=== PATIENT | male | born 1935 | race African-American/Black ===

== ENCOUNTER 2017-06-10 13:54 | Emergency (ER) | payer OTHER ==
[2017-06-10 14:24] VITALS: BP 156/65; PULSE 77; TEMP 98.2; BMI 27.1
--- NOTE | 2017-06-10 14:55 | PDOC ---
History of Present Illness - General Chief Complaint: Pain Stated Complaint: ABD PAIN Time Seen by Provider: 06/10/17 14:36 History Source: Family Exam Limitations: Clinical Condition (aphasic) - History of Present Illness Initial Comments: 06/10/17 15:30 82m with pmh of Asthma, pvd, chf, htn, hld, dm2, cva w/ R hemiplegia, dysphagia , dementia, afib and hypothyroidism sent from [facility] for scrotal mass with pain x3days. 06/10/17 16:20 06/10/17 16:24 Past History - Past Medical History Allergies/Adverse Reactions: Allergies Allergy/AdvReac Type Severity Reaction Status Date / Time No Known Allergies Allergy Verified 06/10/17 14:26 Home Medications: Ambulatory Orders Amlodipine Besylate [Norvasc -] 5 mg PO DAILY 06/10/17 Ascorbic Acid [Vitamin C -] 500 mg PO DAILY 06/10/17 Cholecalciferol (Vitamin D3) [Vitamin D3 -] 1,000 unit PO DAILY 06/10/17 Dabigatran Etexilate Mesylate [Pradaxa -] 150 mg PO BID 06/10/17 Dorzolamide HCl [Trusopt 2%] 1 drop OU BID 06/10/17 Enalapril Maleate [Vasotec] 10 mg PO BID 06/10/17 Ferrous Sulfate 325 mg PO DAILY 06/10/17 Folic Acid 1 mg PO DAILY 06/10/17 Furosemide [Lasix -] 40 mg PO DAILY 06/10/17 Latanoprost 0.005% Eye Drops [Xalatan 0.005% Eye Drops -] 1 drop HS 06/10/17 Levothyroxine [Synthroid -] 75 mcg PO DAILY 06/10/17 Metformin HCl 500 mg PO DAILY 06/10/17 Montelukast Na [Singulair -] 10 mg PO HS 06/10/17 Multivitamin [Poly-Vitamin] 1 each PO DAILY 06/10/17 Omeprazole 20 mg PO DAILY 06/10/17 Potassium Chloride 20 meq PO DAILY 06/10/17 Sulfamethoxazole/Trimethoprim [Bactrim Ds -] 1 tab PO BID #14 tablet 06/10/17 Sulfamethoxazole/Trimethoprim [Bactrim Ds -] 1 tab PO BID #30 tablet 06/10/17 Anemia: Yes Asthma: Yes Cardiac Disorders: Yes (PAD/CHF/A-FIB) CVA: Yes (DYSPHAGIC/APHASIC & RIGHT HEMIPARESIS/HEMIPLEGIC) Diabetes: Yes HTN: Yes Hypercholesterolemia: Yes Thyroid Disease: Yes (HYPO) Other medical history: Glaucoma/OSTOARTHRITIS - Surgical History GI Surgery: Yes ("ENTANGLED INTESTINAL REPAIR") - Immunization History Immunization Up to Date: Yes - Psycho/Social/Smoking Cessation Hx Suicidal Ideation: No Smoking History: Unknown if ever smoked Have you smoked in the past 12 months: No Information on smoking cessation initiated: No Hx Alcohol Use: No Drug/Substance Use Hx: No Substance Use Type: None *Physical Exam - Vital Signs Last Vital Signs Temp Pulse Resp BP Pulse Ox 98.2 F 77 18 156/65 100 06/10/17 14:09 06/10/17 14:09 06/10/17 14:09 06/10/17 14:09 06/10/17 14:09 - Physical Exam General Appearance: Yes: Nourished, Disheveled HEENT: positive: EOMI, DUSTY Neck: negative: Lymphadenopathy (R), Lymphadenopathy (L) Respiratory/Chest: positive: Wheezing (bilaterally) Cardiovascular: positive: Regular Rate, S1, S2 Vascular Pulses: Dorsalis-Pedis (R): 2+, Doralis-Pedis (L): 2+ Gastrointestinal/Abdominal: positive: Decreased BS, Protuberent, Distended. negative: Tender Male Genitalia: positive: testicular mass (Enlarged right testicle with edema. Scrotal sac enlarged and edematous but skin not tense.). negative: discharge, hematuria ED Treatment Course - LABORATORY CBC & Chemistry Diagram: 06/10/17 15:20 06/10/17 15:20 Medical Decision Making - Medical Decision Making 06/10/17 16:24 82m with pmh of Asthma, pvd, chf, htn, hld, dm2, cva w/ R hemiplegia, dysphagia , dementia, afib and hypothyroidism sent from [facility] for scrotal mass with pain x3days. R/o testicular torsion scrotal u/s pending r/o intestinal obstruction abdominal xray pending. 06/10/17 17:49 abdominal xray: Distended bowel loop, volvulus can't be excluded Scrotal u/s: No torsion, Epididymitis noted with b/l hydrocele. Blood Labs ok Urinalysis: +nitrites, 3+leukocyte esterase Pt placed on Bactrim 06/10/17 20:[address] abdomen with contrast for abdominal obstruction: pending 06/10/17 20:56 Since patient on metformin and getting contrast, wait 2 days before resuming metformin 06/10/17 22:44 Ct abdomen showed no evidence of obstruction. Discharge [facility] with course of bactrim *DC/Admit/Observation/Transfer Diagnosis at time of Disposition: Acute epididymitis - Prescriptions Prescriptions: Sulfamethoxazole/Trimethoprim [Bactrim Ds -] 1 tab PO BID #14 tablet - Referrals Referrals: Bryan Oliveira MD [Primary Care Provider] -
--- NOTE | 2017-06-10 15:31 | PDOC ---
Attending Attestation - Resident Resident Name: BenitezJeffrey - ED Attending Attestation I have performed the following: I have examined & evaluated the patient, The case was reviewed & discussed with the resident, I agree w/resident's findings & plan, Exceptions are as noted - HPI HPI: 06/10/17 15:26 82y/o M multiple medical problems including CVA/hemiplegia/aphasia, h/o bowel obstruction sent from [facility] for evaluation of scrotal mass and pain. Noted 3d ago, no other complaints. denies GI complaints of n/v/d/c, no urinary complaints. - Physicial Exam PE: 06/10/17 15:27 VSS soft, distended. ventral and umbilical hernias easily reducible, no tenderness : uncircumsized, no urethral discharge. large and tender R testicle with some irregularity, normal L testicle. no scrotal erythema/edema, no inguinal mass/LAD /hernia. no perineal infection/crepitus - Medical Decision Making 06/10/17 15:29 Patient seen and evaluated with the resident. I agree with the overall evaluation, assessment, and management with the following summary of visit: 82y/o M with R scrotal mass, no evidence of infection/torsion. Distended abdomen at baseline, r/o acute process. AXR scrotal sono dispo accordingly
[2017-06-10 15:48] LABS: BASOPHIL 0.5 % (0-2.0); EOSINOPHIL 1.3 % (0-4.5); MCH 22.6 pg (25.7-33.7); MCHC 31.2 g/dl (32.0-35.9); MEAN CELL VOLUME 72.3 fl (80-96); MEAN PLT VOLUME 9.6 fl (7.5-11.1); NEUTROPHILS 63.6 % (42.8-82.8); PLATELET COUNT 138 K/MM3 (134-434); RDW 14.2 % (11.9-15.9); WHITE BLOOD COUNT 4.8 K/mm3 (4.0-10.0)
[2017-06-10 16:12] LABS: ALBUMIN 3.2 g/dl (3.4-5.0); ANION GAP 9 (8-16); BILIRUBIN,TOTAL 0.3 mg/dL (0.2-1.0); CALCIUM 8.7 mg/dL (8.5-10.1); CO2 27 mmol/L (21-32); CREATININE 0.7 mg/dL (0.7-1.3); GLUCOSE,RANDOM 139 mg/dL (74-106); SGOT/AST 19 U/L (15-37); SGPT/ALT 17 U/L (12-78); TOT PROT 7.4 g/dl (6.4-8.2)
[2017-06-10 16:13] LABS: ALK PHOS 95 U/L (45-117)
[2017-06-10] MEDS ORDERED: SULFAMETHOXAZOLE/TRIMETHOPRIM 800MG/160MG D.S. TABLET PO ONE (18:10)
[2017-06-10 18:26] LABS: URINE APPEARANCE CLEAR; URINE BILIRUBIN NEGATIVE (NEGATIVE); URINE BLOOD NEGATIVE (NEGATIVE); URINE COLOR LTYELLOW; URINE GLUCOSE (UA) NEGATIVE (NEGATIVE); URINE KETONE NEGATIVE (NEGATIVE); URINE NITRITE POSITIVE (NEGATIVE); URINE PROTEIN NEGATIVE (NEGATIVE); URINE UROBILINOGEN NEGATIVE mg/dL (0.2-1.0)
[2017-06-10 18:27] LABS: URINE LEUK ESTERASE 3+ (NEGATIVE)
[2017-06-10] MEDS ORDERED: SULFAMETHOXAZOLE/TRIMETHOPRIM 800MG/160MG D.S. TABLET ONE ×2 (18:31→19:53)
[2017-06-10 19:42] LABS: URINE BACTERIA MODERATE /hpf (NONE SEEN); URINE RBC 1 /hpf (0-3); URINE WBC 29 /hpf (3-5)
[2017-06-10] MEDS ORDERED: SODIUM CHLORIDE 500 ML IV STA (19:47)
--- NOTE | 2017-06-10 22:52 | PDOC ---
*Physical Exam - Vital Signs Last Vital Signs Temp Pulse Resp BP Pulse Ox 98.2 F 77 18 156/65 100 06/10/17 14:09 06/10/17 14:09 06/10/17 14:09 06/10/17 14:09 06/10/17 14:09 ED Treatment Course - LABORATORY CBC & Chemistry Diagram: 06/10/17 15:20 06/10/17 15:20 - ADDITIONAL ORDERS Additional order review: Laboratory Results 06/10/17 06/10/17 18:13 15:20 Sodium 135 L Potassium 4.0 Chloride 99 Carbon Dioxide 27 Anion Gap 9 BUN 11 Creatinine 0.7 Creat Clearance w eGFR > 60 Random Glucose 139 H Calcium 8.7 Total Bilirubin 0.3 AST 19 ALT 17 Alkaline Phosphatase 95 Total Protein 7.4 Albumin 3.2 L Urine Color Ltyellow Urine Appearance Clear Urine pH 6.0 Ur Specific Briscoe 1.010 Urine Protein Negative Urine Glucose (UA) Negative Urine Ketones Negative Urine Blood Negative Urine Nitrite Positive Urine Bilirubin Negative Urine Urobilinogen Negative Ur Leukocyte Esterase 3+ H Urine RBC 1 Urine WBC 29 Urine Bacteria Moderate 06/10/17 15:20 RBC 4.90 MCV 72.3 L MCHC 31.2 L RDW 14.2 MPV 9.6 Neutrophils % 63.6 Lymphocytes % 18.6 Monocytes % 16.0 H Eosinophils % 1.3 Basophils % 0.5 - Medications Given in the ED: ED Medications Discontinued Medications Generic Name Dose Route Start Last Admin Trade Name Freq PRN Reason Stop Dose Admin Sodium Chloride 500 mls @ 500 mls/hr 06/10/17 19:47 06/10/17 20:13 Normal Saline - IV 06/10/17 20:46 500 mls/hr ASDIR STA Administration Trimethoprim/Sulfamethoxazole 1 each 06/10/17 18:10 06/10/17 20:13 Bactrim Ds - PO 06/10/17 18:11 1 each ONCE ONE Administration Medical Decision Making - Medical Decision Making 06/10/17 22:47 ultrasound showed NO TORSION , -heterogeneous testes and epididymides -small b/l hydroceles pt found to have urinary infection and started on antibiotics *DC/Admit/Observation/Transfer Diagnosis at time of Disposition: Acute epididymitis - Prescriptions Prescriptions: Sulfamethoxazole/Trimethoprim [Bactrim Ds -] 1 tab PO BID #30 tablet Sulfamethoxazole/Trimethoprim [Bactrim Ds -] 1 tab PO BID #14 tablet - Referrals Referrals: Bryan Oliveira MD [Primary Care Provider] - - Patient Instructions - Post Discharge Activity
[2017-06-11] MEDS ORDERED: ALBUTEROL SO4 2.5/IPRATROPIUM 0.5 INH SOL 3 ML VIAL.NEB. NEB ONE (00:24)
[2017-06-11] MEDS ORDERED: ALBUTEROL SO4 0.083% IH SOL 2.5 MG/3 ML VIAL.NEB. NEB ONE (00:26)
== END 2017-06-11 00:36 ==
LOC: JER 13:54
PROC: 3E0337Z Introduction of Electrolytic and Water Balance Substance into Peripheral Vein, Percutaneous Approach (ICD-10-PCS; principal; 2017-06-10)
PROC: 3E0F7GC Introduction of Other Therapeutic Substance into Respiratory Tract, Via Natural or Artificial Opening (ICD-10-PCS; 2017-06-10)
DX: N45.1 Epididymitis (principal); N43.2 Other hydrocele; I25.10 Atherosclerotic heart disease of native coronary artery without angina pectoris; I11.0 Hypertensive heart disease with heart failure; I48.91 Unspecified atrial fibrillation; E78.00 Pure hypercholesterolemia, unspecified; J45.909 Unspecified asthma, uncomplicated; E11.9 Type 2 diabetes mellitus without complications; Z79.84 Long term (current) use of oral hypoglycemic drugs; E03.9 Hypothyroidism, unspecified; F03.90 Unspecified dementia, unspecified severity, without behavioral disturbance, psychotic disturbance, mood disturbance, and anxiety; I69.820 Aphasia following other cerebrovascular disease; I69.821 Dysphasia following other cerebrovascular disease; I69.851 Hemiplegia and hemiparesis following other cerebrovascular disease affecting right dominant side
CPT/HCPCS: 36415; 74020-TC; 74177-TC; 76870-TC; 80053; 81003; 81015; 85025; 87086; 87186; 94640; 96360; 99285-25

== ENCOUNTER 2019-03-07 21:21 | Inpatient (IN) | payer OTHER ==
[2019-03-07 21:27] VITALS: BMI 26.6
--- NOTE | 2019-03-07 21:52 | PDOC ---
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 Per the patient's long term, the patient is usually verbally aggressive and was not today which was a changed from baseline. They patient had do not hospitalize on his paperwork, however the family was contacted and his healthcare proxy wished the patient be sent to the hospital for evaluation. Per the patient's healthcare proxy, the patient is to be hospitalized should his work up show a need for hospitalization. The patient is aphasic at baseline and appears at baseline here in the ED. ROS is unobtainable due to patient's aphasia. Past History - Past Medical History Allergies/Adverse Reactions: Allergies Allergy/AdvReac Type Severity Reaction Status Date / Time No Known Allergies Allergy Verified 06/10/17 14:26 Home Medications: Ambulatory Orders Amlodipine Besylate [Norvasc -] 5 mg PO DAILY 06/10/17 Ascorbic Acid [Vitamin C -] 500 mg PO DAILY 06/10/17 Cholecalciferol (Vitamin D3) [Vitamin D3 -] 1,000 unit PO DAILY 06/10/17 Dabigatran Etexilate Mesylate [Pradaxa -] 150 mg PO BID 06/10/17 Dorzolamide HCl [Trusopt 2%] 1 drop OU BID 06/10/17 Enalapril Maleate [Vasotec] 10 mg PO BID 06/10/17 Ferrous Sulfate 325 mg PO DAILY 06/10/17 Folic Acid 1 mg PO DAILY 06/10/17 Furosemide [Lasix -] 40 mg PO DAILY 06/10/17 Latanoprost 0.005% Eye Drops [Xalatan 0.005% Eye Drops -] 1 drop OU HS 06/10/17 Levothyroxine [Synthroid -] 75 mcg PO DAILY 06/10/17 Montelukast Na [Singulair -] 10 mg PO HS 06/10/17 Multivitamin [Poly-Vitamin] 1 each PO DAILY 06/10/17 Omeprazole 20 mg PO DAILY 07/25/17 Potassium Chloride 20 meq PO DAILY 06/10/17 metFORMIN HCL [Metformin HCl] 500 mg PO DAILY 06/10/17 Acetaminophen [Tylenol] 650 mg PO DAILY 03/07/19 Budesonide [Pulmicort 0.5 mg Nebulizer -] 1 neb NEB ONCE 03/07/19 Docusate Sodium [Colace] 100 mg PO DAILY 03/07/19 Ipratropium/Albuterol Sulfate [Iprat-Albut 0.5-3(2.5) mg/3 ml] 3 ml IH DAILY Sennosides [Senna] 17.2 mg PO HS 03/07/19 Silver Sulfadiazine 1% Top Cr [Silvadene -] 1 applic TP DAILY 03/07/19 Anemia: Yes Asthma: Yes Cardiac Disorders: Yes (PAD/CHF/A-FIB) CVA: Yes (DYSPHAGIC/APHASIC & RIGHT HEMIPARESIS/HEMIPLEGIC) COPD: No Diabetes: Yes HTN: Yes Hypercholesterolemia: Yes Thyroid Disease: Yes (HYPO) - Surgical History GI Surgery: Yes ("ENTANGLED INTESTINAL REPAIR") - Immunization History Immunization Up to Date: Yes - Suicide/Smoking/Psychosocial Hx Smoking History: Unknown if ever smoked Have you smoked in the past 12 months: No Hx Alcohol Use: No Drug/Substance Use Hx: No Substance Use Type: None Review of Systems - Review of Systems Able to Perform ROS?: No (Aphasia/ AMS) *Physical Exam - Vital Signs Last Vital Signs Temp Pulse Resp BP Pulse Ox 98.2 F 89 19 151/68 100 03/07/19 21:21 03/07/19 21:21 03/07/19 21:21 03/07/19 21:21 03/07/19 21:21 - Physical Exam Comments: 03/07/19 22:32 General Appearance: Nourished. No Apparent Distress HEENT: EOMI, DUSTY. No Pharyngeal Erythema, Tonsillar Exudate, Tonsillar Erythema Neck: No Cervical Lymphadenopathy Respiratory/Chest: Normal Breath Sounds. Scant wheezing noted on exam. No Crackles, Rales, Rhonchi, Cardiovascular: Regular Rhythm, Regular Rate. No Murmur, Gallops, Rubs Gastrointestinal/Abdominal: Normal Bowel Sounds, Soft. No Guarding, Rebound, Tenderness Musculoskeletal: No CVA Tenderness Extremity: Normal Capillary Refill Integumentary: Normal Color, Dry, Warm Neurologic: assorter II-XII NML intact, Right sided hemiplegia with contractions. 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 Given the patient's history and physical exam, we will obtain a cbc, cmp, troponin, ua, chest plain film, ekg, head ct to evaluate further. We will continue to monitor and reassess while here in the ED. 03/08/19 02:12 CBC is unremarkable. CMP is unremarkable. Troponin is elevated to 0.09. UA demonstrates positive leuk esterase with elevated wbc consistent with UTI. Chest plain film is unremarkable. We will treat the patient with ceftriaxone and he will require obs admission for further management. We discussed the case with the admitting team who accepted the patient for admission. *DC/Admit/Observation/Transfer Diagnosis at time of Disposition: Altered mental status Qualifiers: Altered mental status type: unspecified Qualified Code(s): R41.82 - Altered mental status, unspecified UTI (urinary tract infection) Qualifiers: Urinary tract infection type: site unspecified Hematuria presence: without hematuria Qualified Code(s): N39.0 - Urinary tract infection, site not specified - Discharge Dispostion Condition at time of disposition: Stable Decision to Admit order: Yes - Referrals - Patient Instructions - Post Discharge Activity
[2019-03-07 22:41] LABS: BASO % 0.3 % (0-2.0); EOS % 0.6 % (0-4.5); HEMATOCRIT 32.9 % (35.4-49); HEMOGLOBIN 10.5 GM/dL (11.7-16.9); LYMPH % 29.9 % (8-40); MCH 23.2 pg (25.7-33.7); MCHC 31.9 g/dl (32.0-35.9); MEAN CELL VOLUME 72.7 fl (80-96); MEAN PLT VOLUME 8.6 fl (7.5-11.1); MONO % 12.4 % (3.8-10.2); NEUT % 56.8 % (42.8-82.8); PLATELET COUNT 100 K/MM3 (134-434); RBC 4.52 M/mm3 (4.00-5.60); RDW 15.1 % (11.9-15.9); WHITE BLOOD COUNT 3.1 K/mm3 (4.0-10.0)
[2019-03-07 23:00] LABS: EPI CELLS 0.1 /HPF (0-5/HPF); URINE APPEARANCE CLOUDY; URINE BACTERIA 3225.8 /hpf (NEGATIVE); URINE BILIRUBIN NEGATIVE (NEGATIVE); URINE CASTS 18 /lpf (0-8); URINE COLOR YELLOW; URINE GLUCOSE (UA) NEGATIVE (NEGATIVE); URINE KETONE NEGATIVE (NEGATIVE); URINE LEUK ESTERASE 3+ (NEGATIVE); URINE NITRITE NEGATIVE (NEGATIVE); URINE PROTEIN 1+ (NEGATIVE); URINE RBC 1 /hpf (0-4); URINE UROBILINOGEN 0.2 mg/dL (0.2-1.0); URINE WBC 37 /hpf (0-5)
[2019-03-07 23:05] LABS: ALK PHOS 109 U/L (45-117); ANION GAP 9 MMOL/L (8-16); BILIRUBIN,TOTAL 0.2 mg/dL (0.2-1); BLOOD UREA NITROGEN 14 mg/dL (7-18); CALCIUM 8.2 mg/dL (8.5-10.1); CHLORIDE 101 mmol/L (98-107); CO2 23 mmol/L (21-32); CREATININE 0.7 mg/dL (0.55-1.3); GLUCOSE,RANDOM 145 mg/dL (74-106); POTASSIUM 4.1 mmol/L (3.5-5.1); SGOT/AST 19 U/L (15-37); SGPT/ALT 14 U/L (13-61); SODIUM 133 mmol/L (136-145); TOT PROT 7.2 g/dl (6.4-8.2)
[2019-03-07] MEDS ORDERED: CEFTRIAXONE 1 GM in DEXTROSE 5%-WATER - 100 ML IVPB ONE (23:36)
[2019-03-07] MEDS ORDERED: CEFTRIAXONE 2 GM/100 ML BAG IVPB ONE (23:54)
[2019-03-07 23:55] LABS: ANISOCYTOSIS 2+; MACROCYTOSIS 1+
[2019-03-07 23:56] LABS: PLATELET ESTIMATE DECREASED
[2019-03-07] MEDS ORDERED: cefTRIAXone SODIUM 1 GM VIAL ONE (23:59)
--- NOTE | 2019-03-08 00:08 | PN ---
Teaching Attending Note Name of Resident: Marii Herrera ATTENDING PHYSICIAN STATEMENT I saw and evaluated the patient. I reviewed the resident's note and discussed the case with the resident. I agree with the resident's findings and plan as documented. SUBJECTIVE: Seen and examined; please refer to resident note for further historical documentation. PMH of HTN, HLD, Afib on Pradaxa, CVA w/ residual R-sided deficits/aphasia. He presents with AMS from [facility] and has a limited history due to his baseline dementia (AAOx1 when I saw him). At the [place] he was noted to be off his baseline (normally curses, but has been less quiet) and was noted to have SBP >200. He needed to be straight cathed in the ER to get the urine out. SBP 150s in the ER. He is noted to have mildly elevated troponin and is also noted to have a positive UA. Unknown if any history of prostate issues, etc. He points to his abdomen numerous times during our encounter and it is not clear if he is communicating pain, etc. He is noted to be largely distended; imaging pending. 10 sys ROS done and negative aside from HPI PMH, PSH, FH, SH reviewed Home Medications Medication Instructions Recorded Amlodipine Besylate [Norvasc -] 5 mg PO DAILY 06/10/17 Ascorbic Acid [Vitamin C -] 500 mg PO DAILY 06/10/17 Cholecalciferol (Vitamin D3) 1,000 unit PO DAILY 06/10/17 [Vitamin D3 -] Dabigatran Etexilate Mesylate 150 mg PO BID 06/10/17 [Pradaxa -] Dorzolamide HCl [Trusopt 2%] 1 drop OU BID 06/10/17 Enalapril Maleate [Vasotec] 10 mg PO BID 06/10/17 Ferrous Sulfate 325 mg PO DAILY 06/10/17 Folic Acid 1 mg PO DAILY 06/10/17 Furosemide [Lasix -] 40 mg PO DAILY 06/10/17 Latanoprost 0.005% Eye Drops 1 drop OU HS 06/10/17 [Xalatan 0.005% Eye Drops -] Levothyroxine [Synthroid -] 75 mcg PO DAILY 06/10/17 Montelukast Na [Singulair -] 10 mg PO HS 06/10/17 Multivitamin [Poly-Vitamin] 1 each PO DAILY 06/10/17 Omeprazole 20 mg PO DAILY 06/10/17 Potassium Chloride 20 meq PO DAILY 06/10/17 metFORMIN HCL [Metformin HCl] 500 mg PO DAILY 06/10/17 Acetaminophen [Tylenol] 650 mg PO DAILY 03/07/19 Budesonide [Pulmicort 0.5 mg 1 neb NEB ONCE 03/07/19 Nebulizer -] Docusate Sodium [Colace] 100 mg PO DAILY 03/07/19 Ipratropium/Albuterol Sulfate 3 ml IH DAILY 03/07/19 [Iprat-Albut 0.5-3(2.5) mg/3 ml] Sennosides [Senna] 17.2 mg PO HS 03/07/19 Silver Sulfadiazine 1% Top Cr 1 applic TP DAILY 03/07/19 [Silvadene -] OBJECTIVE: VS, labs, and imaging reviewed NAD, AAOx1, resting in bed confused but interactive responding to verbal and painful stimuli keenly NC AT EOMI PERRLA Normal HR, irregular rhythm, s1/2 heard Lungs with poor respiratory effort, w/ sym exp Vaguely tender, largely distended +BS Aphasia noted; R-sided neglect noted, difficult to do full neuro exam but apparent R>L weakness which based on history is baseline Not agitated, doesn't appear to be in pain ASSESSMENT AND PLAN: Patient presents from [facility] with altered mental status and is found to have UTI and positive troponin 1) AMS -DDx broad, but of course concerning for the obvious cystitis and urinary retention. His BP was documented as being high at the [place] but it was normal here ; AMS can result from a HTN emergency as well. Will treat the aformentioned. Placing him on neuro checks and seizure precautions. Assuming this could be 2/ 2 toxic metabolic encephalopathy as stated but of course if he worsens we will involve neurology, etc. -Followup CT head to r/o any CVA, etc. Would be inclined to involve neuro should this come back positive. 2) Acute Cystitis -Previous cx's reviewed; followup blood and urine cx and place on empiric ceftriaxone, adjusting coverage if needed. He cannot say whether he is symptomatic or not. 3) Acute Urinary Retention -Repeat bladder scan; if recurring issue can place fernández and involve urology. 4) Troponemia -Apparent prior cardiac history based on meds, etc. Working to get old records. Consulting CV. EKG without belem abberant ST-T changes from 2009. Will monitor on telemetry, trend troponin, consult CV, and check echo for any wma's. -Cause could be ACS vs. HTN emergency (though no high pressures here at this juncture I am told he was >200 at the [place]) -Elucidate goals of care 5) Hypertension (? Emergency at [place] but normotensive here) -Verify and continue home meds; if indeed his pressure was >200 (would have resolved spontaneously) this could explain the troponemia, etc. 6) Afib on Pradaxa -Verify and continue home medications; noted on admission EKG 7) GERD hx -Verify and continue home PPI 8) DM -Hold PO antihyperglycemics, SSI while inpatient 9) Glaucoma -Verify and continue home eyedrops 10) ? CHF -No prior echo or cardiology records; will work to obtain history. Consutling CV. Continue home diuresis. Paperwork from [place] states DNR/I; will complete in chart within 24 hours ER verified with family that they did want hospitalization Resident team updating medicine list from [place] records; will verify
--- NOTE | 2019-03-08 00:25 | HP ---
CHIEF COMPLAINT: "AMS" PCP: Dr. 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 As per staff at [facility] and ED staff, pt had AMS at the [facility] today , as he usually curses at people which he was not doing today. According to paperwork, he was also "restless" and had a BP of ~214/62, also leading to his need for further evaluation. During my exam, pt AAOx1 and with severe aphasia, unable to answer questions to the point or follow commands. ROS unable to obtain for this reason. Pt bedbound at baseline, does not ambulate. On [facility] paperwork, states [facility], however ED staff d/w family who wants him to be hospitalized. He is DNR/DNI. Of note, pt had a ucx+ Citrobacter that was resistant to amp, cefuroxime. ER course was notable for: (1) rocephinx 1 (2) CTH prelim: hypodensity in the L occipital lobe representing possible acute/ subacute infarct (3) CTAP prelim: suspected colonic ileus, significant air distension sigmoid colon, small R inguinal hernia with portion of bladder Recent Travel: denies PAST MEDICAL HISTORY: as above PAST SURGICAL HISTORY: unable to obtain d/t pt mental status Social History: as above Smoking: Alcohol: Drugs: Family History: as above Allergies No Known Allergies Allergy (Verified 06/10/17 14:26) HOME MEDICATIONS: Home Medications Medication Instructions Recorded Amlodipine Besylate [Norvasc -] 5 mg PO DAILY 06/10/17 Ascorbic Acid [Vitamin C -] 500 mg PO DAILY 06/10/17 Cholecalciferol (Vitamin D3) 1,000 unit PO DAILY 06/10/17 [Vitamin D3 -] Dabigatran Etexilate Mesylate 150 mg PO BID 06/10/17 [Pradaxa -] Dorzolamide HCl [Trusopt 2%] 1 drop OU BID 06/10/17 Enalapril Maleate [Vasotec] 10 mg PO BID 06/10/17 Ferrous Sulfate 325 mg PO DAILY 06/10/17 Folic Acid 1 mg PO DAILY 06/10/17 Furosemide [Lasix -] 40 mg PO DAILY 06/10/17 Latanoprost 0.005% Eye Drops 1 drop OU HS 06/10/17 [Xalatan 0.005% Eye Drops -] Levothyroxine [Synthroid -] 75 mcg PO DAILY 06/10/17 Montelukast Na [Singulair -] 10 mg PO HS 06/10/17 Multivitamin [Poly-Vitamin] 1 each PO DAILY 06/10/17 Omeprazole 20 mg PO DAILY 06/10/17 Potassium Chloride 20 meq PO DAILY 06/10/17 metFORMIN HCL [Metformin HCl] 500 mg PO DAILY 06/10/17 Acetaminophen [Tylenol] 650 mg PO DAILY 03/07/19 Budesonide [Pulmicort 0.5 mg 1 neb NEB ONCE 03/07/19 Nebulizer -] Docusate Sodium [Colace] 100 mg PO DAILY 03/07/19 Ipratropium/Albuterol Sulfate 3 ml IH DAILY 03/07/19 [Iprat-Albut 0.5-3(2.5) mg/3 ml] Sennosides [Senna] 17.2 mg PO HS 03/07/19 Silver Sulfadiazine 1% Top Cr 1 applic TP DAILY 03/07/19 [Silvadene -] meds have been verified with paperwork. REVIEW OF SYSTEMS CONSTITUTIONAL: +AMS Absent: fever, chills, diaphoresis, generalized weakness, malaise, loss of appetite, weight change HEENT: Absent: rhinorrhea, nasal congestion, throat pain, throat swelling, difficulty swallowing, mouth swelling, ear pain, eye pain, visual changes CARDIOVASCULAR: Absent: chest pain, syncope, palpitations, irregular heart rate, lightheadedness , peripheral edema RESPIRATORY: Absent: cough, shortness of breath, dyspnea with exertion, orthopnea, wheezing, stridor, hemoptysis GASTROINTESTINAL: Absent: abdominal pain, abdominal distension, nausea, vomiting, diarrhea, constipation, melena, hematochezia GENITOURINARY: Absent: dysuria, frequency, urgency, hesitancy, hematuria, flank pain, genital pain MUSCULOSKELETAL: Absent: myalgia, arthralgia, joint swelling, back pain, neck pain SKIN: Absent: rash, itching, pallor HEMATOLOGIC/IMMUNOLOGIC: Absent: easy bleeding, easy bruising, lymphadenopathy, frequent infections ENDOCRINE: Absent: unexplained weight gain, unexplained weight loss, heat intolerance, cold intolerance NEUROLOGIC: +baseline aphasia Absent: headache, focal weakness or paresthesias, dizziness, unsteady gait, seizure, mental status changes, bladder or bowel incontinence PSYCHIATRIC: Absent: anxiety, depression, suicidal or homicidal ideation, hallucinations. PHYSICAL EXAMINATION Vital Signs - 24 hr 03/07/19 21:21 Temperature 98.2 F Pulse Rate 89 Respiratory 19 Rate Blood Pressure 151/68 O2 Sat by Pulse 100 Oximetry (%) GENERAL: AAOx1 (to self). Resting comfortably. Smiling HEAD: Normal with no signs of trauma. EYES: Pupils equal, round and reactive to light, extraocular movements intact, sclera anicteric, conjunctiva clear. No lid lag. EARS, NOSE, THROAT: Ears normal, nares patent, oropharynx clear without exudates. +Poor dentition NECK: Normal range of motion, supple LUNGS: Breath sounds equal, clear to auscultation bilaterally. No wheezes, and no crackles. No accessory muscle use. HEART: +irreg irreg rate and rhythm, normal S1 and S2 without murmur, rub or gallop. ABDOMEN: Soft, +distended, normoactive bowel sounds, no guarding, no rebound, no masses. UPPER EXTREMITIES: +contracted R arm LOWER EXTREMITIES: 2+ pt pulses, warm, well-perfused. 1+ pitting edema b/l NEUROLOGICAL: station superintendent 2-12 appear to be intact. however w baseline aphasia and residual R sided weakness. would not participate in full neuro exam. PSYCHIATRIC: Cooperative. Laboratory Results - last 24 hr 03/07/19 03/07/19 03/07/19 22:33 22:33 22:48 WBC 3.1 L RBC 4.52 Hgb 10.5 L Hct 32.9 L MCV 72.7 L MCH 23.2 L MCHC 31.9 L RDW 15.1 Plt Count 100 L D MPV 8.6 D Absolute Neuts (auto) 1.8 Neutrophils % 56.8 Neutrophils % (Manual) 56.0 Lymphocytes % 29.9 D Lymphocytes % (Manual) 32.0 Monocytes % 12.4 H Monocytes % (Manual) 10 Eosinophils % 0.6 Basophils % 0.3 Nucleated RBC % 0 Metamyelocytes 2 Hypochromia 1+ Platelet Estimate Decreased Platelet Comment No clumping noted Anisocytosis 2+ Microcytosis 1+ Macrocytosis 1+ Sodium 133 L Potassium 4.1 Chloride 101 Carbon Dioxide 23 Anion Gap 9 BUN 14 Creatinine 0.7 Creat Clearance w eGFR 107.70 Random Glucose 145 H Calcium 8.2 L Total Bilirubin 0.2 AST 19 ALT 14 Alkaline Phosphatase 109 Creatine Kinase 416 H Creatine Kinase Index 0.9 CK-MB (CK-2) 3.8 H Troponin I 0.09 H Total Protein 7.2 Albumin 3.0 L Urine Color Yellow Urine Appearance Cloudy Urine pH 5.0 Ur Specific [place]ola 1.014 Urine Protein 1+ H Urine Glucose (UA) Negative Urine Ketones Negative Urine Blood 1+ H Urine Nitrite Negative Urine Bilirubin Negative Urine Urobilinogen 0.2 Ur Leukocyte Esterase 3+ H Urine WBC (Auto) 37 Urine RBC (Auto) 1 Urine Casts (Auto) 18 U Epithel Cells (Auto) 0.1 Urine Bacteria (Auto) 3225.8 CTH prelim: hypodensity in the L occipital lobe representing possible acute/ subacute infarct. however follow official read. EKG: +L axis dev, afib with PVCs. without acute st-t wave changes compared to previously CTAP prelim: suspected colonic ileus, significant air distension sigmoid colon, small R inguinal hernia with portion of bladder. L renal scarring and atrophy with a 10mm proximal to mid L ureteral stone but no hydronephrosis. Additional left renal parenchymal stones. 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 #AMS 2/2 UTI -s/p rocephin x 1 in ED -will c/w rocephin -f/u ucx, blood cx -bladder scan to check for retention. with abd distension. can cause stasis -f/u CTH to check for alternate acute etiology. -neuro checks, sz precautions 2/2 Acute CVA -as seen on prelim CTH in L occipital lobe rep possible acute/subacute infarct -will order brain MRI -started on asa, statin -neuro consult: Dr. Solis #Tropinemia likely 2/2 demand from UTI -may also be 2/2 HTN urgency from NH -first trop 0.09. will c/t trend -serial EKG to check if changes evolving -d/t pt aphasia, difficult to ascertain whether pt with active chest pain -cardio consult: Dr. Doll -tele monitoring. need to find out pt's cardio and obtain files #Abdom distension -with colonic ileus, small R inguinal hernia with portion of bladder -sx consult: Dr. Casiano #10mm prox to mid L ureteral stone -without evidence of L hydro -will order fernández -uro consult: Dr. Curtis #Thrombocytopenia -has had chronically. last was in 130's -f/u hep C, HIV #afib (on pradaxa) -c/w pradaxa #HTN-uncontrolled -c/w amlodipine, enalapril #?CHF -without record of, however on lasix -c/w lasix for now -f/u ECHO #DM -ISS, BGM ACHS -hold metformin #COPD -c/w singulair, 02 as needed. sat well in 90s on 2L -duonebs PRN #code status as per paperwork, DNR/DNI. also states [facility] however ED staff contacted family who approved hospitalization #F/E/N no IVF at this time, need to evaluate ECHO first continue to follow lytes NPO. speech and swallow consult #PPX on pradaxa #Dispo tele-obs Visit type - Emergency Visit Emergency Visit: Yes ED Registration Date: 03/07/19 Care time: The patient presented to the Emergency Department on the above date and was hospitalized for further evaluation of their emergent condition. - New Patient This patient is new to me today: Yes Date on this admission: 03/08/19 - Critical Care Critical Care patient: No
[2019-03-08] MEDS ORDERED: BUDESONIDE 0.5 MG/2 ML INH SUSP VIAL NEB SCH (00:30)
--- NOTE | 2019-03-08 01:59 | PDOC ---
Documentation entered by Fatuma Thomas SCRIBE, acting as scribe for Joselin Mensah MD. Joselin Mensah MD: This documentation has been prepared by the William bello Nirvannie, SCRIBE, under my direction and personally reviewed by me in its entirety. I confirm that the documentation accurately reflects all work, treatment, procedures, and medical decision making performed by me. Attending Attestation - Resident Resident Name: Aram Islas - ED Attending Attestation I have performed the following: I have examined & evaluated the patient, The case was reviewed & discussed with the resident, I agree w/resident's findings & plan - HPI HPI: 03/07/19 22:17 83-year-old male brought in by ambulance from long term for altered mental status. Apparently they said he is always aggitated and swearing and now he is not aggressive skilled nursing papers code status is DO NOT HOSPITALIZE - Physicial Exam PE: 03/07/19 22:19 83 yo male p/w stable vital signs He is afebrile, normotensive and pulse ox that is normal head ncat neck supple lungs scant exp wheeze cvs irrg ,irreg abd distended, reducible umbilical hernia extremities rt leg is swollen w pedal edema, left leg has no edema skin warm and dry neuro alert,aphasic and rt arm contracted(this is his baseline) psych calm,not agitated - Medical Decision Making 03/07/19 22:32 Call placed to pt's brother Mr. Bryson Velasco, made aware despite Do Not Hospitalize order to hospitalize if necessary. 03/08/19 00:16 Family states they want pt admitted for IV antibiotics imp UTI,chronic AFIB, old cva w rt sided arm contrature,aphasia(baseline) 03/08/19 01:19
[2019-03-08] MEDS: ASPIRIN 81 MG CHEWABLE TABLETS PO SCH ×2 (03:41→12:29)
[2019-03-08] MEDS: ATORVASTATIN CA 40 MG TABLET (FP) PO SCH (03:56)
[2019-03-08] MEDS ORDERED: LEVOTHYROXINE NA 25 MCG TABLET (FP) ONE (06:44)
[2019-03-08] MEDS: INSULIN SLIDING SCALE (NOVOLOG) 1 VIAL SQ SCH ×3 (07:09→17:59)
[2019-03-08] MEDS: LEVOTHYROXINE NA 75 MCG TABLET (FP) PO SCH (07:10)
--- NOTE | 2019-03-08 08:59 | CON.CARD ---
Consult Consult Specialty:: Cardiology Reason for Consultation:: Afib, demand ischemia - History of Present Illness Chief Complaint: Altered mental status History of Present Illness: 83 yo NHR h/o HTN, HLD, Afib on Pradaxa, CVA w/ residual R-sided deficits/ aphasia, hypothyroidism presented with AMS from [facility] and has a limited history due to his baseline dementia (AAOx1 when I saw him). At the [place] he was noted to be off his baseline (normally curses, but has been less quiet) and was noted to have SBP >200. He needed to be straight cathed in the ER to get the urine out. SBP 150s in the ER. He is noted to have mildly elevated troponin and is also noted to have a positive UA. Unknown if any history of prostate issues, etc, abdomen appears distended. - History Source History Provided By: Medical Record Limitations to Obtaining History: Dementia - Alcohol/Substance Use Hx Alcohol Use: No - Smoking History Smoking history: Unknown if ever smoked Have you smoked in the past 12 months: No Home Medications - Allergies Allergies/Adverse Reactions: Allergies Allergy/AdvReac Type Severity Reaction Status Date / Time No Known Allergies Allergy Verified 06/10/17 14:26 - Home Medications Home Medications: Ambulatory Orders Amlodipine Besylate [Norvasc -] 5 mg PO DAILY 06/10/17 Ascorbic Acid [Vitamin C -] 500 mg PO DAILY 06/10/17 Cholecalciferol (Vitamin D3) [Vitamin D3 -] 1,000 unit PO DAILY 06/10/17 Dabigatran Etexilate Mesylate [Pradaxa -] 150 mg PO BID 06/10/17 Dorzolamide HCl [Trusopt 2%] 1 drop OU BID 06/10/17 Enalapril Maleate [Vasotec] 10 mg PO BID 06/10/17 Ferrous Sulfate 325 mg PO DAILY 06/10/17 Folic Acid 1 mg PO DAILY 06/10/17 Furosemide [Lasix -] 40 mg PO DAILY 06/10/17 Latanoprost 0.005% Eye Drops [Xalatan 0.005% Eye Drops -] 1 drop OU HS 06/10/17 Levothyroxine [Synthroid -] 75 mcg PO DAILY 06/10/17 Montelukast Na [Singulair -] 10 mg PO HS 06/10/17 Multivitamin [Poly-Vitamin] 1 each PO DAILY 06/10/17 Omeprazole 20 mg PO DAILY 06/10/17 Potassium Chloride 20 meq PO DAILY 06/10/17 metFORMIN HCL [Metformin HCl] 500 mg PO DAILY 06/10/17 Acetaminophen [Tylenol] 650 mg PO DAILY 03/07/19 Budesonide [Pulmicort 0.5 mg Nebulizer -] 1 neb NEB ONCE 03/07/19 Docusate Sodium [Colace] 100 mg PO DAILY 03/07/19 Ipratropium/Albuterol Sulfate [Iprat-Albut 0.5-3(2.5) mg/3 ml] 3 ml IH DAILY Sennosides [Senna] 17.2 mg PO HS 03/07/19 Silver Sulfadiazine 1% Top Cr [Silvadene -] 1 applic TP DAILY 03/07/19 Review of Systems Unable to obtain ROS, reason: Dementia Vital Signs: Vital Signs Temperature 97.6 F 03/08/19 06:00 Pulse Rate 105 H 03/08/19 06:00 Respiratory Rate 18 03/08/19 06:00 Blood Pressure 119/71 03/08/19 06:00 O2 Sat by Pulse Oximetry (%) 99 03/08/19 06:00 Constitutional: Yes: No Distress, Calm, Thin Neck: Yes: Supple Respiratory: Yes: Regular, Diminished Gastrointestinal: Yes: Distention Renal/: Yes: Love Present Cardiovascular: Yes: Pulse Irregular JVD: No Carotid Bruit: No Heart Sounds: Yes: S1, S2 Murmur: Yes: Systolic Murmur, Grade 1 Edema: No - Other Data Labs, Other Data: CBC, BMP 03/07/19 22:33 03/07/19 22:33 Troponin, BNP 03/07/19 03/08/19 22:33 06:10 Troponin I 0.09 H 0.13 H Troponin, BNP 03/07/19 03/08/19 22:33 06:10 Troponin I 0.09 H 0.13 H EKG: +L axis dev, afib with PVCs. without acute st-t wave changes compared to previously Imaging - Results Chest X-ray: Report Reviewed (Left middle and upper lung infiltrate vs ATX) Cat Scan: Report Reviewed (CTH prelim: hypodensity in the L occipital lobe representing possible acute/subacute infarct. however follow official read. CTAP prelim: suspected colonic ileus, significant air distension sigmoid colon, small R inguinal hernia with portion of bladder. L renal scarring and atrophy with a 10mm proximal to mid L ureteral stone but no hydronephrosis. Additional left renal parenchymal stones. +infrarenal IVC filter noted) Problem List - Problems (1) Persistent atrial fibrillation Code(s): I48.1 - PERSISTENT ATRIAL FIBRILLATION (2) Toxic metabolic encephalopathy Code(s): G92 - TOXIC ENCEPHALOPATHY (3) Hypertensive cardiomyopathy Code(s): I11.9 - HYPERTENSIVE HEART DISEASE WITHOUT HEART FAILURE; I43 - CARDIOMYOPATHY IN DISEASES CLASSIFIED ELSEWHERE Qualifiers: Heart failure presence: without heart failure Qualified Code(s): I11.9 - Hypertensive heart disease without heart failure; I43 - Cardiomyopathy in diseases classified elsewhere (4) Chronic anticoagulation Code(s): Z79.01 - FDC (CURRENT) USE OF ANTICOAGULANTS (5) H/O: stroke with residual effects Code(s): I69.30 - UNSPECIFIED SEQUELAE OF CEREBRAL INFARCTION (6) Altered mental status Code(s): R41.82 - ALTERED MENTAL STATUS, UNSPECIFIED Qualifiers: Altered mental status type: somnolence Qualified Code(s): R40.0 - Somnolence (7) UTI (urinary tract infection) Code(s): N39.0 - URINARY TRACT INFECTION, SITE NOT SPECIFIED Qualifiers: Urinary tract infection type: site unspecified Hematuria presence: without hematuria Qualified Code(s): N39.0 - Urinary tract infection, site not specified (8) Type 2 diabetes mellitus Code(s): E11.9 - TYPE 2 DIABETES MELLITUS WITHOUT COMPLICATIONS Qualifiers: Diabetes mellitus longterm insulin use: without longterm use (9) Demand ischemia Code(s): I24.8 - OTHER FORMS OF ACUTE ISCHEMIC HEART DISEASE (10) Hypothyroidism Code(s): E03.9 - HYPOTHYROIDISM, UNSPECIFIED Qualifiers: Hypothyroidism type: unspecified Qualified Code(s): E03.9 - Hypothyroidism , unspecified (11) Adynamic ileus Code(s): K56.0 - PARALYTIC ILEUS Assessment/Plan 1. Altered mental status with underlying dementia referable to toxic metabolic encephalopathy 2. UTI, acute cystitis with urinary retention 3. Recurrent stroke with previous h/o stroke and residual deficits Demand ischemia 4. HTN urgency 5. Persistent afib on Pradaxa 6. 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 Type 2 DM 8. Glaucoma 9. Diastolic dysfunction 10. Hypothyroidism 11. COPD P:1. Trend trops to document peak, check TSH, lipid panel and Ha1c, f/u formal CT scan reports, brain MRI, carotid US 2. Continue Norvasc 5 qd, Pradaxa 150 bid, vasotec 10 bid, Lasix 40 qd 3. Echocardiogram to assess ventricular and valve fxn 4. Empiric abx course pending C&S 5. GI input for rectal tube decompression 6. Thank you for consultative opportunity
--- NOTE | 2019-03-08 09:27 | CONSULT ---
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 As per staff at [facility] and ED staff, pt had AMS at the MD, as he usually curses at people which he was not doing on day of admission per notes. According to paperwork, he was also "restless" and had a BP of ~214/62, also leading to his need for further evaluation. During my exam, pt AAOx1 and with severe aphasia, unable to answer questions to the point or follow commands. ROS unable to obtain for this reason. Pt bedbound at baseline, does not ambulate. Of note, pt had a ucx+ Citrobacter that was resistant to amp, cefuroxime. Per notes, patient admitted and on CT head found to have hypodensity in the L occipital lobe representing possible acute/subacute infarct. Of note, he is already on pradaxa. MRI brain ordered, added carotid doppler to work up. Echo already ordered. Added Lipid profile to workup Patient currently in ER. Recent Travel: denies PAST MEDICAL HISTORY: as above PAST SURGICAL HISTORY: unable to obtain d/t pt mental status Social History: as above Smoking: Alcohol: Drugs: Family History: HTN Allergies No Known Allergies Allergy (Verified 06/10/17 14:26) HOME MEDICATIONS: Home Medications Medication Instructions Recorded Amlodipine Besylate [Norvasc -] 5 mg PO DAILY 06/10/17 Ascorbic Acid [Vitamin C -] 500 mg PO DAILY 06/10/17 Cholecalciferol (Vitamin D3) 1,000 unit PO DAILY 06/10/17 [Vitamin D3 -] Dabigatran Etexilate Mesylate 150 mg PO BID 06/10/17 [Pradaxa -] Dorzolamide HCl [Trusopt 2%] 1 drop OU BID 06/10/17 Enalapril Maleate [Vasotec] 10 mg PO BID 06/10/17 Ferrous Sulfate 325 mg PO DAILY 06/10/17 Folic Acid 1 mg PO DAILY 06/10/17 Furosemide [Lasix -] 40 mg PO DAILY 06/10/17 Latanoprost 0.005% Eye Drops 1 drop OU HS 06/10/17 [Xalatan 0.005% Eye Drops -] Levothyroxine [Synthroid -] 75 mcg PO DAILY 06/10/17 Montelukast Na [Singulair -] 10 mg PO HS 06/10/17 Multivitamin [Poly-Vitamin] 1 each PO DAILY 06/10/17 Omeprazole 20 mg PO DAILY 06/10/17 Potassium Chloride 20 meq PO DAILY 06/10/17 metFORMIN HCL [Metformin HCl] 500 mg PO DAILY 06/10/17 Acetaminophen [Tylenol] 650 mg PO DAILY 03/07/19 Budesonide [Pulmicort 0.5 mg 1 neb NEB ONCE 03/07/19 Nebulizer -] Docusate Sodium [Colace] 100 mg PO DAILY 03/07/19 Ipratropium/Albuterol Sulfate 3 ml IH DAILY 03/07/19 [Iprat-Albut 0.5-3(2.5) mg/3 ml] Sennosides [Senna] 17.2 mg PO HS 03/07/19 Silver Sulfadiazine 1% Top Cr 1 applic TP DAILY 03/07/19 [Silvadene -] meds have been verified with paperwork. REVIEW OF SYSTEMS CONSTITUTIONAL: +AMS Absent: fever, chills, diaphoresis, generalized weakness, malaise, loss of appetite, weight change HEENT: Absent: rhinorrhea, nasal congestion, throat pain, throat swelling, difficulty swallowing, mouth swelling, ear pain, eye pain, visual changes CARDIOVASCULAR: Absent: chest pain, syncope, palpitations, irregular heart rate, lightheadedness , peripheral edema RESPIRATORY: Absent: cough, shortness of breath, dyspnea with exertion, orthopnea, wheezing, stridor, hemoptysis GASTROINTESTINAL: Absent: abdominal pain, abdominal distension, nausea, vomiting, diarrhea, constipation, melena, hematochezia GENITOURINARY: Absent: dysuria, frequency, urgency, hesitancy, hematuria, flank pain, genital pain MUSCULOSKELETAL: Absent: myalgia, arthralgia, joint swelling, back pain, neck pain SKIN: Absent: rash, itching, pallor HEMATOLOGIC/IMMUNOLOGIC: Absent: easy bleeding, easy bruising, lymphadenopathy, frequent infections ENDOCRINE: Absent: unexplained weight gain, unexplained weight loss, heat intolerance, cold intolerance NEUROLOGIC: +baseline aphasia Absent: headache, focal weakness or paresthesias, dizziness, unsteady gait, seizure, mental status changes, bladder or bowel incontinence PSYCHIATRIC: Absent: anxiety, depression, suicidal or homicidal ideation, hallucinations. PHYSICAL EXAMINATION Vital Signs Period Temp Pulse Resp BP Sys/Oates Pulse Ox Last 24 Hr 97.6 F-98.2 F 84-105 18-19 119-151/68-112 99-100 GENERAL: AAOx1 (to self). Resting comfortably. Smiling HEAD: Normal with no signs of trauma. EYES: Pupils equal, round and reactive to light, extraocular movements intact, sclera anicteric, conjunctiva clear. No lid lag. EARS, NOSE, THROAT: Ears normal, nares patent, oropharynx clear without exudates. +Poor dentition NECK: Normal range of motion, supple LUNGS: Breath sounds equal, clear to auscultation bilaterally. No wheezes, and no crackles. No accessory muscle use. HEART: +irreg irreg rate and rhythm, normal S1 and S2 without murmur, rub or gallop. ABDOMEN: Soft, +distended, normoactive bowel sounds, no guarding, no rebound, no masses. UPPER EXTREMITIES: +contracted R arm LOWER EXTREMITIES: 2+ pt pulses, warm, well-perfused. 1+ pitting edema b/l NEUROLOGICAL: golf shoe spike assembler 2-12 appear to be intact. however w baseline aphasia and residual R sided weakness. would not participate in full neuro exam. PSYCHIATRIC: Cooperative. Laboratory Results - last 24 hr 03/07/19 03/07/19 03/07/19 22:33 22:33 22:48 WBC 3.1 L RBC 4.52 Hgb 10.5 L Hct 32.9 L MCV 72.7 L MCH 23.2 L MCHC 31.9 L RDW 15.1 Plt Count 100 L D MPV 8.6 D Absolute Neuts (auto) 1.8 Neutrophils % 56.8 Neutrophils % (Manual) 56.0 Lymphocytes % 29.9 D Lymphocytes % (Manual) 32.0 Monocytes % 12.4 H Monocytes % (Manual) 10 Eosinophils % 0.6 Basophils % 0.3 Nucleated RBC % 0 Metamyelocytes 2 Hypochromia 1+ Platelet Estimate Decreased Platelet Comment No clumping noted Anisocytosis 2+ Microcytosis 1+ Macrocytosis 1+ Sodium 133 L Potassium 4.1 Chloride 101 Carbon Dioxide 23 Anion Gap 9 BUN 14 Creatinine 0.7 Creat Clearance w eGFR 107.70 Random Glucose 145 H Calcium 8.2 L Total Bilirubin 0.2 AST 19 ALT 14 Alkaline Phosphatase 109 Creatine Kinase 416 H Creatine Kinase Index 0.9 CK-MB (CK-2) 3.8 H Troponin I 0.09 H Total Protein 7.2 Albumin 3.0 L Urine Color Yellow Urine Appearance Cloudy Urine pH 5.0 Ur Specific [place] 1.014 Urine Protein 1+ H Urine Glucose (UA) Negative Urine Ketones Negative Urine Blood 1+ H Urine Nitrite Negative Urine Bilirubin Negative Urine Urobilinogen 0.2 Ur Leukocyte Esterase 3+ H Urine WBC (Auto) 37 Urine RBC (Auto) 1 Urine Casts (Auto) 18 U Epithel Cells (Auto) 0.1 Urine Bacteria (Auto) 3225.8 CTH prelim: hypodensity in the L occipital lobe representing possible acute/ subacute infarct. however follow official read. EKG: +L axis dev, afib with PVCs. without acute st-t wave changes compared to previously CTAP prelim: suspected colonic ileus, significant air distension sigmoid colon, small R inguinal hernia with portion of bladder. L renal scarring and atrophy with a 10mm proximal to mid L ureteral stone but no hydronephrosis. Additional left renal parenchymal stones. +infrarenal IVC filter noted ASSESSMENT/PLAN: 83 y/o M with hx HTN, HLD, DM, CAD, afib (on pradaxa), CVA (with aphasia at baseline, R residual hemiplegia), COPD, who presents to the ED with "AMS" as per [facility]. As per staff at [facility] and ED staff, pt had AMS at the MD, as he usually curses at people which he was not doing on day of admission per notes. According to paperwork, he was also "restless" and had a BP of ~214/62, also leading to his need for further evaluation. During my exam, pt AAOx1 and with severe aphasia, unable to answer questions to the point or follow commands. ROS unable to obtain for this reason. Pt bedbound at baseline, does not ambulate. Of note, pt had a ucx+ Citrobacter that was resistant to amp, cefuroxime. Per notes, patient admitted and on CT head found to have hypodensity in the L occipital lobe representing possible acute/subacute infarct. Of note, he is already on pradaxa. MRI brain ordered, added carotid doppler to work up. Echo already ordered. Added Lipid profile to workup. Continue infectious mgmt, IV Abx as needed. Will start patient on Statin. Follow up imaging results. PT/OT as tolerated. Monitor blood pressure, avoid rapid decline, can allow reduction to 180's/100's for now, 160's/90's in 12 hrs. Tele monitoring for Afib, cardiology consult. Monitor DM, maintain normal glycemic range.
--- NOTE | 2019-03-08 09:49 | EKG ---
Test Reason : Blood Pressure : / mmHG Vent. Rate : 089 BPM Atrial Rate : 100 BPM P-R Int : 000 ms QRS Dur : 150 ms QT Int : 412 ms P-R-T Axes : 000 -55 081 degrees QTc Int : 501 ms ATRIAL FIBRILLATION LEFT AXIS DEVIATION NON-SPECIFIC INTRA-VENTRICULAR CONDUCTION BLOCK ABNORMAL ECG WHEN COMPARED WITH ECG OF 25-AUG-2010 10:11, VENT. RATE HAS INCREASED BY 38 BPM QRS DURATION HAS INCREASED Confirmed by ISHAN CATALAN, LISA ([id number]) on 03/08/2019 9:48:46 AM Referred By: Confirmed By:LISA OLMSTEAD MD
--- NOTE | 2019-03-08 09:52 | EKG ---
Test Reason : Blood Pressure : / mmHG Vent. Rate : 078 BPM Atrial Rate : 108 BPM P-R Int : 000 ms QRS Dur : 154 ms QT Int : 430 ms P-R-T Axes : 000 -64 068 degrees QTc Int : 490 ms ATRIAL FIBRILLATION WITH PREMATURE VENTRICULAR OR ABERRANTLY CONDUCTED COMPLEXES LEFT AXIS DEVIATION NON-SPECIFIC INTRA-VENTRICULAR CONDUCTION BLOCK POSSIBLE LATERAL INFARCT (CITED ON OR BEFORE 25-AUG-2010) ABNORMAL ECG WHEN COMPARED WITH ECG OF 25-AUG-2010 10:11, VENT. RATE HAS INCREASED BY 27 BPM QUESTIONABLE CHANGE IN QRS DURATION QUESTIONABLE CHANGE IN INITIAL FORCES OF LATERAL LEADS Confirmed by LISA OLMSTEAD MD ([id number]) on 03/08/2019 9:51:50 AM Referred By: Confirmed By:LISA OLMSTEAD MD
[2019-03-08] MEDS ORDERED: ALBUTEROL SO4 2.5/IPRATROPIUM 0.5 INH SOL 3 ML VIAL.NEB. NEB SCH ×2 (10:00)
[2019-03-08] MEDS ORDERED: FUROSEMIDE 40 MG TABLET (FP) PO SCH (10:00)
--- NOTE | 2019-03-08 10:12 | CONSULT ---
- Consultation REQUESTING PROVIDER: Carlos Herrera MD CONSULT REQUEST: We have been asked to surgically evaluate this patient for abnormal imaging findings. PCP:Gray Ramos HISTORY OF PRESENT ILLNESS: 83 y/o male xferred from SNF for evaluation of change in mental status was noted to have a distended abdomen and CT scan of the a/p was done and # abnormalities were found prompting a request for a general Surgery Consultation; patient has # co-morbid conditions and has a h/o a CVA w/aphasia; the rst of the hx. is as per the other chart documentation. PMHx: htn/thyroid disease/CAD/COPD PSHx: ? sigmoid colon resection ? Home Medications Medication Instructions Recorded Amlodipine Besylate [Norvasc -] 5 mg PO DAILY 06/10/17 Ascorbic Acid [Vitamin C -] 500 mg PO DAILY 06/10/17 Cholecalciferol (Vitamin D3) 1,000 unit PO DAILY 06/10/17 [Vitamin D3 -] Dabigatran Etexilate Mesylate 150 mg PO BID 06/10/17 [Pradaxa -] Dorzolamide HCl [Trusopt 2%] 1 drop OU BID 06/10/17 Enalapril Maleate [Vasotec] 10 mg PO BID 06/10/17 Ferrous Sulfate 325 mg PO DAILY 06/10/17 Folic Acid 1 mg PO DAILY 06/10/17 Furosemide [Lasix -] 40 mg PO DAILY 06/10/17 Latanoprost 0.005% Eye Drops 1 drop OU HS 06/10/17 [Xalatan 0.005% Eye Drops -] Levothyroxine [Synthroid -] 75 mcg PO DAILY 06/10/17 Montelukast Na [Singulair -] 10 mg PO HS 06/10/17 Multivitamin [Poly-Vitamin] 1 each PO DAILY 06/10/17 Omeprazole 20 mg PO DAILY 06/10/17 Potassium Chloride 20 meq PO DAILY 06/10/17 metFORMIN HCL [Metformin HCl] 500 mg PO DAILY 06/10/17 Acetaminophen [Tylenol] 650 mg PO DAILY 03/07/19 Budesonide [Pulmicort 0.5 mg 1 neb NEB ONCE 03/07/19 Nebulizer -] Docusate Sodium [Colace] 100 mg PO DAILY 03/07/19 Ipratropium/Albuterol Sulfate 3 ml IH DAILY 03/07/19 [Iprat-Albut 0.5-3(2.5) mg/3 ml] Sennosides [Senna] 17.2 mg PO HS 03/07/19 Silver Sulfadiazine 1% Top Cr 1 applic TP DAILY 03/07/19 [Silvadene -] Allergies Allergy/AdvReac Type Severity Reaction Status Date / Time No Known Allergies Allergy Verified 06/10/17 14:26 REVIEW OF SYSTEMS: unobtainable from patient PHYSICAL EXAM: GENERAL: Awake, alert, and responds to verbal commands but is aphasic., in no acute distress. HEAD: Normal with no signs of trauma. EYES: sclera anicteric, conjunctiva clear. NECK: Normal ROM, supple without lymphadenopathy, JVD, or masses. ABDOMEN: Soft, nontender, markedly distended and tympanitic, no guarding, no rebound, no masses. No organomegaly. Reducible umbilical hernia; no RIH/LIH; healed midline scar w/o hernia. Small ulcer on the scrotum. MUSCULOSKELETAL: Normal ROM at all joints. No bony deformities or tenderness. No CVA tenderness. UPPER EXTREMITIES: 2+ pulses, warm, well-perfused. No cyanosis. Cap refill <2 seconds. No peripheral edema. LOWER EXTREMITIES: 2+ pulses, warm, well-perfused. No calf tenderness. No peripheral edema. NEUROLOGICAL: Aphasic, gait not observed. PSYCH: Cooperative. Good eye contact. Appropriate mood and affect. SKIN: Warm, dry, normal turgor, no rashes or lesions noted. Vital Signs Temperature 97.6 F 03/08/19 06:00 Pulse Rate 105 H 03/08/19 06:00 Respiratory Rate 18 03/08/19 06:00 Blood Pressure 119/71 03/08/19 06:00 O2 Sat by Pulse Oximetry (%) 99 03/08/19 06:00 Lab Results WBC 3.1 K/mm3 (4.0-10.0) L 03/07/19 22:33 RBC 4.52 M/mm3 (4.00-5.60) 03/07/19 22:33 Hgb 10.5 GM/dL (11.7-16.9) L 03/07/19 22:33 Hct 32.9 % (35.4-49) L 03/07/19 22:33 MCV 72.7 fl (80-96) L 03/07/19 22:33 MCHC 31.9 g/dl (32.0-35.9) L 03/07/19 22:33 RDW 15.1 % (11.9-15.9) 03/07/19 22:33 Plt Count 100 K/MM3 (134-434) L D 03/07/19 22:33 Sodium 133 mmol/L (136-145) L 03/07/19 22:33 Potassium 4.1 mmol/L (3.5-5.1) 03/07/19 22:33 Chloride 101 mmol/L (98-107) 03/07/19 22:33 Carbon Dioxide 23 mmol/L (21-32) 03/07/19 22:33 Anion Gap 9 MMOL/L (8-16) 03/07/19 22:33 BUN 14 mg/dL (7-18) 03/07/19 22:33 Creatinine 0.7 mg/dL (0.55-1.3) 03/07/19 22:33 Random Glucose 145 mg/dL (74-106) H 03/07/19 22:33 Calcium 8.2 mg/dL (8.5-10.1) L 03/07/19 22:33 CT scan a/p reviewed and CT scan a/p 2017 reviewed IMP: colonic ileus; possible Ogilvies; doubt sigmoid volvulus; umbilical hernia which is reducible and no clinical evidence of RIH PLAN: NPO/IVF/? GI evaluation for possible decompression; discussion w/HCP re: goals of care Román Casiano MD FACS
[2019-03-08] MEDS: DOCUSATE SODIUM 100 MG CAPSULE (FP) PO SCH (12:29)
[2019-03-08] MEDS: DABIGATRAN ETEXILATE MESYLATE 150 MG CAPSULE PO SCH (12:30)
[2019-03-08] MEDS: FOLIC ACID 1 MG TABLET (FP) PO SCH (12:30)
[2019-03-08] MEDS: amLODIPine BESYLATE 5 MG TABLET (FP) PO SCH (12:30)
[2019-03-08] MEDS: PANTOPRAZOLE 20 MG TABLET (FP) PO SCH (12:31)
[2019-03-08] MEDS: ENALAPRIL MALEATE 10 MG TABLET (FP) PO SCH (12:32)
--- NOTE | 2019-03-08 12:40 | CONSULT ---
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. History Source: Medical Record - Smoking History Smoking history: Unknown if ever smoked Have you smoked in the past 12 months: No - Alcohol/Substance Use Hx Alcohol Use: No History - Admission Reason For Visit: URINARY TRACT INFECTION,ALTERED MENTAL STATUS - Diagnostics X-ray: Report Reviewed CT Scan: Report Reviewed - General Mental Status: Awake and Alert Attention: Intact Ability to Follow Directions: Poor Head/Neck Control: Fair - Hearing Hearing: Impaired Hearing Aide: No Speech Evaluation - Communication Primary Language: UPPER SORBIAN Communication: Yes: Aphasia Oral Expression Ability: Yes: Severe Impairment, Non-Verbal - Speech Production Able to Make Needs Known: Yes: Severely Impaired Intelligibility: Yes: Severely Impaired - Speech Characteristics Voice Loudness: Normal Voice Pitch: Yes: Normal Voice Phonatory-based Quality: Yes: Normal Speech Pattern: Impaired Speech Clarity: < 25% Nasal Resonance: Normal - Language/Auditory Comprehension Observation: Able to respond to yes/no queries: No, Comprehends Conversational Speech: No (laughs as respond to simple commands) - Language/Verbal Expression Aphasia: Yes: Nonfluent, Impaired Repetition Able to Respond to Simple Queries: Yes: Severely Impaired Able to Communicate Wants and Needs: Yes: Severely Impaired Functional Communication Status: Yes: Severely Impaired - Swallow Evaluation/Bedside Assessment Current Nutritional Intake: NPO Oral Secretions: Yes: Drooling, Pooling (saliva) Dentition: Yes: Edentulous (a couple of teeth) Jaw Position: Open at Rest Laryngeal Elevation: Impaired Laryngeal Movement: Unable to Palpate Oral Prep Time: Increased A-P Transit: Impaired Timing of Swallow: Delayed Recommendations - Speech Evaluation, Impression/Plan Impression: Alert, makes eye contact, laughs in response to commands, open mouth posture with pooling of saliva and drooling. Riskl of aspiration at this time. I could not find documentation on baseline swallowing fuinction and diet order at [facility] - Disposition Discharge to: Alf Facility - Dysphagia Impressions/Plan Swallowing Skills: Impaired Dysphagia Impressions: Moderate Impairment, Suspect Aspiration *Silent aspiration: cannot be R/O at bedside Recommendations: Other (to reassess/possible MBS.) - Recommendations Diet Consistency: NPO Medication Administration: Crushed with applesauce Liquids: NPO
--- NOTE | 2019-03-08 12:43 | PN ---
Progress Note (short form) - Note Progress Note: pt seen/ examined in er chart reviewed all consults noted/ appreciated awake answers simple questions-- by turning head denies pain Brother at bedside Vital Signs Temp 98.6 F 03/08/19 09:00 Pulse 84 03/08/19 09:00 Resp 18 03/08/19 09:00 BP 182/90 H 03/08/19 09:00 Pulse Ox 99 03/08/19 06:00 Intake & Output 03/07/19 03/08/19 03/08/19 23:59 11:59 23:59 Intake Total 10 Output Total 120 Balance -110 Weight 196 lb Intake: Oral 10 Output: Urine 120 Love 120 Other: Voiding Method Diaper Height 6 ft Body Mass Index (BMI) 26.6 Active Medications Albuterol/Ipratropium (Duoneb -) 1 amp NEB RQID [facility] Amlodipine Besylate (Norvasc -) 5 mg PO DAILY [facility] Last Admin: 03/08/19 12:30 Dose: 5 mg Aspirin (Asa -) 81 mg PO DAILY [facility] Last Admin: 03/08/19 12:29 Dose: 81 mg Atorvastatin Calcium (Lipitor -) 40 mg PO HS [facility] Last Admin: 03/08/19 03:56 Dose: 40 mg Dabigatran (Pradaxa -) 150 mg PO BID [facility] Last Admin: 03/08/19 12:30 Dose: 150 mg Docusate Sodium (Colace -) 100 mg PO DAILY [facility] Last Admin: 03/08/19 12:29 Dose: 100 mg Dorzolamide HCl (Trusopt 2%) 1 drop OU BID [facility] Enalapril Maleate (Vasotec -) 10 mg PO BID [facility] Last Admin: 03/08/19 12:32 Dose: 10 mg Folic Acid (Folic Acid -) 1 mg PO DAILY [facility] Last Admin: 03/08/19 12:30 Dose: 1 mg Ceftriaxone Sodium 1 gm/ (Dextrose) 50 mls @ 100 mls/hr IVPB Q24H [facility] Potassium Chloride/Dextrose/Sod Cl (D5-1/2ns+20 Meq Kcl -) 20 meq in 1,000 mls @ 100 mls/hr IV ASDIR [facility] Insulin Aspart (Novolog Vial Sliding Scale -) 1 vial SQ ACHS [facility]; Protocol Last Admin: 03/08/19 07:09 Dose: Not Given Latanoprost (Xalatan 0.005% Eye Drops -) 1 drop OU HS [facility] Levothyroxine Sodium (Synthroid -) 75 mcg PO DAILY@0700 [facility] Last Admin: 03/08/19 07:10 Dose: 75 mcg Montelukast Sodium (Singulair -) 10 mg PO HS [facility] Pantoprazole Sodium (Protonix -) 20 mg PO DAILY [facility] Last Admin: 03/08/19 12:31 Dose: 20 mg Senna (Senna -) 2 tab PO HS [facility] Silver Sulfadiazine (Silvadene -) 1 applic TP DAILY [facility] CBC, BMP 03/07/19 22:33 03/07/19 22:33 Laboratory Results - last 24 hr 03/07/19 03/07/19 03/07/19 22:33 22:33 22:48 WBC 3.1 L RBC 4.52 Hgb 10.5 L Hct 32.9 L MCV 72.7 L MCH 23.2 L MCHC 31.9 L RDW 15.1 Plt Count 100 L D MPV 8.6 D Absolute Neuts (auto) 1.8 Neutrophils % 56.8 Neutrophils % (Manual) 56.0 Lymphocytes % 29.9 D Lymphocytes % (Manual) 32.0 Monocytes % 12.4 H Monocytes % (Manual) 10 Eosinophils % 0.6 Basophils % 0.3 Nucleated RBC % 0 Metamyelocytes 2 Hypochromia 1+ Platelet Estimate Decreased Platelet Comment No clumping noted Anisocytosis 2+ Microcytosis 1+ Macrocytosis 1+ Sodium 133 L Potassium 4.1 Chloride 101 Carbon Dioxide 23 Anion Gap 9 BUN 14 Creatinine 0.7 Creat Clearance w eGFR 107.70 POC Glucometer Random Glucose 145 H Calcium 8.2 L Total Bilirubin 0.2 AST 19 ALT 14 Alkaline Phosphatase 109 Creatine Kinase 416 H Creatine Kinase Index 0.9 CK-MB (CK-2) 3.8 H Troponin I 0.09 H Total Protein 7.2 Albumin 3.0 L Urine Color Yellow Urine Appearance Cloudy Urine pH 5.0 Ur Specific [place] 1.014 Urine Protein 1+ H Urine Glucose (UA) Negative Urine Ketones Negative Urine Blood 1+ H Urine Nitrite Negative Urine Bilirubin Negative Urine Urobilinogen 0.2 Ur Leukocyte Esterase 3+ H Urine WBC (Auto) 37 Urine RBC (Auto) 1 Urine Casts (Auto) 18 U Epithel Cells (Auto) 0.1 Urine Bacteria (Auto) 3225.8 03/08/19 03/08/19 03/08/19 00:36 06:10 06:37 WBC RBC Hgb Hct MCV MCH MCHC RDW Plt Count MPV Absolute Neuts (auto) Neutrophils % Neutrophils % (Manual) Lymphocytes % Lymphocytes % (Manual) Monocytes % Monocytes % (Manual) Eosinophils % Basophils % Nucleated RBC % Metamyelocytes Hypochromia Platelet Estimate Platelet Comment Anisocytosis Microcytosis Macrocytosis Sodium Potassium Chloride Carbon Dioxide Anion Gap BUN Creatinine Creat Clearance w eGFR POC Glucometer 153 128 Random Glucose Calcium Total Bilirubin AST ALT Alkaline Phosphatase Creatine Kinase Creatine Kinase Index CK-MB (CK-2) Troponin I 0.13 H Total Protein Albumin Urine Color Urine Appearance Urine pH Ur Specific [place] Urine Protein Urine Glucose (UA) Urine Ketones Urine Blood Urine Nitrite Urine Bilirubin Urine Urobilinogen Ur Leukocyte Esterase Urine WBC (Auto) Urine RBC (Auto) Urine Casts (Auto) U Epithel Cells (Auto) Urine Bacteria (Auto) cultures- pending ct abd- reviewed cxr/ ekg reviewed physical exam awake S1 S2 RRR Lungs ---clear Abd- distended -- +ve umblical hernia No edema neuro--- awake. old right side deficit A/P Ileus fluids hold Lasix meds with apple sauce otherwise npo for now abx will follow condition guarded discussed with pts brother who is at bedside pt is dnr/di Problem List - Problems (1) Adynamic ileus Code(s): K56.0 - PARALYTIC ILEUS (2) Altered mental status Code(s): R41.82 - ALTERED MENTAL STATUS, UNSPECIFIED Qualifiers: Altered mental status type: somnolence Qualified Code(s): R40.0 - Somnolence (3) H/O: stroke with residual effects Code(s): I69.30 - UNSPECIFIED SEQUELAE OF CEREBRAL INFARCTION (4) Persistent atrial fibrillation Code(s): I48.1 - PERSISTENT ATRIAL FIBRILLATION (5) UTI (urinary tract infection) Code(s): N39.0 - URINARY TRACT INFECTION, SITE NOT SPECIFIED Qualifiers: Urinary tract infection type: site unspecified Hematuria presence: without hematuria Qualified Code(s): N39.0 - Urinary tract infection, site not specified
[2019-03-08] MEDS ORDERED: D5-1/2NS+20 MEQ KCL - 20 MEQ/1,000 ML INFUS.BAG IV SCH (12:45)
[2019-03-08] MEDS: SILVER SULFADIAZINE 1% TOP CREAM 400 GM JAR TP SCH (13:11)
[2019-03-08] MEDS: DORZOLAMIDE 2% HCL OPHTHALMIC SOLUTION 10 ML BOTTLE OU SCH (13:12)
--- NOTE | 2019-03-08 13:20 | ECHO ---
Name: KENNA INTERIANO Exam:Adult Echocardiogram Study Date: 03/08/2019 09:51 AM Age: 83 yrs Reason For Study: EVALUATE FOR HEART FUNCTION HX.ATRIAL FIBRILLATION Height: 72 in Weight: 196 lb BSA: 2.1 m2 MMode/2D Measurements & Calculations IVSd: 0.79 cm Ao root diam: 2.7 cm LVIDd: 5.8 cm LA dimension: 5.0 cm LVIDs: 4.7 cm LVPWd: 0.97 cm EDV(Teich): 169.4 ml LVOT diam: 2.1 cm ESV(Teich): 101.3 ml Doppler Measurements & Calculations MV E max yasmani: 74.0 cm/sec Ao V2 max: 144.5 cm/sec MV A max yasmani: 30.6 cm/sec Ao max P.3 mmHg MV E/A: 2.4 Ao V2 mean: 97.2 cm/sec MV dec time: 0.13 sec Ao mean P.2 mmHg Ao V2 VTI: 28.4 cm MORRIS(I,D): 1.3 cm2 MORRIS(V,D): 1.7 cm2 LV V1 max P.9 mmHg MR max yasmani: 530.5 cm/sec LV V1 mean P.70 mmHg MR max P.8 mmHg LV V1 max: 69.7 cm/sec LV V1 mean: 37.8 cm/sec LV V1 VTI: 10.6 cm SV(LVOT): 38.3 ml TR max yasmani: 268.1 cm/sec TR max P.8 mmHg PI end-d yasmani: 43.4 cm/sec Med Peak E' Yasmani: 2.4 cm/sec Med E/e': 30.4 Lat Peak E' Yasmani: 6.0 cm/sec Lat E/e': 12.3 Procedure The study was technically adequate with some images being suboptimal in quality. Left Ventricle The left ventricle is mildly dilated. Left ventricular systolic function is severely reduced. Ejectio n Fraction = 20-25%. Right Ventricle The right ventricle is grossly normal size. The right ventricular systolic function is mildly reduced . Atria The left atrium is moderately dilated. The right atrium is moderately dilated. Mitral Valve There is mild mitral valve thickening. There is moderate to severe mitral regurgitation. Tricuspid Valve The tricuspid valve is not well visualized. There is mild tricuspid regurgitation. Right ventricular systolic pressure is elevated at 31 mmhg. Aortic Valve There is mild aortic sclerosis.;. The aortic valve opens well. The aortic valve is trileaflet. No aor tic regurgitation is present. Pulmonic Valve The pulmonic valve is not well visualized. Great Vessels The aortic root is normal size. Pericardium/Pleura There is no pericardial effusion. Interpretation Summary There is no comparison study available. The left ventricle is mildly dilated. Left ventricular systolic function is severely reduced. Ejection Fraction = 20-25%. The right ventricle is grossly normal size. The right ventricular systolic function is mildly reduced. There is mild aortic sclerosis.; The left atrium is moderately dilated. There is mild tricuspid regurgitation. The right atrium is moderately dilated. There is moderate to severe mitral regurgitation. Gabino Quinn MD 03/08/2019 01:19 PM
[2019-03-08] MEDS ORDERED: ALBUTEROL SO4 2.5/IPRATROPIUM 0.5 INH SOL 3 ML VIAL.NEB. NEB ONE (18:12)
[2019-03-08] MEDS: ALBUTEROL SO4 2.5/IPRATROPIUM 0.5 INH SOL 3 ML VIAL.NEB. NEB SCH (21:00)
[2019-03-08] MEDS ORDERED: CEFTRIAXONE 1 GM in DEXTROSE 5%-WATER - 50 ML IVPB SCH (22:30)
[2019-03-09] MEDS: ALBUTEROL SO4 2.5/IPRATROPIUM 0.5 INH SOL 3 ML VIAL.NEB. NEB SCH ×4 (07:50→21:45)
[2019-03-09 08:39] LABS: CHOLESTEROL 156 mg/dL (50-200); HDL CHOLESTEROL 37 mg/dL (40-60); TRIGLYCERIDES 71 mg/dL (0-150)
[2019-03-09] MEDS: INSULIN SLIDING SCALE (NOVOLOG) 1 VIAL SQ SCH ×4 (08:54→21:33)
[2019-03-09] MEDS: DABIGATRAN ETEXILATE MESYLATE 150 MG CAPSULE PO SCH ×2 (08:59→21:27)
[2019-03-09] MEDS: DOCUSATE SODIUM 100 MG CAPSULE (FP) PO SCH (08:59)
[2019-03-09] MEDS: amLODIPine BESYLATE 5 MG TABLET (FP) PO SCH (08:59)
[2019-03-09] MEDS: PANTOPRAZOLE 20 MG TABLET (FP) PO SCH (08:59)
[2019-03-09] MEDS: FOLIC ACID 1 MG TABLET (FP) PO SCH (08:59)
[2019-03-09] MEDS: ENALAPRIL MALEATE 10 MG TABLET (FP) PO SCH ×2 (08:59→21:28)
[2019-03-09] MEDS: ASPIRIN 81 MG CHEWABLE TABLETS PO SCH (08:59)
[2019-03-09] MEDS: LEVOTHYROXINE NA 75 MCG TABLET (FP) PO SCH (08:59)
--- NOTE | 2019-03-09 09:22 | PN ---
Progress Note (short form) - Note Progress Note: Neurology CHIEF COMPLAINT: "AMS" HISTORY OF PRESENT ILLNESS: 83 y/o M with hx HTN, HLD, DM, CAD, afib (on pradaxa), CVA (with aphasia at baseline, R residual hemiplegia), COPD, who presents to the ED with "AMS" as per [facility]. As per staff at [facility] and ED staff, pt had A[place] the [place], as he usually curses at people which he was not doing on day of admission per notes. According to paperwork, he was also "restless" and had a BP of ~214/62, also leading to his need for further evaluation. Pt bedbound at baseline, does not ambulate. Of note, pt had a ucx+ Citrobacter that was resistant to amp, cefuroxime. Per notes, patient admitted and on CT head found to have hypodensity in the L occipital lobe representing possible acute/subacute infarct. Of note, he is already on pradaxa. MRI brain completed and demonstrated R MCA territory infarct acute, also with L temp/occipital/parietal chronic infarct. Carotid doppler with no hemodynamically significant stenosis. LDL 108, on Lipitor 40. Also on ASA 81 in addition to Pradaxa. More alert and interactive today. Active Medications Albuterol/Ipratropium (Duoneb -) 1 amp NEB RQID [facility] Last Admin: 03/09/19 07:50 Dose: 1 amp Amlodipine Besylate (Norvasc -) 5 mg PO DAILY [facility] Last Admin: 03/09/19 08:59 Dose: 5 mg Aspirin (Asa -) 81 mg PO DAILY [facility] Last Admin: 03/09/19 08:59 Dose: 81 mg Atorvastatin Calcium (Lipitor -) 40 mg PO HS [facility] Last Admin: 03/08/19 03:56 Dose: 40 mg Dabigatran (Pradaxa -) 150 mg PO BID [facility] Last Admin: 03/09/19 08:59 Dose: 150 mg Docusate Sodium (Colace -) 100 mg PO DAILY [facility] Last Admin: 03/09/19 08:59 Dose: 100 mg Dorzolamide HCl (Trusopt 2%) 1 drop OU BID [facility] Last Admin: 03/08/19 13:12 Dose: Not Given Enalapril Maleate (Vasotec -) 10 mg PO BID [facility] Last Admin: 03/09/19 08:59 Dose: 10 mg Folic Acid (Folic Acid -) 1 mg PO DAILY [facility] Last Admin: 03/09/19 08:59 Dose: 1 mg Ceftriaxone Sodium 1 gm/ (Dextrose) 50 mls @ 100 mls/hr IVPB Q24H [facility] Potassium Chloride/Dextrose/Sod Cl (D5-1/2ns+20 Meq Kcl -) 20 meq in 1,000 mls @ 100 mls/hr IV ASDIR [facility] Last Admin: 03/08/19 13:12 Dose: 100 mls/hr Insulin Aspart (Novolog Vial Sliding Scale -) 1 vial SQ ACHS [facility]; Protocol Last Admin: 03/09/19 08:54 Dose: Not Given Latanoprost (Xalatan 0.005% Eye Drops -) 1 drop OU HS [facility] Levothyroxine Sodium (Synthroid -) 75 mcg PO DAILY@0700 [facility] Last Admin: 03/09/19 08:59 Dose: 75 mcg Montelukast Sodium (Singulair -) 10 mg PO HS [facility] Pantoprazole Sodium (Protonix -) 20 mg PO DAILY [facility] Last Admin: 03/09/19 08:59 Dose: 20 mg Senna (Senna -) 2 tab PO HS [facility] Silver Sulfadiazine (Silvadene -) 1 applic TP DAILY [facility] Last Admin: 03/08/19 13:11 Dose: Not Given PHYSICAL EXAMINATION Vital Signs Period Temp Pulse Resp BP Sys/Oates Pulse Ox Last 24 Hr 97.6 F-98.2 F 84-105 18-19 119-151/68-112 99-100 GENERAL: AAOx1 (to self). Resting comfortably. Smiling HEAD: Normal with no signs of trauma. EYES: Pupils equal, round and reactive to light, extraocular movements intact, sclera anicteric, conjunctiva clear. No lid lag. EARS, NOSE, THROAT: Ears normal, nares patent, oropharynx clear without exudates. +Poor dentition NECK: Normal range of motion, supple LUNGS: Breath sounds equal, clear to auscultation bilaterally. No wheezes, and no crackles. No accessory muscle use. HEART: +irreg irreg rate and rhythm, normal S1 and S2 without murmur, rub or gallop. ABDOMEN: Soft, +distended, normoactive bowel sounds, no guarding, no rebound, no masses. UPPER EXTREMITIES: +contracted R arm LOWER EXTREMITIES: 2+ pt pulses, warm, well-perfused. 1+ pitting edema b/l NEUROLOGICAL: revolving inventory clerk 2-12 appear to be intact. however w baseline aphasia and residual R sided weakness. would not participate in full neuro exam. PSYCHIATRIC: Cooperative. CBCD WBC 3.1 K/mm3 (4.0-10.0) L 03/07/19 22:33 RBC 4.52 M/mm3 (4.00-5.60) 03/07/19 22:33 Hgb 10.5 GM/dL (11.7-16.9) L 03/07/19 22:33 Hct 32.9 % (35.4-49) L 03/07/19 22:33 MCV 72.7 fl (80-96) L 03/07/19 22:33 MCHC 31.9 g/dl (32.0-35.9) L 03/07/19 22:33 RDW 15.1 % (11.9-15.9) 03/07/19 22:33 Plt Count 100 K/MM3 (134-434) L D 03/07/19 22:33 MPV 8.6 fl (7.5-11.1) D 03/07/19 22:33 CMP Sodium 133 mmol/L (136-145) L 03/07/19 22:33 Potassium 4.1 mmol/L (3.5-5.1) 03/07/19 22:33 Chloride 101 mmol/L (98-107) 03/07/19 22:33 Carbon Dioxide 23 mmol/L (21-32) 03/07/19 22:33 Anion Gap 9 MMOL/L (8-16) 03/07/19 22:33 BUN 14 mg/dL (7-18) 03/07/19 22:33 Creatinine 0.7 mg/dL (0.55-1.3) 03/07/19 22:33 Creat Clearance w eGFR 107.70 (>60) 03/07/19 22:33 Random Glucose 145 mg/dL (74-106) H 03/07/19 22:33 Calcium 8.2 mg/dL (8.5-10.1) L 03/07/19 22:33 Total Bilirubin 0.2 mg/dL (0.2-1) 03/07/19 22:33 AST 19 U/L (15-37) 03/07/19 22:33 ALT 14 U/L (13-61) 03/07/19 22:33 Alkaline Phosphatase 109 U/L (45-117) 03/07/19 22:33 Total Protein 7.2 g/dl (6.4-8.2) 03/07/19 22:33 Albumin 3.0 g/dl (3.4-5.0) L 03/07/19 22:33 CARDIAC ENZYMES Creatine Kinase 416 U/L (26-308) H 03/07/19 22:33 Troponin I 0.13 ng/ml (0.00-0.05) H 03/08/19 06:10 CT head reviewed MRI brain reviewed Carotid doppler reviewed ASSESSMENT/PLAN: 83 y/o M with hx HTN, HLD, DM, CAD, afib (on pradaxa), CVA (with aphasia at baseline, R residual hemiplegia), COPD, who presents to the ED with "AMS" as per [facility]. As per staff at [facility] and ED staff, [place], as he usually curses at people which he was not doing on day of admission per notes. According to paperwork, he was also "restless" and had a BP of ~214/62, also leading to his need for further evaluation. During my exam, pt AAOx1 and with severe aphasia, unable to answer questions to the point or follow commands. ROS unable to obtain for this reason. Pt bedbound at baseline, does not ambulate. Of note, pt had a ucx+ Citrobacter that was resistant to amp, cefuroxime. Per notes, patient admitted and on CT head found to have hypodensity in the L occipital lobe representing possible acute/subacute infarct. Of note, he is already on pradaxa. RI brain completed and demonstrated R MCA territory infarct acute, also with L temp/occipital/parietal chronic infarct. Carotid doppler with no hemodynamically significant stenosis. LDL 108, on Lipitor 40. Also on ASA 81 in addition to Pradaxa (increased risk for bleed but with recurrent CVA, benefit outweighs risk as patient proven to have thromboembolic events). More alert and interactive today. Continue infectious mgmt, IV Abx as needed. Will start patient on Statin. PT/OT as tolerated. Monitor blood pressure, avoid rapid decline, can allow up 160's/90's for now, < 140/90 in 24hrs. Tele monitoring for Afib, cardiology follow up. Monitor DM, maintain normal glycemic range.
--- NOTE | 2019-03-09 10:52 | PN ---
Progress Note (short form) - Note Progress Note: Chief Complaint: Events noted notes reviewed, awake and alert, responds to verbal commands, in no distress History of Present Illness: Seen and examined on telemetry. Events noted notes reviewed, awake and alert, responds to verbal commands, in no distress Echocardiography revealed severe systolic LV dysfunction, LVEF 20-25%, mild RV systolic dysfunction, Bi-atrial dilatation, moderate to severe MR, mild TR - Current Medication List Current Medications Albuterol/Ipratropium (Duoneb -) 1 amp NEB RQID [facility] Last Admin: 03/09/19 07:50 Dose: 1 amp Amlodipine Besylate (Norvasc -) 5 mg PO DAILY [facility] Last Admin: 03/09/19 08:59 Dose: 5 mg Aspirin (Asa -) 81 mg PO DAILY [facility] Last Admin: 03/09/19 08:59 Dose: 81 mg Atorvastatin Calcium (Lipitor -) 40 mg PO HS [facility] Last Admin: 03/08/19 03:56 Dose: 40 mg Dabigatran (Pradaxa -) 150 mg PO BID [facility] Last Admin: 03/09/19 08:59 Dose: 150 mg Docusate Sodium (Colace -) 100 mg PO DAILY [facility] Last Admin: 03/09/19 08:59 Dose: 100 mg Dorzolamide HCl (Trusopt 2%) 1 drop OU BID [facility] Last Admin: 03/08/19 13:12 Dose: Not Given Enalapril Maleate (Vasotec -) 10 mg PO BID [facility] Last Admin: 03/09/19 08:59 Dose: 10 mg Folic Acid (Folic Acid -) 1 mg PO DAILY [facility] Last Admin: 03/09/19 08:59 Dose: 1 mg Ceftriaxone Sodium 1 gm/ (Dextrose) 50 mls @ 100 mls/hr IVPB Q24H [facility] Potassium Chloride/Dextrose/Sod Cl (D5-1/2ns+20 Meq Kcl -) 20 meq in 1,000 mls @ 100 mls/hr IV ASDIR [facility] Last Admin: 03/08/19 13:12 Dose: 100 mls/hr Insulin Aspart (Novolog Vial Sliding Scale -) 1 vial SQ ACHS [facility]; Protocol Last Admin: 03/09/19 08:54 Dose: Not Given Latanoprost (Xalatan 0.005% Eye Drops -) 1 drop OU [facility] Levothyroxine Sodium (Synthroid -) 75 mcg PO DAILY@0700 [facility] Last Admin: 03/09/19 08:59 Dose: 75 mcg Montelukast Sodium (Singulair -) 10 mg PO HS [facility] Pantoprazole Sodium (Protonix -) 20 mg PO DAILY [facility] Last Admin: 03/09/19 08:59 Dose: 20 mg Senna (Senna -) 2 tab PO HS [facility] Silver Sulfadiazine (Silvadene -) 1 applic TP DAILY [facility] Last Admin: 03/08/19 13:11 Dose: Not Given - Review of Systems Unable to obtain - Objective Vital Signs: Last Vital Signs Temp Pulse Resp BP Pulse Ox 98.3 F 57 L 16 139/86 100 03/09/19 08:50 03/09/19 08:50 03/09/19 09:46 03/09/19 08:50 03/09/19 09:46 Intake & Output 03/06/19 03/07/19 03/08/19 03/09/19 23:59 23:59 23:59 23:59 Intake Total 20 10 Output Total 1195 1600 Balance -1175 -1590 Weight 196 lb Neck: Supple Negative JVD No Bruit Cardiovascular: S1 S2 Irregularly Irregular Grade 2/6 SM Respiratory: Diminished Breath Sounds at the Bases Bilaterally Gastrointestinal: Soft Benign Normal Bowel Sounds Ext: Trace Edema Labs: CBC, BMP 03/07/19 22:33 03/07/19 22:33 Hepatic Panel Total Bilirubin 0.2 mg/dL (0.2-1) 03/07/19 22:33 AST 19 U/L (15-37) 03/07/19 22:33 ALT 14 U/L (13-61) 03/07/19 22:33 Alkaline Phosphatase 109 U/L (45-117) 03/07/19 22:33 Albumin 3.0 g/dl (3.4-5.0) L 03/07/19 22:33 Assessment/Plan ASSESSMENT: 1. Altered mental status with underlying dementia referable to toxic metabolic encephalopathy, improved mentation 2. 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 Systolic/diastolic LV dysfunction with clinical class I-II NYHA classification LV failure, compensated/euvolemic 4. Persistent atrial fibrillation [id number] score of 8 on DOAC's/Pradaxa 5. 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 HTN, hypertensive urgency 7. DM 8. CVA recurrent Hypothyroidism 9. COPD 10. Hypothyroidism 11. UTI acute cystitis with urinary retention 12. Colonic ileus 13. Murray-cytopenia PLAN: 1. Continue Norvasc 2. Continue Vasotec, consider changing to Entresto as outpatient 3. Add Coreg 4. Continue Lipitor 5. Continue Pradaxa and agree with the addition of ASA 6. Resume Lasix and D/C IVF 7. Antibiotics as per the primary team Vazquez Montano M.D.
--- NOTE | 2019-03-09 11:00 | PN ---
Progress Note, TAX AGENT - Note Progress Note: Selected Entries 03/09/19 03/09/19 03/09/19 02:00 06:00 08:50 Temperature 98.5 F 98.4 F 98.3 F MRI-Multiple nonhem infarcts R MCA Reassessed. No longer pooling saliva or drooling, attempting to commmunicate. Baseline Aphasia, likely at baseline. Swallow is delayed,with delayed strong cough with nectar thick and thin trials. Pt took cup from my hand, extended head and poured liquid into mouth with delayed swallow onset. Pt appears thirsty/hungry. Y/N responses inconsistent and unreliable. Euphoric/labile. Suggest MBS to r/o silent Aspiration (risk sec to multi-infarct). Ok to give medication, crushed per remote sensing research scientist's guideline, in applesauce.
--- NOTE | 2019-03-09 12:09 | PN ---
Progress Note (short form) - Note Progress Note: Vital Signs - 24 hr 03/08/19 03/08/19 03/08/19 14:55 16:26 20:31 Temperature 98.8 F Pulse Rate 74 Pulse Rate [ Left Radial] Respiratory 18 18 18 Rate Blood Pressure 179/90 H Blood Pressure [Right Arm] O2 Sat by Pulse 100 100 Oximetry (%) 03/08/19 03/08/19 03/09/19 22:00 22:02 02:00 Temperature 98.3 F 98.3 F 98.5 F Pulse Rate 69 65 Pulse Rate [ 64 Left Radial] Respiratory 18 20 20 Rate Blood Pressure 146/83 147/70 Blood Pressure 134/94 [Right Arm] O2 Sat by Pulse 100 100 Oximetry (%) 03/09/19 03/09/19 03/09/19 06:00 08:50 09:46 Temperature 98.4 F 98.3 F Pulse Rate 70 57 L Pulse Rate [ Left Radial] Respiratory 20 16 16 Rate Blood Pressure 142/73 139/86 Blood Pressure [Right Arm] O2 Sat by Pulse 100 Oximetry (%) Current Medications Generic Name Dose Route Start Last Admin Trade Name Freq PRN Reason Stop Dose Admin Albuterol/Ipratropium 1 amp 03/08/19 08:00 03/09/19 07:50 Duoneb - NEB 1 amp RQID [facility] Administration Amlodipine Besylate 5 mg 03/08/19 10:00 03/09/19 08:59 Norvasc - PO 5 mg DAILY [facility] Administration Aspirin 81 mg 03/08/19 03:18 03/09/19 08:59 Asa - PO 81 mg DAILY [facility] Administration Atorvastatin Calcium 40 mg 03/08/19 03:18 03/08/19 03:56 Lipitor - PO 40 mg HS [facility] Administration Carvedilol 6.25 mg 03/09/19 11:30 Coreg - PO BID [facility] Dabigatran 150 mg 03/08/19 10:00 03/09/19 08:59 Pradaxa - PO 150 mg BID [facility] Administration Docusate Sodium 100 mg 03/08/19 10:00 03/09/19 08:59 Colace - PO 100 mg DAILY [facility] Administration Dorzolamide HCl 1 drop 03/08/19 10:00 03/08/19 13:12 Trusopt 2% OU Not Given BID [facility] Enalapril Maleate 10 mg 03/08/19 10:00 03/09/19 08:59 Vasotec - PO 10 mg BID [facility] Administration Folic Acid 1 mg 03/08/19 10:00 03/09/19 08:59 Folic Acid - PO 1 mg DAILY [facility] Administration Furosemide 20 mg 03/10/19 10:00 Lasix - PO DAILY [facility] Ceftriaxone Sodium 1 gm/ 50 mls @ 100 mls/hr 03/08/19 22:30 Dextrose IVPB Q24H [facility] Insulin Aspart 1 vial 03/08/19 07:00 03/09/19 11:20 Novolog Vial Sliding Scale - SQ Not Given ACHS [facility] Protocol Latanoprost 1 drop 03/08/19 22:00 Xalatan 0.005% Eye Drops - OU HS [facility] Levothyroxine Sodium 75 mcg 03/08/19 07:00 03/09/19 08:59 Synthroid - PO 75 mcg DAILY@0700 [facility] Administration Montelukast Sodium 10 mg 03/08/19 22:00 Singulair - PO HS [facility] Pantoprazole Sodium 20 mg 03/08/19 10:00 03/09/19 08:59 Protonix - PO 20 mg DAILY [facility] Administration Senna 2 tab 03/08/19 22:00 Senna - PO HS [facility] Silver Sulfadiazine 1 applic 03/08/19 10:00 03/08/19 13:11 Silvadene - TP Not Given DAILY [facility] Laboratory Results - last 24 hr 03/08/19 03/08/19 03/09/19 13:07 17:56 06:20 POC Glucometer 153 148 Triglycerides 71 Cholesterol 156 Total LDL Cholesterol 108 H HDL Cholesterol 37 L 03/09/19 03/09/19 08:53 11:19 POC Glucometer 126 97 Triglycerides Cholesterol Total LDL Cholesterol HDL Cholesterol ct abd- reviewed cxr/ ekg reviewed MRI brain reviewed physical exam awake S1 S2 RRR Lungs ---clear Abd- distended -- +ve umblical hernia, BS diminished NT trace edema rt lower extremity neuro--- awake. old right side deficit A/P restarted Lasix per Cardiology NPO for MBS today check FUA GI eval abx continue Pradaxa and ASA pt is DNR/DNI Problem List - Problems (1) Acute CVA (cerebrovascular accident) Code(s): I63.9 - CEREBRAL INFARCTION, UNSPECIFIED (2) Adynamic ileus Code(s): K56.0 - PARALYTIC ILEUS (3) H/O: stroke with residual effects Code(s): I69.30 - UNSPECIFIED SEQUELAE OF CEREBRAL INFARCTION (4) Persistent atrial fibrillation Code(s): I48.1 - PERSISTENT ATRIAL FIBRILLATION
--- NOTE | 2019-03-09 13:21 | CON.GI ---
Consult Consult Specialty:: GI Referred by:: Dr Leela Hale - History of Present Illness History of Present Illness: 83 y/o M with hx HTN, HLD, DM, CAD, afib (on pradaxa), CVA (with aphasia at baseline, R residual hemiplegia), COPD, who presents to the ED with "change in mental status. MRI was done which revealed multiple acute infarcts. Abdominal catscan was performed because of abdominal distention. Catscan done in 2017 revealed a sigmoid dilation. Repeat ct done this admission had similar findings. A possibility of intermittent volvulus and sigmoid narrowing was noted. Ordered KUB,patient with markedly dilated sigmoid possibly secvondary to volvulus. Inserted rectal tube and applied enemas. Good decompresson aachieved. Three enemas given through rectal tube. - Alcohol/Substance Use Hx Alcohol Use: No - Smoking History Smoking history: Unknown if ever smoked Have you smoked in the past 12 months: No Home Medications - Allergies Allergies/Adverse Reactions: Allergies Allergy/AdvReac Type Severity Reaction Status Date / Time No Known Allergies Allergy Verified 06/10/17 14:26 - Home Medications Home Medications: Ambulatory Orders Amlodipine Besylate [Norvasc -] 5 mg PO DAILY 06/10/17 Ascorbic Acid [Vitamin C -] 500 mg PO DAILY 06/10/17 Cholecalciferol (Vitamin D3) [Vitamin D3 -] 1,000 unit PO DAILY 06/10/17 Dabigatran Etexilate Mesylate [Pradaxa -] 150 mg PO BID 06/10/17 Dorzolamide HCl [Trusopt 2%] 1 drop OU BID 06/10/17 Enalapril Maleate [Vasotec] 10 mg PO BID 06/10/17 Ferrous Sulfate 325 mg PO DAILY 06/10/17 Folic Acid 1 mg PO DAILY 06/10/17 Furosemide [Lasix -] 40 mg PO DAILY 06/10/17 Latanoprost 0.005% Eye Drops [Xalatan 0.005% Eye Drops -] 1 drop OU HS 06/10/17 Levothyroxine [Synthroid -] 75 mcg PO DAILY 06/10/17 Montelukast Na [Singulair -] 10 mg PO HS 06/10/17 Multivitamin [Poly-Vitamin] 1 each PO DAILY 06/10/17 Omeprazole 20 mg PO DAILY 06/10/17 Potassium Chloride 20 meq PO DAILY 06/10/17 metFORMIN HCL [Metformin HCl] 500 mg PO DAILY 06/10/17 Acetaminophen [Tylenol] 650 mg PO DAILY 03/07/19 Budesonide [Pulmicort 0.5 mg Nebulizer -] 1 neb NEB ONCE 03/07/19 Docusate Sodium [Colace] 100 mg PO DAILY 03/07/19 Ipratropium/Albuterol Sulfate [Iprat-Albut 0.5-3(2.5) mg/3 ml] 3 ml IH DAILY Sennosides [Senna] 17.2 mg PO HS 03/07/19 Silver Sulfadiazine 1% Top Cr [Silvadene -] 1 applic TP DAILY 03/07/19 Physical Exam-GI Vital Signs: Vital Signs Temperature 98.3 F 03/09/19 08:50 Pulse Rate 57 L 03/09/19 08:50 Respiratory Rate 16 03/09/19 09:46 Blood Pressure 139/86 03/09/19 08:50 O2 Sat by Pulse Oximetry (%) 100 03/09/19 09:46 Constitutional: Yes: Well Nourished Eyes: Yes: Conjunctiva Clear HENT: Yes: Atraumatic Neck: Yes: Supple Cardiovascular: Yes: Regular Rate and Rhythm Respiratory: Yes: CTA Bilaterally Gastrointestinal Inspection: Yes: Distention (--mild), Scars (--midline, ventral hernia) ...Auscultate: Yes: Hypoactive Bowel Sounds ...Palpate: Yes: Soft, Tenderness. No: Firm/Rigid, Guarding, Hepatomegaly, Mass , Pulsatile Mass, Splenomegaly ...Rectal Exam: Yes: Sphincter Tone Normal. No: Mass (--inserted 20 FR rectal tube) Labs: CBC, BMP 03/07/19 22:33 03/07/19 22:33 Home Medications Medication Instructions Recorded Amlodipine Besylate [Norvasc -] 5 mg PO DAILY 06/10/17 Ascorbic Acid [Vitamin C -] 500 mg PO DAILY 06/10/17 Cholecalciferol (Vitamin D3) 1,000 unit PO DAILY 06/10/17 [Vitamin D3 -] Dabigatran Etexilate Mesylate 150 mg PO BID 06/10/17 [Pradaxa -] Dorzolamide HCl [Trusopt 2%] 1 drop OU BID 06/10/17 Enalapril Maleate [Vasotec] 10 mg PO BID 06/10/17 Ferrous Sulfate 325 mg PO DAILY 06/10/17 Folic Acid 1 mg PO DAILY 06/10/17 Furosemide [Lasix -] 40 mg PO DAILY 06/10/17 Latanoprost 0.005% Eye Drops 1 drop OU HS 06/10/17 [Xalatan 0.005% Eye Drops -] Levothyroxine [Synthroid -] 75 mcg PO DAILY 06/10/17 Montelukast Na [Singulair -] 10 mg PO HS 06/10/17 Multivitamin [Poly-Vitamin] 1 each PO DAILY 06/10/17 Omeprazole 20 mg PO DAILY 06/10/17 Potassium Chloride 20 meq PO DAILY 06/10/17 metFORMIN HCL [Metformin HCl] 500 mg PO DAILY 06/10/17 Acetaminophen [Tylenol] 650 mg PO DAILY 03/07/19 Budesonide [Pulmicort 0.5 mg 1 neb NEB ONCE 03/07/19 Nebulizer -] Docusate Sodium [Colace] 100 mg PO DAILY 03/07/19 Ipratropium/Albuterol Sulfate 3 ml IH DAILY 03/07/19 [Iprat-Albut 0.5-3(2.5) mg/3 ml] Sennosides [Senna] 17.2 mg PO HS 03/07/19 Silver Sulfadiazine 1% Top Cr 1 applic TP DAILY 03/07/19 [Silvadene -] Home Medication List Medication Instructions Recorded Confirmed Type Amlodipine Besylate [Norvasc -] 5 mg PO DAILY 06/10/17 03/07/19 History Ascorbic Acid [Vitamin C -] 500 mg PO DAILY 06/10/17 03/07/19 History Cholecalciferol (Vitamin D3) 1,000 unit PO DAILY 06/10/17 03/07/19 History [Vitamin D3 -] Dabigatran Etexilate Mesylate 150 mg PO BID 06/10/17 03/07/19 History [Pradaxa -] Dorzolamide HCl [Trusopt 2%] 1 drop OU BID 06/10/17 03/07/19 History Enalapril Maleate [Vasotec] 10 mg PO BID 06/10/17 03/07/19 History Ferrous Sulfate 325 mg PO DAILY 06/10/17 03/07/19 History Folic Acid 1 mg PO DAILY 06/10/17 03/07/19 History Furosemide [Lasix -] 40 mg PO DAILY 06/10/17 03/07/19 History Latanoprost 0.005% Eye Drops 1 drop OU HS 06/10/17 03/07/19 History [Xalatan 0.005% Eye Drops -] Levothyroxine [Synthroid -] 75 mcg PO DAILY 06/10/17 03/07/19 History Montelukast Na [Singulair -] 10 mg PO HS 06/10/17 03/07/19 History Multivitamin [Poly-Vitamin] 1 each PO DAILY 06/10/17 03/07/19 History Omeprazole 20 mg PO DAILY 06/10/17 03/07/19 History Potassium Chloride 20 meq PO DAILY 06/10/17 03/07/19 History metFORMIN HCL [Metformin HCl] 500 mg PO DAILY 06/10/17 03/07/19 History Acetaminophen [Tylenol] 650 mg PO DAILY 03/07/19 03/07/19 History Budesonide [Pulmicort 0.5 mg 1 neb NEB ONCE 03/07/19 03/07/19 History Nebulizer -] Docusate Sodium [Colace] 100 mg PO DAILY 03/07/19 03/07/19 History Ipratropium/Albuterol Sulfate 3 ml IH DAILY 03/07/19 03/07/19 History [Iprat-Albut 0.5-3(2.5) mg/3 ml] Sennosides [Senna] 17.2 mg PO HS 03/07/19 03/07/19 History Silver Sulfadiazine 1% Top Cr 1 applic TP DAILY 03/07/19 03/07/19 History [Silvadene -] Active Medications Generic Name Dose Route Start Last Admin Trade Name Freq PRN Reason Stop Dose Admin Albuterol/Ipratropium 1 amp 03/08/19 08:00 03/09/19 07:50 Duoneb - NEB 1 amp RQID RAJESH Administration Amlodipine Besylate 5 mg 03/08/19 10:00 03/09/19 08:59 Norvasc - PO 5 mg DAILY RAJESH Administration Aspirin 81 mg 03/08/19 03:18 03/09/19 08:59 Asa - PO 81 mg DAILY RAJESH Administration Atorvastatin Calcium 40 mg 03/08/19 03:18 03/08/19 03:56 Lipitor - PO 40 mg HS RAJESH Administration Carvedilol 6.25 mg 03/09/19 11:30 Coreg - PO BID RAJESH Dabigatran 150 mg 03/08/19 10:00 03/09/19 08:59 Pradaxa - PO 150 mg BID RAJESH Administration Docusate Sodium 100 mg 03/08/19 10:00 03/09/19 08:59 Colace - PO 100 mg DAILY RAJESH Administration Dorzolamide HCl 1 drop 03/08/19 10:00 03/08/19 13:12 Trusopt 2% OU Not Given BID [facility] Enalapril Maleate 10 mg 03/08/19 10:00 03/09/19 08:59 Vasotec - PO 10 mg BID RAJESH Administration Folic Acid 1 mg 03/08/19 10:00 03/09/19 08:59 Folic Acid - PO 1 mg DAILY RAJESH Administration Furosemide 20 mg 03/10/19 10:00 Lasix - PO DAILY [facility] Ceftriaxone Sodium 1 gm/ 50 mls @ 100 mls/hr 03/08/19 22:30 Dextrose IVPB Q24H [facility] Insulin Aspart 1 vial 03/08/19 07:00 03/09/19 11:20 Novolog Vial Sliding Scale - SQ Not Given ACHS [facility] Protocol Latanoprost 1 drop 03/08/19 22:00 Xalatan 0.005% Eye Drops - OU HS RAJESH Levothyroxine Sodium 75 mcg 03/08/19 07:00 03/09/19 08:59 Synthroid - PO 75 mcg DAILY@0700 RAJESH Administration Montelukast Sodium 10 mg 03/08/19 22:00 Singulair - PO HS RAJESH Pantoprazole Sodium 20 mg 03/08/19 10:00 03/09/19 08:59 Protonix - PO 20 mg DAILY [facility] Administration Senna 2 tab 03/08/19 22:00 Senna - PO HS RAJESH Silver Sulfadiazine 1 applic 03/08/19 10:00 03/08/19 13:11 Silvadene - TP Not Given DAILY [facility] Imaging - Results Cat Scan: Report Reviewed, Image Reviewed Problem List - Problems (1) Dilated bowel Assessment/Plan: r/o sigmoid volvulus R> 1)KUB because of the prsence of co morbidities the patient is high risk for endoscpic procedures will increase laxatives after KUB is reviewed 2) repeat KUB in am 3) advance diet, no evidence of SBO Code(s): CWJ5590 -
[2019-03-09] MEDS: SILVER SULFADIAZINE 1% TOP CREAM 400 GM JAR TP SCH (13:52)
[2019-03-09] MEDS: CARVEDILOL 6.25 MG TABLET (FP) PO SCH ×2 (13:52→21:28)
[2019-03-09] MEDS: DORZOLAMIDE 2% HCL OPHTHALMIC SOLUTION 10 ML BOTTLE OU SCH ×2 (13:52→21:34)
[2019-03-09] MEDS ORDERED: DEXTROSE 5%-WATER - 50 ML IVPB ONE (21:17)
[2019-03-09] MEDS ORDERED: cefTRIAXone SODIUM 1 GM VIAL ONE (21:17)
[2019-03-09] MEDS: SENNOSIDES 8.6MG TABLET (FP) PO SCH (21:27)
[2019-03-09] MEDS: MONTELUKAST NA 10 MG TABLET PO SCH (21:27)
[2019-03-09] MEDS: ATORVASTATIN CA 40 MG TABLET (FP) PO SCH (21:27)
[2019-03-09] MEDS: LATANOPROST 0.005% OPHTH SOLN 2.5ML BOTTLE OU SCH (22:30)
[2019-03-10] MEDS: INSULIN SLIDING SCALE (NOVOLOG) 1 VIAL SQ SCH ×4 (06:41→21:16)
[2019-03-10] MEDS: LEVOTHYROXINE NA 75 MCG TABLET (FP) PO SCH (06:42)
[2019-03-10 06:45] LABS: ALBUMIN 2.6 g/dl (3.4-5.0); ALK PHOS 74 U/L (45-117); ANION GAP 7 MMOL/L (8-16); BILIRUBIN,TOTAL 0.5 mg/dL (0.2-1); BLOOD UREA NITROGEN 9 mg/dL (7-18); CALCIUM 8.2 mg/dL (8.5-10.1); CHLORIDE 102 mmol/L (98-107); CO2 26 mmol/L (21-32); CREATININE 0.5 mg/dL (0.55-1.3); GLUCOSE,RANDOM 129 mg/dL (74-106); POTASSIUM 3.4 mmol/L (3.5-5.1); SGOT/AST 25 U/L (15-37); SGPT/ALT 13 U/L (13-61); SODIUM 135 mmol/L (136-145); TOT PROT 6.3 g/dl (6.4-8.2)
[2019-03-10 07:07] LABS: BASO % 0.6 % (0-2.0); EOS % 1.2 % (0-4.5); HEMATOCRIT 31.1 % (35.4-49); HEMOGLOBIN 9.8 GM/dL (11.7-16.9); LYMPH % 30.2 % (8-40); MCH 22.9 pg (25.7-33.7); MCHC 31.6 g/dl (32.0-35.9); MEAN CELL VOLUME 72.4 fl (80-96); MEAN PLT VOLUME 9.6 fl (7.5-11.1); MONO % 17.3 % (3.8-10.2); NEUT % 50.7 % (42.8-82.8); PLATELET COUNT 108 K/MM3 (134-434); RDW 14.8 % (11.9-15.9)
[2019-03-10] MEDS: ALBUTEROL SO4 2.5/IPRATROPIUM 0.5 INH SOL 3 ML VIAL.NEB. NEB SCH ×3 (07:40→21:44)
--- NOTE | 2019-03-10 08:00 | PN ---
Progress Note (short form) - Note Progress Note: 83 yo male with colonic ileus; possible Ogilvies; doubt sigmoid volvulus; umbilical hernia which is reducible and no clinical evidence of RIH. GI/Lantin --> Inserted rectal tube and applied enemas. Good decompresson achieved. Three enemas given through rectal tube. Currently resting comfortably. Last Vital Signs Temp Pulse Resp BP Pulse Ox 98.9 F 54 L 20 128/76 99 03/10/19 06:00 03/10/19 06:00 03/10/19 06:00 03/10/19 06:00 03/09/19 21:00 CBC, BMP 03/10/19 05:30 03/10/19 05:30 GEN: Awake, alert, and responds to verbal commands but is aphasic, NAD. ABD: Softly distended, NT. Reducible umbilical hernia MUSCULOSKELETAL: No CVA tenderness bilat :fernández to gravity LE: 2+ pulses, warm, well-perfused. No calf tenderness. No peripheral edema. Problem List - Problems (1) Dilated bowel Assessment/Plan: 83 yo male with colonic ileus; possible Ogilvies; doubt sigmoid volvulus; umbilical hernia which is reducible and no clinical evidence of RIH. A rectal tube was placed by GI yesterday and initiated three enemas through the tube with good decompression. K 3.4 --> replete f/u KUB Advance diet as tolerated laxatives Cont medical management Code(s): NFE3914 - (2) Type 2 diabetes mellitus Code(s): E11.9 - TYPE 2 DIABETES MELLITUS WITHOUT COMPLICATIONS Qualifiers: Diabetes mellitus fpc insulin use: without buttermaker continuous churn use
--- NOTE | 2019-03-10 08:37 | PN ---
Progress Note (short form) - Note Progress Note: Chief Complaint: Events noted notes reviewed, awake and alert, responds to verbal commands, in no distress History of Present Illness: Seen and examined on telemetry. Events noted notes reviewed, awake and alert, responds to verbal commands, in no distress Echocardiography revealed severe systolic LV dysfunction, LVEF 20-25%, mild RV systolic dysfunction, Bi-atrial dilatation, moderate to severe MR, mild TR - Current Medication List Current Medications Albuterol/Ipratropium (Duoneb -) 1 amp NEB RQID [facility] Last Admin: 03/09/19 21:45 Dose: 1 amp Amlodipine Besylate (Norvasc -) 5 mg PO DAILY [facility] Last Admin: 03/09/19 08:59 Dose: 5 mg Aspirin (Asa -) 81 mg PO DAILY [facility] Last Admin: 03/09/19 08:59 Dose: 81 mg Atorvastatin Calcium (Lipitor -) 40 mg PO HS [facility] Last Admin: 03/09/19 21:27 Dose: 40 mg Carvedilol (Coreg -) 6.25 mg PO BID [facility] Last Admin: 03/09/19 21:28 Dose: 6.25 mg Dabigatran (Pradaxa -) 150 mg PO BID [facility] Last Admin: 03/09/19 21:27 Dose: 150 mg Docusate Sodium (Colace -) 100 mg PO DAILY [facility] Last Admin: 03/09/19 08:59 Dose: 100 mg Dorzolamide HCl (Trusopt 2%) 1 drop OU BID [facility] Last Admin: 03/09/19 21:34 Dose: 1 drop Enalapril Maleate (Vasotec -) 10 mg PO BID [facility] Last Admin: 03/09/19 21:28 Dose: 10 mg Folic Acid (Folic Acid -) 1 mg PO DAILY [facility] Last Admin: 03/09/19 08:59 Dose: 1 mg Furosemide (Lasix -) 20 mg PO DAILY [facility] Ceftriaxone Sodium 1 gm/ (Dextrose) 50 mls @ 100 mls/hr IVPB Q24H [facility] Insulin Aspart (Novolog Vial Sliding Scale -) 1 vial SQ ACHS [facility]; Protocol Last Admin: 03/10/19 06:41 Dose: Not Given Latanoprost (Xalatan 0.005% Eye Drops -) 1 drop OU HS [facility] Last Admin: 03/09/19 22:30 Dose: 1 drop Levothyroxine Sodium (Synthroid -) 75 mcg PO DAILY@0700 [facility] Last Admin: 03/10/19 06:42 Dose: 75 mcg Montelukast Sodium (Singulair -) 10 mg PO HS [facility] Last Admin: 03/09/19 21:27 Dose: 10 mg Pantoprazole Sodium (Protonix -) 20 mg PO DAILY [facility] Last Admin: 03/09/19 08:59 Dose: 20 mg Senna (Senna -) 2 tab PO HS [facility] Last Admin: 03/09/19 21:27 Dose: 2 tab Silver Sulfadiazine (Silvadene -) 1 applic TP DAILY [facility] Last Admin: 03/09/19 13:52 Dose: 1 applic - Review of Systems Unable to obtain - Objective Vital Signs: Last Vital Signs Temp Pulse Resp BP Pulse Ox 98.9 F 54 L 20 128/76 99 03/10/19 06:00 03/10/19 06:00 03/10/19 06:00 03/10/19 06:00 03/09/19 21:00 Intake & Output 03/07/19 03/08/19 03/09/19 03/10/19 23:59 23:59 23:59 23:59 Intake Total 20 270 160 Output Total 1195 2150 500 Balance -1175 -1880 -340 Weight 196 lb Neck: Supple Negative JVD No Bruit Cardiovascular: S1 S2 Irregularly Irregular Grade 2/6 SM Respiratory: Diminished Breath Sounds at the Bases Bilaterally Gastrointestinal: Soft Benign Normal Bowel Sounds Ext: Trace Edema Labs: CBC, BMP 03/10/19 05:30 03/10/19 05:30 Hepatic Panel Total Bilirubin 0.5 mg/dL (0.2-1) 03/10/19 05:30 AST 25 U/L (15-37) 03/10/19 05:30 ALT 13 U/L (13-61) 03/10/19 05:30 Alkaline Phosphatase 74 U/L (45-117) 03/10/19 05:30 Albumin 2.6 g/dl (3.4-5.0) L 03/10/19 05:30 Assessment/Plan ASSESSMENT: 1. Altered mental status with underlying dementia referable to toxic metabolic encephalopathy, improved mentation 2. 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 Systolic/diastolic LV dysfunction with clinical class I-II NYHA classification LV failure, compensated/euvolemic 4. Persistent atrial fibrillation [id number] score of 8 on DOAC's/Pradaxa 5. 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 HTN, hypertensive urgency, resolved 7. DM 8. CVA recurrent 9. Hypothyroidism 10. COPD 11. UTI acute cystitis with urinary retention 12. Colonic ileus 13. Murray-cytopenia PLAN: 1. Continue Norvasc 2. Continue Vasotec, consider changing to Entresto as outpatient 3. Continue Coreg 4. Continue Lipitor 5. Continue Pradaxa and ASA with caution 6. Continue Lasix 7. Antibiotics as per the primary team Vazquez Montano M.D.
--- NOTE | 2019-03-10 09:10 | PN ---
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 [facility] and [facility] staff, pt had AMS at the [facility], as he usually curses at people which he was not doing on day of admission per notes. According to paperwork, he was also "restless" and had a BP of ~214/62, also leading to his need for further evaluation. Pt bedbound at baseline, does not ambulate. Of note, pt had a ucx+ Citrobacter that was resistant to amp, cefuroxime. Per notes, patient admitted and on CT head found to have hypodensity in the L occipital lobe representing possible acute/subacute infarct. Of note, he is already on pradaxa. MRI brain completed and demonstrated R MCA territory infarct acute, also with L temp/occipital/parietal chronic infarct. Carotid doppler with no hemodynamically significant stenosis. LDL 108, on Lipitor 40. Also on ASA 81 in addition to Pradaxa. More alert and interactive again today. Has R hemiparesis from prior CVA. Modified barium swallow reviewed, puree diet with honey thick. For KUB this AM. Neurologically improving. Active Medications Albuterol/Ipratropium (Duoneb -) 1 amp NEB RQID [facility] Last Admin: 03/09/19 21:45 Dose: 1 amp Amlodipine Besylate (Norvasc -) 5 mg PO DAILY [facility] Last Admin: 03/09/19 08:59 Dose: 5 mg Aspirin (Asa -) 81 mg PO DAILY [facility] Last Admin: 03/09/19 08:59 Dose: 81 mg Atorvastatin Calcium (Lipitor -) 40 mg PO HS [facility] Last Admin: 03/09/19 21:27 Dose: 40 mg Carvedilol (Coreg -) 6.25 mg PO BID [facility] Last Admin: 03/09/19 21:28 Dose: 6.25 mg Dabigatran (Pradaxa -) 150 mg PO BID [facility] Last Admin: 03/09/19 21:27 Dose: 150 mg Docusate Sodium (Colace -) 100 mg PO DAILY [facility] Last Admin: 03/09/19 08:59 Dose: 100 mg Dorzolamide HCl (Trusopt 2%) 1 drop OU BID [facility] Last Admin: 03/09/19 21:34 Dose: 1 drop Enalapril Maleate (Vasotec -) 10 mg PO BID [facility] Last Admin: 03/09/19 21:28 Dose: 10 mg Folic Acid (Folic Acid -) 1 mg PO DAILY [facility] Last Admin: 03/09/19 08:59 Dose: 1 mg Furosemide (Lasix -) 20 mg PO DAILY [facility] Ceftriaxone Sodium 1 gm/ (Dextrose) 50 mls @ 100 mls/hr IVPB Q24H [facility] Insulin Aspart (Novolog Vial Sliding Scale -) 1 vial SQ ACHS [facility]; Protocol Last Admin: 03/10/19 06:41 Dose: Not Given Latanoprost (Xalatan 0.005% Eye Drops -) 1 drop OU HS [facility] Last Admin: 03/09/19 22:30 Dose: 1 drop Levothyroxine Sodium (Synthroid -) 75 mcg PO DAILY@0700 [facility] Last Admin: 03/10/19 06:42 Dose: 75 mcg Montelukast Sodium (Singulair -) 10 mg PO HS [facility] Last Admin: 03/09/19 21:27 Dose: 10 mg Pantoprazole Sodium (Protonix -) 20 mg PO DAILY [facility] Last Admin: 03/09/19 08:59 Dose: 20 mg Senna (Senna -) 2 tab PO HS [facility] Last Admin: 03/09/19 21:27 Dose: 2 tab Silver Sulfadiazine (Silvadene -) 1 applic TP DAILY [facility] Last Admin: 03/09/19 13:52 Dose: 1 applic PHYSICAL EXAMINATION Vital Signs Period Temp Pulse Resp BP Sys/Oates Pulse Ox Last 24 Hr 98 F-99.8 F 41-66 16-20 128-145/62-80 99-100 GENERAL: AAOx1 (to self). Resting comfortably. Smiling HEAD: Normal with no signs of trauma. EYES: Pupils equal, round and reactive to light, extraocular movements intact, sclera anicteric, conjunctiva clear. No lid lag. EARS, NOSE, THROAT: Ears normal, nares patent, oropharynx clear without exudates. +Poor dentition NECK: Normal range of motion, supple LUNGS: Breath sounds equal, clear to auscultation bilaterally. No wheezes, and no crackles. No accessory muscle use. HEART: +irreg irreg rate and rhythm, normal S1 and S2 without murmur, rub or gallop. ABDOMEN: Soft, +distended, normoactive bowel sounds, no guarding, no rebound, no masses. UPPER EXTREMITIES: +contracted R arm LOWER EXTREMITIES: 2+ pt pulses, warm, well-perfused. 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 however w baseline aphasia and residual R sided weakness. would not participate in full neuro exam. PSYCHIATRIC: Cooperative. CBCD WBC 3.0 K/mm3 (4.0-10.0) L 03/10/19 05:30 RBC 4.30 M/mm3 (4.00-5.60) 03/10/19 05:30 Hgb 9.8 GM/dL (11.7-16.9) L 03/10/19 05:30 Hct 31.1 % (35.4-49) L 03/10/19 05:30 MCV 72.4 fl (80-96) L 03/10/19 05:30 MCHC 31.6 g/dl (32.0-35.9) L 03/10/19 05:30 RDW 14.8 % (11.9-15.9) 03/10/19 05:30 Plt Count 108 K/MM3 (134-434) L 03/10/19 05:30 MPV 9.6 fl (7.5-11.1) D 03/10/19 05:30 CMP Sodium 135 mmol/L (136-145) L 03/10/19 05:30 Potassium 3.4 mmol/L (3.5-5.1) L 03/10/19 05:30 Chloride 102 mmol/L (98-107) 03/10/19 05:30 Carbon Dioxide 26 mmol/L (21-32) 03/10/19 05:30 Anion Gap 7 MMOL/L (8-16) L 03/10/19 05:30 BUN 9 mg/dL (7-18) 03/10/19 05:30 Creatinine 0.5 mg/dL (0.55-1.3) L 03/10/19 05:30 Creat Clearance w eGFR 158.80 (>60) 03/10/19 05:30 Random Glucose 129 mg/dL (74-106) H 03/10/19 05:30 Calcium 8.2 mg/dL (8.5-10.1) L 03/10/19 05:30 Total Bilirubin 0.5 mg/dL (0.2-1) 03/10/19 05:30 AST 25 U/L (15-37) 03/10/19 05:30 ALT 13 U/L (13-61) 03/10/19 05:30 Alkaline Phosphatase 74 U/L (45-117) 03/10/19 05:30 Total Protein 6.3 g/dl (6.4-8.2) L 03/10/19 05:30 Albumin 2.6 g/dl (3.4-5.0) L 03/10/19 05:30 CARDIAC ENZYMES Creatine Kinase 416 U/L (26-308) H 03/07/19 22:33 Troponin I 0.13 ng/ml (0.00-0.05) H 03/08/19 06:10 CT head reviewed MRI brain reviewed Carotid doppler reviewed ASSESSMENT/PLAN: 83 y/o M with hx HTN, HLD, DM, CAD, afib (on pradaxa), CVA (with aphasia at baseline, R residual hemiplegia), COPD, who presents to the ED with "AMS" as per [facility]. [facility] per [facility] at [facility] and ED staff, pt had AMS at the [place], as he usually curses at people which he was not doing on day of admission per notes. According to paperwork, he was also "restless" and had a BP of ~214/62, also leading to his need for further evaluation. During my exam, pt AAOx1 and with severe aphasia, unable to answer questions to the point or follow commands. ROS unable to obtain for this reason. Pt bedbound at baseline, does not ambulate. Of note, pt had a ucx+ Citrobacter that was resistant to amp, cefuroxime. Per notes, patient admitted and on CT head found to have hypodensity in the L occipital lobe representing possible acute/subacute infarct. Of note, he is already on pradaxa. RI brain completed and demonstrated R MCA territory infarct acute, also with L temp/occipital/parietal chronic infarct. Carotid doppler with no hemodynamically significant stenosis. LDL 108, on Lipitor 40. Also on ASA 81 in addition to Pradaxa (increased risk for bleed but with recurrent CVA, benefit outweighs risk as patient proven to have thromboembolic events). More alert and interactive today. Continue infectious mgmt, IV Abx as needed. On Statin. PT/OT as tolerated. Monitor blood pressure, < 140/90 for now, <130/80 as outpatient. Tele monitoring for Afib, cardiology follow up. Monitor DM, maintain normal glycemic range. Neurologically improving.
[2019-03-10] MEDS: DABIGATRAN ETEXILATE MESYLATE 150 MG CAPSULE PO SCH ×2 (09:53→21:16)
[2019-03-10] MEDS: DORZOLAMIDE 2% HCL OPHTHALMIC SOLUTION 10 ML BOTTLE OU SCH ×2 (09:55→22:00)
[2019-03-10] MEDS: ENALAPRIL MALEATE 10 MG TABLET (FP) PO SCH ×2 (09:55→21:16)
[2019-03-10] MEDS: CARVEDILOL 6.25 MG TABLET (FP) PO SCH ×2 (09:56→21:17)
[2019-03-10] MEDS: FOLIC ACID 1 MG TABLET (FP) PO SCH (09:56)
[2019-03-10] MEDS: DOCUSATE SODIUM 100 MG CAPSULE (FP) PO SCH (09:56)
[2019-03-10] MEDS: ASPIRIN 81 MG CHEWABLE TABLETS PO SCH (09:56)
[2019-03-10] MEDS: SILVER SULFADIAZINE 1% TOP CREAM 400 GM JAR TP SCH (09:57)
[2019-03-10] MEDS: amLODIPine BESYLATE 5 MG TABLET (FP) PO SCH (09:57)
[2019-03-10] MEDS: FUROSEMIDE 20 MG TABLET (FP) PO SCH (09:57)
[2019-03-10] MEDS: PANTOPRAZOLE 20 MG TABLET (FP) PO SCH (09:57)
--- NOTE | 2019-03-10 10:53 | PN ---
Progress Note (short form) - Note Progress Note: no distress events noted has a rectal tube placed Vital Signs - 24 hr 03/09/19 03/09/19 03/09/19 14:20 16:41 21:00 Temperature 98 F 98.9 F Pulse Rate 65 41 L Respiratory 18 18 18 Rate Blood Pressure 134/62 145/71 O2 Sat by Pulse 99 Oximetry (%) 03/09/19 03/10/19 03/10/19 22:00 02:00 06:00 Temperature 98.8 F 99.8 F H 98.9 F Pulse Rate 66 64 54 L Respiratory 18 20 20 Rate Blood Pressure 133/80 128/64 128/76 O2 Sat by Pulse Oximetry (%) 03/10/19 03/10/19 09:00 10:00 Temperature 98.1 F Pulse Rate 69 Respiratory 20 Rate Blood Pressure 134/55 L O2 Sat by Pulse 98 Oximetry (%) Current Medications Generic Name Dose Route Start Last Admin Trade Name Freq PRN Reason Stop Dose Admin Albuterol/Ipratropium 1 amp 03/08/19 08:00 03/09/19 21:45 Duoneb - NEB 1 amp RQID RAJESH Administration Amlodipine Besylate 5 mg 03/08/19 10:00 03/10/19 09:57 Norvasc - PO 5 mg DAILY RAJESH Administration Aspirin 81 mg 03/08/19 03:18 03/10/19 09:56 Asa - PO 81 mg DAILY RAJESH Administration Atorvastatin Calcium 40 mg 03/08/19 03:18 03/09/19 21:27 Lipitor - PO 40 mg HS RAJESH Administration Carvedilol 6.25 mg 03/09/19 11:30 03/10/19 09:56 Coreg - PO 6.25 mg BID RAJESH Administration Dabigatran 150 mg 03/08/19 10:00 03/10/19 09:53 Pradaxa - PO 150 mg BID RAJESH Administration Docusate Sodium 100 mg 03/08/19 10:00 03/10/19 09:56 Colace - PO 100 mg DAILY RAJESH Administration Dorzolamide HCl 1 drop 03/08/19 10:00 03/10/19 09:55 Trusopt 2% OU 1 drop BID RAJESH Administration Enalapril Maleate 10 mg 03/08/19 10:00 03/10/19 09:55 Vasotec - PO 10 mg BID RAJESH Administration Folic Acid 1 mg 03/08/19 10:00 03/10/19 09:56 Folic Acid - PO 1 mg DAILY RAJESH Administration Furosemide 20 mg 03/10/19 10:00 03/10/19 09:57 Lasix - PO 20 mg DAILY RAJESH Administration Ceftriaxone Sodium 1 gm/ 50 mls @ 100 mls/hr 03/08/19 22:30 Dextrose IVPB Q24H RAJESH Insulin Aspart 1 vial 03/08/19 07:00 03/10/19 06:41 Novolog Vial Sliding Scale - SQ Not Given ACHS [facility] Protocol Latanoprost 1 drop 03/08/19 22:00 03/09/19 22:30 Xalatan 0.005% Eye Drops - OU 1 drop HS RAJESH Administration Levothyroxine Sodium 75 mcg 03/08/19 07:00 03/10/19 06:42 Synthroid - PO 75 mcg DAILY@0700 RAJESH Administration Montelukast Sodium 10 mg 03/08/19 22:00 03/09/19 21:27 Singulair - PO 10 mg HS RAJESH Administration Pantoprazole Sodium 20 mg 03/08/19 10:00 03/10/19 09:57 Protonix - PO 20 mg DAILY RAJESH Administration Potassium Chloride 40 meq 03/10/19 10:52 Potassium Chloride Oral Liquid PO 03/10/19 10:53 ONCE ONE Potassium Chloride 20 meq 03/11/19 10:00 Potassium Chloride Oral Liquid PO DAILY RAJESH Senna 2 tab 03/08/19 22:00 03/09/19 21:27 Senna - PO 2 tab HS RAJESH Administration Silver Sulfadiazine 1 applic 03/08/19 10:00 03/10/19 09:57 Silvadene - TP 1 applic DAILY RAJESH Administration Laboratory Results - last 24 hr 03/08/19 03/09/19 03/09/19 06:10 11:19 11:20 WBC RBC Hgb Hct MCV MCH MCHC RDW Plt Count MPV Absolute Neuts (auto) Neutrophils % Lymphocytes % Monocytes % Eosinophils % Basophils % Nucleated RBC % Sodium Potassium Chloride Carbon Dioxide Anion Gap BUN Creatinine Creat Clearance w eGFR POC Glucometer 97 Random Glucose Calcium Total Bilirubin AST ALT Alkaline Phosphatase Total Protein Albumin HIV Genotype Non reactive HIV 1&2 Antibody Screen Negative HIV P24 Antigen Negative 03/09/19 03/09/19 03/10/19 16:55 21:32 05:21 WBC RBC Hgb Hct MCV MCH MCHC RDW Plt Count MPV Absolute Neuts (auto) Neutrophils % Lymphocytes % Monocytes % Eosinophils % Basophils % Nucleated RBC % Sodium Potassium Chloride Carbon Dioxide Anion Gap BUN Creatinine Creat Clearance w eGFR POC Glucometer 119 130 142 Random Glucose Calcium Total Bilirubin AST ALT Alkaline Phosphatase Total Protein Albumin HIV Genotype HIV 1&2 Antibody Screen HIV P24 Antigen 03/10/19 03/10/19 05:30 05:30 WBC 3.0 L RBC 4.30 Hgb 9.8 L Hct 31.1 L MCV 72.4 L MCH 22.9 L MCHC 31.6 L RDW 14.8 Plt Count 108 L MPV 9.6 D Absolute Neuts (auto) 1.5 Neutrophils % 50.7 Lymphocytes % 30.2 Monocytes % 17.3 H Eosinophils % 1.2 D Basophils % 0.6 Nucleated RBC % 0 Sodium 135 L Potassium 3.4 L Chloride 102 Carbon Dioxide 26 Anion Gap 7 L BUN 9 Creatinine 0.5 L Creat Clearance w eGFR 158.80 POC Glucometer Random Glucose 129 H Calcium 8.2 L Total Bilirubin 0.5 AST 25 ALT 13 Alkaline Phosphatase 74 Total Protein 6.3 L Albumin 2.6 L HIV Genotype HIV 1&2 Antibody Screen HIV P24 [address] abd- reviewed cxr/ ekg reviewed MRI brain reviewed MBS reviewed physical exam awake S1 S2 irregular Lungs ---clear Abd- decreased distention -- +ve umblical hernia, BS + NT trace edema rt lower extremity neuro--- awake. old right side deficit A/P Acute CVA-- multiple infarcts Afib Early pneumonia H/O previous CVA HTN sigmoid volvulus hypokalemia -- on ASA and Pradaxa -- rate is controlled -- continue iv antibiotics -- dc fernández -- monitor urine output -- on rectal tube -- GI eval noted --PT eval Problem List - Problems (1) Acute CVA (cerebrovascular accident) Code(s): I63.9 - CEREBRAL INFARCTION, UNSPECIFIED (2) Adynamic ileus Code(s): K56.0 - PARALYTIC ILEUS (3) H/O: stroke with residual effects Code(s): I69.30 - UNSPECIFIED SEQUELAE OF CEREBRAL INFARCTION (4) Persistent atrial fibrillation Code(s): I48.1 - PERSISTENT ATRIAL FIBRILLATION (5) Altered mental status Code(s): R41.82 - ALTERED MENTAL STATUS, UNSPECIFIED Qualifiers: Altered mental status type: somnolence Qualified Code(s): R40.0 - Somnolence (6) CHF (congestive heart failure) Code(s): I50.9 - HEART FAILURE, UNSPECIFIED (7) Hypertensive cardiomyopathy Code(s): I11.9 - HYPERTENSIVE HEART DISEASE WITHOUT HEART FAILURE; I43 - CARDIOMYOPATHY IN DISEASES CLASSIFIED ELSEWHERE Qualifiers: Heart failure presence: without heart failure Qualified Code(s): I11.9 - Hypertensive heart disease without heart failure; I43 - Cardiomyopathy in diseases classified elsewhere
--- NOTE | 2019-03-10 11:04 | PN ---
Progress Note, EDUCATION INTERN - Note Progress Note: Pt now on dys puree/honey thick liquid, based on results of yesterday's MBS revealing silent aspiration on nectar thick liquids. Selected Entries 03/09/19 03/09/19 03/09/19 02:00 06:00 08:50 Supper Temperature 98.5 F 98.4 F 98.3 F 03/09/19 03/09/19 03/09/19 14:20 16:41 19:18 Supper 75% Temperature 98 F 98.9 F 03/09/19 03/10/19 03/10/19 22:00 02:00 06:00 Supper Temperature 98.8 F 99.8 F H 98.9 F 03/10/19 10:00 Supper Temperature 98.1 F Laboratory Tests 03/10/19 05:30 WBC 3.0 L MBS reviewed with staff.
[2019-03-10] MEDS ORDERED: POTASSIUM CHLORIDE ORAL LIQUID 20 MEQ/15 ML PO ONE (11:30)
--- NOTE | 2019-03-10 11:35 | PN ---
Progress Note, Physician History of Present Illness: GI FOLLOW UP NOTE Patient examined lying in bed. Rectal tube in place. As per RN having bowel movements. Pending KUB this morning. - Current Medication List Current Medications: Active Medications Albuterol/Ipratropium (Duoneb -) 1 amp NEB RQID [facility] Last Admin: 03/09/19 21:45 Dose: 1 amp Amlodipine Besylate (Norvasc -) 5 mg PO DAILY [facility] Last Admin: 03/10/19 09:57 Dose: 5 mg Aspirin (Asa -) 81 mg PO DAILY [facility] Last Admin: 03/10/19 09:56 Dose: 81 mg Atorvastatin Calcium (Lipitor -) 40 mg PO HS [facility] Last Admin: 03/09/19 21:27 Dose: 40 mg Carvedilol (Coreg -) 6.25 mg PO BID [facility] Last Admin: 03/10/19 09:56 Dose: 6.25 mg Dabigatran (Pradaxa -) 150 mg PO BID [facility] Last Admin: 03/10/19 09:53 Dose: 150 mg Docusate Sodium (Colace -) 100 mg PO DAILY [facility] Last Admin: 03/10/19 09:56 Dose: 100 mg Dorzolamide HCl (Trusopt 2%) 1 drop OU BID [facility] Last Admin: 03/10/19 09:55 Dose: 1 drop Enalapril Maleate (Vasotec -) 10 mg PO BID [facility] Last Admin: 03/10/19 09:55 Dose: 10 mg Folic Acid (Folic Acid -) 1 mg PO DAILY [facility] Last Admin: 03/10/19 09:56 Dose: 1 mg Furosemide (Lasix -) 20 mg PO DAILY [facility] Last Admin: 03/10/19 09:57 Dose: 20 mg Ceftriaxone Sodium 1 gm/ (Dextrose) 50 mls @ 100 mls/hr IVPB Q24H [facility] Insulin Aspart (Novolog Vial Sliding Scale -) 1 vial SQ ACHS [facility]; Protocol Last Admin: 03/10/19 06:41 Dose: Not Given Latanoprost (Xalatan 0.005% Eye Drops -) 1 drop OU HS [facility] Last Admin: 03/09/19 22:30 Dose: 1 drop Levothyroxine Sodium (Synthroid -) 75 mcg PO DAILY@0700 [facility] Last Admin: 03/10/19 06:42 Dose: 75 mcg Montelukast Sodium (Singulair -) 10 mg PO HS [facility] Last Admin: 03/09/19 21:27 Dose: 10 mg Pantoprazole Sodium (Protonix -) 20 mg PO DAILY [facility] Last Admin: 03/10/19 09:57 Dose: 20 mg Potassium Chloride (Potassium Chloride Oral Liquid) 20 meq PO DAILY [facility] Senna (Senna -) 2 tab PO HS [facility] Last Admin: 03/09/19 21:27 Dose: 2 tab Silver Sulfadiazine (Silvadene -) 1 applic TP DAILY [facility] Last Admin: 03/10/19 09:57 Dose: 1 applic - Objective Vital Signs: Vital Signs Temperature 98.1 F 03/10/19 10:00 Pulse Rate 69 03/10/19 10:00 Respiratory Rate 20 03/10/19 10:00 Blood Pressure 134/55 L 03/10/19 10:00 O2 Sat by Pulse Oximetry (%) 98 03/10/19 09:00 Constitutional: Yes: No Distress, Calm Eyes: Yes: Conjunctiva Clear HENT: Yes: Atraumatic Cardiovascular: Yes: Regular Rate and Rhythm Respiratory: Yes: Regular, CTA Bilaterally Gastrointestinal: Yes: Normal Bowel Sounds, Soft, Distention (moderate) Genitourinary: Yes: Incontinence Musculoskeletal: Yes: Muscle Weakness Neurological: Yes: Alert, Pre-Existing Deficit Psychiatric: Yes: Alert Labs: CBC, BMP 03/10/19 05:30 03/10/19 05:30 <Betty Vogt - Last Filed: 03/10/19 11:32> - Current Medication List Current Medications: Active Medications Albuterol/Ipratropium (Duoneb -) 1 amp NEB RQID [facility] Last Admin: 03/10/19 11:30 Dose: 1 amp Amlodipine Besylate (Norvasc -) 5 mg PO DAILY [facility] Last Admin: 03/10/19 09:57 Dose: 5 mg Aspirin (Asa -) 81 mg PO DAILY [facility] Last Admin: 03/10/19 09:56 Dose: 81 mg Atorvastatin Calcium (Lipitor -) 40 mg PO HS [facility] Last Admin: 03/09/19 21:27 Dose: 40 mg Carvedilol (Coreg -) 6.25 mg PO BID [facility] Last Admin: 03/10/19 09:56 Dose: 6.25 mg Dabigatran (Pradaxa -) 150 mg PO BID [facility] Last Admin: 03/10/19 09:53 Dose: 150 mg Docusate Sodium (Colace -) 100 mg PO DAILY [facility] Last Admin: 03/10/19 09:56 Dose: 100 mg Dorzolamide HCl (Trusopt 2%) 1 drop OU BID [facility] Last Admin: 03/10/19 09:55 Dose: 1 drop Enalapril Maleate (Vasotec -) 10 mg PO BID [facility] Last Admin: 03/10/19 09:55 Dose: 10 mg Folic Acid (Folic Acid -) 1 mg PO DAILY [facility] Last Admin: 03/10/19 09:56 Dose: 1 mg Furosemide (Lasix -) 20 mg PO DAILY [facility] Last Admin: 03/10/19 09:57 Dose: 20 mg Ceftriaxone Sodium 1 gm/ (Dextrose) 50 mls @ 100 mls/hr IVPB Q24H [facility] Insulin Aspart (Novolog Vial Sliding Scale -) 1 vial SQ ACHS [facility]; Protocol Last Admin: 03/10/19 16:53 Dose: 2 units Latanoprost (Xalatan 0.005% Eye Drops -) 1 drop OU HS [facility] Last Admin: 03/09/19 22:30 Dose: 1 drop Levothyroxine Sodium (Synthroid -) 75 mcg PO DAILY@0700 [facility] Last Admin: 03/10/19 06:42 Dose: 75 mcg Montelukast Sodium (Singulair -) 10 mg PO HS [facility] Last Admin: 03/09/19 21:27 Dose: 10 mg Pantoprazole Sodium (Protonix -) 20 mg PO DAILY [facility] Last Admin: 03/10/19 09:57 Dose: 20 mg Potassium Chloride (Potassium Chloride Oral Liquid) 20 meq PO DAILY [facility] Senna (Senna -) 2 tab PO HS [facility] Last Admin: 03/09/19 21:27 Dose: 2 tab Silver Sulfadiazine (Silvadene -) 1 applic TP DAILY [facility] Last Admin: 03/10/19 09:57 Dose: 1 applic - Objective Vital Signs: Vital Signs Temperature 98.4 F 03/10/19 16:35 Pulse Rate 51 L 03/10/19 16:35 Respiratory Rate 20 03/10/19 16:35 Blood Pressure 126/58 L 03/10/19 16:35 O2 Sat by Pulse Oximetry (%) 98 03/10/19 09:00 Labs: CBC, BMP 03/10/19 05:30 03/10/19 05:30 <Gerson Bell - Last Filed: 03/10/19 18:19> Problem List - Problems (1) Dilated bowel Assessment/Plan: >Pending repeat KUB >rectal tube in place >tolerating diet Code(s): [id number] - <Betty Vogt - Last Filed: 03/10/19 11:32> - Problems (1) Dilated bowel Code(s): INU5951 - <Gerson Bell - Last Filed: 03/10/19 18:19>
--- NOTE | 2019-03-10 18:21 | PN ---
Progress Note (short form) - Note Progress Note: more distended today had three large BM the whole day, rectal tube in place abd: non-tender no masses bed side KUB poor film repeat films requested Problem List - Problems (1) Dilated bowel Code(s): [id number] -
[2019-03-10] MEDS ORDERED: DEXTROSE 5%-WATER - 50 ML IVPB ONE (20:37)
[2019-03-10] MEDS ORDERED: cefTRIAXone SODIUM 1 GM VIAL ONE (20:37)
[2019-03-10] MEDS: BISACODYL 5 MG TABLET.DR (FP) PO SCH (20:47)
[2019-03-10] MEDS: ATORVASTATIN CA 40 MG TABLET (FP) PO SCH (21:15)
[2019-03-10] MEDS: SENNOSIDES 8.6MG TABLET (FP) PO SCH (21:16)
[2019-03-10] MEDS: MONTELUKAST NA 10 MG TABLET PO SCH (21:16)
[2019-03-10] MEDS: LATANOPROST 0.005% OPHTH SOLN 2.5ML BOTTLE OU SCH (22:00)
[2019-03-11] MEDS: INSULIN SLIDING SCALE (NOVOLOG) 1 VIAL SQ SCH ×4 (06:24→22:21)
[2019-03-11] MEDS: LEVOTHYROXINE NA 75 MCG TABLET (FP) PO SCH (06:31)
[2019-03-11 07:04] LABS: ALBUMIN 2.5 g/dl (3.4-5.0); ALK PHOS 77 U/L (45-117); ANION GAP 4 MMOL/L (8-16); BILIRUBIN,TOTAL 0.5 mg/dL (0.2-1); BLOOD UREA NITROGEN 10 mg/dL (7-18); CALCIUM 7.8 mg/dL (8.5-10.1); CHLORIDE 102 mmol/L (98-107); CO2 28 mmol/L (21-32); CREATININE 0.8 mg/dL (0.55-1.3); GLUCOSE,RANDOM 137 mg/dL (74-106); POTASSIUM 3.8 mmol/L (3.5-5.1); SGOT/AST 23 U/L (15-37); SGPT/ALT 13 U/L (13-61); SODIUM 134 mmol/L (136-145); TOT PROT 6.2 g/dl (6.4-8.2)
[2019-03-11] MEDS: ALBUTEROL SO4 2.5/IPRATROPIUM 0.5 INH SOL 3 ML VIAL.NEB. NEB SCH ×6 (07:29→21:20)
--- NOTE | 2019-03-11 07:58 | PN ---
Progress Note (short form) - Note Progress Note: 83 yo male with colonic ileus; possible Ogilvies; doubt sigmoid volvulus; umbilical hernia which is reducible and no clinical evidence of RIH. Currently resting comfortably. No complaints. RN states patient had 3 large BMs. Tolerating PO diet. Last Vital Signs Temp Pulse Resp BP Pulse Ox 98.5 F 59 L 20 144/76 98 03/11/19 06:00 03/11/19 06:00 03/11/19 06:00 03/11/19 06:00 03/10/19 21:00 GEN: Awake, alert, and responds to verbal commands but is aphasic, NAD. ABD: Softly distended, NT. Reducible umbilical hernia RECTAL: tube in place LE: 2+ pulses, warm, well-perfused. No calf tenderness. No peripheral edema. Problem List - Problems (1) Dilated bowel Assessment/Plan: 83 yo male with colonic ileus; possible Ogilvies; doubt sigmoid volvulus; umbilical hernia which is reducible and no clinical evidence of RIH. Yesterdays ABD XR suggests that the rectal tube be advanced for further decompression. GI for rectal tube advancement Stool softners Frequent repositioning to avoid DTI Diet as tolerated Avoid narcotics to prevent ileus Cont medical management Repeat KUB in AM Code(s): [id number] - (2) Type 2 diabetes mellitus Code(s): E11.9 - TYPE 2 DIABETES MELLITUS WITHOUT COMPLICATIONS Qualifiers: Diabetes mellitus exterminator termite insulin use: without fci use
--- NOTE | 2019-03-11 08:40 | PN ---
Progress Note (short form) - Note Progress Note: Neurology CHIEF COMPLAINT: "AMS" HISTORY OF PRESENT ILLNESS: 83 y/o M with hx HTN, HLD, DM, CAD, afib (on pradaxa), CVA (with aphasia at baseline, R residual hemiplegia), COPD, who presents to the ED with "AMS" as per [facility]. As per staff at [facility] and ED staff, pt had AMS at the [facility], as he usually curses at people which he was not doing on day of admission per notes. According to paperwork, he was also "restless" and had a BP of ~214/62, also leading to his need for further evaluation. Pt bedbound at baseline, does not ambulate. Of note, pt had a ucx+ Citrobacter that was resistant to amp, cefuroxime. Per notes, patient admitted and on CT head found to have hypodensity in the L occipital lobe representing possible acute/subacute infarct. Of note, he is already on pradaxa. MRI brain completed and demonstrated R MCA territory infarct acute, also with L temp/occipital/parietal chronic infarct. Carotid doppler with no hemodynamically significant stenosis. LDL 108, on Lipitor 40. Also on ASA 81 in addition to Pradaxa. More alert and interactive again today. Has R hemiparesis from prior CVA. Modified barium swallow reviewed, puree diet with honey thick. Rectal tube placed, neurologically without new complaints and remains stable at this time. Active Medications Albuterol/Ipratropium (Duoneb -) 1 amp NEB RQID [facility] Last Admin: 03/10/19 21:44 Dose: 1 amp Amlodipine Besylate (Norvasc -) 5 mg PO DAILY [facility] Last Admin: 03/10/19 09:57 Dose: 5 mg Aspirin (Asa -) 81 mg PO DAILY [facility] Last Admin: 03/10/19 09:56 Dose: 81 mg Atorvastatin Calcium (Lipitor -) 40 mg PO HS [facility] Last Admin: 03/10/19 21:15 Dose: 40 mg Bisacodyl (Dulcolax -) 10 mg PO BID [facility] Last Admin: 03/10/19 20:47 Dose: 10 mg Carvedilol (Coreg -) 6.25 mg PO BID [facility] Last Admin: 03/10/19 21:17 Dose: 6.25 mg Dabigatran (Pradaxa -) 150 mg PO BID [facility] Last Admin: 03/10/19 21:16 Dose: 150 mg Docusate Sodium (Colace -) 100 mg PO DAILY [facility] Last Admin: 03/10/19 09:56 Dose: 100 mg Dorzolamide HCl (Trusopt 2%) 1 drop OU BID [facility] Last Admin: 03/10/19 22:00 Dose: 1 drop Enalapril Maleate (Vasotec -) 10 mg PO BID [facility] Last Admin: 03/10/19 21:16 Dose: 10 mg Folic Acid (Folic Acid -) 1 mg PO DAILY [facility] Last Admin: 03/10/19 09:56 Dose: 1 mg Furosemide (Lasix -) 20 mg PO DAILY [facility] Last Admin: 03/10/19 09:57 Dose: 20 mg Ceftriaxone Sodium 1 gm/ (Dextrose) 50 mls @ 100 mls/hr IVPB Q24H [facility] Last Admin: 03/10/19 22:02 Dose: 100 mls/hr Insulin Aspart (Novolog Vial Sliding Scale -) 1 vial SQ ACHS [facility]; Protocol Last Admin: 03/11/19 06:24 Dose: 2 units Latanoprost (Xalatan 0.005% Eye Drops -) 1 drop OU HS [facility] Last Admin: 03/10/19 22:00 Dose: 1 drop Levothyroxine Sodium (Synthroid -) 75 mcg PO DAILY@0700 [facility] Last Admin: 03/11/19 06:31 Dose: 75 mcg Montelukast Sodium (Singulair -) 10 mg PO HS [facility] Last Admin: 03/10/19 21:16 Dose: 10 mg Pantoprazole Sodium (Protonix -) 20 mg PO DAILY [facility] Last Admin: 03/10/19 09:57 Dose: 20 mg Potassium Chloride (Potassium Chloride Oral Liquid) 20 meq PO DAILY [facility] Senna (Senna -) 2 tab PO HS [facility] Last Admin: 03/10/19 21:16 Dose: 2 tab Silver Sulfadiazine (Silvadene -) 1 applic TP DAILY [facility] Last Admin: 03/10/19 09:57 Dose: 1 applic PHYSICAL EXAMINATION Vital Signs Period Temp Pulse Resp BP Sys/Oates Pulse Ox Last 24 Hr 98.1 F-99 F 49-69 20-20 122-144/55-76 98-98 GENERAL: AAOx1 (to self). Resting comfortably. Smiling HEAD: Normal with no signs of trauma. EYES: Pupils equal, round and reactive to light, extraocular movements intact, sclera anicteric, conjunctiva clear. No lid lag. EARS, NOSE, THROAT: Ears normal, nares patent, oropharynx clear without exudates. +Poor dentition NECK: Normal range of motion, supple LUNGS: Breath sounds equal, clear to auscultation bilaterally. No wheezes, and no crackles. No accessory muscle use. HEART: +irreg irreg rate and rhythm, normal S1 and S2 without murmur, rub or gallop. ABDOMEN: Soft, +distended, normoactive bowel sounds, no guarding, no rebound, no masses. UPPER EXTREMITIES: +contracted R arm LOWER EXTREMITIES: 2+ pt pulses, warm, well-perfused. 1+ pitting edema b/l NEUROLOGICAL: beater room supervisor 2-12 appear to be intact. however w baseline aphasia and residual R sided weakness. would not participate in full neuro exam. PSYCHIATRIC: Cooperative. CBCD WBC 3.0 K/mm3 (4.0-10.0) L 03/10/19 05:30 RBC 4.30 M/mm3 (4.00-5.60) 03/10/19 05:30 Hgb 9.8 GM/dL (11.7-16.9) L 03/10/19 05:30 Hct 31.1 % (35.4-49) L 03/10/19 05:30 MCV 72.4 fl (80-96) L 03/10/19 05:30 MCHC 31.6 g/dl (32.0-35.9) L 03/10/19 05:30 RDW 14.8 % (11.9-15.9) 03/10/19 05:30 Plt Count 108 K/MM3 (134-434) L 03/10/19 05:30 MPV 9.6 fl (7.5-11.1) D 03/10/19 05:30 CMP Sodium 134 mmol/L (136-145) L 03/11/19 05:30 Potassium 3.8 mmol/L (3.5-5.1) 03/11/19 05:30 Chloride 102 mmol/L (98-107) 03/11/19 05:30 Carbon Dioxide 28 mmol/L (21-32) 03/11/19 05:30 Anion Gap 4 MMOL/L (8-16) L 03/11/19 05:30 BUN 10 mg/dL (7-18) 03/11/19 05:30 Creatinine 0.8 mg/dL (0.55-1.3) 03/11/19 05:30 Creat Clearance w eGFR 92.32 (>60) 03/11/19 05:30 Random Glucose 137 mg/dL (74-106) H 03/11/19 05:30 Calcium 7.8 mg/dL (8.5-10.1) L 03/11/19 05:30 Total Bilirubin 0.5 mg/dL (0.2-1) 03/11/19 05:30 AST 23 U/L (15-37) 03/11/19 05:30 ALT 13 U/L (13-61) 03/11/19 05:30 Alkaline Phosphatase 77 U/L (45-117) 03/11/19 05:30 Total Protein 6.2 g/dl (6.4-8.2) L 03/11/19 05:30 Albumin 2.5 g/dl (3.4-5.0) L 03/11/19 05:30 CARDIAC ENZYMES Creatine Kinase 416 U/L (26-308) H 03/07/19 22:33 Troponin I 0.13 ng/ml (0.00-0.05) H 03/08/19 06:10 CT head reviewed MRI brain reviewed Carotid doppler reviewed ASSESSMENT/PLAN: 83 y/o M with hx HTN, HLD, DM, CAD, afib (on pradaxa), CVA (with aphasia at baseline, R residual hemiplegia), COPD, who presents to the ED with "AMS" as per [facility]. As per staff at [facility] and ED staff, pt had AMS at the [facility], as he usually curses at people which he was not doing on day of admission per notes. According to paperwork, he was also "restless" and had a BP of ~214/62, also leading to his need for further evaluation. During my exam, pt AAOx1 and with severe aphasia, unable to answer questions to the point or follow commands. ROS unable to obtain for this reason. Pt bedbound at baseline, does not ambulate. Of note, pt had a ucx+ Citrobacter that was resistant to amp, cefuroxime. Per notes, patient admitted and on CT head found to have hypodensity in the L occipital lobe representing possible acute/subacute infarct. Of note, he is already on pradaxa. RI brain completed and demonstrated R MCA territory infarct acute, also with L temp/occipital/parietal chronic infarct. Carotid doppler with no hemodynamically significant stenosis. LDL 108, on Lipitor 40. Also on ASA 81 in addition to Pradaxa (increased risk for bleed but with recurrent CVA, benefit outweighs risk as patient proven to have thromboembolic events). Monitor for bleed though no signs of this since ASA started with Pradaxa. More alert and interactive through his stay in hospital. Continue infectious mgmt, IV Abx as needed. On Statin. PT/OT as tolerated. Monitor blood pressure, <140/90 for now, <130/80 as outpatient. Tele monitoring for Afib, rate controlled, cardiology follow up. Monitor DM, maintain normal glycemic range. Neurologically improving. Consider rehab placement, dispo per rn case management and family.
--- NOTE | 2019-03-11 08:46 | PN ---
Progress Note (short form) - Note Progress Note: Pt seen and examined. Watching TV, appears comfortable. No complaints. Rectal tube in place, per EMR pt had BMS yesterday. Tolerating PO diet. Vital Signs Temp 98.5 F 03/11/19 06:00 Pulse 59 L 03/11/19 06:00 Resp 20 03/11/19 06:00 BP 144/76 03/11/19 06:00 Pulse Ox 98 03/10/19 21:00 Intake & Output 03/10/19 03/10/19 03/11/19 11:59 23:59 11:59 Intake Total 160 890 160 Output Total 500 300 Balance -340 590 160 Weight 196 lb Intake: IV 10 20 10 SALINE LOCK 10 20 10 IVPB 50 50 50 Oral 100 820 100 Output: Urine 500 300 Love 500 300 Other: Voiding Method Indwelling Catheter Diaper Incontinent # Unmeasured Voids Void 2 2 Bowel Movement Yes Yes Yes # Bowel Movements 1 2 Height 6 ft Body Mass Index (BMI) 26.6 CBC, BMP 03/10/19 05:30 03/11/19 05:30 GEN: Awake, alert, aphasic, NAD. ABD: Softly distended, NT. Reducible umbilical hernia RECTAL: tube in place Assessment/Plan: 83 y/o M with hx HTN, HLD, DM, CAD, afib (on pradaxa), CVA (with aphasia at baseline, R residual hemiplegia), COPD, admitted 03/07 with "AMS" as per [facility]. Pt found to have abdominal distention, CT with moderate dilatation of sigmoid colon suggesting intermittent volvulus. Pt w/ colonic ileus; possible Ogilvies; doubt sigmoid volvulus; umbilical hernia which is reducible and no clinical evidence of RIH. Stool softners Frequent repositioning to avoid DTI Diet as tolerated Avoid narcotics to prevent ileus Cont medical management
--- NOTE | 2019-03-11 09:22 | PN ---
Progress Note, Physician History of Present Illness: GI FOLLOW UP NOTE Patient examined and case discussed with Dr Bell Patient examined lying in bed. Rectal tube in place. Patient is having bowel movements. Tolerating diet, no nasuea or vomiting reported. Repeat KUB shows rectal tube tip at symphysis pubis. - Current Medication List Current Medications: Active Medications Albuterol/Ipratropium (Duoneb -) 1 amp NEB RQID [facility] Last Admin: 03/10/19 21:44 Dose: 1 amp Amlodipine Besylate (Norvasc -) 5 mg PO DAILY [facility] Last Admin: 03/10/19 09:57 Dose: 5 mg Aspirin (Asa -) 81 mg PO DAILY [facility] Last Admin: 03/10/19 09:56 Dose: 81 mg Atorvastatin Calcium (Lipitor -) 40 mg PO HS [facility] Last Admin: 03/10/19 21:15 Dose: 40 mg Bisacodyl (Dulcolax -) 10 mg PO BID [facility] Last Admin: 03/10/19 20:47 Dose: 10 mg Carvedilol (Coreg -) 6.25 mg PO BID [facility] Last Admin: 03/10/19 21:17 Dose: 6.25 mg Dabigatran (Pradaxa -) 150 mg PO BID [facility] Last Admin: 03/10/19 21:16 Dose: 150 mg Docusate Sodium (Colace -) 100 mg PO DAILY [facility] Last Admin: 03/10/19 09:56 Dose: 100 mg Dorzolamide HCl (Trusopt 2%) 1 drop OU BID [facility] Last Admin: 03/10/19 22:00 Dose: 1 drop Enalapril Maleate (Vasotec -) 10 mg PO BID [facility] Last Admin: 03/10/19 21:16 Dose: 10 mg Folic Acid (Folic Acid -) 1 mg PO DAILY [facility] Last Admin: 03/10/19 09:56 Dose: 1 mg Furosemide (Lasix -) 20 mg PO DAILY [facility] Last Admin: 03/10/19 09:57 Dose: 20 mg Ceftriaxone Sodium 1 gm/ (Dextrose) 50 mls @ 100 mls/hr IVPB Q24H [facility] Last Admin: 03/10/19 22:02 Dose: 100 mls/hr Insulin Aspart (Novolog Vial Sliding Scale -) 1 vial SQ ACHS [facility]; Protocol Last Admin: 03/11/19 06:24 Dose: 2 units Latanoprost (Xalatan 0.005% Eye Drops -) 1 drop OU HS [facility] Last Admin: 03/10/19 22:00 Dose: 1 drop Levothyroxine Sodium (Synthroid -) 75 mcg PO DAILY@0700 [facility] Last Admin: 03/11/19 06:31 Dose: 75 mcg Montelukast Sodium (Singulair -) 10 mg PO HS [facility] Last Admin: 03/10/19 21:16 Dose: 10 mg Pantoprazole Sodium (Protonix -) 20 mg PO DAILY [facility] Last Admin: 03/10/19 09:57 Dose: 20 mg Potassium Chloride (Potassium Chloride Oral Liquid) 20 meq PO DAILY [facility] Senna (Senna -) 2 tab PO HS [facility] Last Admin: 03/10/19 21:16 Dose: 2 tab Silver Sulfadiazine (Silvadene -) 1 applic TP DAILY [facility] Last Admin: 03/10/19 09:57 Dose: 1 applic - Objective Vital Signs: Vital Signs Temperature 98.5 F 03/11/19 06:00 Pulse Rate 59 L 03/11/19 06:00 Respiratory Rate 20 03/11/19 06:00 Blood Pressure 144/76 03/11/19 06:00 O2 Sat by Pulse Oximetry (%) 98 03/10/19 21:00 Constitutional: Yes: No Distress, Calm Eyes: Yes: Conjunctiva Clear HENT: Yes: Atraumatic Cardiovascular: Yes: Bradycardia Respiratory: Yes: Regular, Diminished Gastrointestinal: Yes: Soft, Distention, Hypoactive Bowel Sounds ...Rectal Exam: Yes: Other (rectal tube) Genitourinary: Yes: Incontinence Neurological: Yes: Alert, Pre-Existing Deficit Psychiatric: Yes: Alert Labs: CBC, BMP 03/10/19 05:30 03/11/19 05:30 Problem List - Problems (1) Dilated bowel Assessment/Plan: >rectal tube in place >tolerating diet >surgery on board Code(s): [id number] -
[2019-03-11] MEDS ORDERED: POTASSIUM CHLORIDE ORAL LIQUID 20 MEQ/15 ML PO SCH (10:00)
[2019-03-11] MEDS: CARVEDILOL 6.25 MG TABLET (FP) PO SCH (10:25)
--- NOTE | 2019-03-11 10:26 | PN ---
Progress Note, Physician History of Present Illness: Calm, not yelling. Slow afib, rectal tube in place. - Current Medication List Current Medications: Active Medications Albuterol/Ipratropium (Duoneb -) 1 amp NEB RQID [facility] Last Admin: 03/10/19 21:44 Dose: 1 amp Amlodipine Besylate (Norvasc -) 5 mg PO DAILY [facility] Last Admin: 03/10/19 09:57 Dose: 5 mg Aspirin (Asa -) 81 mg PO DAILY [facility] Last Admin: 03/10/19 09:56 Dose: 81 mg Atorvastatin Calcium (Lipitor -) 40 mg PO HS [facility] Last Admin: 03/10/19 21:15 Dose: 40 mg Bisacodyl (Dulcolax -) 10 mg PO BID [facility] Last Admin: 03/10/19 20:47 Dose: 10 mg Carvedilol (Coreg -) 6.25 mg PO BID [facility] Last Admin: 03/11/19 10:25 Dose: Not Given Dabigatran (Pradaxa -) 150 mg PO BID [facility] Last Admin: 03/10/19 21:16 Dose: 150 mg Docusate Sodium (Colace -) 100 mg PO DAILY [facility] Last Admin: 03/10/19 09:56 Dose: 100 mg Dorzolamide HCl (Trusopt 2%) 1 drop OU BID [facility] Last Admin: 03/10/19 22:00 Dose: 1 drop Enalapril Maleate (Vasotec -) 10 mg PO BID [facility] Last Admin: 03/10/19 21:16 Dose: 10 mg Folic Acid (Folic Acid -) 1 mg PO DAILY [facility] Last Admin: 03/10/19 09:56 Dose: 1 mg Furosemide (Lasix -) 20 mg PO DAILY [facility] Last Admin: 03/10/19 09:57 Dose: 20 mg Ceftriaxone Sodium 1 gm/ (Dextrose) 50 mls @ 100 mls/hr IVPB Q24H [facility] Last Admin: 03/10/19 22:02 Dose: 100 mls/hr Insulin Aspart (Novolog Vial Sliding Scale -) 1 vial SQ ACHS [facility]; Protocol Last Admin: 03/11/19 06:24 Dose: 2 units Latanoprost (Xalatan 0.005% Eye Drops -) 1 drop OU HS [facility] Last Admin: 03/10/19 22:00 Dose: 1 drop Levothyroxine Sodium (Synthroid -) 75 mcg PO DAILY@0700 [facility] Last Admin: 03/11/19 06:31 Dose: 75 mcg Montelukast Sodium (Singulair -) 10 mg PO [facility] Last Admin: 03/10/19 21:16 Dose: 10 mg Pantoprazole Sodium (Protonix -) 20 mg PO DAILY [facility] Last Admin: 03/10/19 09:57 Dose: 20 mg Potassium Chloride (Potassium Chloride Oral Liquid) 20 meq PO DAILY [facility] Senna (Senna -) 2 tab PO HS [facility] Last Admin: 03/10/19 21:16 Dose: 2 tab Silver Sulfadiazine (Silvadene -) 1 applic TP DAILY [facility] Last Admin: 03/10/19 09:57 Dose: 1 applic - Objective Vital Signs: Vital Signs Temperature 98.3 F 03/11/19 09:25 Pulse Rate 44 L 03/11/19 09:25 Respiratory Rate 16 03/11/19 09:25 Blood Pressure 142/55 L 03/11/19 09:25 O2 Sat by Pulse Oximetry (%) 98 03/10/19 21:00 Constitutional: Yes: No Distress, Calm Neck: Yes: Supple Cardiovascular: Yes: Bradycardia, Pulse Irregular Respiratory: Yes: Regular, Diminished, On Nasal O2 Gastrointestinal: Yes: Soft, Hypoactive Bowel Sounds Edema: No Labs: CBC, BMP 03/10/19 05:30 03/11/19 05:30 - ....Imaging EKG: Report Reviewed (Tele: Shayne padgett) Problem List - Problems (1) Persistent atrial fibrillation Code(s): I48.1 - PERSISTENT ATRIAL FIBRILLATION (2) Toxic metabolic encephalopathy Code(s): G92 - TOXIC ENCEPHALOPATHY (3) Hypertensive cardiomyopathy Code(s): I11.9 - HYPERTENSIVE HEART DISEASE WITHOUT HEART FAILURE; I43 - CARDIOMYOPATHY IN DISEASES CLASSIFIED ELSEWHERE Qualifiers: Heart failure presence: without heart failure Qualified Code(s): I11.9 - Hypertensive heart disease without heart failure; I43 - Cardiomyopathy in diseases classified elsewhere (4) Chronic anticoagulation Code(s): Z79.01 - JAIL (CURRENT) USE OF ANTICOAGULANTS (5) H/O: stroke with residual effects Code(s): I69.30 - UNSPECIFIED SEQUELAE OF CEREBRAL INFARCTION (6) Altered mental status Code(s): R41.82 - ALTERED MENTAL STATUS, UNSPECIFIED Qualifiers: Altered mental status type: somnolence Qualified Code(s): R40.0 - Somnolence (7) UTI (urinary tract infection) Code(s): N39.0 - URINARY TRACT INFECTION, SITE NOT SPECIFIED Qualifiers: Urinary tract infection type: site unspecified Hematuria presence: without hematuria Qualified Code(s): N39.0 - Urinary tract infection, site not specified (8) Type 2 diabetes mellitus Code(s): E11.9 - TYPE 2 DIABETES MELLITUS WITHOUT COMPLICATIONS Qualifiers: Diabetes mellitus usp insulin use: without usp use (9) Demand ischemia Code(s): I24.8 - OTHER FORMS OF ACUTE ISCHEMIC HEART DISEASE (10) Hypothyroidism Code(s): E03.9 - HYPOTHYROIDISM, UNSPECIFIED Qualifiers: Hypothyroidism type: unspecified Qualified Code(s): E03.9 - Hypothyroidism , unspecified (11) Adynamic ileus Code(s): K56.0 - PARALYTIC ILEUS Assessment/Plan 03/08/2019 Echocardiography revealed severe systolic LV dysfunction, LVEF 20-25% , mild RV systolic dysfunction, Bi-atrial dilatation, moderate to severe MR, mild TR 1. Altered mental status with underlying dementia referable to toxic metabolic encephalopathy, improved mentation 2. 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 Systolic/diastolic LV dysfunction with clinical class I-II NYHA classification LV failure, compensated/euvolemic 4. Persistent atrial fibrillation [id number] score of 8 on DOAC's/Pradaxa 5. 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 HTN, hypertensive urgency, resolved 7. DM 8. CVA recurrent 9. Hypothyroidism 10. COPD 11. UTI acute cystitis with urinary retention 12. Colonic ileus r/o sigmoid volvulus post rectal tube placement 13. Murray-cytopenia PLAN: 1. Continue Norvasc 5 qd 2. Continue Vasotec 10 bid, consider changing to Entresto as outpatient 3. Continue Coreg 6.25 bid 4. Continue Lipitor 40 qhs 5. Continue Pradaxa 150 bid and ASA with caution 6. Continue Lasix 20 qd 7. Antibiotic course as per the primary team 8. D/c telemetry, rectal tube management
[2019-03-11] MEDS: DABIGATRAN ETEXILATE MESYLATE 150 MG CAPSULE PO SCH ×2 (10:47→22:03)
[2019-03-11] MEDS: BISACODYL 5 MG TABLET.DR (FP) PO SCH ×2 (10:50→22:05)
[2019-03-11] MEDS: DOCUSATE SODIUM 100 MG CAPSULE (FP) PO SCH (10:50)
[2019-03-11] MEDS: ASPIRIN 81 MG CHEWABLE TABLETS PO SCH (10:50)
[2019-03-11] MEDS: DORZOLAMIDE 2% HCL OPHTHALMIC SOLUTION 10 ML BOTTLE OU SCH ×2 (10:50→22:22)
[2019-03-11] MEDS: FOLIC ACID 1 MG TABLET (FP) PO SCH (10:51)
[2019-03-11] MEDS: PANTOPRAZOLE 20 MG TABLET (FP) PO SCH (10:51)
[2019-03-11] MEDS: FUROSEMIDE 20 MG TABLET (FP) PO SCH (10:51)
[2019-03-11] MEDS: amLODIPine BESYLATE 5 MG TABLET (FP) PO SCH (10:51)
[2019-03-11] MEDS: SILVER SULFADIAZINE 1% TOP CREAM 400 GM JAR TP SCH (10:52)
--- NOTE | 2019-03-11 11:44 | PN ---
Progress Note (short form) - Note Progress Note: no distress events noted met with pt's brother - Bryson coughing after drinking nectar thick liquids Vital Signs - 24 hr 03/10/19 03/10/19 03/10/19 14:00 14:20 16:35 Temperature 98.7 F 99 F 98.4 F Pulse Rate 52 L 49 L 51 L Respiratory 20 20 20 Rate Blood Pressure 126/75 122/63 126/58 L O2 Sat by Pulse Oximetry (%) 03/10/19 03/10/19 03/11/19 21:00 22:00 02:00 Temperature 98.7 F 98.4 F Pulse Rate 68 65 Respiratory 20 20 20 Rate Blood Pressure 130/60 143/67 O2 Sat by Pulse 98 Oximetry (%) 03/11/19 03/11/19 06:00 09:25 Temperature 98.5 F 98.3 F Pulse Rate 59 L 44 L Respiratory 20 16 Rate Blood Pressure 144/76 142/55 L O2 Sat by Pulse Oximetry (%) Current Medications Generic Name Dose Route Start Last Admin Trade Name Freq PRN Reason Stop Dose Admin Albuterol/Ipratropium 1 amp 03/08/19 08:00 03/10/19 21:44 Duoneb - NEB 1 amp RQID RAJESH Administration Amlodipine Besylate 5 mg 03/08/19 10:00 03/11/19 10:51 Norvasc - PO 5 mg DAILY RAJESH Administration Aspirin 81 mg 03/08/19 03:18 03/11/19 10:50 Asa - PO 81 mg DAILY RAJESH Administration Atorvastatin Calcium 40 mg 03/08/19 03:18 03/10/19 21:15 Lipitor - PO 40 mg HS RAJESH Administration Bisacodyl 10 mg 03/10/19 19:00 03/11/19 10:50 Dulcolax - PO 10 mg BID RAJESH Administration Carvedilol 3.125 mg 03/11/19 11:45 Coreg - PO BID RAJESH Dabigatran 150 mg 03/08/19 10:00 03/11/19 10:47 Pradaxa - PO 150 mg BID RAJESH Administration Docusate Sodium 100 mg 03/08/19 10:00 03/11/19 10:50 Colace - PO 100 mg DAILY RAJESH Administration Dorzolamide HCl 1 drop 03/08/19 10:00 03/11/19 10:50 Trusopt 2% OU 1 drop BID RAJESH Administration Enalapril Maleate 10 mg 03/08/19 10:00 03/10/19 21:16 Vasotec - PO 10 mg BID RAJESH Administration Folic Acid 1 mg 03/08/19 10:00 03/11/19 10:51 Folic Acid - PO 1 mg DAILY RA[facility]ESH Administration Furosemide 20 mg 03/10/19 10:00 03/11/19 10:51 Lasix - PO 20 mg DAILY RAJESH Administration Ceftriaxone Sodium 1 gm/ 50 mls @ 100 mls/hr 03/08/19 22:30 03/10/19 22:02 Dextrose IVPB 100 mls/hr Q24H RAJESH Administration Insulin Aspart 1 vial 03/08/19 07:00 03/11/19 06:24 Novolog Vial Sliding Scale - SQ 2 units ACHS RAJESH Administration Protocol Latanoprost 1 drop 03/08/19 22:00 03/10/19 22:00 Xalatan 0.005% Eye Drops - OU 1 drop HS [facility]ESH Administration Levothyroxine Sodium 75 mcg 03/08/19 07:00 03/11/19 06:31 Synthroid - PO 75 mcg DAILY@0700 RA[facility]ESH Administration Montelukast Sodium 10 mg 03/08/19 22:00 03/10/19 21:16 Singulair - PO 10 mg HS [facility]ESH Administration Pantoprazole Sodium 20 mg 03/08/19 10:00 03/11/19 10:51 Protonix - PO 20 mg DAILY [facility] Administration Potassium Chloride 20 meq 03/11/19 10:00 03/11/19 10:51 Potassium Chloride Oral Liquid PO 20 meq DAILY [facility] Administration Senna 2 tab 03/08/19 22:00 03/10/19 21:16 Senna - PO 2 tab HS [facility]ESH Administration Silver Sulfadiazine 1 applic 03/08/19 10:00 03/11/19 10:52 Silvadene - TP 1 applic DAILY [facility]ESH Administration Laboratory Results - last 24 hr 03/08/19 03/10/19 03/10/19 05:05 16:41 21:02 Sodium Potassium Chloride Carbon Dioxide Anion Gap BUN Creatinine Creat Clearance w eGFR POC Glucometer 155 111 Random Glucose Calcium Total Bilirubin AST ALT Alkaline Phosphatase Total Protein Albumin HCV Quantitation Hcv not detected HCV RNA log copies/mL TNP 03/11/19 03/11/19 03/11/19 05:30 05:38 11:30 Sodium 134 L Potassium 3.8 Chloride 102 Carbon Dioxide 28 Anion Gap 4 L BUN 10 Creatinine 0.8 Creat Clearance w eGFR 92.32 POC Glucometer 159 170 Random Glucose 137 H Calcium 7.8 L Total Bilirubin 0.5 AST 23 ALT 13 Alkaline Phosphatase 77 Total Protein 6.2 L Albumin 2.5 L HCV Quantitation HCV RNA log copies/mL ct abd- reviewed cxr/ ekg reviewed MRI brain reviewed MBS reviewed physical exam awake S1 S2 irregular Lungs ---clear Abd- decreased distention -- +ve umblical hernia, BS + NT trace edema rt lower extremity neuro--- awake. old right side deficit A/P Acute CVA-- multiple infarcts Afib Early pneumonia H/O previous CVA HTN sigmoid volvulus hypokalemia -- on ASA and Pradaxa -- decrease Coreg -- RN states that his HR goes to 30's -- continue iv antibiotics -- dc fernández -- monitor urine output -- on rectal tube -- GI eval noted --PT eval -- spoke with brother in detail -- aspiration precautions Problem List - Problems (1) Acute CVA (cerebrovascular accident) Code(s): I63.9 - CEREBRAL INFARCTION, UNSPECIFIED (2) Adynamic ileus Code(s): K56.0 - PARALYTIC ILEUS (3) H/O: stroke with residual effects Code(s): I69.30 - UNSPECIFIED SEQUELAE OF CEREBRAL INFARCTION (4) Persistent atrial fibrillation Code(s): I48.1 - PERSISTENT ATRIAL FIBRILLATION (5) Altered mental status Code(s): R41.82 - ALTERED MENTAL STATUS, UNSPECIFIED Qualifiers: Altered mental status type: somnolence Qualified Code(s): R40.0 - Somnolence (6) CHF (congestive heart failure) Code(s): I50.9 - HEART FAILURE, UNSPECIFIED (7) Hypertensive cardiomyopathy Code(s): I11.9 - HYPERTENSIVE HEART DISEASE WITHOUT HEART FAILURE; I43 - CARDIOMYOPATHY IN DISEASES CLASSIFIED ELSEWHERE Qualifiers: Heart failure presence: without heart failure Qualified Code(s): I11.9 - Hypertensive heart disease without heart failure; I43 - Cardiomyopathy in diseases classified elsewhere
--- NOTE | 2019-03-11 12:30 | PN ---
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
[2019-03-11] MEDS: ATORVASTATIN CA 40 MG TABLET (FP) PO SCH (22:03)
[2019-03-11] MEDS: SENNOSIDES 8.6MG TABLET (FP) PO SCH (22:04)
[2019-03-11] MEDS: MONTELUKAST NA 10 MG TABLET PO SCH (22:04)
[2019-03-11] MEDS: ENALAPRIL MALEATE 10 MG TABLET (FP) PO SCH (22:05)
[2019-03-11] MEDS: CARVEDILOL 3.125 MG TABLET (FP) PO SCH (22:21)
[2019-03-12] MEDS: INSULIN SLIDING SCALE (NOVOLOG) 1 VIAL SQ SCH ×3 (06:19→17:25)
[2019-03-12] MEDS: LEVOTHYROXINE NA 75 MCG TABLET (FP) PO SCH (06:19)
[2019-03-12] MEDS: LATANOPROST 0.005% OPHTH SOLN 2.5ML BOTTLE OU SCH (06:20)
--- NOTE | 2019-03-12 08:37 | PN ---
Progress Note, Physician History of Present Illness: GI FOLLOW UP NOTE Patient examined and case discussed with Dr Bell Patient examined lying in bed. Rectal tube removed yesterday, no BM reported since removal. Tolerating diet, no abdominal pain, nasuea, or vomiting reported. - Current Medication List Current Medications: Active Medications Albuterol/Ipratropium (Duoneb -) 1 amp NEB RQID [facility] Last Admin: 03/11/19 21:20 Dose: 1 amp Amlodipine Besylate (Norvasc -) 5 mg PO DAILY [facility] Last Admin: 03/11/19 10:51 Dose: 5 mg Aspirin (Asa -) 81 mg PO DAILY [facility] Last Admin: 03/11/19 10:50 Dose: 81 mg Atorvastatin Calcium (Lipitor -) 40 mg PO HS [facility] Last Admin: 03/11/19 22:03 Dose: 40 mg Bisacodyl (Dulcolax -) 10 mg PO BID [facility] Last Admin: 03/11/19 22:05 Dose: 10 mg Carvedilol (Coreg -) 3.125 mg PO BID [facility] Last Admin: 03/11/19 22:21 Dose: Not Given Dabigatran (Pradaxa -) 150 mg PO BID [facility] Last Admin: 03/11/19 22:03 Dose: 150 mg Docusate Sodium (Colace -) 100 mg PO DAILY [facility] Last Admin: 03/11/19 10:50 Dose: 100 mg Dorzolamide HCl (Trusopt 2%) 1 drop OU BID [facility] Last Admin: 03/11/19 22:22 Dose: 1 drop Enalapril Maleate (Vasotec -) 10 mg PO BID [facility] Last Admin: 03/11/19 22:05 Dose: 10 mg Folic Acid (Folic Acid -) 1 mg PO DAILY [facility] Last Admin: 03/11/19 10:51 Dose: 1 mg Furosemide (Lasix -) 20 mg PO DAILY [facility] Last Admin: 03/11/19 10:51 Dose: 20 mg Insulin Aspart (Novolog Vial Sliding Scale -) 1 vial SQ [facility]; Protocol Last Admin: 03/12/19 06:19 Dose: Not Given Latanoprost (Xalatan 0.005% Eye Drops -) 1 drop OU [facility] Last Admin: 03/12/19 06:20 Dose: Not Given Levothyroxine Sodium (Synthroid -) 75 mcg PO DAILY@0700 [facility] Last Admin: 03/12/19 06:19 Dose: 75 mcg Montelukast Sodium (Singulair -) 10 mg PO HS [facility] Last Admin: 03/11/19 22:04 Dose: 10 mg Pantoprazole Sodium (Protonix -) 20 mg PO DAILY [facility] Last Admin: 03/11/19 10:51 Dose: 20 mg Potassium Chloride (K-Dur -) 20 meq PO DAILY [facility] Senna (Senna -) 2 tab PO HS [facility] Last Admin: 03/11/19 22:04 Dose: 2 tab Silver Sulfadiazine (Silvadene -) 1 applic TP DAILY [facility] Last Admin: 03/11/19 10:52 Dose: 1 applic - Objective Vital Signs: Vital Signs Temperature 97.8 F 03/12/19 06:00 Pulse Rate 60 03/12/19 06:00 Respiratory Rate 20 03/12/19 06:00 Blood Pressure 166/65 03/12/19 06:00 O2 Sat by Pulse Oximetry (%) 97 03/11/19 20:45 Constitutional: Yes: No Distress, Calm Eyes: Yes: Conjunctiva Clear HENT: Yes: Atraumatic Cardiovascular: Yes: Pulse Irregular Respiratory: Yes: Regular, CTA Bilaterally Gastrointestinal: Yes: Normal Bowel Sounds, Soft, Distention Neurological: Yes: Alert, Pre-Existing Deficit Psychiatric: Yes: Alert Labs: CBC, BMP 03/10/19 05:30 03/11/19 05:30 <Betty Vogt - Last Filed: 03/12/19 08:32> - Current Medication List Current Medications: Active Medications Albuterol/Ipratropium (Duoneb -) 1 amp NEB RQID [facility] Last Admin: 03/12/19 15:05 Dose: 1 amp Amlodipine Besylate (Norvasc -) 5 mg PO DAILY [facility] Last Admin: 03/12/19 09:25 Dose: 5 mg Aspirin (Asa -) 81 mg PO DAILY [facility] Last Admin: 03/12/19 09:24 Dose: 81 mg Atorvastatin Calcium (Lipitor -) 40 mg PO HS [facility] Last Admin: 03/11/19 22:03 Dose: 40 mg Bisacodyl (Dulcolax -) 10 mg PO BID [facility] Last Admin: 03/12/19 09:24 Dose: 10 mg Carvedilol (Coreg -) 3.125 mg PO BID [facility] Last Admin: 03/12/19 09:26 Dose: Not Given Dabigatran (Pradaxa -) 150 mg PO BID [facility] Last Admin: 03/12/19 09:24 Dose: 150 mg Docusate Sodium (Colace -) 100 mg PO DAILY [facility] Last Admin: 03/12/19 09:25 Dose: 100 mg Dorzolamide HCl (Trusopt 2%) 1 drop OU BID [facility] Last Admin: 03/12/19 09:27 Dose: 1 drop Enalapril Maleate (Vasotec -) 10 mg PO BID [facility] Last Admin: 03/12/19 09:24 Dose: 10 mg Folic Acid (Folic Acid -) 1 mg PO DAILY [facility] Last Admin: 03/12/19 09:25 Dose: 1 mg Furosemide (Lasix -) 20 mg PO DAILY [facility] Last Admin: 03/12/19 09:25 Dose: 20 mg Ceftriaxone Sodium 1 gm/ (Dextrose) 50 mls @ 100 mls/hr IVPB DAILY [facility]; Protocol Last Admin: 03/12/19 15:12 Dose: 100 mls/hr Insulin Aspart (Novolog Vial Sliding Scale -) 1 vial SQ ACHS [facility]; Protocol Last Admin: 03/12/19 12:39 Dose: Not Given Latanoprost (Xalatan 0.005% Eye Drops -) 1 drop OU HS [facility] Last Admin: 03/12/19 06:20 Dose: Not Given Levothyroxine Sodium (Synthroid -) 75 mcg PO DAILY@0700 [facility] Last Admin: 03/12/19 06:19 Dose: 75 mcg Montelukast Sodium (Singulair -) 10 mg PO HS [facility] Last Admin: 03/11/19 22:04 Dose: 10 mg Pantoprazole Sodium (Protonix -) 20 mg PO DAILY [facility] Last Admin: 03/12/19 09:24 Dose: 20 mg Potassium Chloride (K-Dur -) 20 meq PO DAILY [facility] Last Admin: 03/12/19 09:25 Dose: 20 meq Senna (Senna -) 2 tab PO HS [facility] Last Admin: 03/11/19 22:04 Dose: 2 tab Silver Sulfadiazine (Silvadene -) 1 applic TP DAILY [facility] Last Admin: 03/12/19 09:26 Dose: 1 applic - Objective Vital Signs: Vital Signs Temperature 98.2 F 03/12/19 14:20 Pulse Rate 58 L 03/12/19 14:20 Respiratory Rate 18 03/12/19 14:20 Blood Pressure 128/56 L 03/12/19 14:20 O2 Sat by Pulse Oximetry (%) 96 03/12/19 09:00 Labs: CBC, BMP 03/10/19 05:30 03/11/19 05:30 <Gerson Bell - Last Filed: 03/12/19 16:17> Problem List - Problems (1) Dilated bowel Assessment/Plan: >resolved, Sigmoid volvulus associaed with pseudoobstruction >tolerating diet >if continue to have no BM reported after removal of rectal tube notify MD >surgery on board Code(s): [id number] - <Betty Vogt - Last Filed: 03/12/19 08:32> - Problems (1) Dilated bowel Code(s): [id number] - <Gerson Bell - Last Filed: 03/12/19 16:17>
[2019-03-12] MEDS: ALBUTEROL SO4 2.5/IPRATROPIUM 0.5 INH SOL 3 ML VIAL.NEB. NEB SCH ×3 (08:47→15:05)
--- NOTE | 2019-03-12 08:47 | PN ---
Progress Note (short form) - Note Progress Note: Neurology CHIEF COMPLAINT: "AMS" HISTORY OF PRESENT ILLNESS: 83 y/o M with hx HTN, HLD, DM, CAD, afib (on pradaxa), 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 As per staff at [facility] and ED staff, pt had AMS at the [place], as he usually curses at people which he was not doing on day of admission per notes. According to paperwork, he was also "restless" and had a BP of ~214/62, also leading to his need for further evaluation. Pt bedbound at baseline, does not ambulate. Of note, pt had a ucx+ Citrobacter that was resistant to amp, cefuroxime. Per notes, patient admitted and on CT head found to have hypodensity in the L occipital lobe representing possible acute/subacute infarct. Of note, he is already on pradaxa. MRI brain completed and demonstrated R MCA territory infarct acute, also with L temp/occipital/parietal chronic infarct. Carotid doppler with no hemodynamically significant stenosis. LDL 108, on Lipitor 40. Also on ASA 81 in addition to Pradaxa. Has R hemiparesis from prior CVA. Modified barium swallow reviewed, puree diet with honey thick. Rectal tube placed, neurologically without new complaints and remains stable at this time, comforable appearing and calm. Notes reviewed. Active Medications Albuterol/Ipratropium (Duoneb -) 1 amp NEB RQID [facility] Last Admin: 03/11/19 21:20 Dose: 1 amp Amlodipine Besylate (Norvasc -) 5 mg PO DAILY [facility] Last Admin: 03/11/19 10:51 Dose: 5 mg Aspirin (Asa -) 81 mg PO DAILY [facility] Last Admin: 03/11/19 10:50 Dose: 81 mg Atorvastatin Calcium (Lipitor -) 40 mg PO HS [facility] Last Admin: 03/11/19 22:03 Dose: 40 mg Bisacodyl (Dulcolax -) 10 mg PO BID [facility] Last Admin: 03/11/19 22:05 Dose: 10 mg Carvedilol (Coreg -) 3.125 mg PO BID [facility] Last Admin: 03/11/19 22:21 Dose: Not Given Dabigatran (Pradaxa -) 150 mg PO BID [facility] Last Admin: 03/11/19 22:03 Dose: 150 mg Docusate Sodium (Colace -) 100 mg PO DAILY [facility] Last Admin: 03/11/19 10:50 Dose: 100 mg Dorzolamide HCl (Trusopt 2%) 1 drop OU BID [facility] Last Admin: 03/11/19 22:22 Dose: 1 drop Enalapril Maleate (Vasotec -) 10 mg PO BID [facility] Last Admin: 03/11/19 22:05 Dose: 10 mg Folic Acid (Folic Acid -) 1 mg PO DAILY [facility] Last Admin: 03/11/19 10:51 Dose: 1 mg Furosemide (Lasix -) 20 mg PO DAILY [facility] Last Admin: 03/11/19 10:51 Dose: 20 mg Insulin Aspart (Novolog Vial Sliding Scale -) [address] [facility]; Protocol Last Admin: 03/12/19 06:19 Dose: Not Given Latanoprost (Xalatan 0.005% Eye Drops -) 1 drop OU [facility] Last Admin: 03/12/19 06:20 Dose: Not Given Levothyroxine Sodium (Synthroid -) 75 mcg PO DAILY@0700 [facility] Last Admin: 03/12/19 06:19 Dose: 75 mcg Montelukast Sodium (Singulair -) 10 mg PO [facility] Last Admin: 03/11/19 22:04 Dose: 10 mg Pantoprazole Sodium (Protonix -) 20 mg PO DAILY [facility] Last Admin: 03/11/19 10:51 Dose: 20 mg Potassium Chloride (K-Dur -) 20 meq PO DAILY [facility] Senna (Senna -) 2 tab PO [facility] Last Admin: 03/11/19 22:04 Dose: 2 tab Silver Sulfadiazine (Silvadene -) 1 applic TP DAILY [facility] Last Admin: 03/11/19 10:52 Dose: 1 applic PHYSICAL EXAMINATION Vital Signs Period Temp Pulse Resp BP Sys/Oates Pulse Ox Last 24 Hr 97.8 F-98.8 F 44-70 16-20 134-166/50-71 97-97 GENERAL: AAOx1 (to self). Resting comfortably. Smiling HEAD: Normal with no signs of trauma. EYES: Pupils equal, round and reactive to light, extraocular movements intact, sclera anicteric, conjunctiva clear. No lid lag. EARS, NOSE, THROAT: Ears normal, nares patent, oropharynx clear without exudates. +Poor dentition NECK: Normal range of motion, supple LUNGS: Breath sounds equal, clear to auscultation bilaterally. No wheezes, and no crackles. No accessory muscle use. HEART: +irreg irreg rate and rhythm, normal S1 and S2 without murmur, rub or gallop. ABDOMEN: Soft, +distended, normoactive bowel sounds, no guarding, no rebound, no masses. UPPER EXTREMITIES: +contracted R arm LOWER EXTREMITIES: 2+ pt pulses, warm, well-perfused. 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 however w baseline aphasia and residual R sided weakness. would not participate in full neuro exam. PSYCHIATRIC: Cooperative. CBCD WBC 3.0 K/mm3 (4.0-10.0) L 03/10/19 05:30 RBC 4.30 M/mm3 (4.00-5.60) 03/10/19 05:30 Hgb 9.8 GM/dL (11.7-16.9) L 03/10/19 05:30 Hct 31.1 % (35.4-49) L 03/10/19 05:30 MCV 72.4 fl (80-96) L 03/10/19 05:30 MCHC 31.6 g/dl (32.0-35.9) L 03/10/19 05:30 RDW 14.8 % (11.9-15.9) 03/10/19 05:30 Plt Count 108 K/MM3 (134-434) L 03/10/19 05:30 MPV 9.6 fl (7.5-11.1) D 03/10/19 05:30 CMP Sodium 134 mmol/L (136-145) L 03/11/19 05:30 Potassium 3.8 mmol/L (3.5-5.1) 03/11/19 05:30 Chloride 102 mmol/L (98-107) 03/11/19 05:30 Carbon Dioxide 28 mmol/L (21-32) 03/11/19 05:30 Anion Gap 4 MMOL/L (8-16) L 03/11/19 05:30 BUN 10 mg/dL (7-18) 03/11/19 05:30 Creatinine 0.8 mg/dL (0.55-1.3) 03/11/19 05:30 Creat Clearance w eGFR 92.32 (>60) 03/11/19 05:30 Random Glucose 137 mg/dL (74-106) H 03/11/19 05:30 Calcium 7.8 mg/dL (8.5-10.1) L 03/11/19 05:30 Total Bilirubin 0.5 mg/dL (0.2-1) 03/11/19 05:30 AST 23 U/L (15-37) 03/11/19 05:30 ALT 13 U/L (13-61) 03/11/19 05:30 Alkaline Phosphatase 77 U/L (45-117) 03/11/19 05:30 Total Protein 6.2 g/dl (6.4-8.2) L 03/11/19 05:30 Albumin 2.5 g/dl (3.4-5.0) L 03/11/19 05:30 CARDIAC ENZYMES Creatine Kinase 416 U/L (26-308) H 03/07/19 22:33 Troponin I 0.13 ng/ml (0.00-0.05) H 03/08/19 06:10 CT head reviewed MRI brain reviewed Carotid doppler reviewed ASSESSMENT/PLAN: 83 y/o M with hx HTN, HLD, DM, CAD, afib (on pradaxa), 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 As per staff at [facility] and ED staff, pt had AMS at the PA, as he usually curses at people which he was not doing on day of admission per notes. According to paperwork, he was also "restless" and had a BP of ~214/62, also leading to his need for further evaluation. During my exam, pt AAOx1 and with severe aphasia, unable to answer questions to the point or follow commands. ROS unable to obtain for this reason. Pt bedbound at baseline, does not ambulate. Of note, pt had a ucx+ Citrobacter that was resistant to amp, cefuroxime. Per notes, patient admitted and on CT head found to have hypodensity in the L occipital lobe representing possible acute/subacute infarct. Of note, he is already on pradaxa. RI brain completed and demonstrated R MCA territory infarct acute, also with L temp/occipital/parietal chronic infarct. Carotid doppler with no hemodynamically significant stenosis. LDL 108, on Lipitor 40. Also on ASA 81 in addition to Pradaxa (increased risk for bleed but with recurrent CVA, benefit outweighs risk as patient proven to have thromboembolic events). Monitor for bleed though no signs of this since ASA started with Pradaxa. More alert and interactive through his stay in hospital. Continue infectious mgmt, IV Abx as needed. On Statin. PT/OT as tolerated. Monitor blood pressure, <140/90 for now, <130/80 as outpatient. Tele monitoring for Afib, rate controlled, cardiology follow up. Monitor DM, maintain normal glycemic range. Neurologically improving. Consider rehab placement, dispo per medical case manager and family.
[2019-03-12] MEDS: BISACODYL 5 MG TABLET.DR (FP) PO SCH (09:24)
[2019-03-12] MEDS: ASPIRIN 81 MG CHEWABLE TABLETS PO SCH (09:24)
[2019-03-12] MEDS: PANTOPRAZOLE 20 MG TABLET (FP) PO SCH (09:24)
[2019-03-12] MEDS: ENALAPRIL MALEATE 10 MG TABLET (FP) PO SCH (09:24)
[2019-03-12] MEDS: DABIGATRAN ETEXILATE MESYLATE 150 MG CAPSULE PO SCH (09:24)
[2019-03-12] MEDS: FUROSEMIDE 20 MG TABLET (FP) PO SCH (09:25)
[2019-03-12] MEDS: DOCUSATE SODIUM 100 MG CAPSULE (FP) PO SCH (09:25)
[2019-03-12] MEDS: FOLIC ACID 1 MG TABLET (FP) PO SCH (09:25)
[2019-03-12] MEDS: amLODIPine BESYLATE 5 MG TABLET (FP) PO SCH (09:25)
[2019-03-12] MEDS: SILVER SULFADIAZINE 1% TOP CREAM 400 GM JAR TP SCH (09:26)
[2019-03-12] MEDS: CARVEDILOL 3.125 MG TABLET (FP) PO SCH (09:26)
[2019-03-12] MEDS: DORZOLAMIDE 2% HCL OPHTHALMIC SOLUTION 10 ML BOTTLE OU SCH (09:27)
[2019-03-12] MEDS ORDERED: POTASSIUM CHLORIDE TABS 10 MEQ TABLET.ER (FP) PO SCH (10:00)
--- NOTE | 2019-03-12 10:08 | PN ---
Progress Note, Physician History of Present Illness: No BM yet after rectal tube removed. - Current Medication List Current Medications: Active Medications Albuterol/Ipratropium (Duoneb -) 1 amp NEB RQID [facility] Last Admin: 03/12/19 08:47 Dose: 1 amp Amlodipine Besylate (Norvasc -) 5 mg PO DAILY [facility] Last Admin: 03/12/19 09:25 Dose: 5 mg Aspirin (Asa -) 81 mg PO DAILY [facility] Last Admin: 03/12/19 09:24 Dose: 81 mg Atorvastatin Calcium (Lipitor -) 40 mg PO [facility] Last Admin: 03/11/19 22:03 Dose: 40 mg Bisacodyl (Dulcolax -) 10 mg PO BID [facility] Last Admin: 03/12/19 09:24 Dose: 10 mg Carvedilol (Coreg -) 3.125 mg PO BID [facility] Last Admin: 03/12/19 09:26 Dose: Not Given Dabigatran (Pradaxa -) 150 mg PO BID [facility] Last Admin: 03/12/19 09:24 Dose: 150 mg Docusate Sodium (Colace -) 100 mg PO DAILY [facility] Last Admin: 03/12/19 09:25 Dose: 100 mg Dorzolamide HCl (Trusopt 2%) 1 drop OU BID [facility] Last Admin: 03/12/19 09:27 Dose: 1 drop Enalapril Maleate (Vasotec -) 10 mg PO BID [facility] Last Admin: 03/12/19 09:24 Dose: 10 mg Folic Acid (Folic Acid -) 1 mg PO DAILY [facility] Last Admin: 03/12/19 09:25 Dose: 1 mg Furosemide (Lasix -) 20 mg PO DAILY [facility] Last Admin: 03/12/19 09:25 Dose: 20 mg Insulin Aspart (Novolog Vial Sliding Scale -) 1 vial SQ [facility]; Protocol Last Admin: 03/12/19 06:19 Dose: Not Given Latanoprost (Xalatan 0.005% Eye Drops -) 1 drop OU [facility] Last Admin: 03/12/19 06:20 Dose: Not Given Levothyroxine Sodium (Synthroid -) 75 mcg PO DAILY@0700 [facility] Last Admin: 03/12/19 06:19 Dose: 75 mcg Montelukast Sodium (Singulair -) 10 mg PO [facility] Last Admin: 03/11/19 22:04 Dose: 10 mg Pantoprazole Sodium (Protonix -) 20 mg PO DAILY [facility] Last Admin: 03/12/19 09:24 Dose: 20 mg Potassium Chloride (K-Dur -) 20 meq PO DAILY [facility] Last Admin: 03/12/19 09:25 Dose: 20 meq Senna (Senna -) 2 tab PO HS [facility] Last Admin: 03/11/19 22:04 Dose: 2 tab Silver Sulfadiazine (Silvadene -) 1 applic TP DAILY [facility] Last Admin: 03/12/19 09:26 Dose: 1 applic - Objective Vital Signs: Vital Signs Temperature 97.8 F 03/12/19 06:00 Pulse Rate 60 03/12/19 06:00 Respiratory Rate 20 03/12/19 06:00 Blood Pressure 166/65 03/12/19 06:00 O2 Sat by Pulse Oximetry (%) 97 03/11/19 20:45 Constitutional: Yes: No Distress, Calm, Thin Neck: Yes: Supple Cardiovascular: Yes: Pulse Irregular Respiratory: Yes: Regular, Diminished Gastrointestinal: Yes: Soft, Distention, Hypoactive Bowel Sounds Edema: No Labs: CBC, BMP 03/10/19 05:30 03/11/19 05:30 Problem List - Problems (1) Persistent atrial fibrillation Code(s): I48.1 - PERSISTENT ATRIAL FIBRILLATION (2) Toxic metabolic encephalopathy Code(s): G92 - TOXIC ENCEPHALOPATHY (3) Hypertensive cardiomyopathy Code(s): I11.9 - HYPERTENSIVE HEART DISEASE WITHOUT HEART FAILURE; I43 - CARDIOMYOPATHY IN DISEASES CLASSIFIED ELSEWHERE Qualifiers: Heart failure presence: without heart failure Qualified Code(s): I11.9 - Hypertensive heart disease without heart failure; I43 - Cardiomyopathy in diseases classified elsewhere (4) Chronic anticoagulation Code(s): Z79.01 - ENFORCEMENT OFFICER (CURRENT) USE OF ANTICOAGULANTS (5) H/O: stroke with residual effects Code(s): I69.30 - UNSPECIFIED SEQUELAE OF CEREBRAL INFARCTION (6) Altered mental status Code(s): R41.82 - ALTERED MENTAL STATUS, UNSPECIFIED Qualifiers: Altered mental status type: somnolence Qualified Code(s): R40.0 - Somnolence (7) UTI (urinary tract infection) Code(s): N39.0 - URINARY TRACT INFECTION, SITE NOT SPECIFIED Qualifiers: Urinary tract infection type: site unspecified Hematuria presence: without hematuria Qualified Code(s): N39.0 - Urinary tract infection, site not specified (8) Type 2 diabetes mellitus Code(s): E11.9 - TYPE 2 DIABETES MELLITUS WITHOUT COMPLICATIONS Qualifiers: Diabetes mellitus jail insulin use: without assistant refinery operator use (9) Demand ischemia Code(s): I24.8 - OTHER FORMS OF ACUTE ISCHEMIC HEART DISEASE (10) Hypothyroidism Code(s): E03.9 - HYPOTHYROIDISM, UNSPECIFIED Qualifiers: Hypothyroidism type: unspecified Qualified Code(s): E03.9 - Hypothyroidism , unspecified (11) Adynamic ileus Code(s): K56.0 - PARALYTIC ILEUS Assessment/Plan 03/08/2019 Echocardiography revealed severe systolic LV dysfunction, LVEF 20-25% , mild RV systolic dysfunction, Bi-atrial dilatation, moderate to severe MR, mild TR 1. Altered mental status with underlying dementia referable to toxic metabolic encephalopathy, improved mentation 2. 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 Systolic/diastolic LV dysfunction with clinical class I-II NYHA classification LV failure, compensated/euvolemic 4. Persistent atrial fibrillation [id number] score of 8 on DOAC's/Pradaxa 5. 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 HTN, hypertensive urgency, resolved 7. DM 8. CVA recurrent 9. Hypothyroidism 10. COPD 11. UTI acute cystitis with urinary retention 12. Sigmoid volvulus associated with pseudoobstruction post rectal tube placement 13. Murray-cytopenia PLAN: 1. Continue Norvasc 5 qd 2. Continue Vasotec 10 bid, consider changing to Entresto as outpatient 3. Continue Coreg 3.125 bid 4. Continue Lipitor 40 qhs 5. Continue Pradaxa 150 bid and ASA with caution 6. Continue Lasix 20 qd 7. Completed antibiotic course as per the primary team 8. D/c telemetry, monitor for BM post rectal tube removal
--- NOTE | 2019-03-12 10:37 | PN ---
Progress Note (short form) - Note Progress Note: pt seen/ examined chart reviewed awake/ comfortable Vital Signs Temp 98.5 F 03/12/19 10:00 Pulse 57 L 03/12/19 10:00 Resp 18 03/12/19 10:00 BP 147/84 03/12/19 10:00 Pulse Ox 97 03/11/19 20:45 Intake & Output 03/11/19 03/11/19 03/12/19 11:59 23:59 11:59 Intake Total 460 710 20 Balance 460 710 20 Intake: IV 10 SALINE LOCK 10 IVPB 50 Oral 400 710 20 Other: Voiding Method Incontinent Diaper Incontinent # Unmeasured Voids Void 2 2 1 Bowel Movement No # Bowel Movements 2 Active Medications Albuterol/Ipratropium (Duoneb -) 1 amp NEB RQID [facility] Last Admin: 03/12/19 08:47 Dose: 1 amp Amlodipine Besylate (Norvasc -) 5 mg PO DAILY [facility] Last Admin: 03/12/19 09:25 Dose: 5 mg Aspirin (Asa -) 81 mg PO DAILY [facility] Last Admin: 03/12/19 09:24 Dose: 81 mg Atorvastatin Calcium (Lipitor -) 40 mg PO HS [facility] Last Admin: 03/11/19 22:03 Dose: 40 mg Bisacodyl (Dulcolax -) 10 mg PO BID [facility] Last Admin: 03/12/19 09:24 Dose: 10 mg Carvedilol (Coreg -) 3.125 mg PO BID [facility] Last Admin: 03/12/19 09:26 Dose: Not Given Dabigatran (Pradaxa -) 150 mg PO BID [facility] Last Admin: 03/12/19 09:24 Dose: 150 mg Docusate Sodium (Colace -) 100 mg PO DAILY [facility] Last Admin: 03/12/19 09:25 Dose: 100 mg Dorzolamide HCl (Trusopt 2%) 1 drop OU BID [facility] Last Admin: 03/12/19 09:27 Dose: 1 drop Enalapril Maleate (Vasotec -) 10 mg PO BID [facility] Last Admin: 03/12/19 09:24 Dose: 10 mg Folic Acid (Folic Acid -) 1 mg PO DAILY [facility] Last Admin: 03/12/19 09:25 Dose: 1 mg Furosemide (Lasix -) 20 mg PO DAILY [facility] Last Admin: 03/12/19 09:25 Dose: 20 mg Insulin Aspart (Novolog Vial Sliding Scale -) 1 vial SQ [facility]; Protocol Last Admin: 03/12/19 06:19 Dose: Not Given Latanoprost (Xalatan 0.005% Eye Drops -) 1 drop OU [facility] Last Admin: 03/12/19 06:20 Dose: Not Given Levothyroxine Sodium (Synthroid -) 75 mcg PO DAILY@0700 [facility] Last Admin: 03/12/19 06:19 Dose: 75 mcg Montelukast Sodium (Singulair -) 10 mg PO HS [facility] Last Admin: 03/11/19 22:04 Dose: 10 mg Pantoprazole Sodium (Protonix -) 20 mg PO DAILY [facility] Last Admin: 03/12/19 09:24 Dose: 20 mg Potassium Chloride (K-Dur -) 20 meq PO DAILY [facility] Last Admin: 03/12/19 09:25 Dose: 20 meq Senna (Senna -) 2 tab PO [facility] Last Admin: 03/11/19 22:04 Dose: 2 tab Silver Sulfadiazine (Silvadene -) 1 applic TP DAILY [facility] Last Admin: 03/12/19 09:26 Dose: 1 applic CBC, BMP 03/10/19 05:30 03/11/19 05:30 physical exam awake S1 S2 irregular Lungs ---clear Abd- decreased distention -- +ve umblical hernia, BS + non tender trace edema rt lower extremity neuro--- awake. old right side deficit A/P Acute CVA-- multiple infarcts Afib Early pneumonia--? H/O previous CVA HTN sigmoid volvulus hypokalemia --rectal tube removed -- no bm yet abx-- continue for now f/u cxr today if cxr -ve and have bm later today -- will consider d/c to [facility] today discussed with nursing staff Problem List - Problems (1) Adynamic ileus Code(s): K56.0 - PARALYTIC ILEUS (2) Altered mental status Code(s): R41.82 - ALTERED MENTAL STATUS, UNSPECIFIED Qualifiers: Altered mental status type: somnolence Qualified Code(s): R40.0 - Somnolence (3) H/O: stroke with residual effects Code(s): I69.30 - UNSPECIFIED SEQUELAE OF CEREBRAL INFARCTION (4) Persistent atrial fibrillation Code(s): I48.1 - PERSISTENT ATRIAL FIBRILLATION (5) UTI (urinary tract infection) Code(s): N39.0 - URINARY TRACT INFECTION, SITE NOT SPECIFIED Qualifiers: Urinary tract infection type: site unspecified Hematuria presence: without hematuria Qualified Code(s): N39.0 - Urinary tract infection, site not specified
[2019-03-12] MEDS ORDERED: CEFTRIAXONE 1 GM in DEXTROSE 5%-WATER - 50 ML IVPB SCH (10:45)
--- NOTE | 2019-03-12 11:42 | PN ---
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 Doing well with Dys puree/honey thick liquid. No coughing reported or observed with PO intake.
--- NOTE | 2019-03-12 12:30 | PN ---
Progress Note (short form) - Note Progress Note: Attending Surgeon No c/o; had a large bowel movement a/t the nurse; tolerating diet VSS AF abdo-soft; NT; tympanitic IMP: improved PLAN; PRN surgical f/u.
--- NOTE | 2019-03-12 14:25 | DS ---
Physical Examination Vital Signs: Vital Signs Temperature 98.5 F 03/12/19 10:00 Pulse Rate 57 L 03/12/19 10:00 Respiratory Rate 18 03/12/19 10:00 Blood Pressure 147/84 03/12/19 10:00 O2 Sat by Pulse Oximetry (%) 96 03/12/19 09:00 Findings/Remarks: see today progress note Labs: CBC, BMP 03/10/19 05:30 03/11/19 05:30 Discharge Summary Reason For Visit: URINARY TRACT INFECTION,ALTERED MENTAL STATUS Current Active Problems Acute CVA (cerebrovascular accident) (Acute) Adynamic ileus (Acute) Altered mental status (Acute) CHF (congestive heart failure) (Acute) Chronic anticoagulation (Acute) Demand ischemia (Acute) Dilated bowel (Acute) H/O: stroke with residual effects (Acute) Hypertensive cardiomyopathy (Acute) Hypothyroidism (Acute) Persistent atrial fibrillation (Acute) Toxic metabolic encephalopathy (Acute) Type 2 diabetes mellitus (Acute) UTI (urinary tract infection) (Acute) Hospital Course: admitted form long-term due to ams Acute CVA-- multiple infarcts Afib Early pneumonia--? H/O previous CVA HTN sigmoid volvulus hypokalemia uti- large bacteria but culture -ve treated with abx neuro followed as well as gi rectal tube also placed -- removed today-- has large bm f/u cxr -ve will d/c today-- off abx discussed with nursing staff Condition: Guarded - Instructions Disposition: LONG TERM FACILITY - Home Medications Comprehensive Discharge Medication List: Ambulatory Orders Amlodipine Besylate [Norvasc -] 5 mg PO DAILY 06/10/17 Ascorbic Acid [Vitamin C -] 500 mg PO DAILY 06/10/17 Cholecalciferol (Vitamin D3) [Vitamin D3 -] 1,000 unit PO DAILY 06/10/17 Dabigatran Etexilate Mesylate [Pradaxa -] 150 mg PO BID 06/10/17 Dorzolamide HCl [Trusopt 2%] 1 drop OU BID 06/10/17 Enalapril Maleate [Vasotec] 10 mg PO BID 06/10/17 Ferrous Sulfate 325 mg PO DAILY 06/10/17 Folic Acid 1 mg PO DAILY 06/10/17 Furosemide [Lasix -] 40 mg PO DAILY 06/10/17 Latanoprost 0.005% Eye Drops [Xalatan 0.005% Eye Drops -] 1 drop OU HS 06/10/17 Levothyroxine [Synthroid -] 75 mcg PO DAILY 06/10/17 Montelukast Na [Singulair -] 10 mg PO HS 06/10/17 Multivitamin [Poly-Vitamin] 1 each PO DAILY 06/10/17 Omeprazole 20 mg PO DAILY 06/10/17 Potassium Chloride 20 meq PO DAILY 06/10/17 metFORMIN HCL [Metformin HCl] 500 mg PO DAILY 06/10/17 Acetaminophen [Tylenol] 650 mg PO DAILY 03/07/19 Budesonide [Pulmicort 0.5 mg Nebulizer -] 1 neb NEB ONCE 03/07/19 Docusate Sodium [Colace] 100 mg PO DAILY 03/07/19 Ipratropium/Albuterol Sulfate [Iprat-Albut 0.5-3(2.5) mg/3 ml] 3 ml IH DAILY Sennosides [Senna] 17.2 mg PO HS 03/07/19 Silver Sulfadiazine 1% Top Cr [Silvadene -] 1 applic TP DAILY 03/07/19
[2019-03-12] MEDS ORDERED: cefTRIAXone SODIUM 1 GM VIAL ONE (15:08)
[2019-03-12] MEDS ORDERED: DEXTROSE 5%-WATER - 50 ML IVPB ONE (15:09)
[2019-03-12 19:40] VITALS: BP 142/80; PULSE 71; TEMP 98.8
== END 2019-03-12 18:30 | DRG 64 ==
LOC: JER 21:21 → JERBED 23:51 → J4W 03-08 22:47 → OBSVTOIN 03-09 09:28
PROVIDERS: ADMIT Internal Medicine; ATTEND Internal Medicine
DX: I63.9 Cerebral infarction, unspecified (principal); G93.41 Metabolic encephalopathy; I48.1 Persistent atrial fibrillation; I24.8 Other forms of acute ischemic heart disease; I50.42 Chronic combined systolic (congestive) and diastolic (congestive) heart failure; I69.351 Hemiplegia and hemiparesis following cerebral infarction affecting right dominant side; N30.00 Acute cystitis without hematuria; N20.1 Calculus of ureter; D61.818 Other pancytopenia; I43 Cardiomyopathy in diseases classified elsewhere; K56.0 Paralytic ileus; I11.0 Hypertensive heart disease with heart failure; I16.0 Hypertensive urgency; I69.320 Aphasia following cerebral infarction; E78.5 Hyperlipidemia, unspecified; I25.10 Atherosclerotic heart disease of native coronary artery without angina pectoris; Z79.84 Long term (current) use of oral hypoglycemic drugs; I69.391 Dysphagia following cerebral infarction; R13.10 Dysphagia, unspecified; I73.9 Peripheral vascular disease, unspecified; E03.9 Hypothyroidism, unspecified; K42.9 Umbilical hernia without obstruction or gangrene; R33.9 Retention of urine, unspecified; K21.9 Gastro-esophageal reflux disease without esophagitis; E11.9 Type 2 diabetes mellitus without complications; B96.89 Other specified bacterial agents as the cause of diseases classified elsewhere; K40.90 Unilateral inguinal hernia, without obstruction or gangrene, not specified as recurrent; Z79.01 Long term (current) use of anticoagulants; D69.6 Thrombocytopenia, unspecified; J44.9 Chronic obstructive pulmonary disease, unspecified; H40.9 Unspecified glaucoma; I25.118 Atherosclerotic heart disease of native coronary artery with other forms of angina pectoris; Z66 Do not resuscitate; E87.6 Hypokalemia; I11.9 Hypertensive heart disease without heart failure; Z74.01 Bed confinement status; I34.0 Nonrheumatic mitral (valve) insufficiency
CPT/HCPCS: 36415; 70450-TC; 70551-TC; 71045-TC-FY; 74018-TC-FY; 74019-TC-FY; 74176-TC; 74230-TC-FY; 80053; 80061; 81003; 82550; 82553; 82962; 83721; 84484; 85025; 87040; 87086; 87389; 87522; 92611-GN; 93005; 93010; 93306-TC; 93880-TC; 94640; 97161-GP; 99285-25; G0378

== ENCOUNTER 2019-03-12 19:27 | Inpatient (IN) | payer OTHER ==
--- NOTE | 2019-03-12 19:31 | PDOC ---
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 The patient was recently admitted for AMS and found to have multiple new CVAs. He was treated as an inpatient as well with ceftriaxone due to a possibly developing pneumonia. He was discharged today and en route to the care home, the patient was noted to have a saturation of 90% on room air and appear short of breath prompting his presentation to the ED for further evaluation. The patient is aphasic at baseline and unable to participate in history or ROS. Past History - Past Medical History Allergies/Adverse Reactions: Allergies Allergy/AdvReac Type Severity Reaction Status Date / Time No Known Allergies Allergy Verified 06/10/17 14:26 Home Medications: Ambulatory Orders Amlodipine Besylate [Norvasc -] 5 mg PO DAILY 06/10/17 Cholecalciferol (Vitamin D3) [Vitamin D3 -] 1,000 unit PO DAILY 06/10/17 Dabigatran Etexilate Mesylate [Pradaxa -] 150 mg PO BID 06/10/17 Dorzolamide HCl [Trusopt 2% -] 1 drop OU BID 06/10/17 Enalapril Maleate [Vasotec] 10 mg PO BID 06/10/17 Ferrous Sulfate 325 mg PO DAILY 06/10/17 Folic Acid 1 mg PO DAILY 06/10/17 Furosemide [Lasix -] 40 mg PO DAILY 06/10/17 Latanoprost 0.005% Eye Drops [Xalatan 0.005% Eye Drops -] 1 drop OU HS 06/10/17 Levothyroxine [Synthroid -] 75 mcg PO DAILY 06/10/17 Montelukast Na [Singulair -] 10 mg PO HS 06/10/17 Multivitamin [Poly-Vitamin] 1 each PO DAILY 06/10/17 Omeprazole 20 mg PO DAILY 06/10/17 Potassium Chloride 20 meq PO DAILY 06/10/17 metFORMIN HCL [Metformin HCl] 500 mg PO DAILY 06/10/17 Acetaminophen [Tylenol] 650 mg PO DAILY 03/07/19 Budesonide [Pulmicort 0.5 mg Nebulizer -] 1 neb NEB ONCE 03/07/19 Docusate Sodium [Colace] 100 mg PO DAILY 03/07/19 Ipratropium/Albuterol Sulfate [Iprat-Albut 0.5-3(2.5) mg/3 ml] 3 ml IH DAILY Sennosides [Senna] 17.2 mg PO HS 03/07/19 Silver Sulfadiazine 1% Top Cr [Silvadene -] 1 applic TP DAILY 03/07/19 Aspirin [ASA -] 81 mg PO DAILY tab.chew 03/12/19 Atorvastatin Ca [Lipitor] 40 mg PO HS tablet 03/12/19 Bisacodyl [Bisacodyl -] 10 mg PO BID tablet. 03/12/19 Carvedilol [Coreg -] 3.125 mg PO BID tablet 03/12/19 Insulin Sliding Scale [Novolog Vial Sliding Scale -] 1 vial SQ ACHS units 03/12 Anemia: Yes Asthma: Yes Cardiac Disorders: Yes (PAD/CHF/A-FIB) CVA: Yes (DYSPHAGIC/APHASIC & RIGHT HEMIPARESIS/HEMIPLEGIC) COPD: Yes Diabetes: Yes HTN: Yes Hypercholesterolemia: Yes Thyroid Disease: Yes (HYPO) - Surgical History GI Surgery: Yes ("ENTANGLED INTESTINAL REPAIR") - Immunization History Immunization Up to Date: Yes - Suicide/Smoking/Psychosocial Hx Smoking History: Unknown if ever smoked Have you smoked in the past 12 months: No Hx Alcohol Use: No Drug/Substance Use Hx: No Substance Use Type: None Review of Systems - Review of Systems Able to Perform ROS?: No (Aphasia) *Physical Exam - Physical Exam Comments: 03/12/19 20:48 General Appearance: Nourished. No Apparent Distress HEENT: No Pharyngeal Erythema, Tonsillar Exudate, Tonsillar Erythema Neck: No Cervical Lymphadenopathy Respiratory/Chest: Diffuse expiratory and inspiratory wheezing noted on exam. No Crackles, Rales, Rhonchi, Cardiovascular: Regular Rhythm, Regular Rate. No Murmur, Gallops, Rubs Gastrointestinal/Abdominal: Normal Bowel Sounds, Soft. No Guarding, Rebound, Tenderness Musculoskeletal: No CVA Tenderness Extremity: Normal Capillary Refill Integumentary: Normal Color, Dry, Warm Neurologic: Alert. Hemiparesis to the right side with contractions. Moving left extermities. Baseline aphasia noted. 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 Differential includes but is not limited to: ACS, COPD , CHF, Infectious, Metabolic Derangement. Given the patient's history and physical exam, it is likely the patient is experiencing a COPD exacerbation. Chest plain film performed earlier today demonstrates some findings consistent with CHF as well. We will obtain a cbc, cmp, troponin, bnp, ekg to evaluate further. We will treat with duonebs, solumedrol and lasix and continue to monitor and reassess while here in the ED. 03/12/19 23:17 CBC demonstrates a new neutropenia and pancytopenia. CMP is unremarkable. Troponin is unremarkable. Given the patient's acute desaturation and shortness of breath in the setting of worsening pancytopenia, we believe he requires observation admission for further monitoring and management. We discussed the plan with the patient's health care proxy who is amendable to the patient being admitted. We discussed the case with the admitting team who accepted the patient for admission. *DC/Admit/Observation/Transfer Diagnosis at time of Disposition: Shortness of breath, Pancytopenia COPD (chronic obstructive pulmonary disease) Qualifiers: COPD type: unspecified COPD Qualified Code(s): J44.9 - Chronic obstructive pulmonary disease, unspecified - Discharge Dispostion Condition at time of disposition: Stable Decision to Admit order: Yes - Referrals - Patient Instructions - Post Discharge Activity
[2019-03-12] MEDS ORDERED: ALBUTEROL SO4 2.5/IPRATROPIUM 0.5 INH SOL 3 ML VIAL.NEB. NEB ONE ×2 (19:37)
[2019-03-12] MEDS ORDERED: methylPREDNISolone NA SUCC 125 MG/2 ML VIAL IVPUSH ONE (19:49)
[2019-03-12] MEDS ORDERED: FUROSEMIDE 40 MG/4 ML INJECTABLE VIAL IVPUSH ONE (19:50)
[2019-03-12 20:42] LABS: BASO % 0.5 % (0-2.0); EOS % 4.3 % (0-4.5); HEMOGLOBIN 10.1 GM/dL (11.7-16.9); LYMPH % 40.7 % (8-40); MCH 23.2 pg (25.7-33.7); MCHC 31.6 g/dl (32.0-35.9); MEAN CELL VOLUME 73.6 fl (80-96); MEAN PLT VOLUME 8.6 fl (7.5-11.1); NEUT % 37.5 % (42.8-82.8); PLATELET COUNT 131 K/MM3 (134-434); RBC 4.34 M/mm3 (4.00-5.60); RDW 15.2 % (11.9-15.9); WHITE BLOOD COUNT 2.1 K/mm3 (4.0-10.0)
[2019-03-12] MEDS ORDERED: FUROSEMIDE 40 MG/4 ML INJECTABLE VIAL ONE (20:44)
[2019-03-12] MEDS ORDERED: methylPREDNISolone NA SUCC 125 MG/2 ML VIAL ONE (20:44)
--- NOTE | 2019-03-12 20:44 | PDOC ---
Documentation entered by Fatuma Thomas SCRIBE, acting as scribe for Estuardo Martell MD. Estuardo Matrell MD: This documentation has been prepared by the William bello Nirvannie, SCRIBE, under my direction and personally reviewed by me in its entirety. I confirm that the documentation accurately reflects all work, treatment, procedures, and medical decision making performed by me. Attending Attestation - Resident Resident Name: Aram Islas - ED Attending Attestation I have performed the following: I have examined & evaluated the patient, The case was reviewed & discussed with the resident, I agree w/resident's findings & plan - HPI HPI: The patient is a 83 year old male, with a significant past medical history of HTN, HLD, DM, CAD, Afib, CVA (with residual right sided hemiplegia and aphasia) , who presents to the emergency department via EMS with, wheezing. As per EMS, patient was discharged today from [facility] and en route to [facility] the patient began desaturating from 97% to 92% furthermore was actively wheezing, prompting their arrival to the ED. Allergies: NKDA - Physicial Exam PE: 03/12/19 20:43 He is awake and alert, well-nourished, in mild distress Normocephalic and atraumatic No JVD + Diffuse expiratory wheezing bilaterally bradycardic; irregularly irregular No lower extremity edema + Expressive aphasia; right-sided paraplegia - Medical Decision Making 03/12/19 19:53 Patient is an 83-year-old male with multiple comorbidities who was discharged from [facility] earlier today where he was treated for multiple acute CVA, developed acute difficulty breathing with desaturation to 90 % on room air and diffuse wheezing consistent with acute COPD exacerbation. We' ll administer Combivent therapy, we'll administer Solu-Medrol; chest x-ray performed earlier in the day is consistent with mild CHF. Will administer IV Lasix. Likely admission.
[2019-03-12 21:10] LABS: ALBUMIN 2.9 g/dl (3.4-5.0); ALK PHOS 89 U/L (45-117); ANION GAP 5 MMOL/L (8-16); BILIRUBIN,TOTAL 0.2 mg/dL (0.2-1); BLOOD UREA NITROGEN 8 mg/dL (7-18); CALCIUM 8.8 mg/dL (8.5-10.1); CHLORIDE 101 mmol/L (98-107); CO2 28 mmol/L (21-32); CREATININE 0.8 mg/dL (0.55-1.3); GLUCOSE,RANDOM 219 mg/dL (74-106); N-TERMINAL BNP 1421.7 pg/ml (5-450); POTASSIUM 4.5 mmol/L (3.5-5.1); SGOT/AST 28 U/L (15-37); SGPT/ALT 16 U/L (13-61); SODIUM 133 mmol/L (136-145)
--- NOTE | 2019-03-12 22:11 | HP ---
Admitting History and Physical - Primary Care Physician PCP: Gray Ramos - Admission Chief Complaint: Respiratory Distress History of Present Illness: This is a 83 y/o man from [facility] with a PMHx of HTN, HLD, DM, CAD, Afib (on Pradaxa), CVA (aphasic at baseline, R- residual Hemiplegia), COPD. Who presents to the ED in respiratory distress. Patient was discharged yesterday evening from [facility] for UTI, AMS. Patient is at bedside Aphasic but smiles, his son is at the bedside. Patient was given Lasix, Solumederol, and Duonebs on arrival. He appears more comfortable. His Spo2 95-98% on RA. Patient will be placed on Observation for Acute Respiratory Failure, Acute on Chronic COPD. 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 Cardiovascular: Yes: AFIB, CAD, HTN, Hyperlipdemia Pulmonary: Yes: COPD - Smoking History Smoking history: Unknown if ever smoked Have you smoked in the past 12 months: No - Alcohol/Substance Use Hx Alcohol Use: No - Social History Usual Living Arrangement: Yes: [facility] ADL: Support Services History of Recent Travel: No Home Medications - Allergies Allergies/Adverse Reactions: Allergies Allergy/AdvReac Type Severity Reaction Status Date / Time No Known Allergies Allergy Verified 06/10/17 14:26 - Home Medications Home Medications: Ambulatory Orders Amlodipine Besylate [Norvasc -] 5 mg PO DAILY 06/10/17 Cholecalciferol (Vitamin D3) [Vitamin D3 -] 1,000 unit PO DAILY 06/10/17 Dabigatran Etexilate Mesylate [Pradaxa -] 150 mg PO BID 06/10/17 Dorzolamide HCl [Trusopt 2% -] 1 drop OU BID 06/10/17 Enalapril Maleate [Vasotec] 10 mg PO BID 06/10/17 Ferrous Sulfate 325 mg PO DAILY 06/10/17 Folic Acid 1 mg PO DAILY 06/10/17 Furosemide [Lasix -] 40 mg PO DAILY 06/10/17 Latanoprost 0.005% Eye Drops [Xalatan 0.005% Eye Drops -] 1 drop OU HS 06/10/17 Levothyroxine [Synthroid -] 75 mcg PO DAILY 06/10/17 Montelukast Na [Singulair -] 10 mg PO HS 06/10/17 Multivitamin [Poly-Vitamin] 1 each PO DAILY 06/10/17 Omeprazole 20 mg PO DAILY 06/10/17 Potassium Chloride 20 meq PO DAILY 06/10/17 metFORMIN HCL [Metformin HCl] 500 mg PO DAILY 06/10/17 Acetaminophen [Tylenol] 650 mg PO DAILY 03/07/19 Budesonide [Pulmicort 0.5 mg Nebulizer -] 1 neb NEB ONCE 03/07/19 Docusate Sodium [Colace] 100 mg PO DAILY 03/07/19 Ipratropium/Albuterol Sulfate [Iprat-Albut 0.5-3(2.5) mg/3 ml] 3 ml IH DAILY Sennosides [Senna] 17.2 mg PO HS 03/07/19 Silver Sulfadiazine 1% Top Cr [Silvadene -] 1 applic TP DAILY 03/07/19 Aspirin [ASA -] 81 mg PO DAILY tab.chew 03/12/19 Atorvastatin Ca [Lipitor] 40 mg PO HS tablet 03/12/19 Bisacodyl [Bisacodyl -] 10 mg PO BID tablet. 03/12/19 Carvedilol [Coreg -] 3.125 mg PO BID tablet 03/12/19 Insulin Sliding Scale [Novolog Vial Sliding Scale -] 1 vial SQ ACHS units 03/12 Family Disease History - Family Disease History Family History: Unable to Obtain Review of Systems Unable to obtain ROS, reason: Aphasia Physical Examination Vital Signs: Vital Signs Temperature 98.1 F 03/12/19 19:47 Pulse Rate 68 03/12/19 19:47 Respiratory Rate 20 03/12/19 19:47 Blood Pressure 143/57 L 03/12/19 19:47 O2 Sat by Pulse Oximetry (%) 100 03/12/19 19:47 Constitutional: Yes: No Distress, Calm Eyes: Yes: WNL, Conjunctiva Clear, EOM Intact, PERRL HENT: Yes: WNL, Atraumatic, Normocephalic Neck: Yes: WNL, Supple, Trachea Midline Cardiovascular: Yes: Pulse Irregular, S1, S2 Respiratory: Yes: Rhonchi, Wheezes Gastrointestinal: Yes: Soft, Distention, Hypoactive Bowel Sounds. No: Tenderness, Tenderness, Epigastrium, Vomiting Renal/: Yes: Incontinence Breast(s): Yes: WNL Musculoskeletal: Yes: WNL Edema: Yes Edema: LLE: 1+, RLE: 2+ Peripheral Pulses WNL: Yes Neurological: Yes: Alert, Aphasia Psychiatric: Yes: Alert, Oriented Labs: CBC, BMP 03/12/19 20:25 03/12/19 20:25 Laboratory Results - last 24 hr 03/12/19 03/12/19 20:25 20:25 WBC 2.1 L RBC 4.34 Hgb 10.1 L Hct 32.0 L MCV 73.6 L MCH 23.2 L MCHC 31.6 L RDW 15.2 Plt Count 131 L D MPV 8.6 D Absolute Neuts (auto) 0.8 L Neutrophils % 37.5 L D Lymphocytes % 40.7 H D Monocytes % 17.0 H Eosinophils % 4.3 D Basophils % 0.5 Nucleated RBC % 0 Sodium 133 L Potassium 4.5 Chloride 101 Carbon Dioxide 28 Anion Gap 5 L BUN 8 Creatinine 0.8 Creat Clearance w eGFR 92.32 Random Glucose 219 H Calcium 8.8 Total Bilirubin 0.2 AST 28 ALT 16 Alkaline Phosphatase 89 Creatine Kinase 516 H Creatine Kinase Index 0.8 CK-MB (CK-2) 4.3 H Troponin I 0.04 B-Natriuretic Peptide 1421.7 H Total Protein 7.0 Albumin 2.9 L Intake & Output 03/10/19 03/11/19 03/12/19 03/13/19 23:59 23:59 23:59 23:59 Weight 88.904 kg 88.904 kg Current Medications Generic Name Dose Route Start Last Admin Trade Name Freq PRN Reason Stop Dose Admin Albuterol/Ipratropium amp 03/13/19 10:00 Duoneb - NEB DAILY RAJESH Amlodipine Besylate 5 mg 03/13/19 10:00 Norvasc - PO DAILY RAJESH Aspirin 81 mg 03/13/19 10:00 Asa - PO DAILY RAJESH Atorvastatin Calcium 40 mg 03/13/19 22:00 Lipitor - PO HS RAJESH Bisacodyl 10 mg 03/13/19 10:00 Dulcolax - PO BID RAJESH Budesonide amp 03/13/19 06:15 Pulmicort 0.5 Mg Nebulizer - NEB ONCE RAJESH Carvedilol 3.125 mg 03/13/19 10:00 Coreg - PO BID [facility] Cholecalciferol 1,000 unit 03/13/19 10:00 Vitamin D3 - PO DAILY [facility] Dabigatran 150 mg 03/13/19 10:00 Pradaxa - PO BID [facility] Dorzolamide HCl 1 drop 03/13/19 10:00 Trusopt 2% OU BID [facility] Enalapril Maleate 10 mg 03/13/19 10:00 Vasotec - PO BID [facility] Ferrous Sulfate 325 mg 03/13/19 10:00 Feosol - PO DAILY [facility] Folic Acid 1 mg 03/13/19 10:00 Folic Acid - PO DAILY [facility] Furosemide 40 mg 03/13/19 10:00 Lasix - PO DAILY [facility] Insulin Aspart 1 vial 03/13/19 07:00 Novolog Vial Sliding Scale - SQ ACHS [facility] Protocol Latanoprost 1 drop 03/13/19 22:00 Xalatan 0.005% Eye Drops - OU HS [facility] Levothyroxine Sodium 75 mcg 03/13/19 07:00 Synthroid - PO DAILY@0700 [facility] Montelukast Sodium 10 mg 03/13/19 22:00 Singulair - PO HS [facility] Multivitamins/Minerals/Vitamin C 1 tab 03/13/19 10:00 Tab-A-Vit - PO DAILY [facility] Pantoprazole Sodium 20 mg 03/13/19 10:00 Protonix - PO DAILY [facility] Potassium Chloride 20 meq 03/13/19 10:00 K-Dur - PO DAILY [facility] Senna 2 tab 03/13/19 22:00 Senna - PO HS [facility] Silver Sulfadiazine 1 applic 03/13/19 10:00 Silvadene - TP DAILY [facility] Imaging - Results Chest X-ray: Image Reviewed Problem List - Problems (1) Acute respiratory failure Code(s): J96.00 - ACUTE RESPIRATORY FAILURE, UNSP W HYPOXIA OR HYPERCAPNIA (2) COPD with acute exacerbation Code(s): J44.1 - CHRONIC OBSTRUCTIVE PULMONARY DISEASE W (ACUTE) EXACERBATION (3) Pancytopenia Code(s): D61.818 - OTHER PANCYTOPENIA (4) Shortness of breath Code(s): R06.02 - SHORTNESS OF BREATH (5) H/O: stroke with residual effects Code(s): I69.30 - UNSPECIFIED SEQUELAE OF CEREBRAL INFARCTION (6) Hypertensive cardiomyopathy Code(s): I11.9 - HYPERTENSIVE HEART DISEASE WITHOUT HEART FAILURE; I43 - CARDIOMYOPATHY IN DISEASES CLASSIFIED ELSEWHERE Qualifiers: Heart failure presence: without heart failure Qualified Code(s): I11.9 - Hypertensive heart disease without heart failure; I43 - Cardiomyopathy in diseases classified elsewhere (7) Hypothyroidism Code(s): E03.9 - HYPOTHYROIDISM, UNSPECIFIED Qualifiers: Hypothyroidism type: unspecified Qualified Code(s): E03.9 - Hypothyroidism , unspecified (8) Persistent atrial fibrillation Code(s): I48.1 - PERSISTENT ATRIAL FIBRILLATION (9) Type 2 diabetes mellitus Code(s): E11.9 - TYPE 2 DIABETES MELLITUS WITHOUT COMPLICATIONS Qualifiers: Diabetes mellitus half-way insulin use: without intermodal customer service use Assessment/Plan This is a 83 y/o man placed on Observation for Acute Respiratory Failure, Acute on Chronic COPD Exacerbation, Pancytopenia for further evaluation of their emergent condition. Plan: Will place in Observation Appreciate Pulm Consult Appreciate Hematology Consult Consider Cardiology Consult for ?CHF O2 Chest Xray- reviewed Continue home meds Aspiration precautions Fall precautions Monitor CBC, BMP Monitor vitals Functional Quadriplegia- secondary to CVA, Turn Q2h, Chata Lift as needed, Fall Precautions FEN- Replete lytes prn, Dysphagia Puree Diet, Honey Consistency DVT ppx- SCDs, Continue Pradaxa Dispo: Observation Visit type - Emergency Visit Emergency Visit: Yes ED Registration Date: 03/12/19 Care time: The patient presented to the Emergency Department on the above date and was hospitalized for further evaluation of their emergent condition. - New Patient This patient is new to me today: Yes Date on this admission: 03/13/19 - Critical Care Critical Care patient: No
[2019-03-13] MEDS ORDERED: INSULIN (NOVOLOG) ASPART 100 UNITS/ML 10ML VIAL ONE ×3 (06:32→17:08)
[2019-03-13] MEDS: LEVOTHYROXINE NA 75 MCG TABLET (FP) PO SCH (06:34)
[2019-03-13] MEDS: INSULIN SLIDING SCALE (NOVOLOG) 1 VIAL SQ SCH ×4 (06:38→22:15)
[2019-03-13 07:38] LABS: ANION GAP 8 MMOL/L (8-16); BLOOD UREA NITROGEN 9 mg/dL (7-18); CALCIUM 8.6 mg/dL (8.5-10.1); CHLORIDE 99 mmol/L (98-107); CO2 27 mmol/L (21-32); CREATININE 0.8 mg/dL (0.55-1.3); GLUCOSE,RANDOM 232 mg/dL (74-106); POTASSIUM 4.7 mmol/L (3.5-5.1); SODIUM 134 mmol/L (136-145)
[2019-03-13 07:51] LABS: BASO % 0.4 % (0-2.0); EOS % 0.1 % (0-4.5); HEMATOCRIT 32.2 % (35.4-49); HEMOGLOBIN 10.2 GM/dL (11.7-16.9); LYMPH % 25.7 % (8-40); MCH 23.4 pg (25.7-33.7); MCHC 31.7 g/dl (32.0-35.9); MEAN CELL VOLUME 73.9 fl (80-96); MEAN PLT VOLUME 10.3 fl (7.5-11.1); MONO % 3.5 % (3.8-10.2); NEUT % 70.3 % (42.8-82.8); PLATELET COUNT 144 K/MM3 (134-434); RBC 4.36 M/mm3 (4.00-5.60); RDW 15.3 % (11.9-15.9)
[2019-03-13 08:16] LABS: WHITE BLOOD COUNT 1.4 K/mm3 (4.0-10.0)
[2019-03-13] MEDS: FUROSEMIDE 40 MG TABLET (FP) PO SCH (09:55)
[2019-03-13] MEDS: CHOLECALCIFEROL (VITAMIN D3) 1,000 UNIT TABLET (FP) PO SCH (09:55)
[2019-03-13] MEDS: CARVEDILOL 3.125 MG TABLET (FP) PO SCH ×2 (09:55→22:07)
[2019-03-13] MEDS: MULTIVITAMINS (DAILY MVI) TABLET (FP) PO SCH (09:55)
[2019-03-13] MEDS: FOLIC ACID 1 MG TABLET (FP) PO SCH (09:55)
[2019-03-13] MEDS: BISACODYL 5 MG TABLET.DR (FP) PO SCH ×2 (09:55→22:09)
[2019-03-13] MEDS: FERROUS SO4 325 MG TABLET (FP) PO SCH (09:55)
[2019-03-13] MEDS: ASPIRIN 81 MG CHEWABLE TABLETS PO SCH (09:55)
[2019-03-13] MEDS: POTASSIUM CHLORIDE TABS 20 MEQ TABLET.ER (FP) PO SCH (09:55)
[2019-03-13] MEDS: ENALAPRIL MALEATE 10 MG TABLET (FP) PO SCH ×2 (09:56→22:17)
[2019-03-13] MEDS: SILVER SULFADIAZINE 1% TOP CREAM 400 GM JAR TP SCH (09:56)
[2019-03-13] MEDS: amLODIPine BESYLATE 5 MG TABLET (FP) PO SCH (09:56)
[2019-03-13] MEDS: DORZOLAMIDE 2% HCL OPHTHALMIC SOLUTION 10 ML BOTTLE OU SCH ×2 (09:57→22:16)
[2019-03-13] MEDS ORDERED: ALBUTEROL SO4 2.5/IPRATROPIUM 0.5 INH SOL 3 ML VIAL.NEB. NEB SCH (10:00)
[2019-03-13] MEDS ORDERED: PANTOPRAZOLE 20 MG TABLET (FP) PO SCH (10:00)
[2019-03-13] MEDS: DABIGATRAN ETEXILATE MESYLATE 150 MG CAPSULE PO SCH ×2 (10:15→22:10)
--- NOTE | 2019-03-13 11:21 | PN ---
Progress Note (short form) - Note Progress Note: Events noted Pt readmitted for SOB Pt is currently comfortable No SOB keeps removing his NC Vital Signs - 24 hr 03/12/19 03/13/19 03/13/19 19:47 01:14 03:19 Temperature 98.1 F 98.4 F Pulse Rate 68 71 Pulse Rate [ 86 Left] Respiratory 20 18 18 Rate Blood Pressure 143/57 L 148/79 Blood Pressure 131/116 H [Left Arm] O2 Sat by Pulse 100 98 97 Oximetry (%) 03/13/19 03/13/19 06:12 06:35 Temperature 98.2 F Pulse Rate 80 Pulse Rate [ Left] Respiratory 18 Rate Blood Pressure 148/82 Blood Pressure [Left Arm] O2 Sat by Pulse 97 Oximetry (%) Current Medications Generic Name Dose Route Start Last Admin Trade Name Freq PRN Reason Stop Dose Admin Albuterol/Ipratropium 1 amp 03/13/19 10:00 03/13/19 10:09 Duoneb - NEB 1 amp DAILY RAJESH Administration Amlodipine Besylate 5 mg 03/13/19 10:00 03/13/19 09:56 Norvasc - PO 5 mg DAILY RAJESH Administration Aspirin 81 mg 03/13/19 10:00 03/13/19 09:55 Asa - PO 81 mg DAILY RAJESH Administration Atorvastatin Calcium 40 mg 03/13/19 22:00 Lipitor - PO HS RAJESH Bisacodyl 10 mg 03/13/19 10:00 03/13/19 09:55 Dulcolax - PO 10 mg BID RAJESH Administration Budesonide amp 03/13/19 06:15 Pulmicort 0.5 Mg Nebulizer - NEB ONCE RAJESH Carvedilol 3.125 mg 03/13/19 10:00 03/13/19 09:55 Coreg - PO 3.125 mg BID RAJESH Administration Cholecalciferol 1,000 unit 03/13/19 10:00 03/13/19 09:55 Vitamin D3 - PO 1,000 unit DAILY RAJESH Administration Dabigatran 150 mg 03/13/19 10:00 03/13/19 10:15 Pradaxa - PO 150 mg BID RAJESH Administration Dorzolamide HCl 1 drop 03/13/19 10:00 03/13/19 09:57 Trusopt 2% OU 1 drop BID RAJESH Administration Enalapril Maleate 10 mg 03/13/19 10:00 03/13/19 09:56 Vasotec - PO 10 mg BID RAJESH Administration Ferrous Sulfate 325 mg 03/13/19 10:00 03/13/19 09:55 Feosol - PO 325 mg DAILY RAJESH Administration Folic Acid 1 mg 03/13/19 10:00 03/13/19 09:55 Folic Acid - PO 1 mg DAILY RAJESH Administration Furosemide 40 mg 03/13/19 10:00 03/13/19 09:55 Lasix - PO 40 mg DAILY RAJESH Administration Insulin Aspart 1 vial 03/13/19 07:00 03/13/19 11:08 Novolog Vial Sliding Scale - SQ 6 units ACHS RAJESH Administration Protocol Latanoprost 1 drop 03/13/19 22:00 Xalatan 0.005% Eye Drops - OU HS RAJESH Levothyroxine Sodium 75 mcg 03/13/19 07:00 03/13/19 06:34 Synthroid - PO 75 mcg DAILY@0700 RAJESH Administration Montelukast Sodium 10 mg 03/13/19 22:00 Singulair - PO HS RAJESH Multivitamins/Minerals/Vitamin C 1 tab 03/13/19 10:00 03/13/19 09:55 Tab-A-Vit - PO 1 tab DAILY RAJESH Administration Pantoprazole Sodium 20 mg 03/13/19 10:00 03/13/19 09:55 Protonix - PO 20 mg DAILY RAJESH Administration Potassium Chloride 20 meq 03/13/19 10:00 03/13/19 09:55 K-Dur - PO 20 meq DAILY RAJESH Administration Senna 2 tab 03/13/19 22:00 Senna - PO HS RAJESH Silver Sulfadiazine 1 applic 03/13/19 10:00 03/13/19 09:56 Silvadene - TP 1 applic DAILY RAJESH Administration Laboratory Results - last 24 hr 03/12/19 03/12/19 03/13/19 20:25 20:25 06:00 WBC 2.1 L 1.4 L* RBC 4.34 4.36 Hgb 10.1 L 10.2 L Hct 32.0 L 32.2 L MCV 73.6 L 73.9 L MCH 23.2 L 23.4 L MCHC 31.6 L 31.7 L RDW 15.2 15.3 Plt Count 131 L D 144 MPV 8.6 D 10.3 D Absolute Neuts (auto) 0.8 L 1.0 L Neutrophils % 37.5 L D 70.3 D Lymphocytes % 40.7 H D 25.7 D Monocytes % 17.0 H 3.5 L Eosinophils % 4.3 D 0.1 D Basophils % 0.5 0.4 Nucleated RBC % 0 0 Sodium 133 L Potassium 4.5 Chloride 101 Carbon Dioxide 28 Anion Gap 5 L BUN 8 Creatinine 0.8 Creat Clearance w eGFR 92.32 POC Glucometer Random Glucose 219 H Calcium 8.8 Total Bilirubin 0.2 AST 28 ALT 16 Alkaline Phosphatase 89 Creatine Kinase 516 H Creatine Kinase Index 0.8 CK-MB (CK-2) 4.3 H Troponin I 0.04 B-Natriuretic Peptide 1421.7 H Total Protein 7.0 Albumin 2.9 L 03/13/19 03/13/19 03/13/19 06:00 06:37 10:25 WBC RBC Hgb Hct MCV MCH MCHC RDW Plt Count MPV Absolute Neuts (auto) Neutrophils % Lymphocytes % Monocytes % Eosinophils % Basophils % Nucleated RBC % Sodium 134 L Potassium 4.7 Chloride 99 Carbon Dioxide 27 Anion Gap 8 BUN 9 Creatinine 0.8 Creat Clearance w eGFR 92.32 POC Glucometer 219 297 Random Glucose 232 H Calcium 8.6 Total Bilirubin AST ALT Alkaline Phosphatase Creatine Kinase Creatine Kinase Index CK-MB (CK-2) Troponin I B-Natriuretic Peptide Total Protein Albumin S1 S2 Irregular Lungs decreased no rales or ronchi no JVD Abd-- soft, mild distension, NT Rt side weakness No edema PLAN acute COPD/CHF -- on nebs -- Lasix PO --keep O2 -- Pulmonary eval -- CXR clear Pancytopenia -- pancytopenic on previous admission but WBC lower this time --was on IV antibiotics last admission and completed yesterday -- he is afebrile -- spoke with Dr Seals-- will observe for now, will check labs in AM. He will see pt over weekend if he spike a temp. -- continue ASA and Pradaxa for Afib and recent CVA -- dc protonix -- no neutropenic precautions AFib -- rate is controlled -- continue with pradaxa and ASA Problem List - Problems (1) Acute respiratory failure Code(s): J96.00 - ACUTE RESPIRATORY FAILURE, UNSP W HYPOXIA OR HYPERCAPNIA (2) COPD (chronic obstructive pulmonary disease) Code(s): J44.9 - CHRONIC OBSTRUCTIVE PULMONARY DISEASE, UNSPECIFIED Qualifiers: COPD type: unspecified COPD Qualified Code(s): J44.9 - Chronic obstructive pulmonary disease, unspecified (3) Pancytopenia Code(s): D61.818 - OTHER PANCYTOPENIA
--- NOTE | 2019-03-13 12:05 | CON.PULM ---
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 He was apparently discharged 2 days ago from [facility] after being treated for an UTI and AMS. He was sent from the SNF as they felt he had SOB and increased WOB. Patient is not able to provide a history. In the ER he was treated with Lasix, Solumederol, and Duonebs. No acute further events documented overnight. CXR: no acute progress or gross change from previous. 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: Yes: CVA, Dementia Cardio/Vascular: Yes: AFIB, CAD, HTN, Hyperlipdemia Pulmonary: Yes: COPD - Alcohol/Substance Use Hx Alcohol Use: No - Smoking History Smoking history: Unknown if ever smoked Have you smoked in the past 12 months: No - Social History ADL: Support Services History of Recent Travel: No Home Medications - Allergies Allergies/Adverse Reactions: Allergies Allergy/AdvReac Type Severity Reaction Status Date / Time No Known Allergies Allergy Verified 06/10/17 14:26 - Home Medications Home Medications: Ambulatory Orders Amlodipine Besylate [Norvasc -] 5 mg PO DAILY 06/10/17 Cholecalciferol (Vitamin D3) [Vitamin D3 -] 1,000 unit PO DAILY 06/10/17 Dabigatran Etexilate Mesylate [Pradaxa -] 150 mg PO BID 06/10/17 Dorzolamide HCl [Trusopt 2% -] 1 drop OU BID 06/10/17 Enalapril Maleate [Vasotec] 10 mg PO BID 06/10/17 Ferrous Sulfate 325 mg PO DAILY 06/10/17 Folic Acid 1 mg PO DAILY 06/10/17 Furosemide [Lasix -] 40 mg PO DAILY 06/10/17 Latanoprost 0.005% Eye Drops [Xalatan 0.005% Eye Drops -] 1 drop OU HS 06/10/17 Levothyroxine [Synthroid -] 75 mcg PO DAILY 06/10/17 Montelukast Na [Singulair -] 10 mg PO HS 06/10/17 Multivitamin [Poly-Vitamin] 1 each PO DAILY 06/10/17 Omeprazole 20 mg PO DAILY 06/10/17 Potassium Chloride 20 meq PO DAILY 06/10/17 metFORMIN HCL [Metformin HCl] 500 mg PO DAILY 06/10/17 Acetaminophen [Tylenol] 650 mg PO DAILY 03/07/19 Budesonide [Pulmicort 0.5 mg Nebulizer -] 1 neb NEB ONCE 03/07/19 Docusate Sodium [Colace] 100 mg PO DAILY 03/07/19 Ipratropium/Albuterol Sulfate [Iprat-Albut 0.5-3(2.5) mg/3 ml] 3 ml IH DAILY Sennosides [Senna] 17.2 mg PO HS 03/07/19 Silver Sulfadiazine 1% Top Cr [Silvadene -] 1 applic TP DAILY 03/07/19 Aspirin [ASA -] 81 mg PO DAILY tab.chew 03/12/19 Atorvastatin Ca [Lipitor] 40 mg PO HS tablet 03/12/19 Bisacodyl [Bisacodyl -] 10 mg PO BID tablet. 03/12/19 Carvedilol [Coreg -] 3.125 mg PO BID tablet 03/12/19 Insulin Sliding Scale [Novolog Vial Sliding Scale -] 1 vial SQ ACHS units 03/12 Review of Systems Unable to obtain ROS, reason: cannot provide Physical Exam Vital Sings: Vital Signs Temperature 98.2 F 03/13/19 06:35 Pulse Rate 80 03/13/19 06:35 Respiratory Rate 18 03/13/19 06:35 Blood Pressure 148/82 03/13/19 06:35 O2 Sat by Pulse Oximetry (%) 97 03/13/19 06:12 Constitutional: Yes: No Distress, Calm Eyes: Yes: Conjunctiva Clear, EOM Intact HENT: Yes: Atraumatic, Normocephalic Neck: Yes: Supple, Trachea Midline Cardiovascular: Yes: Pulse Irregular Respiratory: Yes: Diminished. No: Accessory Muscle Use, Rales, Rhonchi, SOB, SOB on Exertion, Stridor, Tachypnea, Wheezes ...Inspection: Yes: WNL ...Clubbing: No Gastrointestinal: Yes: Normal Bowel Sounds, Soft Renal/: Yes: WNL Musculoskeletal: Yes: WNL Extremities: Yes: WNL Edema: No Peripheral Pulses WNL: Yes Integumentary: Yes: WNL Neurological: Yes: Confusion, Pre-Existing Deficit Labs: CBC, BMP 03/13/19 06:00 03/13/19 06:00 Imaging - Results Chest X-ray: Report Reviewed, Image Reviewed Problem List - Problems (1) COPD (chronic obstructive pulmonary disease) Code(s): J44.9 - CHRONIC OBSTRUCTIVE PULMONARY DISEASE, UNSPECIFIED Qualifiers: COPD type: unspecified COPD Qualified Code(s): J44.9 - Chronic obstructive pulmonary disease, unspecified (2) Shortness of breath Code(s): R06.02 - SHORTNESS OF BREATH (3) CHF (congestive heart failure) Code(s): I50.9 - HEART FAILURE, UNSPECIFIED (4) H/O: stroke with residual effects Code(s): I69.30 - UNSPECIFIED SEQUELAE OF CEREBRAL INFARCTION (5) Hypertensive cardiomyopathy Code(s): I11.9 - HYPERTENSIVE HEART DISEASE WITHOUT HEART FAILURE; I43 - CARDIOMYOPATHY IN DISEASES CLASSIFIED ELSEWHERE Qualifiers: Heart failure presence: without heart failure Qualified Code(s): I11.9 - Hypertensive heart disease without heart failure; I43 - Cardiomyopathy in diseases classified elsewhere (6) Hypothyroidism Code(s): E03.9 - HYPOTHYROIDISM, UNSPECIFIED Qualifiers: Hypothyroidism type: unspecified Qualified Code(s): E03.9 - Hypothyroidism , unspecified (7) Persistent atrial fibrillation Code(s): I48.1 - PERSISTENT ATRIAL FIBRILLATION (8) Type 2 diabetes mellitus Code(s): E11.9 - TYPE 2 DIABETES MELLITUS WITHOUT COMPLICATIONS Qualifiers: Diabetes mellitus hydraulic modeling engineer insulin use: without hydraulic modeling engineer use Assessment/Plan Supplemental O2 as needed Do not think he requires systemic steroids, ABX, or Lasix Can prescribe BD TX PRN Aspiration precautions There is no Pulmonary contraindication to discharge patient back to the SNF Thank you. Dr Garcia
[2019-03-13 12:44] LABS: ANISOCYTOSIS 2+; MACROCYTOSIS 1+; PLATELET ESTIMATE DECREASED; TEAR DROP CELLS 1+
[2019-03-13] MEDS: ALBUTEROL SO4 2.5/IPRATROPIUM 0.5 INH SOL 3 ML VIAL.NEB. NEB SCH ×3 (12:44→20:45)
--- NOTE | 2019-03-13 15:09 | EKG ---
Test Reason : Blood Pressure : / mmHG Vent. Rate : 052 BPM Atrial Rate : 057 BPM P-R Int : 000 ms QRS Dur : 156 ms QT Int : 430 ms P-R-T Axes : 000 -52 092 degrees QTc Int : 399 ms POOR DATA QUALITY, INTERPRETATION MAY BE ADVERSELY AFFECTED ATRIAL FIBRILLATION WITH SLOW VENTRICULAR RESPONSE LEFT AXIS DEVIATION LEFT BUNDLE BRANCH BLOCK ABNORMAL ECG WHEN COMPARED WITH ECG OF 08-MAR-2019 00:52, VENT. RATE HAS DECREASED BY 37 BPM LEFT BUNDLE BRANCH BLOCK HAS REPLACED NON-SPECIFIC INTRA-VENTRICULAR CONDUCTION BLOCK Confirmed by ISHAN CATALAN, LISA ([id number]) on 03/13/2019 3:09:33 PM Referred By: Confirmed By:LISA OLMSTEAD MD
--- NOTE | 2019-03-13 18:20 | CONSULT ---
Consult Consult Specialty:: Hematology Oncology Referred by:: Wu Ramos Reason for Consultation:: Low WBC - History of Present Illness Chief Complaint: SOB/wheezing History of Present Illness: 83 y/o male with multiple comorbidities including COPD,Htn,HLD, DM, CVA w residual R hemiparesis,A.fib on Pradaxa and ASA / aphasia , recently Rx for UTI ? pneumonia w ceftriaxone , WBC 3.1 on 03-07-19 with slight increase in monocyte % , d/c to [facility] 03-12-19 but required immediate re-admission for SOB/cough and wheezing.Pt had no fever /chills , WBC 2.1 , diff unremarkable except for slight increase again in monocyte % , H/H 09/16 MCV 73.6 plates 131K ; CMP unremarkable except for CPK 516 w MB 4.3 , alb 2.9 . CXR w posssible CHF picture; BNP 1421 ; EKG w A.fib w slow vent response ,LAD/LBBB.Pt found to have b/l wheezes and mild leg edema; Rx w lasix, Duonebs, steroids ; WBC today 1.4 , hgb10.5,plates 100K ; Pt felt to have mainly COPD exacerbation.Currently afebrile, +prod cough ; denies pain. + constipation.Chart states pt has hx anemia. 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: CVA, Dementia Cardio/Vascular: Yes: AFIB, CAD, HTN, Hyperlipdemia Pulmonary: Yes: COPD Gastrointestinal: No: Ascites, Cancer, Constipation, Crohn's Disease, Diverticulitis, Diverticulosis, Esophageal Varices, Gastritis, GERD, GI Bleed, Hemorrhoids, Hiatal Hernia, Inflamatory Bowel Disease, Irritable Bowel Disease, Pancreatitis, Peptic Ulcer Disease, Ulcerative Colitis, Other Hepatobiliary: No: Cirrhosis, Cholelithiasis, Cholecystitis, Choledocholithiasis , Hepatitis A, Hepatitis B, Hepatitis C, Other Renal/: No: Renal Failure, Renal Inusuff, BPH, Cancer, Hematuria, Hemodialysis , Neurogenic Bladder, Renal Calculi, UTI, Other Heme/Onc: Yes: Anemia Infectious Disease: No: AIDS, C-Diff, Herpes Zoster, HIV, MRSA, STD's, Tuberculosis, VREF, Other Psych: No: Addictions, Anxiety, Bipolar, Depression, Panic, Psychosis, Schizophrenia, Other Musculoskeletal: Yes: Hemiplegia Rheumatology: No: Fibromyalgia, Gout, Lupus, Rheumatoid Arthritis, Sarcoidosis, Vasculitis, Other Endocrine: Yes: Diabetes Mellitus, Hypothyroidism Dermatology: No: Basal Cell, Cellulitis, Eczema, Melanoma, Psoriasis, Squamous Cell, Other - Past Surgical History Additional Surgical History: intestinal surgery/repair for entangled intestines - Alcohol/Substance Use Hx Alcohol Use: No History of Substance Use: denies: None, Cocaine, Heroin, Marijuana, Prescription , Tranquilizers - Smoking History Smoking history: Unknown if ever smoked Have you smoked in the past 12 months: No - Social History ADL: Support Services Home Medications - Allergies Allergies/Adverse Reactions: Allergies Allergy/AdvReac Type Severity Reaction Status Date / Time No Known Allergies Allergy Verified 06/10/17 14:26 - Home Medications Home Medications: Ambulatory Orders Amlodipine Besylate [Norvasc -] 5 mg PO DAILY 06/10/17 Cholecalciferol (Vitamin D3) [Vitamin D3 -] 1,000 unit PO DAILY 06/10/17 Dabigatran Etexilate Mesylate [Pradaxa -] 150 mg PO BID 06/10/17 Dorzolamide HCl [Trusopt 2% -] 1 drop OU BID 06/10/17 Enalapril Maleate [Vasotec] 10 mg PO BID 06/10/17 Ferrous Sulfate 325 mg PO DAILY 06/10/17 Folic Acid 1 mg PO DAILY 06/10/17 Furosemide [Lasix -] 40 mg PO DAILY 06/10/17 Latanoprost 0.005% Eye Drops [Xalatan 0.005% Eye Drops -] 1 drop OU HS 06/10/17 Levothyroxine [Synthroid -] 75 mcg PO DAILY 06/10/17 Montelukast Na [Singulair -] 10 mg PO HS 06/10/17 Multivitamin [Poly-Vitamin] 1 each PO DAILY 06/10/17 Omeprazole 20 mg PO DAILY 06/10/17 Potassium Chloride 20 meq PO DAILY 06/10/17 metFORMIN HCL [Metformin HCl] 500 mg PO DAILY 06/10/17 Acetaminophen [Tylenol] 650 mg PO DAILY 03/07/19 Budesonide [Pulmicort 0.5 mg Nebulizer -] 1 neb NEB ONCE 03/07/19 Docusate Sodium [Colace] 100 mg PO DAILY 03/07/19 Ipratropium/Albuterol Sulfate [Iprat-Albut 0.5-3(2.5) mg/3 ml] 3 ml IH DAILY Sennosides [Senna] 17.2 mg PO HS 03/07/19 Silver Sulfadiazine 1% Top Cr [Silvadene -] 1 applic TP DAILY 03/07/19 Aspirin [ASA -] 81 mg PO DAILY tab.chew 03/12/19 Atorvastatin Ca [Lipitor] 40 mg PO HS tablet 03/12/19 Bisacodyl [Bisacodyl -] 10 mg PO BID tablet. 03/12/19 Carvedilol [Coreg -] 3.125 mg PO BID tablet 03/12/19 Insulin Sliding Scale [Novolog Vial Sliding Scale -] 1 vial SQ ACHS units 03/12 Review of Systems Unable to obtain ROS, reason: aphasic Physical Exam Vital Signs: Vital Signs Temperature 97.8 F 03/13/19 13:40 Pulse Rate 63 03/13/19 13:40 Respiratory Rate 18 03/13/19 10:19 Blood Pressure 124/54 L 03/13/19 13:40 O2 Sat by Pulse Oximetry (%) 94 L 03/13/19 13:49 Constitutional: Yes: Well Nourished, No Distress, Calm Eyes: Yes: WNL, Conjunctiva Clear, EOM Intact HENT: Yes: WNL, Atraumatic, Normocephalic, Other (poor dentition) Neck: Yes: WNL, Supple, Trachea Midline Cardiovascular: Yes: Pulse Irregular, S1, S2 Respiratory: Yes: Diminished, Rhonchi Gastrointestinal: Yes: Distention, Hypoactive Bowel Sounds (mildly bloated, tympanytic, non-tender, ? organomegaly) Edema: LUE: Trace, RUE: Trace, LLE: Trace, RLE: Trace Integumentary: Yes: WNL Neurological: Yes: Aphasia (R hemiparesis) Labs: CBC, BMP 03/13/19 06:00 03/13/19 06:00 Problem List - Problems (1) Leukopenia Code(s): D72.819 - DECREASED WHITE BLOOD CELL COUNT, UNSPECIFIED (2) Thrombocytopenia Code(s): D69.6 - THROMBOCYTOPENIA, UNSPECIFIED (3) Microcytic anemia Code(s): D50.9 - IRON DEFICIENCY ANEMIA, UNSPECIFIED Assessment/Plan Pt w comorbidities , adrian has a mild chronic leukopenia at baseline( familial benign) but do not have old CBC's ; he has clinical picture of COPD exacerbation (perhaps viral syndrome) and has a WBC which is coming down over several days w moderate neutropenia , which puts him at risk for other infections, including bacterial. The most likely cause of the leukopenia is viral , which should be transient and self limited. Cannot r/o drug induced ( eg.recent antibiotic ) , less likely his numerous other meds. Primary bone marrow disorders may have to be ruled out w BM exam if this not revert over next few days ; pt does have a mild microcytic anemia , mild thrombocytopenia which may increase need to r/o BM disorders. Use of G-CSF controversial in this situation ; may be considered if WBC continues to drop and after a BM exam done. For now , continue to monitor w CBC's; order B12/folate , Retic,LDH, Ferritin,Fe/TIBC/% sat , TSH , Immunofixation and SPEP. Could do BM Mon/Tues if needed .Consider abdo x-ray for bloating , laxatives ; consider US abdo to look at liver/spleen
[2019-03-13] MEDS: BUDESONIDE 0.5 MG/2 ML INH SUSP VIAL NEB SCH (20:45)
[2019-03-13] MEDS: SENNOSIDES 8.6MG TABLET (FP) PO SCH (22:06)
[2019-03-13] MEDS: MONTELUKAST NA 10 MG TABLET PO SCH (22:07)
[2019-03-13] MEDS: ATORVASTATIN CA 40 MG TABLET (FP) PO SCH (22:09)
[2019-03-13] MEDS: LATANOPROST 0.005% OPHTH SOLN 2.5ML BOTTLE OU SCH (22:17)
[2019-03-14] MEDS: LEVOTHYROXINE NA 75 MCG TABLET (FP) PO SCH (06:39)
[2019-03-14] MEDS: BUDESONIDE 0.5 MG/2 ML INH SUSP VIAL NEB SCH ×3 (06:43→20:29)
[2019-03-14] MEDS: INSULIN SLIDING SCALE (NOVOLOG) 1 VIAL SQ SCH ×4 (06:44→23:38)
[2019-03-14] MEDS: ALBUTEROL SO4 2.5/IPRATROPIUM 0.5 INH SOL 3 ML VIAL.NEB. NEB SCH ×4 (07:20→20:29)
--- NOTE | 2019-03-14 10:24 | PN ---
Progress Note (short form) - Note Progress Note: Events noted abd distended has bm No SOB no distress Vital Signs - 24 hr vitals and labs noted S1 S2 Irregular Lungs decreased no rales or ronchi no JVD Abd-- soft, mild distension, NT Rt side weakness No edema PLAN acute COPD/CHF -- on nebs -- Lasix PO --keep O2 -- sob due to distended abdomen Ileus/ recurrent volvulus -- has a rectal tube -- for sigmoidoscopy tomorrow -- poor surgical candidate as he has a recent CVA, afib, CHF -- cardiology eval noted Pancytopenia --WBC improving -- he is afebrile -- spoke with Dr Seals-- will observe for now, will check labs in AM. He will see pt over weekend if he spike a temp. -- continue ASA and Pradaxa for Afib and recent CVA -- dc protonix -- no neutropenic precautions AFib -- rate is controlled -- continue with pradaxa and ASA prognosis guarded Problem List - Problems (1) Acute respiratory failure Code(s): J96.00 - ACUTE RESPIRATORY FAILURE, UNSP W HYPOXIA OR HYPERCAPNIA (2) COPD (chronic obstructive pulmonary disease) Code(s): J44.9 - CHRONIC OBSTRUCTIVE PULMONARY DISEASE, UNSPECIFIED Qualifiers: COPD type: unspecified COPD Qualified Code(s): J44.9 - Chronic obstructive pulmonary disease, unspecified (3) Pancytopenia Code(s): D61.818 - OTHER PANCYTOPENIA
[2019-03-14] MEDS: CHOLECALCIFEROL (VITAMIN D3) 1,000 UNIT TABLET (FP) PO SCH (10:33)
[2019-03-14] MEDS: POTASSIUM CHLORIDE TABS 20 MEQ TABLET.ER (FP) PO SCH (10:34)
[2019-03-14] MEDS: ASPIRIN 81 MG CHEWABLE TABLETS PO SCH (10:34)
[2019-03-14] MEDS: ENALAPRIL MALEATE 10 MG TABLET (FP) PO SCH ×2 (10:34→23:27)
[2019-03-14] MEDS: FOLIC ACID 1 MG TABLET (FP) PO SCH (10:34)
[2019-03-14] MEDS: CARVEDILOL 3.125 MG TABLET (FP) PO SCH ×2 (10:34→23:26)
[2019-03-14] MEDS: MULTIVITAMINS (DAILY MVI) TABLET (FP) PO SCH (10:34)
[2019-03-14] MEDS: BISACODYL 5 MG TABLET.DR (FP) PO SCH ×2 (10:34→23:26)
[2019-03-14] MEDS: FUROSEMIDE 40 MG TABLET (FP) PO SCH (10:34)
[2019-03-14] MEDS: amLODIPine BESYLATE 5 MG TABLET (FP) PO SCH (10:34)
[2019-03-14] MEDS: DABIGATRAN ETEXILATE MESYLATE 150 MG CAPSULE PO SCH ×2 (10:34→23:27)
[2019-03-14] MEDS: FERROUS SO4 325 MG TABLET (FP) PO SCH (10:34)
[2019-03-14] MEDS: DORZOLAMIDE 2% HCL OPHTHALMIC SOLUTION 10 ML BOTTLE OU SCH ×2 (10:35→23:27)
[2019-03-14] MEDS: SILVER SULFADIAZINE 1% TOP CREAM 400 GM JAR TP SCH (10:35)
[2019-03-14 11:46] LABS: BASO % 0.6 % (0-2.0); EOS % 1.7 % (0-4.5); HEMOGLOBIN 9.5 GM/dL (11.7-16.9); LYMPH % 32.5 % (8-40); MCH 23.2 pg (25.7-33.7); MCHC 31.7 g/dl (32.0-35.9); MEAN CELL VOLUME 73.2 fl (80-96); MEAN PLT VOLUME 9.3 fl (7.5-11.1); MONO % 24.3 % (3.8-10.2); NEUT % 40.9 % (42.8-82.8); PLATELET COUNT 152 K/MM3 (134-434); RDW 15.3 % (11.9-15.9); WHITE BLOOD COUNT 2.9 K/mm3 (4.0-10.0)
--- NOTE | 2019-03-14 11:59 | PN ---
Progress Note (short form) - Note Progress Note: Audible wheezing. Eating lunch. Reports cough. Denies CP. Intake & Output 03/11/19 03/12/19 03/13/19 03/14/19 23:59 23:59 23:59 23:59 Intake Total 865 250 Output Total 1 Balance 865 249 Weight 196 lb 195 lb 15.996 oz Last Vital Signs Temp Pulse Resp BP Pulse Ox 97.7 F 65 18 146/90 94 L 03/14/19 06:00 03/14/19 06:00 03/14/19 06:00 03/14/19 06:00 03/14/19 08:58 Active Medications Albuterol/Ipratropium (Duoneb -) 1 amp NEB RQID [facility] Last Admin: 03/14/19 11:19 Dose: 1 amp Amlodipine Besylate (Norvasc -) 5 mg PO DAILY [facility] Last Admin: 03/14/19 10:34 Dose: 5 mg Aspirin (Asa -) 81 mg PO DAILY [facility] Last Admin: 03/14/19 10:34 Dose: 81 mg Atorvastatin Calcium (Lipitor -) 40 mg PO HS [facility] Last Admin: 03/13/19 22:09 Dose: 40 mg Bisacodyl (Dulcolax -) 10 mg PO BID [facility] Last Admin: 03/14/19 10:34 Dose: 10 mg Budesonide (Pulmicort 0.5 Mg Nebulizer -) 1 amp NEB RBID [facility] Last Admin: 03/14/19 07:20 Dose: 1 amp Carvedilol (Coreg -) 3.125 mg PO BID [facility] Last Admin: 03/14/19 10:34 Dose: 3.125 mg Cholecalciferol (Vitamin D3 -) 1,000 unit PO DAILY [facility] Last Admin: 03/14/19 10:33 Dose: 1,000 unit Dabigatran (Pradaxa -) 150 mg PO BID [facility] Last Admin: 03/14/19 10:34 Dose: 150 mg Dorzolamide HCl (Trusopt 2%) 1 drop OU BID [facility] Last Admin: 03/14/19 10:35 Dose: 1 drop Enalapril Maleate (Vasotec -) 10 mg PO BID [facility] Last Admin: 03/14/19 10:34 Dose: 10 mg Ferrous Sulfate (Feosol -) 325 mg PO DAILY [facility] Last Admin: 03/14/19 10:34 Dose: 325 mg Folic Acid (Folic Acid -) 1 mg PO DAILY [facility] Last Admin: 03/14/19 10:34 Dose: 1 mg Furosemide (Lasix -) 40 mg PO DAILY [facility] Last Admin: 03/14/19 10:34 Dose: 40 mg Insulin Aspart (Novolog Vial Sliding Scale -) 1 vial SQ ACHS [facility]; Protocol Last Admin: 03/14/19 06:44 Dose: 2 units Latanoprost (Xalatan 0.005% Eye Drops -) 1 drop OU HS [facility] Last Admin: 03/13/19 22:17 Dose: 1 drop Levothyroxine Sodium (Synthroid -) 75 mcg PO DAILY@0700 [facility] Last Admin: 03/14/19 06:39 Dose: 75 mcg Montelukast Sodium (Singulair -) 10 mg PO HS [facility] Last Admin: 03/13/19 22:07 Dose: 10 mg Multivitamins/Minerals/Vitamin C (Tab-A-Vit -) 1 tab PO DAILY [facility] Last Admin: 03/14/19 10:34 Dose: 1 tab Potassium Chloride (K-Dur -) 20 meq PO DAILY [facility] Last Admin: 03/14/19 10:34 Dose: 20 meq Senna (Senna -) 2 tab PO HS [facility] Last Admin: 03/13/19 22:06 Dose: 2 tab Silver Sulfadiazine (Silvadene -) 1 applic TP DAILY [facility] Last Admin: 03/14/19 10:35 Dose: 1 applic Constitutional: Yes: No Distress, Calm Eyes: Yes: Conjunctiva Clear, EOM Intact HENT: Yes: Atraumatic, Normocephalic Neck: Yes: Supple, Trachea Midline Cardiovascular: Yes: Pulse Irregular Respiratory: Yes: (+) Bilateral diffuse wheezing & Rhonchi. No: Accessory Muscle Use, Rales, SOB, SOB on Exertion, Stridor, Tachypnea ...Inspection: Yes: WNL ...Clubbing: No Gastrointestinal: Yes: Normal Bowel Sounds, Soft Renal/: Yes: WNL Musculoskeletal: Yes: WNL Extremities: Yes: WNL Edema: No Peripheral Pulses WNL: Yes Integumentary: Yes: WNL Neurological: Yes: Confusion, Pre-Existing Deficit Labs: Laboratory Results - last 24 hr 03/13/19 03/13/19 03/13/19 06:00 17:06 22:14 WBC RBC Hgb Hct MCV MCH MCHC RDW Plt Count MPV Absolute Neuts (auto) Neutrophils % Neutrophils % (Manual) 67.4 D Band Neutrophils % 2.0 Lymphocytes % Lymphocytes % (Manual) 26.5 Monocytes % Monocytes % (Manual) 2 L Eosinophils % Eosinophils % (Manual) 0.0 Basophils % Basophils % (Manual) 0.0 Myelocytes % (Man) 0 Promyelocytes % (Man) 0 Blast Cells % (Manual) 0 Nucleated RBC % Metamyelocytes 0 D Hypochromia 0 Platelet Estimate Decreased Platelet Comment Present Polychromasia 2+ Poikilocytosis 1+ Anisocytosis 2+ Microcytosis 1+ Macrocytosis 1+ Spherocytes 1+ Tear Drop Cells 1+ Matthieu Cells 1+ POC Glucometer 232 222 03/14/19 03/14/19 06:42 11:20 WBC 2.9 L RBC 4.10 Hgb 9.5 L Hct 30.0 L MCV 73.2 L MCH 23.2 L MCHC 31.7 L RDW 15.3 Plt Count 152 MPV 9.3 Absolute Neuts (auto) 1.2 L Neutrophils % 40.9 L D Neutrophils % (Manual) Band Neutrophils % Lymphocytes % 32.5 D Lymphocytes % (Manual) Monocytes % 24.3 H D Monocytes % (Manual) Eosinophils % 1.7 D Eosinophils % (Manual) Basophils % 0.6 Basophils % (Manual) Myelocytes % (Man) Promyelocytes % (Man) Blast Cells % (Manual) Nucleated RBC % 0 Metamyelocytes Hypochromia Platelet Estimate Platelet Comment Polychromasia Poikilocytosis Anisocytosis Microcytosis Macrocytosis Spherocytes Tear Drop Cells Matthieu Cells POC Glucometer 163 Problem List - Problems (1) COPD (chronic obstructive pulmonary disease) Code(s): J44.9 - CHRONIC OBSTRUCTIVE PULMONARY DISEASE, UNSPECIFIED Qualifiers: COPD type: unspecified COPD Qualified Code(s): J44.9 - Chronic obstructive pulmonary disease, unspecified (2) Shortness of breath Code(s): R06.02 - SHORTNESS OF BREATH (3) CHF (congestive heart failure) Code(s): I50.9 - HEART FAILURE, UNSPECIFIED (4) H/O: stroke with residual effects Code(s): I69.30 - UNSPECIFIED SEQUELAE OF CEREBRAL INFARCTION (5) Hypertensive cardiomyopathy Code(s): I11.9 - HYPERTENSIVE HEART DISEASE WITHOUT HEART FAILURE; I43 - CARDIOMYOPATHY IN DISEASES CLASSIFIED ELSEWHERE Qualifiers: Heart failure presence: without heart failure Qualified Code(s): I11.9 - Hypertensive heart disease without heart failure; I43 - Cardiomyopathy in diseases classified elsewhere (6) Hypothyroidism Code(s): E03.9 - HYPOTHYROIDISM, UNSPECIFIED Qualifiers: Hypothyroidism type: unspecified Qualified Code(s): E03.9 - Hypothyroidism , unspecified (7) Persistent atrial fibrillation Code(s): I48.1 - PERSISTENT ATRIAL FIBRILLATION (8) Type 2 diabetes mellitus Code(s): E11.9 - TYPE 2 DIABETES MELLITUS WITHOUT COMPLICATIONS Qualifiers: Diabetes mellitus buttermaker helper insulin use: without mcfp use Assessment/Plan Supplemental O2 as needed Medrol BD TX standing and PRN Aspiration precautions Singulair Would monitor off ABX Dr Garcia Problem List - Problems (1) COPD (chronic obstructive pulmonary disease) Code(s): J44.9 - CHRONIC OBSTRUCTIVE PULMONARY DISEASE, UNSPECIFIED Qualifiers: COPD type: unspecified COPD Qualified Code(s): J44.9 - Chronic obstructive pulmonary disease, unspecified (2) Shortness of breath Code(s): R06.02 - SHORTNESS OF BREATH (3) CHF (congestive heart failure) Code(s): I50.9 - HEART FAILURE, UNSPECIFIED (4) H/O: stroke with residual effects Code(s): I69.30 - UNSPECIFIED SEQUELAE OF CEREBRAL INFARCTION (5) Hypertensive cardiomyopathy Code(s): I11.9 - HYPERTENSIVE HEART DISEASE WITHOUT HEART FAILURE; I43 - CARDIOMYOPATHY IN DISEASES CLASSIFIED ELSEWHERE Qualifiers: Heart failure presence: without heart failure Qualified Code(s): I11.9 - Hypertensive heart disease without heart failure; I43 - Cardiomyopathy in diseases classified elsewhere (6) Hypothyroidism Code(s): E03.9 - HYPOTHYROIDISM, UNSPECIFIED Qualifiers: Hypothyroidism type: unspecified Qualified Code(s): E03.9 - Hypothyroidism , unspecified (7) Persistent atrial fibrillation Code(s): I48.1 - PERSISTENT ATRIAL FIBRILLATION (8) Type 2 diabetes mellitus Code(s): E11.9 - TYPE 2 DIABETES MELLITUS WITHOUT COMPLICATIONS Qualifiers: Diabetes mellitus buttermaker helper insulin use: without buttermaker helper use
[2019-03-14] MEDS ORDERED: ALBUTEROL SO4 0.083% IH SOL 2.5 MG/3 ML VIAL.NEB. NEB PRN (12:00)
[2019-03-14 12:53] LABS: ANISOCYTOSIS 1+; PLATELET ESTIMATE NORMAL
[2019-03-14] MEDS ORDERED: INSULIN (NOVOLOG) ASPART 100 UNITS/ML 10ML VIAL ONE (13:04)
[2019-03-14] MEDS: methylPREDNISolone NA SUCC 125 MG/2 ML VIAL IVPUSH SCH ×2 (13:07→17:12)
--- NOTE | 2019-03-14 20:03 | PN ---
Progress Note (short form) - Note Progress Note: GI CONSULT DICTATED RECTAL TUBE IN PLACE FOR DECOMPRESSION BOWEL REGIMEN REPEAT AXR IN THE MORNING SURGERY EVALUATION
--- NOTE | 2019-03-14 20:37 | CONS ---
DATE OF CONSULTATION: DATE OF DICTATION: 03/14/2019 The patient is an 83-year-old man, from [facility], with a past medical history of hypertension, hyperlipidemia, diabetes, CAD, atrial fibrillation, on Pradaxa, CVA, aphasic at baseline, right residual hemiplegia, COPD, history of LAS, and a recent admission, where she was just discharged actually, with a diagnosis of UTI and altered mental status. She was sent back to the hospital for evaluation of shortness of breath and respiratory distress. During the course of the day, he was noted to have a distended abdomen, which appeared to be consistent with his previous history of what appeared to be ileus in the past. Patient does not offer any additional information during this interview. PAST MEDICAL AND SURGICAL HISTORY: As per the HPI. ALLERGIES: No known drug allergies. SOCIAL HISTORY AND FAMILY HISTORY: Unable to obtain. REVIEW OF SYSTEMS: Unable to obtain. PHYSICAL EXAMINATION: Vital Signs: Temperature 98, pulse 64, respiratory rate 12, oxygen saturation 94% on 2 L, blood pressure 144/66. General: No acute distress. HEENT: Anicteric sclerae. Cardiovascular: S1, S2, regular rate and rhythm. Lungs: Bilaterally clear to auscultation. Abdomen: Distended and tympanic. Extremities: No edema. LABORATORY DATA: White blood cell count 2.9, hemoglobin 9.5, hematocrit 30, MCV 73, platelet count 152. Sodium 134, potassium 4.7, BUN 9, creatinine 0.8, glucose 232, total bilirubin 0.2, AST 28, ALT 16, alkaline phosphatase 89, creatine kinase 516, proBNP 1421, albumin 2.9. Abdominal x-ray was performed in the emergency room and revealed no sign of free air, distended sigmoid with air in the more proximal bowel loops. Pneumatosis or free air is not seen. The sigmoid could be decompressed with a rectal tube. IVC filter was in place. Pelvic and abdominal clips. IMPRESSION: Dilated sigmoid colon with air in the loops proximally also. Appears to be an ileus at this time. There is a question of volvulus on his past admission, at which time there was no invasive intervention performed. PLAN: Rectal tube was placed at the bedside with some decompression. I will start him on a bowel regimen, repeat abdominal x-ray in the morning, avoid narcotics, keep electrolytes within normal limits. Surgery evaluation. The patient will be followed by the GI service. DO BILLY CRISOSTOMO/[id number]
[2019-03-14] MEDS: SENNOSIDES 8.6MG TABLET (FP) PO SCH (23:26)
[2019-03-14] MEDS: MONTELUKAST NA 10 MG TABLET PO SCH (23:26)
[2019-03-14] MEDS: ATORVASTATIN CA 40 MG TABLET (FP) PO SCH (23:26)
[2019-03-14] MEDS: LATANOPROST 0.005% OPHTH SOLN 2.5ML BOTTLE OU SCH (23:27)
[2019-03-15] MEDS: methylPREDNISolone NA SUCC 125 MG/2 ML VIAL IVPUSH SCH ×3 (03:06→17:26)
[2019-03-15] MEDS: LEVOTHYROXINE NA 75 MCG TABLET (FP) PO SCH (06:28)
[2019-03-15] MEDS: INSULIN SLIDING SCALE (NOVOLOG) 1 VIAL SQ SCH ×4 (06:28→22:40)
[2019-03-15] MEDS: ALBUTEROL SO4 2.5/IPRATROPIUM 0.5 INH SOL 3 ML VIAL.NEB. NEB SCH ×4 (07:40→20:56)
[2019-03-15] MEDS: BUDESONIDE 0.5 MG/2 ML INH SUSP VIAL NEB SCH ×2 (07:42→20:56)
--- NOTE | 2019-03-15 09:47 | PN ---
Progress Note, Physician Chief Complaint: GI FOLLOW UP NOTE Patient examined in bed. Patient complains of heartburn, denies nausea, vomiting, abdominal pain. Patient had recent admission for volvulus. Patient was noted with distended abdomen in ER and abdominal xray done showing distended sigmoid with air seen in more proximal bowel loops. Rectal tube was placed and FUA repeated this morning. Rectal tube connected to Love bag with stool light brown in color, no blood or melena noted. - Current Medication List Current Medications: Active Medications Albuterol Sulfate (Ventolin 0.083% Nebulizer Soln -) 1 amp NEB Q4H PRN PRN Reason: SHORT OF BREATH/WHEEZING Albuterol/Ipratropium (Duoneb -) 1 amp NEB RQID [facility] Last Admin: 03/15/19 07:40 Dose: 1 amp Amlodipine Besylate (Norvasc -) 5 mg PO DAILY [facility] Last Admin: 03/14/19 10:34 Dose: 5 mg Aspirin (Asa -) 81 mg PO DAILY [facility] Last Admin: 03/14/19 10:34 Dose: 81 mg Atorvastatin Calcium (Lipitor -) 40 mg PO HS [facility] Last Admin: 03/14/19 23:26 Dose: 40 mg Bisacodyl (Dulcolax -) 10 mg PO BID [facility] Last Admin: 03/14/19 23:26 Dose: 10 mg Budesonide (Pulmicort 0.5 Mg Nebulizer -) 1 amp NEB RBID [facility] Last Admin: 03/15/19 07:42 Dose: 1 amp Carvedilol (Coreg -) 3.125 mg PO BID [facility] Last Admin: 03/14/19 23:26 Dose: 3.125 mg Cholecalciferol (Vitamin D3 -) 1,000 unit PO DAILY [facility] Last Admin: 03/14/19 10:33 Dose: 1,000 unit Dabigatran (Pradaxa -) 150 mg PO BID [facility] Last Admin: 03/14/19 23:27 Dose: 150 mg Dorzolamide HCl (Trusopt 2%) 1 drop OU BID [facility] Last Admin: 03/14/19 23:27 Dose: 1 drop Enalapril Maleate (Vasotec -) 10 mg PO BID [facility] Last Admin: 03/14/19 23:27 Dose: 10 mg Ferrous Sulfate (Feosol -) 325 mg PO DAILY [facility] Last Admin: 03/14/19 10:34 Dose: 325 mg Folic Acid (Folic Acid -) 1 mg PO DAILY [facility] Last Admin: 03/14/19 10:34 Dose: 1 mg Furosemide (Lasix -) 40 mg PO DAILY [facility] Last Admin: 03/14/19 10:34 Dose: 40 mg Insulin Aspart (Novolog Vial Sliding Scale -) 1 vial SQ ACHS [facility]; Protocol Last Admin: 03/15/19 06:28 Dose: 4 units Latanoprost (Xalatan 0.005% Eye Drops -) 1 drop OU HS [facility] Last Admin: 03/14/19 23:27 Dose: 1 drop Levothyroxine Sodium (Synthroid -) 75 mcg PO DAILY@0700 [facility] Last Admin: 03/15/19 06:28 Dose: 75 mcg Methylprednisolone Sodium Succinate (Solu-Medrol -) 60 mg IVPUSH Q8H-IV [facility] Last Admin: 03/15/19 03:06 Dose: 60 mg Montelukast Sodium (Singulair -) 10 mg PO HS [facility] Last Admin: 03/14/19 23:26 Dose: 10 mg Multivitamins/Minerals/Vitamin C (Tab-A-Vit -) 1 tab PO DAILY [facility] Last Admin: 03/14/19 10:34 Dose: 1 tab Potassium Chloride (K-Dur -) 20 meq PO DAILY [facility] Last Admin: 03/14/19 10:34 Dose: 20 meq Senna (Senna -) 2 tab PO HS [facility] Last Admin: 03/14/19 23:26 Dose: 2 tab Silver Sulfadiazine (Silvadene -) 1 applic TP DAILY [facility] Last Admin: 03/14/19 10:35 Dose: 1 applic - Objective Vital Signs: Vital Signs Temperature 98.4 F 03/15/19 06:00 Pulse Rate 60 03/15/19 06:00 Respiratory Rate 20 03/15/19 06:00 Blood Pressure 152/69 03/15/19 06:00 O2 Sat by Pulse Oximetry (%) 94 L 03/14/19 21:00 Constitutional: Yes: No Distress, Calm Eyes: Yes: Conjunctiva Clear HENT: Yes: Atraumatic Cardiovascular: Yes: Regular Rate and Rhythm Respiratory: Yes: On Nasal O2, Wheezes Gastrointestinal: Yes: Normal Bowel Sounds, Soft, Distention, Tenderness ( diffuse), Other (high tympany) Neurological: Yes: Alert, Pre-Existing Deficit Labs: CBC, BMP 03/14/19 11:20 03/13/19 06:00 Problem List - Problems (1) Dilated bowel Assessment/Plan: >Rectal tube in place >repeat FUA results pending >continue senna and dulcolax Code(s): [id number] -
[2019-03-15] MEDS: ASPIRIN 81 MG CHEWABLE TABLETS PO SCH (10:48)
[2019-03-15] MEDS: CARVEDILOL 3.125 MG TABLET (FP) PO SCH ×2 (10:48→22:35)
[2019-03-15] MEDS: POTASSIUM CHLORIDE TABS 20 MEQ TABLET.ER (FP) PO SCH (10:49)
[2019-03-15] MEDS: FOLIC ACID 1 MG TABLET (FP) PO SCH (10:49)
[2019-03-15] MEDS: amLODIPine BESYLATE 5 MG TABLET (FP) PO SCH (10:49)
[2019-03-15] MEDS: CHOLECALCIFEROL (VITAMIN D3) 1,000 UNIT TABLET (FP) PO SCH (10:49)
[2019-03-15] MEDS: BISACODYL 5 MG TABLET.DR (FP) PO SCH ×2 (10:49→22:35)
[2019-03-15] MEDS: FUROSEMIDE 40 MG TABLET (FP) PO SCH (10:50)
[2019-03-15] MEDS: MULTIVITAMINS (DAILY MVI) TABLET (FP) PO SCH (10:50)
[2019-03-15] MEDS: FERROUS SO4 325 MG TABLET (FP) PO SCH (10:50)
[2019-03-15] MEDS: DORZOLAMIDE 2% HCL OPHTHALMIC SOLUTION 10 ML BOTTLE OU SCH ×2 (10:51→22:45)
[2019-03-15] MEDS: DABIGATRAN ETEXILATE MESYLATE 150 MG CAPSULE PO SCH ×2 (10:51→22:36)
[2019-03-15] MEDS: ENALAPRIL MALEATE 10 MG TABLET (FP) PO SCH ×2 (10:51→22:34)
[2019-03-15] MEDS: SILVER SULFADIAZINE 1% TOP CREAM 400 GM JAR TP SCH (10:51)
--- NOTE | 2019-03-15 11:00 | PN ---
Progress Note (short form) - Note Progress Note: Pt seen/ examined chart reviewed awake/ no distress chronic ill appearance comfortable Vital Signs Temp 98.4 F 03/15/19 06:00 Pulse 60 03/15/19 06:00 Resp 20 03/15/19 06:00 BP 152/69 03/15/19 06:00 Pulse Ox 94 L 03/14/19 21:00 Intake & Output 03/14/19 03/14/19 03/15/19 11:59 23:59 11:59 Intake Total 250 670 120 Output Total 1 Balance 249 670 120 Intake: Oral 250 670 120 Output: Urine 1 Void 1 Other: Voiding Method Incontinent Incontinent # Unmeasured Voids Void 1 1 Bowel Movement Yes Yes Yes # Bowel Movements 1 Active Medications Albuterol Sulfate (Ventolin 0.083% Nebulizer Soln -) 1 amp NEB Q4H PRN PRN Reason: SHORT OF BREATH/WHEEZING Albuterol/Ipratropium (Duoneb -) 1 amp NEB RQID [facility] Last Admin: 03/15/19 07:40 Dose: 1 amp Amlodipine Besylate (Norvasc -) 5 mg PO DAILY [facility] Last Admin: 03/15/19 10:49 Dose: 5 mg Aspirin (Asa -) 81 mg PO DAILY [facility] Last Admin: 03/15/19 10:48 Dose: 81 mg Atorvastatin Calcium (Lipitor -) 40 mg PO HS [facility] Last Admin: 03/14/19 23:26 Dose: 40 mg Bisacodyl (Dulcolax -) 10 mg PO BID [facility] Last Admin: 03/15/19 10:49 Dose: 10 mg Budesonide (Pulmicort 0.5 Mg Nebulizer -) 1 amp NEB RBID [facility] Last Admin: 03/15/19 07:42 Dose: 1 amp Carvedilol (Coreg -) 3.125 mg PO BID [facility] Last Admin: 03/15/19 10:48 Dose: 3.125 mg Cholecalciferol (Vitamin D3 -) 1,000 unit PO DAILY [facility] Last Admin: 03/15/19 10:49 Dose: 1,000 unit Dabigatran (Pradaxa -) 150 mg PO BID [facility] Last Admin: 03/15/19 10:51 Dose: 150 mg Dorzolamide HCl (Trusopt 2%) 1 drop OU BID [facility] Last Admin: 03/15/19 10:51 Dose: 1 drop Enalapril Maleate (Vasotec -) 10 mg PO BID [facility] Last Admin: 03/15/19 10:51 Dose: 10 mg Ferrous Sulfate (Feosol -) 325 mg PO DAILY [facility] Last Admin: 03/15/19 10:50 Dose: 325 mg Folic Acid (Folic Acid -) 1 mg PO DAILY [facility] Last Admin: 03/15/19 10:49 Dose: 1 mg Furosemide (Lasix -) 40 mg PO DAILY [facility] Last Admin: 03/15/19 10:50 Dose: 40 mg Insulin Aspart (Novolog Vial Sliding Scale -) 1 vial SQ ACHS [facility]; Protocol Last Admin: 03/15/19 06:28 Dose: 4 units Latanoprost (Xalatan 0.005% Eye Drops -) 1 drop OU HS [facility] Last Admin: 03/14/19 23:27 Dose: 1 drop Levothyroxine Sodium (Synthroid -) 75 mcg PO DAILY@0700 [facility] Last Admin: 03/15/19 06:28 Dose: 75 mcg Methylprednisolone Sodium Succinate (Solu-Medrol -) 60 mg IVPUSH Q8H-IV [facility] Last Admin: 03/15/19 10:50 Dose: 60 mg Montelukast Sodium (Singulair -) 10 mg PO HS [facility] Last Admin: 03/14/19 23:26 Dose: 10 mg Multivitamins/Minerals/Vitamin C (Tab-A-Vit -) 1 tab PO DAILY [facility] Last Admin: 03/15/19 10:50 Dose: 1 tab Potassium Chloride (K-Dur -) 20 meq PO DAILY [facility] Last Admin: 03/15/19 10:49 Dose: 20 meq Senna (Senna -) [address] [facility] Last Admin: 03/14/19 23:26 Dose: 2 tab Silver Sulfadiazine (Silvadene -) 1 applic TP DAILY [facility] Last Admin: 03/15/19 10:51 Dose: 1 applic CBC, BMP 03/14/19 11:20 03/13/19 06:00 cxr -- 03/12 -- reviewed -- no acute changes fua - today Physical Exam Awake S1 S2 Irregular Lungs decreased at bases no rales or ronchi no JVD cvs- s1, s2 irregular Abd-- soft, mild distension, NT.. bs + Hernia + Rt side weakness No edema Rectal tube + PLAN clinically stable continue present care monitor lytes f/u fua discussed with gi abdomen - not acute will follow Problem List - Problems (1) Acute respiratory failure Code(s): J96.00 - ACUTE RESPIRATORY FAILURE, UNSP W HYPOXIA OR HYPERCAPNIA (2) Leukopenia Code(s): D72.819 - DECREASED WHITE BLOOD CELL COUNT, UNSPECIFIED (3) Shortness of breath Code(s): R06.02 - SHORTNESS OF BREATH (4) Dilated bowel Code(s): VDX4017 - (5) H/O: stroke with residual effects Code(s): I69.30 - UNSPECIFIED SEQUELAE OF CEREBRAL INFARCTION (6) Persistent atrial fibrillation Code(s): I48.1 - PERSISTENT ATRIAL FIBRILLATION
[2019-03-15] MEDS ORDERED: INSULIN (NOVOLOG) ASPART 100 UNITS/ML 10ML VIAL ONE ×2 (11:42→16:39)
--- NOTE | 2019-03-15 12:38 | PN ---
Progress Note, Physician History of Present Illness: pulmonary alert,congested,+ cough - Current Medication List Current Medications: Active Medications Albuterol Sulfate (Ventolin 0.083% Nebulizer Soln -) 1 amp NEB Q4H PRN PRN Reason: SHORT OF BREATH/WHEEZING Albuterol/Ipratropium (Duoneb -) 1 amp NEB RQID [facility] Last Admin: 03/15/19 11:32 Dose: 1 amp Amlodipine Besylate (Norvasc -) 5 mg PO DAILY [facility] Last Admin: 03/15/19 10:49 Dose: 5 mg Aspirin (Asa -) 81 mg PO DAILY [facility] Last Admin: 03/15/19 10:48 Dose: 81 mg Atorvastatin Calcium (Lipitor -) 40 mg PO HS [facility] Last Admin: 03/14/19 23:26 Dose: 40 mg Bisacodyl (Dulcolax -) 10 mg PO BID [facility] Last Admin: 03/15/19 10:49 Dose: 10 mg Budesonide (Pulmicort 0.5 Mg Nebulizer -) 1 amp NEB RBID [facility] Last Admin: 03/15/19 07:42 Dose: 1 amp Carvedilol (Coreg -) 3.125 mg PO BID [facility] Last Admin: 03/15/19 10:48 Dose: 3.125 mg Cholecalciferol (Vitamin D3 -) 1,000 unit PO DAILY [facility] Last Admin: 03/15/19 10:49 Dose: 1,000 unit Dabigatran (Pradaxa -) 150 mg PO BID [facility] Last Admin: 03/15/19 10:51 Dose: 150 mg Dorzolamide HCl (Trusopt 2%) 1 drop OU BID [facility] Last Admin: 03/15/19 10:51 Dose: 1 drop Enalapril Maleate (Vasotec -) 10 mg PO BID [facility] Last Admin: 03/15/19 10:51 Dose: 10 mg Ferrous Sulfate (Feosol -) 325 mg PO DAILY [facility] Last Admin: 03/15/19 10:50 Dose: 325 mg Folic Acid (Folic Acid -) 1 mg PO DAILY [facility] Last Admin: 03/15/19 10:49 Dose: 1 mg Furosemide (Lasix -) 40 mg PO DAILY [facility] Last Admin: 03/15/19 10:50 Dose: 40 mg Insulin Aspart (Novolog Vial Sliding Scale -) 1 vial SQ ACHS [facility]; Protocol Last Admin: 03/15/19 11:41 Dose: 6 units Latanoprost (Xalatan 0.005% Eye Drops -) 1 drop OU HS [facility] Last Admin: 03/14/19 23:27 Dose: 1 drop Levothyroxine Sodium (Synthroid -) 75 mcg PO DAILY@0700 [facility] Last Admin: 03/15/19 06:28 Dose: 75 mcg Methylprednisolone Sodium Succinate (Solu-Medrol -) 60 mg IVPUSH Q8H-IV [facility] Last Admin: 03/15/19 10:50 Dose: 60 mg Montelukast Sodium (Singulair -) 10 mg PO HS [facility] Last Admin: 03/14/19 23:26 Dose: 10 mg Multivitamins/Minerals/Vitamin C (Tab-A-Vit -) 1 tab PO DAILY [facility] Last Admin: 03/15/19 10:50 Dose: 1 tab Potassium Chloride (K-Dur -) 20 meq PO DAILY [facility] Last Admin: 03/15/19 10:49 Dose: 20 meq Senna (Senna -) 2 tab PO [facility] Last Admin: 03/14/19 23:26 Dose: 2 tab Silver Sulfadiazine (Silvadene -) 1 applic TP DAILY [facility] Last Admin: 03/15/19 10:51 Dose: 1 applic - Objective Vital Signs: Vital Signs Temperature 98.4 F 03/15/19 06:00 Pulse Rate 51 L 03/15/19 10:00 Respiratory Rate 20 03/15/19 10:00 Blood Pressure 163/72 03/15/19 10:00 O2 Sat by Pulse Oximetry (%) 94 L 03/15/19 09:00 Constitutional: Yes: Well Nourished, Calm Eyes: Yes: WNL HENT: Yes: WNL Neck: Yes: WNL Cardiovascular: Yes: Pulse Irregular, S1, S2 Respiratory: Yes: Rhonchi, Wheezes (bilateral wheezes and rhonchi) Gastrointestinal: Yes: Normal Bowel Sounds, Soft Extremities: Yes: WNL Edema: No Labs: CBC, BMP 03/14/19 11:20 Assessment/Plan Problem List - Problems (1) COPD (chronic obstructive pulmonary disease) Code(s): J44.9 - CHRONIC OBSTRUCTIVE PULMONARY DISEASE, UNSPECIFIED Qualifiers: COPD type: unspecified COPD Qualified Code(s): J44.9 - Chronic obstructive pulmonary disease, unspecified (2) Shortness of breath Code(s): R06.02 - SHORTNESS OF BREATH (3) CHF (congestive heart failure) Code(s): I50.9 - HEART FAILURE, UNSPECIFIED (4) H/O: stroke with residual effects Code(s): I69.30 - UNSPECIFIED SEQUELAE OF CEREBRAL INFARCTION (5) Hypertensive cardiomyopathy Code(s): I11.9 - HYPERTENSIVE HEART DISEASE WITHOUT HEART FAILURE; I43 - CARDIOMYOPATHY IN DISEASES CLASSIFIED ELSEWHERE Qualifiers: Heart failure presence: without heart failure Qualified Code(s): I11.9 - Hypertensive heart disease without heart failure; I43 - Cardiomyopathy in diseases classified elsewhere (6) Hypothyroidism Code(s): E03.9 - HYPOTHYROIDISM, UNSPECIFIED Qualifiers: Hypothyroidism type: unspecified Qualified Code(s): E03.9 - Hypothyroidism , unspecified (7) Persistent atrial fibrillation Code(s): I48.1 - PERSISTENT ATRIAL FIBRILLATION (8) Type 2 diabetes mellitus Code(s): E11.9 - TYPE 2 DIABETES MELLITUS WITHOUT COMPLICATIONS Qualifiers: Diabetes mellitus half-way insulin use: without terminal clerk use Assessment/Plan Supplemental O2 as needed Medrol same dose BD TX standing and PRN Aspiration precautions Luann WOLFE Problem List - Problems (1) COPD (chronic obstructive pulmonary disease) Code(s): J44.9 - CHRONIC OBSTRUCTIVE PULMONARY DISEASE, UNSPECIFIED Qualifiers: COPD type: unspecified COPD Qualified Code(s): J44.9 - Chronic obstructive pulmonary disease, unspecified (2) Shortness of breath Code(s): R06.02 - SHORTNESS OF BREATH (3) CHF (congestive heart failure) Code(s): I50.9 - HEART FAILURE, UNSPECIFIED (4) H/O: stroke with residual effects Code(s): I69.30 - UNSPECIFIED SEQUELAE OF CEREBRAL INFARCTION (5) Hypertensive cardiomyopathy Code(s): I11.9 - HYPERTENSIVE HEART DISEASE WITHOUT HEART FAILURE; I43 - CARDIOMYOPATHY IN DISEASES CLASSIFIED ELSEWHERE Qualifiers: Heart failure presence: without heart failure Qualified Code(s): I11.9 - Hypertensive heart disease without heart failure; I43 - Cardiomyopathy in diseases classified elsewhere (6) Hypothyroidism Code(s): E03.9 - HYPOTHYROIDISM, UNSPECIFIED Qualifiers: Hypothyroidism type: unspecified Qualified Code(s): E03.9 - Hypothyroidism , unspecified (7) Persistent atrial fibrillation Code(s): I48.1 - PERSISTENT ATRIAL FIBRILLATION (8) Type 2 diabetes mellitus Code(s): E11.9 - TYPE 2 DIABETES MELLITUS WITHOUT COMPLICATIONS Qualifiers: Diabetes mellitus half-way insulin use: without terminal clerk use
[2019-03-15 13:49] VITALS: BMI 26.4
--- NOTE | 2019-03-15 16:24 | CONSULT ---
Consult Consult Specialty:: Surgery: Reason for Consultation:: Colonic volvulus - History Source History Provided By: Medical Record Limitations to Obtaining History: Dementia - Past Medical History LATH TIER: Yes: CVA, Dementia Cardio/Vascular: Yes: AFIB, CAD, HTN, Hyperlipdemia Pulmonary: Yes: COPD Gastrointestinal: No: Ascites, Cancer, Constipation, Crohn's Disease, Diverticulitis, Diverticulosis, Esophageal Varices, Gastritis, GERD, GI Bleed, Hemorrhoids, Hiatal Hernia, Inflamatory Bowel Disease, Irritable Bowel Disease, Pancreatitis, Peptic Ulcer Disease, Ulcerative Colitis, Other Hepatobiliary: No: Cirrhosis, Cholelithiasis, Cholecystitis, Choledocholithiasis , Hepatitis A, Hepatitis B, Hepatitis C, Other Renal/: No: Renal Failure, Renal Inusuff, BPH, Cancer, Hematuria, Hemodialysis , Neurogenic Bladder, Renal Calculi, UTI, Other Infectious Disease: No: AIDS, C-Diff, Herpes Zoster, HIV, MRSA, STD's, Tuberculosis, VREF, Other Psych: No: Addictions, Anxiety, Bipolar, Depression, Panic, Psychosis, Schizophrenia, Other Musculoskeletal: Yes: Hemiplegia Rheumatology: No: Fibromyalgia, Gout, Lupus, Rheumatoid Arthritis, Sarcoidosis, Vasculitis, Other Endocrine: Yes: Diabetes Mellitus, Hypothyroidism Dermatology: No: Basal Cell, Cellulitis, Eczema, Melanoma, Psoriasis, Squamous Cell, Other - Past Surgical History Additional Surgical History: intestinal surgery/repair for entangled intestines - Alcohol/Substance Use Hx Alcohol Use: No History of Substance Use: denies: None, Cocaine, Heroin, Marijuana, Prescription , Tranquilizers - Smoking History Smoking history: Unknown if ever smoked Have you smoked in the past 12 months: No - Social History ADL: Support Services History of Recent Travel: No Home Medications - Allergies Allergies/Adverse Reactions: Allergies Allergy/AdvReac Type Severity Reaction Status Date / Time No Known Allergies Allergy Verified 06/10/17 14:26 - Home Medications Home Medications: Ambulatory Orders Amlodipine Besylate [Norvasc -] 5 mg PO DAILY 06/10/17 Cholecalciferol (Vitamin D3) [Vitamin D3 -] 1,000 unit PO DAILY 06/10/17 Dabigatran Etexilate Mesylate [Pradaxa -] 150 mg PO BID 06/10/17 Dorzolamide HCl [Trusopt 2% -] 1 drop OU BID 06/10/17 Enalapril Maleate [Vasotec] 10 mg PO BID 06/10/17 Ferrous Sulfate 325 mg PO DAILY 06/10/17 Folic Acid 1 mg PO DAILY 06/10/17 Furosemide [Lasix -] 40 mg PO DAILY 06/10/17 Latanoprost 0.005% Eye Drops [Xalatan 0.005% Eye Drops -] 1 drop OU HS 06/10/17 Levothyroxine [Synthroid -] 75 mcg PO DAILY 06/10/17 Montelukast Na [Singulair -] 10 mg PO HS 06/10/17 Multivitamin [Poly-Vitamin] 1 each PO DAILY 06/10/17 Omeprazole 20 mg PO DAILY 06/10/17 Potassium Chloride 20 meq PO DAILY 06/10/17 metFORMIN HCL [Metformin HCl] 500 mg PO DAILY 06/10/17 Acetaminophen [Tylenol] 650 mg PO DAILY 03/07/19 Budesonide [Pulmicort 0.5 mg Nebulizer -] 1 neb NEB ONCE 03/07/19 Docusate Sodium [Colace] 100 mg PO DAILY 03/07/19 Ipratropium/Albuterol Sulfate [Iprat-Albut 0.5-3(2.5) mg/3 ml] 3 ml IH DAILY Sennosides [Senna] 17.2 mg PO HS 03/07/19 Silver Sulfadiazine 1% Top Cr [Silvadene -] 1 applic TP DAILY 03/07/19 Aspirin [ASA -] 81 mg PO DAILY tab.chew 03/12/19 Atorvastatin Ca [Lipitor] 40 mg PO HS tablet 03/12/19 Bisacodyl [Bisacodyl -] 10 mg PO BID tablet. 03/12/19 Carvedilol [Coreg -] 3.125 mg PO BID tablet 03/12/19 Insulin Sliding Scale [Novolog Vial Sliding Scale -] 1 vial SQ ACHS units 03/12 Physical Exam Vital Signs: Vital Signs Temperature 97.9 F 03/15/19 14:00 Pulse Rate 53 L 03/15/19 14:00 Respiratory Rate 17 03/15/19 14:00 Blood Pressure 136/68 03/15/19 14:00 O2 Sat by Pulse Oximetry (%) 94 L 03/15/19 09:00 Gastrointestinal: Yes: Other (Abdomen is distended, soft not tender. Recta tube in with fecal matter, emptied this moning,) Labs: CBC, BMP 03/14/19 11:20 03/13/19 06:00 Imaging - Results X-ray: Report Reviewed, Image Reviewed (Dilated sigmoid colon.) Problem List - Problems (1) Sigmoid volvulus Code(s): K56.2 - VOLVULUS (2) H/O: stroke with residual effects Code(s): I69.30 - UNSPECIFIED SEQUELAE OF CEREBRAL INFARCTION (3) Acute CVA (cerebrovascular accident) Code(s): I63.9 - CEREBRAL INFARCTION, UNSPECIFIED (4) Pancytopenia Code(s): D61.818 - OTHER PANCYTOPENIA Assessment/Plan Dilated sigmoid colon , ? volvulus. S/P placement of rectal tube. Consider flexible sigmoidoscopy with colonic decompression / reduction of volvulus. Will follow.
[2019-03-15] MEDS ORDERED: MINERAL OIL ENEMA 133 ML ENEMA PR ONE (17:15)
[2019-03-15] MEDS: SENNOSIDES 8.6MG TABLET (FP) PO SCH (22:34)
[2019-03-15] MEDS: ATORVASTATIN CA 40 MG TABLET (FP) PO SCH (22:35)
[2019-03-15] MEDS: MONTELUKAST NA 10 MG TABLET PO SCH (22:35)
[2019-03-15] MEDS: LATANOPROST 0.005% OPHTH SOLN 2.5ML BOTTLE OU SCH (22:45)
[2019-03-16] MEDS: methylPREDNISolone NA SUCC 125 MG/2 ML VIAL IVPUSH SCH ×2 (02:56→11:40)
[2019-03-16] MEDS: LEVOTHYROXINE NA 75 MCG TABLET (FP) PO SCH (06:24)
[2019-03-16] MEDS: INSULIN SLIDING SCALE (NOVOLOG) 1 VIAL SQ SCH ×4 (06:24→22:26)
[2019-03-16 07:15] LABS: BASO % 0.1 % (0-2.0); LYMPH % 23.2 % (8-40); MCH 23.6 pg (25.7-33.7); MCHC 32.4 g/dl (32.0-35.9); MEAN CELL VOLUME 72.8 fl (80-96); MEAN PLT VOLUME 9.4 fl (7.5-11.1); MONO % 10.1 % (3.8-10.2); NEUT % 66.6 % (42.8-82.8); PLATELET COUNT 156 K/MM3 (134-434); RBC 4.25 M/mm3 (4.00-5.60); RDW 15.3 % (11.9-15.9); WHITE BLOOD COUNT 2.4 K/mm3 (4.0-10.0)
[2019-03-16 07:33] LABS: ALBUMIN 2.8 g/dl (3.4-5.0); ALK PHOS 78 U/L (45-117); ANION GAP 9 MMOL/L (8-16); BILIRUBIN,TOTAL 0.3 mg/dL (0.2-1); BLOOD UREA NITROGEN 17 mg/dL (7-18); CALCIUM 8.6 mg/dL (8.5-10.1); CHLORIDE 99 mmol/L (98-107); CO2 25 mmol/L (21-32); CREATININE 0.8 mg/dL (0.55-1.3); GLUCOSE,RANDOM 226 mg/dL (74-106); POTASSIUM 4.1 mmol/L (3.5-5.1); SGOT/AST 15 U/L (15-37); SGPT/ALT 24 U/L (13-61); SODIUM 133 mmol/L (136-145)
[2019-03-16] MEDS: BUDESONIDE 0.5 MG/2 ML INH SUSP VIAL NEB SCH ×2 (08:43→21:00)
[2019-03-16] MEDS: ALBUTEROL SO4 2.5/IPRATROPIUM 0.5 INH SOL 3 ML VIAL.NEB. NEB SCH ×4 (08:43→21:00)
[2019-03-16] MEDS ORDERED: INSULIN (NOVOLOG) ASPART 100 UNITS/ML 10ML VIAL ONE (11:31)
--- NOTE | 2019-03-16 11:31 | PN ---
Progress Note, Physician - Current Medication List Current Medications: Active Medications Albuterol Sulfate (Ventolin 0.083% Nebulizer Soln -) 1 amp NEB Q4H PRN PRN Reason: SHORT OF BREATH/WHEEZING Albuterol/Ipratropium (Duoneb -) 1 amp NEB RQID [facility] Last Admin: 03/16/19 08:43 Dose: 1 amp Amlodipine Besylate (Norvasc -) 5 mg PO DAILY [facility] Last Admin: 03/15/19 10:49 Dose: 5 mg Aspirin (Asa -) 81 mg PO DAILY [facility] Last Admin: 03/15/19 10:48 Dose: 81 mg Atorvastatin Calcium (Lipitor -) 40 mg PO HS [facility] Last Admin: 03/15/19 22:35 Dose: 40 mg Bisacodyl (Dulcolax -) 10 mg PO BID [facility] Last Admin: 03/15/19 22:35 Dose: 10 mg Budesonide (Pulmicort 0.5 Mg Nebulizer -) 1 amp NEB RBID [facility] Last Admin: 03/16/19 08:43 Dose: 1 amp Carvedilol (Coreg -) 3.125 mg PO BID [facility] Last Admin: 03/15/19 22:35 Dose: 3.125 mg Cholecalciferol (Vitamin D3 -) 1,000 unit PO DAILY [facility] Last Admin: 03/15/19 10:49 Dose: 1,000 unit Dabigatran (Pradaxa -) 150 mg PO BID [facility] Last Admin: 03/15/19 22:36 Dose: 150 mg Dorzolamide HCl (Trusopt 2%) 1 drop OU BID [facility] Last Admin: 03/15/19 22:45 Dose: 1 drop Enalapril Maleate (Vasotec -) 10 mg PO BID [facility] Last Admin: 03/15/19 22:34 Dose: 10 mg Ferrous Sulfate (Feosol -) 325 mg PO DAILY [facility] Last Admin: 03/15/19 10:50 Dose: 325 mg Folic Acid (Folic Acid -) 1 mg PO DAILY [facility] Last Admin: 03/15/19 10:49 Dose: 1 mg Furosemide (Lasix -) 40 mg PO DAILY [facility] Last Admin: 03/15/19 10:50 Dose: 40 mg Insulin Aspart (Novolog Vial Sliding Scale -) 1 vial SQ ACHS [facility]; Protocol Last Admin: 03/16/19 06:24 Dose: 4 units Latanoprost (Xalatan 0.005% Eye Drops -) 1 drop OU HS [facility] Last Admin: 03/15/19 22:45 Dose: 1 drop Levothyroxine Sodium (Synthroid -) 75 mcg PO DAILY@0700 [facility] Last Admin: 03/16/19 06:24 Dose: 75 mcg Methylprednisolone Sodium Succinate (Solu-Medrol -) 60 mg IVPUSH Q8H-IV [facility] Last Admin: 03/16/19 02:56 Dose: 60 mg Mineral Oil (Fleet Mineral Oil Rectal Enema -) 133 ml [place] Q4H [facility] Stop: 03/16/19 18:01 Montelukast Sodium (Singulair -) 10 mg PO HS [facility] Last Admin: 03/15/19 22:35 Dose: 10 mg Multivitamins/Minerals/Vitamin C (Tab-A-Vit -) 1 tab PO DAILY [facility] Last Admin: 03/15/19 10:50 Dose: 1 tab Potassium Chloride (K-Dur -) 20 meq PO DAILY [facility] Last Admin: 03/15/19 10:49 Dose: 20 meq Senna (Senna -) 2 tab PO HS [facility] Last Admin: 03/15/19 22:34 Dose: 2 tab Silver Sulfadiazine (Silvadene -) 1 applic TP DAILY [facility] Last Admin: 03/15/19 10:51 Dose: 1 applic - Objective Vital Signs: Vital Signs Temperature 98.0 F 03/16/19 06:00 Pulse Rate 56 L 03/16/19 06:00 Respiratory Rate 18 03/16/19 06:00 Blood Pressure 155/83 03/16/19 06:00 O2 Sat by Pulse Oximetry (%) 93 L 03/15/19 21:00 Labs: CBC, BMP 03/16/19 06:00 03/16/19 06:00 Problem List - Problems (1) Sigmoid volvulus Code(s): K56.2 - VOLVULUS (2) H/O: stroke with residual effects Code(s): I69.30 - UNSPECIFIED SEQUELAE OF CEREBRAL INFARCTION (3) Acute CVA (cerebrovascular accident) Code(s): I63.9 - CEREBRAL INFARCTION, UNSPECIFIED (4) Pancytopenia Code(s): D61.818 - OTHER PANCYTOPENIA Assessment/Plan Surgery follow up. Patient has arectal tube which has drained large volume of stools. Abdomen is soft but still has distended colon. 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 The colon remains distended , despite having a tube within its lumen. Patient has been admitted twice in the last 10 days, and has not had a sigmoidoscopy in the last two admissions. His prior admission to this hospital was in 2017. he has had multiple cerebral infarcts, atrial fibrillation , poor ejection fraction, CHF. S/P Placement of IVC filter. I have discussed with Dr. Bell and the medical team. Will wait for flexible sigmoidoscopy examination . As per his nurse , he has had a large amount of stool into the bag, ruling out an intestinal obstruction despite a very distended rectosigmoid. A very poor surgical candidate for any major abdominal surgery, if needed.
[2019-03-16] MEDS: BISACODYL 5 MG TABLET.DR (FP) PO SCH ×2 (11:39→22:15)
[2019-03-16] MEDS: FUROSEMIDE 40 MG TABLET (FP) PO SCH (11:39)
[2019-03-16] MEDS: ENALAPRIL MALEATE 10 MG TABLET (FP) PO SCH ×2 (11:39→22:15)
[2019-03-16] MEDS: FOLIC ACID 1 MG TABLET (FP) PO SCH (11:39)
[2019-03-16] MEDS: POTASSIUM CHLORIDE TABS 20 MEQ TABLET.ER (FP) PO SCH (11:39)
[2019-03-16] MEDS: CARVEDILOL 3.125 MG TABLET (FP) PO SCH ×2 (11:39→22:15)
[2019-03-16] MEDS: FERROUS SO4 325 MG TABLET (FP) PO SCH (11:40)
[2019-03-16] MEDS: DABIGATRAN ETEXILATE MESYLATE 150 MG CAPSULE PO SCH ×2 (11:40→22:15)
[2019-03-16] MEDS: CHOLECALCIFEROL (VITAMIN D3) 1,000 UNIT TABLET (FP) PO SCH (11:40)
[2019-03-16] MEDS: ASPIRIN 81 MG CHEWABLE TABLETS PO SCH (11:40)
[2019-03-16] MEDS: MULTIVITAMINS (DAILY MVI) TABLET (FP) PO SCH (11:40)
[2019-03-16] MEDS: amLODIPine BESYLATE 5 MG TABLET (FP) PO SCH (11:40)
[2019-03-16] MEDS: DORZOLAMIDE 2% HCL OPHTHALMIC SOLUTION 10 ML BOTTLE OU SCH ×2 (11:59→22:15)
[2019-03-16] MEDS: MINERAL OIL ENEMA 133 ML ENEMA PR SCH ×3 (12:00→17:52)
[2019-03-16] MEDS: SILVER SULFADIAZINE 1% TOP CREAM 400 GM JAR TP SCH (12:00)
[2019-03-16] MEDS ORDERED: PT OWN MED DRAWER 7, Y5N ONE (12:25)
--- NOTE | 2019-03-16 12:25 | CON.CARD ---
Consult Consult Specialty:: Cardiology Referred by:: Dr. Leela Hale Reason for Consultation:: Cardiac evaluation - History of Present Illness Chief Complaint: Shortness of breath History of Present Illness: Patient is an 83 year old male transferred from [facility] with underlying history of HTN, hypercholesterolemia, DM, CAD, COPD, AF on DOAC (Pradaxa) and CVA with right residual hemiplegia. He presented with respiratory distress after being discharged from [facility] after treatment for UTI and altered mental status. Currently, he is awake but is not able to carry a conversation. He was given diuretics, steroids and bronchodilators. He does not appear to be having chest pain or palpitations. No fever or chills. No headache or lightheadedness. - History Source History Provided By: Medical Record Limitations to Obtaining History: Dementia - Past Medical History MERINGUER: Yes: CVA, Dementia Cardio/Vascular: Yes: AFIB, CAD, HTN, Hyperlipdemia Pulmonary: Yes: COPD Musculoskeletal: Yes: Hemiplegia Endocrine: Yes: Diabetes Mellitus, Hypothyroidism - Past Surgical History Additional Surgical History: intestinal surgery/repair for entangled intestines - Alcohol/Substance Use Hx Alcohol Use: No - Smoking History Smoking history: Unknown if ever smoked Have you smoked in the past 12 months: No - Social History ADL: Support Services History of Recent Travel: No Home Medications - Allergies Allergies/Adverse Reactions: Allergies Allergy/AdvReac Type Severity Reaction Status Date / Time No Known Allergies Allergy Verified 06/10/17 14:26 - Home Medications Home Medications: Ambulatory Orders Amlodipine Besylate [Norvasc -] 5 mg PO DAILY 06/10/17 Cholecalciferol (Vitamin D3) [Vitamin D3 -] 1,000 unit PO DAILY 06/10/17 Dabigatran Etexilate Mesylate [Pradaxa -] 150 mg PO BID 06/10/17 Dorzolamide HCl [Trusopt 2% -] 1 drop OU BID 06/10/17 Enalapril Maleate [Vasotec] 10 mg PO BID 06/10/17 Ferrous Sulfate 325 mg PO DAILY 06/10/17 Folic Acid 1 mg PO DAILY 06/10/17 Furosemide [Lasix -] 40 mg PO DAILY 06/10/17 Latanoprost 0.005% Eye Drops [Xalatan 0.005% Eye Drops -] 1 drop OU HS 06/10/17 Levothyroxine [Synthroid -] 75 mcg PO DAILY 06/10/17 Montelukast Na [Singulair -] 10 mg PO HS 06/10/17 Multivitamin [Poly-Vitamin] 1 each PO DAILY 06/10/17 Omeprazole 20 mg PO DAILY 06/10/17 Potassium Chloride 20 meq PO DAILY 06/10/17 metFORMIN HCL [Metformin HCl] 500 mg PO DAILY 06/10/17 Acetaminophen [Tylenol] 650 mg PO DAILY 03/07/19 Budesonide [Pulmicort 0.5 mg Nebulizer -] 1 neb NEB ONCE 03/07/19 Docusate Sodium [Colace] 100 mg PO DAILY 03/07/19 Ipratropium/Albuterol Sulfate [Iprat-Albut 0.5-3(2.5) mg/3 ml] 3 ml IH DAILY Sennosides [Senna] 17.2 mg PO HS 03/07/19 Silver Sulfadiazine 1% Top Cr [Silvadene -] 1 applic TP DAILY 03/07/19 Aspirin [ASA -] 81 mg PO DAILY tab.chew 03/12/19 Atorvastatin Ca [Lipitor] 40 mg PO HS tablet 03/12/19 Bisacodyl [Bisacodyl -] 10 mg PO BID tablet. 03/12/19 Carvedilol [Coreg -] 3.125 mg PO BID tablet 03/12/19 Insulin Sliding Scale [Novolog Vial Sliding Scale -] 1 vial SQ ACHS units 03/12 Family Disease History - Family Disease History Family History: Unable to Obtain Review of Systems Unable to obtain ROS, reason: Unable to obtain Vital Signs: Vital Signs Temperature 98.0 F 03/16/19 06:00 Pulse Rate 56 L 03/16/19 06:00 Respiratory Rate 18 03/16/19 06:00 Blood Pressure 155/83 03/16/19 06:00 O2 Sat by Pulse Oximetry (%) 93 L 03/15/19 21:00 Eyes: Yes: PERRL HENT: Yes: Atraumatic Neck: Yes: Supple Respiratory: Yes: Diminished Gastrointestinal: Yes: Normal Bowel Sounds, Soft. No: Tenderness Cardiovascular: Yes: Pulse Irregular JVD: No PMI: Non-Displaced Heart Sounds: Yes: S1, S2. No: Gallop Murmur: Yes: Systolic Murmur, Grade 1 Edema: No - Other Data Labs, Other Data: CBC, BMP 03/16/19 06:00 03/16/19 06:00 Laboratory Results - last 24 hr 03/15/19 03/15/19 03/16/19 16:23 22:39 06:00 WBC 2.4 L RBC 4.25 Hgb 10.0 L Hct 31.0 L MCV 72.8 L MCH 23.6 L MCHC 32.4 RDW 15.3 Plt Count 156 MPV 9.4 Absolute Neuts (auto) 1.6 Neutrophils % 66.6 D Lymphocytes % 23.2 D Monocytes % 10.1 Eosinophils % 0.0 D Basophils % 0.1 Nucleated RBC % 0 Sodium Potassium Chloride Carbon Dioxide Anion Gap BUN Creatinine Creat Clearance w eGFR POC Glucometer 311 259 Random Glucose Calcium Total Bilirubin AST ALT Alkaline Phosphatase Total Protein Albumin TSH 03/16/19 03/16/19 03/16/19 06:00 06:22 12:04 WBC RBC Hgb Hct MCV MCH MCHC RDW Plt Count MPV Absolute Neuts (auto) Neutrophils % Lymphocytes % Monocytes % Eosinophils % Basophils % Nucleated RBC % Sodium 133 L Potassium 4.1 Chloride 99 Carbon Dioxide 25 Anion Gap 9 BUN 17 Creatinine 0.8 Creat Clearance w eGFR 92.32 POC Glucometer 230 254 Random Glucose 226 H Calcium 8.6 Total Bilirubin 0.3 AST 15 ALT 24 Alkaline Phosphatase 78 Total Protein 7.0 Albumin 2.8 L TSH 1.00 Atrial fibrillation with LBBB Problem List - Problems (1) COPD with acute exacerbation Code(s): J44.1 - CHRONIC OBSTRUCTIVE PULMONARY DISEASE W (ACUTE) EXACERBATION (2) Hypochromic microcytic anemia Code(s): D50.9 - IRON DEFICIENCY ANEMIA, UNSPECIFIED (3) Leukopenia Code(s): D72.819 - DECREASED WHITE BLOOD CELL COUNT, UNSPECIFIED (4) Pancytopenia Code(s): D61.818 - OTHER PANCYTOPENIA (5) Shortness of breath Code(s): R06.02 - SHORTNESS OF BREATH (6) Altered mental status Code(s): R41.82 - ALTERED MENTAL STATUS, UNSPECIFIED Qualifiers: Altered mental status type: somnolence Qualified Code(s): R40.0 - Somnolence (7) H/O: stroke with residual effects Code(s): I69.30 - UNSPECIFIED SEQUELAE OF CEREBRAL INFARCTION (8) Hypertensive cardiomyopathy Code(s): I11.9 - HYPERTENSIVE HEART DISEASE WITHOUT HEART FAILURE; I43 - CARDIOMYOPATHY IN DISEASES CLASSIFIED ELSEWHERE Qualifiers: Heart failure presence: without heart failure Qualified Code(s): I11.9 - Hypertensive heart disease without heart failure; I43 - Cardiomyopathy in diseases classified elsewhere (9) Hypothyroidism Code(s): E03.9 - HYPOTHYROIDISM, UNSPECIFIED Qualifiers: Hypothyroidism type: unspecified Qualified Code(s): E03.9 - Hypothyroidism , unspecified (10) Persistent atrial fibrillation Code(s): I48.1 - PERSISTENT ATRIAL FIBRILLATION (11) Type 2 diabetes mellitus Code(s): E11.9 - TYPE 2 DIABETES MELLITUS WITHOUT COMPLICATIONS Qualifiers: Diabetes mellitus buttermaker continuous churn insulin use: without alf use Assessment/Plan 1. Dyspnea with underlying COPD 2. HTN 3. Hypercholesterolemia 4. DM 5. History of CVA with residual deficit 6. Underlying organic brain/dementia 7. Permanent AF on DOAC 8. Abdominal distension PLAN: 1. Continue Carvedilol, Enalapril and Amlodipine 2. Continue Pradaxa 3. Continue Atorvastatin 4. Diuretics and monitor renal function and electrolytes 5. GI work up to follow. Surgery input noted 6. Echocardiography to assess LV/RV and valvular function Further plans are to follow Bull Doll MD
--- NOTE | 2019-03-16 13:18 | PN ---
Progress Note (short form) - Note Progress Note: Events noted abd distended has bm No SOB no distress Vital Signs - 24 hr 03/15/19 03/15/19 03/15/19 18:00 21:00 22:28 Temperature 98.1 F 98.2 F Pulse Rate 79 61 Respiratory 19 19 19 Rate Blood Pressure 152/71 144/67 O2 Sat by Pulse 93 L Oximetry (%) 03/16/19 03/16/19 03/16/19 02:00 06:00 13:57 Temperature 97.8 F 98.0 F 97.8 F Pulse Rate 59 L 56 L 66 Respiratory 18 18 20 Rate Blood Pressure 138/68 155/83 163/67 O2 Sat by Pulse Oximetry (%) Current Medications Generic Name Dose Route Start Last Admin Trade Name Freq PRN Reason Stop Dose Admin Albuterol Sulfate 1 amp 03/14/19 12:00 Ventolin 0.083% Nebulizer Soln - NEB Q4H PRN SHORT OF BREATH/WHEEZING Albuterol/Ipratropium 1 amp 03/13/19 12:00 03/16/19 11:56 Duoneb - NEB 1 amp RQID [facility] Administration Amlodipine Besylate 5 mg 03/13/19 10:00 03/16/19 11:40 Norvasc - PO 5 mg DAILY [facility]ESH Administration Aspirin 81 mg 03/13/19 10:00 03/16/19 11:40 Asa - PO 81 mg DAILY [facility]ESH Administration Atorvastatin Calcium 40 mg 03/13/19 22:00 03/15/19 22:35 Lipitor - PO 40 mg HS RAJESH Administration Bisacodyl 10 mg 03/13/19 10:00 03/16/19 11:39 Dulcolax - PO 10 mg BID RA[facility]ESH Administration Budesonide 1 amp 03/13/19 16:30 03/16/19 08:43 Pulmicort 0.5 Mg Nebulizer - NEB 1 amp RBID RAJESH Administration Carvedilol 3.125 mg 03/13/19 10:00 03/16/19 11:39 Coreg - PO 3.125 mg BID RAJESH Administration Cholecalciferol 1,000 unit 03/13/19 10:00 03/16/19 11:40 Vitamin D3 - PO 1,000 unit DAILY [facility] Administration Dabigatran 150 mg 03/13/19 10:00 03/16/19 11:40 Pradaxa - PO 150 mg BID [facility]ESH Administration Dorzolamide HCl 1 drop 03/13/19 10:00 03/16/19 11:59 Trusopt 2% OU 1 drop BID [facility] Administration Enalapril Maleate 10 mg 03/13/19 10:00 03/16/19 11:39 Vasotec - PO 10 mg BID [facility] Administration Ferrous Sulfate 325 mg 03/13/19 10:00 03/16/19 11:40 Feosol - PO 325 mg DAILY [facility] Administration Folic Acid 1 mg 03/13/19 10:00 03/16/19 11:39 Folic Acid - PO 1 mg DAILY [facility] Administration Furosemide 40 mg 03/13/19 10:00 03/16/19 11:39 Lasix - PO 40 mg DAILY [facility] Administration Insulin Aspart 1 vial 03/13/19 07:00 03/16/19 12:05 Novolog Vial Sliding Scale - SQ 6 units ACHS [facility] Administration Protocol Latanoprost 1 drop 03/13/19 22:00 03/15/19 22:45 Xalatan 0.005% Eye Drops - OU 1 drop HS [facility]ESH Administration Levothyroxine Sodium 75 mcg 03/13/19 07:00 03/16/19 06:24 Synthroid - PO 75 mcg DAILY@0700 [facility] Administration Mineral Oil 133 ml 03/16/19 10:00 03/16/19 16:30 Fleet Mineral Oil Rectal Enema - NE 03/16/19 18:01 133 ml Q4H [facility] Administration Montelukast Sodium 10 mg 03/13/19 22:00 03/15/19 22:35 Singulair - PO 10 mg HS [facility] Administration Multivitamins/Minerals/Vitamin C 1 tab 03/13/19 10:00 03/16/19 11:40 Tab-A-Vit - PO 1 tab DAILY [facility] Administration Potassium Chloride 20 meq 03/13/19 10:00 03/16/19 11:39 K-Dur - PO 20 meq DAILY [facility] Administration Prednisone 60 mg 03/16/19 15:30 03/16/19 16:31 Deltasone - PO 60 mg DAILY [facility] Administration Senna 2 tab 03/13/19 22:00 03/15/19 22:34 Senna - PO 2 tab HS [facility] Administration Silver Sulfadiazine 1 applic 03/13/19 10:00 03/16/19 12:00 Silvadene - TP 1 applic DAILY [facility] Administration Laboratory Results - last 24 hr 03/15/19 03/16/19 03/16/19 22:39 06:00 06:00 WBC 2.4 L RBC 4.25 Hgb 10.0 L Hct 31.0 L MCV 72.8 L MCH 23.6 L MCHC 32.4 RDW 15.3 Plt Count 156 MPV 9.4 Absolute Neuts (auto) 1.6 Neutrophils % 66.6 D Lymphocytes % 23.2 D Monocytes % 10.1 Eosinophils % 0.0 D Basophils % 0.1 Nucleated RBC % 0 Sodium 133 L Potassium 4.1 Chloride 99 Carbon Dioxide 25 Anion Gap 9 BUN 17 Creatinine 0.8 Creat Clearance w eGFR 92.32 POC Glucometer 259 Random Glucose 226 H Calcium 8.6 Total Bilirubin 0.3 AST 15 ALT 24 Alkaline Phosphatase 78 Total Protein 7.0 Albumin 2.8 L TSH 1.00 03/16/19 03/16/19 06:22 12:04 WBC RBC Hgb Hct MCV MCH MCHC RDW Plt Count MPV Absolute Neuts (auto) Neutrophils % Lymphocytes % Monocytes % Eosinophils % Basophils % Nucleated RBC % Sodium Potassium Chloride Carbon Dioxide Anion Gap BUN Creatinine Creat Clearance w eGFR POC Glucometer 230 254 Random Glucose Calcium Total Bilirubin AST ALT Alkaline Phosphatase Total Protein Albumin TSH S1 S2 Irregular Lungs decreased no rales or ronchi no JVD Abd-- soft, mild distension, NT Rt side weakness No edema PLAN acute COPD/CHF -- on nebs -- Lasix PO --keep O2 -- sob due to distended abdomen Ileus/ recurrent volvulus -- has a rectal tube -- for sigmoidoscopy tomorrow -- poor surgical candidate as he has a recent CVA, afib, CHF -- cardiology eval noted Pancytopenia --WBC improving -- he is afebrile -- spoke with Dr Seals-- will observe for now, will check labs in AM. He will see pt over weekend if he spike a temp. -- continue ASA and Pradaxa for Afib and recent CVA -- dc protonix -- no neutropenic precautions AFib -- rate is controlled -- continue with pradaxa and ASA prognosis guarded Problem List - Problems (1) Acute respiratory failure Code(s): J96.00 - ACUTE RESPIRATORY FAILURE, UNSP W HYPOXIA OR HYPERCAPNIA (2) COPD (chronic obstructive pulmonary disease) Code(s): J44.9 - CHRONIC OBSTRUCTIVE PULMONARY DISEASE, UNSPECIFIED Qualifiers: COPD type: unspecified COPD Qualified Code(s): J44.9 - Chronic obstructive pulmonary disease, unspecified (3) Pancytopenia Code(s): D61.818 - OTHER PANCYTOPENIA
--- NOTE | 2019-03-16 15:13 | PN ---
Progress Note, Physician Chief Complaint: GI FOLLOW UP NOTE Patient examined and case discussed with Dr Bell Patient examined in bed. Patient denies nausea, vomiting, abdominal pain. Patient was noted with minimal stool output 100cc during the night. On examination patient appears more distended. Rectal tube connected to Love bag with stool light brown in color, no blood or melena noted. - Current Medication List Current Medications: Active Medications Albuterol Sulfate (Ventolin 0.083% Nebulizer Soln -) 1 amp NEB Q4H PRN PRN Reason: SHORT OF BREATH/WHEEZING Albuterol/Ipratropium (Duoneb -) 1 amp NEB RQID [facility] Last Admin: 03/16/19 11:56 Dose: 1 amp Amlodipine Besylate (Norvasc -) 5 mg PO DAILY [facility] Last Admin: 03/16/19 11:40 Dose: 5 mg Aspirin (Asa -) 81 mg PO DAILY [facility] Last Admin: 03/16/19 11:40 Dose: 81 mg Atorvastatin Calcium (Lipitor -) 40 mg PO HS [facility] Last Admin: 03/15/19 22:35 Dose: 40 mg Bisacodyl (Dulcolax -) 10 mg PO BID [facility] Last Admin: 03/16/19 11:39 Dose: 10 mg Budesonide (Pulmicort 0.5 Mg Nebulizer -) 1 amp NEB RBID [facility] Last Admin: 03/16/19 08:43 Dose: 1 amp Carvedilol (Coreg -) 3.125 mg PO BID [facility] Last Admin: 03/16/19 11:39 Dose: 3.125 mg Cholecalciferol (Vitamin D3 -) 1,000 unit PO DAILY [facility] Last Admin: 03/16/19 11:40 Dose: 1,000 unit Dabigatran (Pradaxa -) 150 mg PO BID [facility] Last Admin: 03/16/19 11:40 Dose: 150 mg Dorzolamide HCl (Trusopt 2%) 1 drop OU BID [facility] Last Admin: 03/16/19 11:59 Dose: 1 drop Enalapril Maleate (Vasotec -) 10 mg PO BID [facility] Last Admin: 03/16/19 11:39 Dose: 10 mg Ferrous Sulfate (Feosol -) 325 mg PO DAILY [facility] Last Admin: 03/16/19 11:40 Dose: 325 mg Folic Acid (Folic Acid -) 1 mg PO DAILY [facility] Last Admin: 03/16/19 11:39 Dose: 1 mg Furosemide (Lasix -) 40 mg PO DAILY [facility] Last Admin: 03/16/19 11:39 Dose: 40 mg Insulin Aspart (Novolog Vial Sliding Scale -) 1 vial SQ ACHS [facility]; Protocol Last Admin: 03/16/19 12:05 Dose: 6 units Latanoprost (Xalatan 0.005% Eye Drops -) 1 drop OU HS [facility] Last Admin: 03/15/19 22:45 Dose: 1 drop Levothyroxine Sodium (Synthroid -) 75 mcg PO DAILY@0700 [facility] Last Admin: 03/16/19 06:24 Dose: 75 mcg Methylprednisolone Sodium Succinate (Solu-Medrol -) 60 mg IVPUSH Q8H-IV [facility] Last Admin: 03/16/19 11:40 Dose: 60 mg Mineral Oil (Fleet Mineral Oil Rectal Enema -) 133 ml [place] Q4H [facility] Stop: 03/16/19 18:01 Last Admin: 03/16/19 12:00 Dose: 133 ml Montelukast Sodium (Singulair -) 10 mg PO HS [facility] Last Admin: 03/15/19 22:35 Dose: 10 mg Multivitamins/Minerals/Vitamin C (Tab-A-Vit -) 1 tab PO DAILY [facility] Last Admin: 03/16/19 11:40 Dose: 1 tab Potassium Chloride (K-Dur -) 20 meq PO DAILY [facility] Last Admin: 03/16/19 11:39 Dose: 20 meq Senna (Senna -) 2 tab PO HS [facility] Last Admin: 03/15/19 22:34 Dose: 2 tab Silver Sulfadiazine (Silvadene -) 1 applic TP DAILY [facility] Last Admin: 03/16/19 12:00 Dose: 1 applic - Objective Vital Signs: Vital Signs Temperature 97.8 F 03/16/19 13:57 Pulse Rate 66 03/16/19 13:57 Respiratory Rate 20 03/16/19 13:57 Blood Pressure 163/67 03/16/19 13:57 O2 Sat by Pulse Oximetry (%) 93 L 03/15/19 21:00 Constitutional: Yes: No Distress, Calm Eyes: Yes: Conjunctiva Clear HENT: Yes: Atraumatic Cardiovascular: Yes: Regular Rate and Rhythm Respiratory: Yes: Regular, On Nasal O2, Wheezes Gastrointestinal: Yes: Soft, Distention, Hypoactive Bowel Sounds, Other ( dullness on percussion) ...Rectal Exam: Yes: Other (rectal tube) Genitourinary: Yes: Incontinence Neurological: Yes: Alert, Pre-Existing Deficit Psychiatric: Yes: Alert Labs: CBC, BMP 03/16/19 06:00 03/16/19 06:00 Problem List - Problems (1) Dilated bowel Assessment/Plan: >Rectal tube in place >Mineral Oil enema q4h x 3 doses >NPO after midnight for possible flex-sigmoidoscopy Code(s): [id number] -
--- NOTE | 2019-03-16 15:20 | PN ---
Progress Note, Physician History of Present Illness: pulmonary awake,mild congestion - Current Medication List Current Medications: Active Medications Albuterol Sulfate (Ventolin 0.083% Nebulizer Soln -) 1 amp NEB Q4H PRN PRN Reason: SHORT OF BREATH/WHEEZING Albuterol/Ipratropium (Duoneb -) 1 amp NEB RQID [facility] Last Admin: 03/16/19 11:56 Dose: 1 amp Amlodipine Besylate (Norvasc -) 5 mg PO DAILY [facility] Last Admin: 03/16/19 11:40 Dose: 5 mg Aspirin (Asa -) 81 mg PO DAILY [facility] Last Admin: 03/16/19 11:40 Dose: 81 mg Atorvastatin Calcium (Lipitor -) 40 mg PO HS [facility] Last Admin: 03/15/19 22:35 Dose: 40 mg Bisacodyl (Dulcolax -) 10 mg PO BID [facility] Last Admin: 03/16/19 11:39 Dose: 10 mg Budesonide (Pulmicort 0.5 Mg Nebulizer -) 1 amp NEB RBID [facility] Last Admin: 03/16/19 08:43 Dose: 1 amp Carvedilol (Coreg -) 3.125 mg PO BID [facility] Last Admin: 03/16/19 11:39 Dose: 3.125 mg Cholecalciferol (Vitamin D3 -) 1,000 unit PO DAILY [facility] Last Admin: 03/16/19 11:40 Dose: 1,000 unit Dabigatran (Pradaxa -) 150 mg PO BID [facility] Last Admin: 03/16/19 11:40 Dose: 150 mg Dorzolamide HCl (Trusopt 2%) 1 drop OU BID [facility] Last Admin: 03/16/19 11:59 Dose: 1 drop Enalapril Maleate (Vasotec -) 10 mg PO BID [facility] Last Admin: 03/16/19 11:39 Dose: 10 mg Ferrous Sulfate (Feosol -) 325 mg PO DAILY [facility] Last Admin: 03/16/19 11:40 Dose: 325 mg Folic Acid (Folic Acid -) 1 mg PO DAILY [facility] Last Admin: 03/16/19 11:39 Dose: 1 mg Furosemide (Lasix -) 40 mg PO DAILY [facility] Last Admin: 03/16/19 11:39 Dose: 40 mg Insulin Aspart (Novolog Vial Sliding Scale -) 1 vial SQ [facility]; Protocol Last Admin: 03/16/19 12:05 Dose: 6 units Latanoprost (Xalatan 0.005% Eye Drops -) 1 drop OU HS [facility] Last Admin: 03/15/19 22:45 Dose: 1 drop Levothyroxine Sodium (Synthroid -) 75 mcg PO DAILY@0700 [facility] Last Admin: 03/16/19 06:24 Dose: 75 mcg Methylprednisolone Sodium Succinate (Solu-Medrol -) 60 mg IVPUSH Q8H-IV [facility] Last Admin: 03/16/19 11:40 Dose: 60 mg Mineral Oil (Fleet Mineral Oil Rectal Enema -) 133 ml SD Q4H [facility] Stop: 03/16/19 18:01 Last Admin: 03/16/19 12:00 Dose: 133 ml Montelukast Sodium (Singulair -) 10 mg PO HS [facility] Last Admin: 03/15/19 22:35 Dose: 10 mg Multivitamins/Minerals/Vitamin C (Tab-A-Vit -) 1 tab PO DAILY [facility] Last Admin: 03/16/19 11:40 Dose: 1 tab Potassium Chloride (K-Dur -) 20 meq PO DAILY [facility] Last Admin: 03/16/19 11:39 Dose: 20 meq Senna (Senna -) 2 tab PO HS [facility] Last Admin: 03/15/19 22:34 Dose: 2 tab Silver Sulfadiazine (Silvadene -) 1 applic TP DAILY [facility] Last Admin: 03/16/19 12:00 Dose: 1 applic - Objective Vital Signs: Vital Signs Temperature 97.8 F 03/16/19 13:57 Pulse Rate 66 03/16/19 13:57 Respiratory Rate 20 03/16/19 13:57 Blood Pressure 163/67 03/16/19 13:57 O2 Sat by Pulse Oximetry (%) 93 L 03/15/19 21:00 Constitutional: Yes: Well Nourished, Calm Eyes: Yes: WNL HENT: Yes: WNL Neck: Yes: WNL Cardiovascular: Yes: Pulse Irregular, S1, S2 Respiratory: Yes: Rhonchi (scattered poppy rhonchi) Gastrointestinal: Yes: Normal Bowel Sounds, Distention Extremities: Yes: WNL Labs: CBC, BMP 03/16/19 06:00 03/16/19 06:00 Assessment/Plan Problem List - Problems (1) COPD (chronic obstructive pulmonary disease) Code(s): J44.9 - CHRONIC OBSTRUCTIVE PULMONARY DISEASE, UNSPECIFIED Qualifiers: COPD type: unspecified COPD Qualified Code(s): J44.9 - Chronic obstructive pulmonary disease, unspecified (2) Shortness of breath Code(s): R06.02 - SHORTNESS OF BREATH (3) CHF (congestive heart failure) Code(s): I50.9 - HEART FAILURE, UNSPECIFIED (4) H/O: stroke with residual effects Code(s): I69.30 - UNSPECIFIED SEQUELAE OF CEREBRAL INFARCTION (5) Hypertensive cardiomyopathy Code(s): I11.9 - HYPERTENSIVE HEART DISEASE WITHOUT HEART FAILURE; I43 - CARDIOMYOPATHY IN DISEASES CLASSIFIED ELSEWHERE Qualifiers: Heart failure presence: without heart failure Qualified Code(s): I11.9 - Hypertensive heart disease without heart failure; I43 - Cardiomyopathy in diseases classified elsewhere (6) Hypothyroidism Code(s): E03.9 - HYPOTHYROIDISM, UNSPECIFIED Qualifiers: Hypothyroidism type: unspecified Qualified Code(s): E03.9 - Hypothyroidism , unspecified (7) Persistent atrial fibrillation Code(s): I48.1 - PERSISTENT ATRIAL FIBRILLATION (8) Type 2 diabetes mellitus Code(s): E11.9 - TYPE 2 DIABETES MELLITUS WITHOUT COMPLICATIONS Qualifiers: Diabetes mellitus [facility] insulin use: without [facility] use Assessment/Plan Supplemental O2 as needed Steroids BD TX standing and PRN Aspiration precautions Luann WOLFE Problem List - Problems (1) COPD (chronic obstructive pulmonary disease) Code(s): J44.9 - CHRONIC OBSTRUCTIVE PULMONARY DISEASE, UNSPECIFIED Qualifiers: COPD type: unspecified COPD Qualified Code(s): J44.9 - Chronic obstructive pulmonary disease, unspecified (2) Shortness of breath Code(s): R06.02 - SHORTNESS OF BREATH (3) CHF (congestive heart failure) Code(s): I50.9 - HEART FAILURE, UNSPECIFIED (4) H/O: stroke with residual effects Code(s): I69.30 - UNSPECIFIED SEQUELAE OF CEREBRAL INFARCTION (5) Hypertensive cardiomyopathy Code(s): I11.9 - HYPERTENSIVE HEART DISEASE WITHOUT HEART FAILURE; I43 - CARDIOMYOPATHY IN DISEASES CLASSIFIED ELSEWHERE Qualifiers: Heart failure presence: without heart failure Qualified Code(s): I11.9 - Hypertensive heart disease without heart failure; I43 - Cardiomyopathy in diseases classified elsewhere (6) Hypothyroidism Code(s): E03.9 - HYPOTHYROIDISM, UNSPECIFIED Qualifiers: Hypothyroidism type: unspecified Qualified Code(s): E03.9 - Hypothyroidism , unspecified (7) Persistent atrial fibrillation Code(s): I48.1 - PERSISTENT ATRIAL FIBRILLATION (8) Type 2 diabetes mellitus Code(s): E11.9 - TYPE 2 DIABETES MELLITUS WITHOUT COMPLICATIONS Qualifiers: Diabetes mellitus exterminator insulin use: without exterminator use
--- NOTE | 2019-03-16 16:08 | ECHO ---
Name: KENNA INTERIANO Exam:Adult Echocardiogram Study Date: 03/16/2019 02:58 PM Age: 83 yrs Reason For Study: SOB Height: 72 in Weight: 195 lb BSA: 2.1 m2 MMode/2D Measurements & Calculations IVSd: 1.1 cm Ao root diam: 2.7 cm LVIDd: 5.2 cm LA dimension: 5.5 cm LVIDs: 4.7 cm LVPWd: 1.0 cm EDV(Teich): 132.1 ml LVOT diam: 2.2 cm ESV(Teich): 102.7 ml Doppler Measurements & Calculations MV E max yasmani: 81.9 cm/sec MVA(VTI): 1.2 cm2 MV A max yasmani: 27.6 cm/sec MV V2 max: 156.4 cm/sec MV E/A: 3.0 MV max P.8 mmHg MV V2 mean: 59.8 cm/sec MV mean P.0 mmHg MV V2 VTI: 37.1 cm Ao V2 max: 157.5 cm/sec LV V1 max P.2 mmHg Ao max P.9 mmHg LV V1 mean P.57 mmHg Ao V2 mean: 111.8 cm/sec LV V1 max: 54.1 cm/sec Ao mean P.5 mmHg LV V1 mean: 34.1 cm/sec Ao V2 VTI: 35.4 cm LV V1 VTI: 11.0 cm MORRIS(I,D): 1.2 cm2 MORRIS(V,D): 1.3 cm2 MR max yasmani: 492.7 cm/sec SV(LVOT): 42.7 ml MR max P.2 mmHg TR max yasmani: 251.9 cm/sec Med Peak E' Yasmani: 3.1 cm/sec TR max P.9 mmHg Med E/e': 26.3 Lat Peak E' Yasmani: 9.7 cm/sec Lat E/e': 8.5 Procedure The study was technically limited with all images being suboptimal in quality. Left Ventricle Left ventricular systolic function is normal. Ejection Fraction = 55. Right Ventricle The right ventricle is not well visualized. Atria The left atrium is moderately dilated. Right atrium not well visualized. Mitral Valve There is mild mitral annular calcification. There is moderate mitral regurgitation. Tricuspid Valve The tricuspid valve is not well visualized, but is grossly normal. There is mild tricuspid regurgitat ion. Aortic Valve There is moderate aortic sclerosis.;. Pulmonic Valve The prosthetic pulmonic valve is not well visualized. Great Vessels The aortic root is normal size. Normal aortic arch, descending and ascending aorta. Pericardium/Pleura There is no pericardial effusion. There is no pleural effusion. Interpretation Summary The study was technically limited with all images being suboptimal in quality. Ejection Fraction = 55. Left ventricular systolic function is normal. The right ventricle is not well visualized. The left atrium is moderately dilated. Right atrium not well visualized. There is mild mitral annular calcification. There is moderate mitral regurgitation. The tricuspid valve is not well visualized, but is grossly normal. There is mild tricuspid regurgitation. There is moderate aortic sclerosis.; The prosthetic pulmonic valve is not well visualized. The aortic root is normal size. Normal aortic arch, descending and ascending aorta There is no pericardial effusion. There is no pleural effusion. Juventino Campa 03/16/2019 04:07 PM
[2019-03-16] MEDS: predniSONE 20 MG TABLET (UD) PO SCH (16:31)
--- NOTE | 2019-03-16 17:59 | PN ---
Progress Note (short form) - Note Progress Note: s/p disimpaction and decompression using rectal tube, passage of gas R> FUA r/o recurrent volvulus
[2019-03-16] MEDS: DEXTROSE 5%-0.45% SALINE 1,000 ML IV SCH (19:02)
[2019-03-16] MEDS: MONTELUKAST NA 10 MG TABLET PO SCH (22:15)
[2019-03-16] MEDS: SENNOSIDES 8.6MG TABLET (FP) PO SCH (22:15)
[2019-03-16] MEDS: ATORVASTATIN CA 40 MG TABLET (FP) PO SCH (22:15)
[2019-03-16] MEDS: LATANOPROST 0.005% OPHTH SOLN 2.5ML BOTTLE OU SCH (22:16)
[2019-03-17] MEDS: LEVOTHYROXINE NA 75 MCG TABLET (FP) PO SCH (06:12)
[2019-03-17] MEDS: INSULIN SLIDING SCALE (NOVOLOG) 1 VIAL SQ SCH ×4 (06:17→22:02)
[2019-03-17] MEDS: BUDESONIDE 0.5 MG/2 ML INH SUSP VIAL NEB SCH ×2 (07:45→22:08)
[2019-03-17] MEDS: ALBUTEROL SO4 2.5/IPRATROPIUM 0.5 INH SOL 3 ML VIAL.NEB. NEB SCH ×4 (07:45→22:07)
[2019-03-17 08:30] LABS: ALBUMIN 2.7 g/dl (3.4-5.0); ALK PHOS 66 U/L (45-117); ANION GAP 6 MMOL/L (8-16); BILIRUBIN,TOTAL 0.2 mg/dL (0.2-1); BLOOD UREA NITROGEN 17 mg/dL (7-18); CALCIUM 8.6 mg/dL (8.5-10.1); CHLORIDE 100 mmol/L (98-107); CO2 29 mmol/L (21-32); CREATININE 0.8 mg/dL (0.55-1.3); GLUCOSE,RANDOM 203 mg/dL (74-106); MAGNESIUM 2.1 mg/dL (1.8-2.4); POTASSIUM 3.6 mmol/L (3.5-5.1); SGOT/AST 12 U/L (15-37); SGPT/ALT 21 U/L (13-61); SODIUM 135 mmol/L (136-145); TOT PROT 6.5 g/dl (6.4-8.2)
[2019-03-17 08:38] LABS: HEMATOCRIT 29.7 % (35.4-49); HEMOGLOBIN 9.4 GM/dL (11.7-16.9); LYMPH % 26.2 % (8-40); MCHC 31.7 g/dl (32.0-35.9); MEAN CELL VOLUME 72.4 fl (80-96); MEAN PLT VOLUME 9.4 fl (7.5-11.1); MONO % 18.5 % (3.8-10.2); NEUT % 55.3 % (42.8-82.8); PLATELET COUNT 165 K/MM3 (134-434); WHITE BLOOD COUNT 2.7 K/mm3 (4.0-10.0)
[2019-03-17] MEDS: DORZOLAMIDE 2% HCL OPHTHALMIC SOLUTION 10 ML BOTTLE OU SCH ×2 (10:00→22:03)
--- NOTE | 2019-03-17 11:41 | PN ---
Progress Note (short form) - Note Progress Note: Events noted abd distended less , rectal tuibe has BM No SOB no distress brother at bedside Vital Signs - 24 hr 03/16/19 03/16/19 03/16/19 13:57 17:00 21:00 Temperature 97.8 F 98.1 F Pulse Rate 66 110 H Respiratory 20 20 20 Rate Blood Pressure 163/67 136/87 O2 Sat by Pulse 100 Oximetry (%) 03/16/19 03/17/19 03/17/19 22:21 02:00 06:00 Temperature 97.6 F 97.7 F 98.0 F Pulse Rate 58 L 48 L 54 L Respiratory 20 20 20 Rate Blood Pressure 139/66 147/67 142/82 O2 Sat by Pulse Oximetry (%) Current Medications Generic Name Dose Route Start Last Admin Trade Name Freq PRN Reason Stop Dose Admin Albuterol Sulfate 1 amp 03/14/19 12:00 Ventolin 0.083% Nebulizer Soln - NEB Q4H PRN SHORT OF BREATH/WHEEZING Albuterol/Ipratropium 1 amp 03/13/19 12:00 03/17/19 11:50 Duoneb - NEB 1 amp RQID [facility] Administration Amlodipine Besylate 5 mg 03/13/19 10:00 03/16/19 11:40 Norvasc - PO 5 mg DAILY [facility] Administration Aspirin 81 mg 03/13/19 10:00 03/16/19 11:40 Asa - PO 81 mg DAILY [facility] Administration Atorvastatin Calcium 40 mg 03/13/19 22:00 03/16/19 22:15 Lipitor - PO 40 mg HS [facility] Administration Bisacodyl 10 mg 03/13/19 10:00 03/16/19 22:15 Dulcolax - PO 10 mg BID [facility] Administration Budesonide 1 amp 03/13/19 16:30 03/17/19 07:45 Pulmicort 0.5 Mg Nebulizer - NEB 1 amp RBID [facility] Administration Carvedilol 3.125 mg 03/13/19 10:00 03/16/19 22:15 Coreg - PO Not Given BID [facility] Cholecalciferol 1,000 unit 03/13/19 10:00 03/16/19 11:40 Vitamin D3 - PO 1,000 unit DAILY [facility] Administration Dabigatran 150 mg 03/13/19 10:00 03/16/19 22:15 Pradaxa - PO 150 mg BID [facility] Administration Dorzolamide HCl 1 drop 03/13/19 10:00 03/16/19 22:15 Trusopt 2% OU 1 drop BID [facility] Administration Enalapril Maleate 10 mg 03/13/19 10:00 03/16/19 22:15 Vasotec - PO 10 mg BID [facility] Administration Folic Acid 1 mg 03/13/19 10:00 03/16/19 11:39 Folic Acid - PO 1 mg DAILY [facility] Administration Furosemide 40 mg 03/13/19 10:00 03/16/19 11:39 Lasix - PO 40 mg DAILY [facility] Administration Dextrose/Sodium Chloride 1,000 mls @ 42 mls/hr 03/16/19 17:00 03/16/19 19:02 D5-1/2ns - IV Not Given ASDIR [facility] Insulin Aspart 1 vial 03/13/19 07:00 03/17/19 06:17 Novolog Vial Sliding Scale - SQ 2 units ACHS [facility] Administration Protocol Latanoprost 1 drop 03/13/19 22:00 03/16/19 22:16 Xalatan 0.005% Eye Drops - OU 1 drop HS [facility] Administration Levothyroxine Sodium 75 mcg 03/13/19 07:00 03/17/19 06:12 Synthroid - PO 75 mcg DAILY@0700 [facility] Administration Montelukast Sodium 10 mg 03/13/19 22:00 03/16/19 22:15 Singulair - PO 10 mg HS [facility] Administration Multivitamins/Minerals/Vitamin C 1 tab 03/13/19 10:00 03/16/19 11:40 Tab-A-Vit - PO 1 tab DAILY [facility] Administration Potassium Chloride 20 meq 03/13/19 10:00 03/16/19 11:39 K-Dur - PO 20 meq DAILY [facility] Administration Prednisone 60 mg 03/16/19 15:30 03/16/19 16:31 Deltasone - PO 60 mg DAILY [facility] Administration Senna 2 tab 03/13/19 22:00 03/16/19 22:15 Senna - PO 2 tab HS [facility] Administration Silver Sulfadiazine 1 applic 03/13/19 10:00 03/16/19 12:00 Silvadene - TP 1 applic DAILY [facility] Administration Laboratory Results - last 24 hr 03/16/19 03/16/19 03/17/19 16:46 22:25 05:52 WBC RBC Hgb Hct MCV MCH MCHC RDW Plt Count MPV Absolute Neuts (auto) Neutrophils % Lymphocytes % Monocytes % Eosinophils % Basophils % Nucleated RBC % Sodium Potassium Chloride Carbon Dioxide Anion Gap BUN Creatinine Creat Clearance w eGFR POC Glucometer 232 204 198 Random Glucose Calcium Magnesium Total Bilirubin AST ALT Alkaline Phosphatase Total Protein Albumin 03/17/19 03/17/19 07:40 07:40 WBC 2.7 L RBC 4.10 Hgb 9.4 L Hct 29.7 L MCV 72.4 L MCH 23.0 L MCHC 31.7 L RDW 15.0 Plt Count 165 MPV 9.4 Absolute Neuts (auto) 1.5 Neutrophils % 55.3 Lymphocytes % 26.2 Monocytes % 18.5 H D Eosinophils % 0.0 Basophils % 0.0 Nucleated RBC % 0 Sodium 135 L Potassium 3.6 Chloride 100 Carbon Dioxide 29 Anion Gap 6 L BUN 17 Creatinine 0.8 Creat Clearance w eGFR 92.32 POC Glucometer Random Glucose 203 H Calcium 8.6 Magnesium 2.1 Total Bilirubin 0.2 AST 12 L ALT 21 Alkaline Phosphatase 66 Total Protein 6.5 Albumin 2.7 L S1 S2 Irregular Lungs decreased no rales or ronchi no JVD Abd-- soft, mild distension, NT Rt side weakness No edema PLAN acute COPD/CHF -- on nebs -- Lasix po --keep O2 -- sob due to distended abdomen Ileus/ recurrent volvulus -- has a rectal tube -- for sigmoidoscopy today -- poor surgical candidate as he has a recent CVA, afib, CHF -- brother informed today -- cardiology eval noted Pancytopenia --WBC improving -- he is afebrile. -- continue ASA and Pradaxa for Afib and recent CVA -- dc protonix -- no neutropenic precautions AFib -- rate is controlled -- continue with pradaxa and ASA prognosis guarded Problem List - Problems (1) Acute respiratory failure Code(s): J96.00 - ACUTE RESPIRATORY FAILURE, UNSP W HYPOXIA OR HYPERCAPNIA (2) COPD (chronic obstructive pulmonary disease) Code(s): J44.9 - CHRONIC OBSTRUCTIVE PULMONARY DISEASE, UNSPECIFIED Qualifiers: COPD type: unspecified COPD Qualified Code(s): J44.9 - Chronic obstructive pulmonary disease, unspecified (3) Pancytopenia Code(s): D61.818 - OTHER PANCYTOPENIA
--- NOTE | 2019-03-17 11:48 | PN ---
Progress Note, Physician History of Present Illness: pulmonary awake,no distress,-dyspnea - Current Medication List Current Medications: Active Medications Albuterol Sulfate (Ventolin 0.083% Nebulizer Soln -) 1 amp NEB Q4H PRN PRN Reason: SHORT OF BREATH/WHEEZING Albuterol/Ipratropium (Duoneb -) 1 amp NEB RQID [facility] Last Admin: 03/17/19 07:45 Dose: 1 amp Amlodipine Besylate (Norvasc -) 5 mg PO DAILY [facility] Last Admin: 03/16/19 11:40 Dose: 5 mg Aspirin (Asa -) 81 mg PO DAILY [facility] Last Admin: 03/16/19 11:40 Dose: 81 mg Atorvastatin Calcium (Lipitor -) 40 mg PO HS [facility] Last Admin: 03/16/19 22:15 Dose: 40 mg Bisacodyl (Dulcolax -) 10 mg PO BID [facility] Last Admin: 03/16/19 22:15 Dose: 10 mg Budesonide (Pulmicort 0.5 Mg Nebulizer -) 1 amp NEB RBID [facility] Last Admin: 03/17/19 07:45 Dose: 1 amp Carvedilol (Coreg -) 3.125 mg PO BID [facility] Last Admin: 03/16/19 22:15 Dose: Not Given Cholecalciferol (Vitamin D3 -) 1,000 unit PO DAILY [facility] Last Admin: 03/16/19 11:40 Dose: 1,000 unit Dabigatran (Pradaxa -) 150 mg PO BID [facility] Last Admin: 03/16/19 22:15 Dose: 150 mg Dorzolamide HCl (Trusopt 2%) 1 drop OU BID [facility] Last Admin: 03/16/19 22:15 Dose: 1 drop Enalapril Maleate (Vasotec -) 10 mg PO BID [facility] Last Admin: 03/16/19 22:15 Dose: 10 mg Folic Acid (Folic Acid -) 1 mg PO DAILY [facility] Last Admin: 03/16/19 11:39 Dose: 1 mg Furosemide (Lasix -) 40 mg PO DAILY [facility] Last Admin: 03/16/19 11:39 Dose: 40 mg Dextrose/Sodium Chloride (D5-1/2ns -) 1,000 mls @ 42 mls/hr IV ASDIR [facility] Last Admin: 03/16/19 19:02 Dose: Not Given Insulin Aspart (Novolog Vial Sliding Scale -) 1 vial SQ ACHS [facility]; Protocol Last Admin: 03/17/19 06:17 Dose: 2 units Latanoprost (Xalatan 0.005% Eye Drops -) 1 drop OU HS [facility] Last Admin: 03/16/19 22:16 Dose: 1 drop Levothyroxine Sodium (Synthroid -) 75 mcg PO DAILY@0700 [facility] Last Admin: 03/17/19 06:12 Dose: 75 mcg Montelukast Sodium (Singulair -) 10 mg PO [facility] Last Admin: 03/16/19 22:15 Dose: 10 mg Multivitamins/Minerals/Vitamin C (Tab-A-Vit -) 1 tab PO DAILY [facility] Last Admin: 03/16/19 11:40 Dose: 1 tab Potassium Chloride (K-Dur -) 20 meq PO DAILY [facility] Last Admin: 03/16/19 11:39 Dose: 20 meq Prednisone (Deltasone -) 60 mg PO DAILY [facility] Last Admin: 03/16/19 16:31 Dose: 60 mg Senna (Senna -) 2 tab PO [facility] Last Admin: 03/16/19 22:15 Dose: 2 tab Silver Sulfadiazine (Silvadene -) 1 applic TP DAILY [facility] Last Admin: 03/16/19 12:00 Dose: 1 applic - Objective Vital Signs: Vital Signs Temperature 98.0 F 03/17/19 06:00 Pulse Rate 54 L 03/17/19 06:00 Respiratory Rate 20 03/17/19 06:00 Blood Pressure 142/82 03/17/19 06:00 O2 Sat by Pulse Oximetry (%) 100 03/16/19 21:00 Constitutional: Yes: Well Nourished, Calm Eyes: Yes: WNL HENT: Yes: WNL Neck: Yes: WNL Cardiovascular: Yes: Pulse Irregular, S1, S2 Respiratory: Yes: Rhonchi (few rhonchi) Gastrointestinal: Yes: Normal Bowel Sounds, Distention Extremities: Yes: WNL Edema: No Labs: CBC, BMP 03/17/19 07:40 03/17/19 07:40 Assessment/Plan Problem List - Problems (1) COPD (chronic obstructive pulmonary disease) Code(s): J44.9 - CHRONIC OBSTRUCTIVE PULMONARY DISEASE, UNSPECIFIED Qualifiers: COPD type: unspecified COPD Qualified Code(s): J44.9 - Chronic obstructive pulmonary disease, unspecified (2) Shortness of breath Code(s): R06.02 - SHORTNESS OF BREATH (3) CHF (congestive heart failure) Code(s): I50.9 - HEART FAILURE, UNSPECIFIED (4) H/O: stroke with residual effects Code(s): I69.30 - UNSPECIFIED SEQUELAE OF CEREBRAL INFARCTION (5) Hypertensive cardiomyopathy Code(s): I11.9 - HYPERTENSIVE HEART DISEASE WITHOUT HEART FAILURE; I43 - CARDIOMYOPATHY IN DISEASES CLASSIFIED ELSEWHERE Qualifiers: Heart failure presence: without heart failure Qualified Code(s): I11.9 - Hypertensive heart disease without heart failure; I43 - Cardiomyopathy in diseases classified elsewhere (6) Hypothyroidism Code(s): E03.9 - HYPOTHYROIDISM, UNSPECIFIED Qualifiers: Hypothyroidism type: unspecified Qualified Code(s): E03.9 - Hypothyroidism , unspecified (7) Persistent atrial fibrillation Code(s): I48.1 - PERSISTENT ATRIAL FIBRILLATION (8) Type 2 diabetes mellitus Code(s): E11.9 - TYPE 2 DIABETES MELLITUS WITHOUT COMPLICATIONS 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 use Assessment/Plan Supplemental O2 as needed Steroids BD TX standing and PRN Aspiration precautions Luann WOLFE Problem List - Problems (1) COPD (chronic obstructive pulmonary disease) Code(s): J44.9 - CHRONIC OBSTRUCTIVE PULMONARY DISEASE, UNSPECIFIED Qualifiers: COPD type: unspecified COPD Qualified Code(s): J44.9 - Chronic obstructive pulmonary disease, unspecified (2) Shortness of breath Code(s): R06.02 - SHORTNESS OF BREATH (3) CHF (congestive heart failure) Code(s): I50.9 - HEART FAILURE, UNSPECIFIED (4) H/O: stroke with residual effects Code(s): I69.30 - UNSPECIFIED SEQUELAE OF CEREBRAL INFARCTION (5) Hypertensive cardiomyopathy Code(s): I11.9 - HYPERTENSIVE HEART DISEASE WITHOUT HEART FAILURE; I43 - CARDIOMYOPATHY IN DISEASES CLASSIFIED ELSEWHERE Qualifiers: Heart failure presence: without heart failure Qualified Code(s): I11.9 - Hypertensive heart disease without heart failure; I43 - Cardiomyopathy in diseases classified elsewhere (6) Hypothyroidism Code(s): E03.9 - HYPOTHYROIDISM, UNSPECIFIED Qualifiers: Hypothyroidism type: unspecified Qualified Code(s): E03.9 - Hypothyroidism , unspecified (7) Persistent atrial fibrillation Code(s): I48.1 - PERSISTENT ATRIAL FIBRILLATION (8) Type 2 diabetes mellitus Code(s): E11.9 - TYPE 2 DIABETES MELLITUS WITHOUT COMPLICATIONS Qualifiers: Diabetes mellitus fpc insulin use: without fpc use
[2019-03-17] MEDS: BISACODYL 5 MG TABLET.DR (FP) PO SCH ×2 (14:43→22:02)
[2019-03-17] MEDS: predniSONE 20 MG TABLET (UD) PO SCH (14:43)
[2019-03-17] MEDS: CHOLECALCIFEROL (VITAMIN D3) 1,000 UNIT TABLET (FP) PO SCH (14:43)
[2019-03-17] MEDS: ASPIRIN 81 MG CHEWABLE TABLETS PO SCH (14:44)
[2019-03-17] MEDS: POTASSIUM CHLORIDE TABS 20 MEQ TABLET.ER (FP) PO SCH (14:44)
[2019-03-17] MEDS: amLODIPine BESYLATE 5 MG TABLET (FP) PO SCH (14:44)
[2019-03-17] MEDS: MULTIVITAMINS (DAILY MVI) TABLET (FP) PO SCH (14:44)
[2019-03-17] MEDS: ENALAPRIL MALEATE 10 MG TABLET (FP) PO SCH ×2 (14:44→22:03)
[2019-03-17] MEDS: FOLIC ACID 1 MG TABLET (FP) PO SCH (14:45)
[2019-03-17] MEDS: CARVEDILOL 3.125 MG TABLET (FP) PO SCH ×2 (14:45→22:02)
[2019-03-17] MEDS: FUROSEMIDE 40 MG TABLET (FP) PO SCH (14:45)
[2019-03-17] MEDS ORDERED: PT OWN MED DRAWER 7, Y5N ONE ×2 (14:47→21:24)
[2019-03-17] MEDS: DABIGATRAN ETEXILATE MESYLATE 150 MG CAPSULE PO SCH ×2 (14:48→22:03)
[2019-03-17] MEDS: SILVER SULFADIAZINE 1% TOP CREAM 400 GM JAR TP SCH (14:48)
--- NOTE | 2019-03-17 14:50 | PN ---
Progress Note, Physician History of Present Illness: Slow afib, flex sig deferred. Abd distension improving post rectal tube. - Current Medication List Current Medications: Active Medications Albuterol Sulfate (Ventolin 0.083% Nebulizer Soln -) 1 amp NEB Q4H PRN PRN Reason: SHORT OF BREATH/WHEEZING Albuterol/Ipratropium (Duoneb -) 1 amp NEB RQID [facility] Last Admin: 03/17/19 11:50 Dose: 1 amp Amlodipine Besylate (Norvasc -) 5 mg PO DAILY [facility] Last Admin: 03/17/19 14:44 Dose: 5 mg Aspirin (Asa -) 81 mg PO DAILY [facility] Last Admin: 03/17/19 14:44 Dose: 81 mg Atorvastatin Calcium (Lipitor -) 40 mg PO HS [facility] Last Admin: 03/16/19 22:15 Dose: 40 mg Bisacodyl (Dulcolax -) 10 mg PO BID [facility] Last Admin: 03/17/19 14:43 Dose: 10 mg Budesonide (Pulmicort 0.5 Mg Nebulizer -) 1 amp NEB RBID [facility] Last Admin: 03/17/19 07:45 Dose: 1 amp Carvedilol (Coreg -) 3.125 mg PO BID [facility] Last Admin: 03/17/19 14:45 Dose: 3.125 mg Cholecalciferol (Vitamin D3 -) 1,000 unit PO DAILY [facility] Last Admin: 03/17/19 14:43 Dose: 1,000 unit Dabigatran (Pradaxa -) 150 mg PO BID [facility] Last Admin: 03/17/19 14:48 Dose: 150 mg Dorzolamide HCl (Trusopt 2%) 1 drop OU BID [facility] Last Admin: 03/16/19 22:15 Dose: 1 drop Enalapril Maleate (Vasotec -) 10 mg PO BID [facility] Last Admin: 03/17/19 14:44 Dose: 10 mg Folic Acid (Folic Acid -) 1 mg PO DAILY [facility] Last Admin: 03/17/19 14:45 Dose: 1 mg Furosemide (Lasix -) 40 mg PO DAILY [facility] Last Admin: 03/17/19 14:45 Dose: 40 mg Dextrose/Sodium Chloride (D5-1/2ns -) 1,000 mls @ 42 mls/hr IV ASDIR [facility] Last Admin: 03/16/19 19:02 Dose: Not Given Insulin Aspart (Novolog Vial Sliding Scale -) 1 vial SQ ACHS [facility]; Protocol Last Admin: 03/17/19 06:17 Dose: 2 units Latanoprost (Xalatan 0.005% Eye Drops -) 1 drop OU HS [facility] Last Admin: 03/16/19 22:16 Dose: 1 drop Levothyroxine Sodium (Synthroid -) 75 mcg PO DAILY@0700 [facility] Last Admin: 03/17/19 06:12 Dose: 75 mcg Montelukast Sodium (Singulair -) 10 mg PO HS [facility] Last Admin: 03/16/19 22:15 Dose: 10 mg Multivitamins/Minerals/Vitamin C (Tab-A-Vit -) 1 tab PO DAILY [facility] Last Admin: 03/17/19 14:44 Dose: 1 tab Potassium Chloride (K-Dur -) 20 meq PO DAILY [facility] Last Admin: 03/17/19 14:44 Dose: 20 meq Prednisone (Deltasone -) 60 mg PO DAILY [facility] Last Admin: 03/17/19 14:43 Dose: 60 mg Senna (Senna -) 2 tab PO HS [facility] Last Admin: 03/16/19 22:15 Dose: 2 tab Silver Sulfadiazine (Silvadene -) 1 applic TP DAILY [facility] Last Admin: 03/17/19 14:48 Dose: 1 applic - Objective Vital Signs: Vital Signs Temperature 98.2 F 03/17/19 14:00 Pulse Rate 45 L 03/17/19 14:00 Respiratory Rate 18 03/17/19 14:00 Blood Pressure 143/60 03/17/19 14:00 O2 Sat by Pulse Oximetry (%) 100 03/16/19 21:00 Constitutional: Yes: No Distress, Calm, Thin Neck: Yes: Supple Cardiovascular: Yes: Bradycardia, Pulse Irregular Respiratory: Yes: Regular, Diminished Gastrointestinal: Yes: Soft, Hypoactive Bowel Sounds Edema: No Labs: CBC, BMP 03/17/19 07:40 03/17/19 07:40 - ....Imaging X-ray: Report Reviewed (Improved distension) Problem List - Problems (1) COPD (chronic obstructive pulmonary disease) Code(s): J44.9 - CHRONIC OBSTRUCTIVE PULMONARY DISEASE, UNSPECIFIED Qualifiers: COPD type: unspecified COPD Qualified Code(s): J44.9 - Chronic obstructive pulmonary disease, unspecified (2) Sigmoid volvulus Code(s): K56.2 - VOLVULUS (3) Chronic anticoagulation Code(s): Z79.01 - TABLET COATER (CURRENT) USE OF ANTICOAGULANTS (4) H/O: stroke with residual effects Code(s): I69.30 - UNSPECIFIED SEQUELAE OF CEREBRAL INFARCTION (5) Hypertensive cardiomyopathy Code(s): I11.9 - HYPERTENSIVE HEART DISEASE WITHOUT HEART FAILURE; I43 - CARDIOMYOPATHY IN DISEASES CLASSIFIED ELSEWHERE Qualifiers: Heart failure presence: without heart failure Qualified Code(s): I11.9 - Hypertensive heart disease without heart failure; I43 - Cardiomyopathy in diseases classified elsewhere (6) Hypothyroidism Code(s): E03.9 - HYPOTHYROIDISM, UNSPECIFIED Qualifiers: Hypothyroidism type: unspecified Qualified Code(s): E03.9 - Hypothyroidism , unspecified (7) Persistent atrial fibrillation Code(s): I48.1 - PERSISTENT ATRIAL FIBRILLATION (8) Type 2 diabetes mellitus Code(s): E11.9 - TYPE 2 DIABETES MELLITUS WITHOUT COMPLICATIONS Qualifiers: Diabetes mellitus half-way insulin use: without half-way use Assessment/Plan 03/16/2019 Echo: Normal LVEF 55%, mod LAE, mild MR, mild TR 1. Dyspnea with underlying COPD 2. HTN 3. Hypercholesterolemia 4. DM 5. History of CVA with residual deficit 6. Underlying organic brain/dementia 7. Permanent AF on DOAC 8. Abdominal distension, recurrent volvulus improving 9. Hypothyroidism PLAN: 1. Continue Carvedilol 3.125 bid, Enalapril 10 bid and Amlodipine 5 qd as hemodynamics tolerate 2. Continue Pradaxa 150 bid, d/c ASA without active CAD 3. Continue Atorvastatin 40 qd 4. Lasix 40 qd with monitor diuretic response, renal function and electrolytes 5. GI input appreciated 6. BD, O2, steroids, Singulair
[2019-03-17] MEDS ORDERED: INSULIN (NOVOLOG) ASPART 100 UNITS/ML 10ML VIAL ONE ×2 (15:17→21:24)
--- NOTE | 2019-03-17 15:38 | PN ---
Progress Note (short form) - Note Progress Note: FUA , sigmoid colon less distended after disimpaction yesterday today flexig was cancelled because of severe bradycardia. abd: distended--mild Rectal tube inserted.good results
[2019-03-17] MEDS: ATORVASTATIN CA 40 MG TABLET (FP) PO SCH (22:02)
[2019-03-17] MEDS: DEXTROSE 5%-0.45% SALINE 1,000 ML IV SCH (22:02)
[2019-03-17] MEDS: LATANOPROST 0.005% OPHTH SOLN 2.5ML BOTTLE OU SCH (22:03)
[2019-03-17] MEDS: SENNOSIDES 8.6MG TABLET (FP) PO SCH (22:03)
[2019-03-17] MEDS: MONTELUKAST NA 10 MG TABLET PO SCH (22:03)
[2019-03-18] MEDS: INSULIN SLIDING SCALE (NOVOLOG) 1 VIAL SQ SCH ×4 (06:17→21:24)
[2019-03-18] MEDS: LEVOTHYROXINE NA 75 MCG TABLET (FP) PO SCH (06:17)
[2019-03-18 07:27] LABS: BASO % 0.1 % (0-2.0); HEMATOCRIT 31.3 % (35.4-49); HEMOGLOBIN 9.9 GM/dL (11.7-16.9); LYMPH % 28.3 % (8-40); MCH 22.7 pg (25.7-33.7); MCHC 31.5 g/dl (32.0-35.9); MEAN PLT VOLUME 9.6 fl (7.5-11.1); MONO % 24.6 % (3.8-10.2); PLATELET COUNT 159 K/MM3 (134-434); RBC 4.35 M/mm3 (4.00-5.60); RDW 15.1 % (11.9-15.9); WHITE BLOOD COUNT 2.7 K/mm3 (4.0-10.0)
[2019-03-18] MEDS: ALBUTEROL SO4 2.5/IPRATROPIUM 0.5 INH SOL 3 ML VIAL.NEB. NEB SCH ×4 (07:39→20:19)
[2019-03-18] MEDS: BUDESONIDE 0.5 MG/2 ML INH SUSP VIAL NEB SCH ×2 (07:39→20:20)
[2019-03-18 08:01] LABS: ALBUMIN 2.7 g/dl (3.4-5.0); ALK PHOS 63 U/L (45-117); ANION GAP 7 MMOL/L (8-16); BILIRUBIN,TOTAL 0.4 mg/dL (0.2-1); BLOOD UREA NITROGEN 18 mg/dL (7-18); CALCIUM 8.3 mg/dL (8.5-10.1); CHLORIDE 100 mmol/L (98-107); CO2 28 mmol/L (21-32); CREATININE 0.6 mg/dL (0.55-1.3); GLUCOSE,RANDOM 165 mg/dL (74-106); POTASSIUM 3.8 mmol/L (3.5-5.1); SGOT/AST 15 U/L (15-37); SGPT/ALT 22 U/L (13-61); SODIUM 135 mmol/L (136-145); TOT PROT 6.3 g/dl (6.4-8.2)
--- NOTE | 2019-03-18 09:01 | PN ---
Progress Note, Physician Chief Complaint: GI FOLLOW UP NOTE Patient examined and case discussed with Dr Bell Patient examined in bed. Patient denies nausea, vomiting. Complain of lower abdominal pain, on examination abdomen appears less distended. Rectal tube in place 50cc output noted. Continues to be bradycardic. No melena noted. - Current Medication List Current Medications: Active Medications Albuterol Sulfate (Ventolin 0.083% Nebulizer Soln -) 1 amp NEB Q4H PRN PRN Reason: SHORT OF BREATH/WHEEZING Albuterol/Ipratropium (Duoneb -) 1 amp NEB RQID [facility] Last Admin: 03/18/19 07:39 Dose: 1 amp Amlodipine Besylate (Norvasc -) 5 mg PO DAILY [facility] Last Admin: 03/17/19 14:44 Dose: 5 mg Atorvastatin Calcium (Lipitor -) 40 mg PO HS [facility] Last Admin: 03/17/19 22:02 Dose: 40 mg Bisacodyl (Dulcolax -) 10 mg PO BID [facility] Last Admin: 03/17/19 22:02 Dose: 10 mg Budesonide (Pulmicort 0.5 Mg Nebulizer -) 1 amp NEB RBID [facility] Last Admin: 03/18/19 07:39 Dose: 1 amp Carvedilol (Coreg -) 3.125 mg PO BID [facility] Last Admin: 03/17/19 22:02 Dose: 3.125 mg Cholecalciferol (Vitamin D3 -) 1,000 unit PO DAILY [facility] Last Admin: 03/17/19 14:43 Dose: 1,000 unit Dabigatran (Pradaxa -) 150 mg PO BID [facility] Last Admin: 03/17/19 22:03 Dose: 150 mg Dorzolamide HCl (Trusopt 2%) 1 drop OU BID [facility] Last Admin: 03/17/19 22:03 Dose: 1 drop Enalapril Maleate (Vasotec -) 10 mg PO BID [facility] Last Admin: 03/17/19 22:03 Dose: 10 mg Folic Acid (Folic Acid -) 1 mg PO DAILY [facility] Last Admin: 03/17/19 14:45 Dose: 1 mg Furosemide (Lasix -) 40 mg PO DAILY [facility] Last Admin: 03/17/19 14:45 Dose: 40 mg Dextrose/Sodium Chloride (D5-1/2ns -) 1,000 mls @ 42 mls/hr IV ASDIR [facility] Last Admin: 03/17/19 22:02 Dose: Not Given Insulin Aspart (Novolog Vial Sliding Scale -) 1 vial SQ ACHS [facility]; Protocol Last Admin: 03/18/19 06:17 Dose: 2 units Latanoprost (Xalatan 0.005% Eye Drops -) 1 drop OU HS [facility] Last Admin: 03/17/19 22:03 Dose: 1 drop Levothyroxine Sodium (Synthroid -) 75 mcg PO DAILY@0700 [facility] Last Admin: 03/18/19 06:17 Dose: 75 mcg Montelukast Sodium (Singulair -) 10 mg PO HS [facility] Last Admin: 03/17/19 22:03 Dose: 10 mg Multivitamins/Minerals/Vitamin C (Tab-A-Vit -) 1 tab PO DAILY [facility] Last Admin: 03/17/19 14:44 Dose: 1 tab Potassium Chloride (K-Dur -) 20 meq PO DAILY [facility] Last Admin: 03/17/19 14:44 Dose: 20 meq Prednisone (Deltasone -) 60 mg PO DAILY [facility] Last Admin: 03/17/19 14:43 Dose: 60 mg Senna (Senna -) 2 tab PO HS [facility] Last Admin: 03/17/19 22:03 Dose: 2 tab Silver Sulfadiazine (Silvadene -) 1 applic TP DAILY [facility] Last Admin: 03/17/19 14:48 Dose: 1 applic - Objective Vital Signs: Vital Signs Temperature 98.4 F 03/18/19 05:55 Pulse Rate 52 L 03/18/19 05:55 Respiratory Rate 18 03/18/19 05:55 Blood Pressure 148/77 03/18/19 05:55 O2 Sat by Pulse Oximetry (%) 100 03/17/19 21:00 Constitutional: Yes: No Distress, Calm Eyes: Yes: Conjunctiva Clear HENT: Yes: Atraumatic Cardiovascular: Yes: Bradycardia Respiratory: Yes: Regular, CTA Bilaterally Gastrointestinal: Yes: Normal Bowel Sounds, Soft, Tenderness (RLQ and LLQ) Neurological: Yes: Alert, Oriented Psychiatric: Yes: Alert, Oriented Labs: CBC, BMP 03/18/19 06:00 03/18/19 06:00 <Betty Vogt - Last Filed: 03/18/19 08:56> - Current Medication List Current Medications: Active Medications Albuterol Sulfate (Ventolin 0.083% Nebulizer Soln -) 1 amp NEB Q4H PRN PRN Reason: SHORT OF BREATH/WHEEZING Albuterol/Ipratropium (Duoneb -) 1 amp NEB RQID [facility] Last Admin: 03/18/19 15:45 Dose: Not Given Amlodipine Besylate (Norvasc -) 5 mg PO DAILY [facility] Last Admin: 03/18/19 10:06 Dose: 5 mg Atorvastatin Calcium (Lipitor -) 40 mg PO HS [facility] Last Admin: 03/17/19 22:02 Dose: 40 mg Bisacodyl (Dulcolax -) 10 mg PO BID [facility] Last Admin: 03/18/19 10:06 Dose: 10 mg Budesonide (Pulmicort 0.5 Mg Nebulizer -) 1 amp NEB RBID [facility] Last Admin: 03/18/19 07:39 Dose: 1 amp Carvedilol (Coreg -) 3.125 mg PO BID [facility] Last Admin: 03/18/19 10:06 Dose: 3.125 mg Cholecalciferol (Vitamin D3 -) 1,000 unit PO DAILY [facility] Last Admin: 03/18/19 10:06 Dose: 1,000 unit Dabigatran (Pradaxa -) 150 mg PO BID [facility] Last Admin: 03/18/19 10:06 Dose: 150 mg Dorzolamide HCl (Trusopt 2%) 1 drop OU BID [facility] Last Admin: 03/18/19 10:07 Dose: 1 drop Enalapril Maleate (Vasotec -) 10 mg PO BID [facility] Last Admin: 03/18/19 10:06 Dose: 10 mg Folic Acid (Folic Acid -) 1 mg PO DAILY [facility] Last Admin: 03/18/19 10:06 Dose: 1 mg Furosemide (Lasix -) 40 mg PO DAILY [facility] Last Admin: 03/18/19 10:06 Dose: 40 mg Dextrose/Sodium Chloride (D5-1/2ns -) 1,000 mls @ 42 mls/hr IV ASDIR [facility] Last Admin: 03/18/19 17:22 Dose: Not Given Insulin Aspart (Novolog Vial Sliding Scale -) 1 vial SQ ACHS [facility]; Protocol Last Admin: 03/18/19 17:22 Dose: 8 units Latanoprost (Xalatan 0.005% Eye Drops -) 1 drop OU [facility] Last Admin: 03/17/19 22:03 Dose: 1 drop Levothyroxine Sodium (Synthroid -) 75 mcg PO DAILY@0700 [facility] Last Admin: 03/18/19 06:17 Dose: 75 mcg Montelukast Sodium (Singulair -) 10 mg PO HS [facility] Last Admin: 03/17/19 22:03 Dose: 10 mg Multivitamins/Minerals/Vitamin C (Tab-A-Vit -) 1 tab PO DAILY [facility] Last Admin: 03/18/19 10:06 Dose: 1 tab Potassium Chloride (K-Dur -) 20 meq PO DAILY [facility] Last Admin: 03/18/19 10:06 Dose: 20 meq Prednisone (Deltasone -) 50 mg PO DAILY [facility] Senna (Senna -) 2 tab PO [facility] Last Admin: 03/17/19 22:03 Dose: 2 tab Silver Sulfadiazine (Silvadene -) 1 applic TP DAILY [facility] Last Admin: 03/18/19 10:07 Dose: 1 applic - Objective Vital Signs: Vital Signs Temperature 98.0 F 03/18/19 14:00 Pulse Rate 51 L 03/18/19 14:00 Respiratory Rate 17 03/18/19 14:00 Blood Pressure 131/64 03/18/19 14:00 O2 Sat by Pulse Oximetry (%) 98 03/18/19 09:00 Labs: CBC, BMP 03/18/19 06:00 03/18/19 06:00 <Gerson Bell - Last Filed: 03/18/19 17:31> Problem List - Problems (1) Dilated bowel Assessment/Plan: >Rectal tube in place >Mineral Oil enema x 1 dose >FUA ordered >when heart rate improve possible flex-sigmoidoscopy Code(s): [id number] - <Betty Vogt - Last Filed: 03/18/19 08:56>
[2019-03-18] MEDS ORDERED: MINERAL OIL ENEMA 133 ML ENEMA PR ONE (09:15)
--- NOTE | 2019-03-18 10:01 | PN ---
Progress Note, Physician - Current Medication List Current Medications: Active Medications Albuterol Sulfate (Ventolin 0.083% Nebulizer Soln -) 1 amp NEB Q4H PRN PRN Reason: SHORT OF BREATH/WHEEZING Albuterol/Ipratropium (Duoneb -) 1 amp NEB RQID [facility] Last Admin: 03/18/19 07:39 Dose: 1 amp Amlodipine Besylate (Norvasc -) 5 mg PO DAILY [facility] Last Admin: 03/17/19 14:44 Dose: 5 mg Atorvastatin Calcium (Lipitor -) 40 mg PO HS [facility] Last Admin: 03/17/19 22:02 Dose: 40 mg Bisacodyl (Dulcolax -) 10 mg PO BID [facility] Last Admin: 03/17/19 22:02 Dose: 10 mg Budesonide (Pulmicort 0.5 Mg Nebulizer -) 1 amp NEB RBID [facility] Last Admin: 03/18/19 07:39 Dose: 1 amp Carvedilol (Coreg -) 3.125 mg PO BID [facility] Last Admin: 03/17/19 22:02 Dose: 3.125 mg Cholecalciferol (Vitamin D3 -) 1,000 unit PO DAILY [facility] Last Admin: 03/17/19 14:43 Dose: 1,000 unit Dabigatran (Pradaxa -) 150 mg PO BID [facility] Last Admin: 03/17/19 22:03 Dose: 150 mg Dorzolamide HCl (Trusopt 2%) 1 drop OU BID [facility] Last Admin: 03/17/19 22:03 Dose: 1 drop Enalapril Maleate (Vasotec -) 10 mg PO BID [facility] Last Admin: 03/17/19 22:03 Dose: 10 mg Folic Acid (Folic Acid -) 1 mg PO DAILY [facility] Last Admin: 03/17/19 14:45 Dose: 1 mg Furosemide (Lasix -) 40 mg PO DAILY [facility] Last Admin: 03/17/19 14:45 Dose: 40 mg Dextrose/Sodium Chloride (D5-1/2ns -) 1,000 mls @ 42 mls/hr IV ASDIR [facility] Last Admin: 03/17/19 22:02 Dose: Not Given Insulin Aspart (Novolog Vial Sliding Scale -) 1 vial SQ ACHS [facility]; Protocol Last Admin: 03/18/19 06:17 Dose: 2 units Latanoprost (Xalatan 0.005% Eye Drops -) 1 drop OU HS [facility] Last Admin: 03/17/19 22:03 Dose: 1 drop Levothyroxine Sodium (Synthroid -) 75 mcg PO DAILY@0700 [facility] Last Admin: 03/18/19 06:17 Dose: 75 mcg Montelukast Sodium (Singulair -) 10 mg PO HS [facility] Last Admin: 03/17/19 22:03 Dose: 10 mg Multivitamins/Minerals/Vitamin C (Tab-A-Vit -) 1 tab PO DAILY [facility] Last Admin: 03/17/19 14:44 Dose: 1 tab Potassium Chloride (K-Dur -) 20 meq PO DAILY [facility] Last Admin: 03/17/19 14:44 Dose: 20 meq Prednisone (Deltasone -) 60 mg PO DAILY [facility] Last Admin: 03/17/19 14:43 Dose: 60 mg Senna (Senna -) 2 tab PO HS [facility] Last Admin: 03/17/19 22:03 Dose: 2 tab Silver Sulfadiazine (Silvadene -) 1 applic TP DAILY [facility] Last Admin: 03/17/19 14:48 Dose: 1 applic - Objective Vital Signs: Vital Signs Temperature 98.4 F 03/18/19 05:55 Pulse Rate 52 L 03/18/19 05:55 Respiratory Rate 18 03/18/19 05:55 Blood Pressure 148/77 03/18/19 05:55 O2 Sat by Pulse Oximetry (%) 100 03/17/19 21:00 Labs: CBC, BMP 03/18/19 06:00 03/18/19 06:00 Problem List - Problems (1) Sigmoid volvulus Code(s): K56.2 - VOLVULUS (2) H/O: stroke with residual effects Code(s): I69.30 - UNSPECIFIED SEQUELAE OF CEREBRAL INFARCTION (3) Acute CVA (cerebrovascular accident) Code(s): I63.9 - CEREBRAL INFARCTION, UNSPECIFIED (4) Pancytopenia Code(s): D61.818 - OTHER PANCYTOPENIA (5) Acquired megacolon Code(s): K59.39 - OTHER MEGACOLON (6) Chronic constipation Code(s): K59.09 - OTHER CONSTIPATION Assessment/Plan Surgery: abdomen is unchanged. Abdominal X-ray shows persistent dialted rectosigmoid with a picture suggestive of ? acquired megacolon , rather than sigmoid volvulus. has been having large bowel movements. Chest x-ray : large heart. I have discussed considering contrast enema, with the radiologist , Dr Hooker, who feels that due to the dilated rectum , the contrast will just spill out. Impression : Acquired megacolon, chronic constipation.
[2019-03-18] MEDS: MULTIVITAMINS (DAILY MVI) TABLET (FP) PO SCH (10:06)
[2019-03-18] MEDS: CHOLECALCIFEROL (VITAMIN D3) 1,000 UNIT TABLET (FP) PO SCH (10:06)
[2019-03-18] MEDS: POTASSIUM CHLORIDE TABS 20 MEQ TABLET.ER (FP) PO SCH (10:06)
[2019-03-18] MEDS: CARVEDILOL 3.125 MG TABLET (FP) PO SCH ×2 (10:06→21:24)
[2019-03-18] MEDS: FUROSEMIDE 40 MG TABLET (FP) PO SCH (10:06)
[2019-03-18] MEDS: predniSONE 20 MG TABLET (UD) PO SCH (10:06)
[2019-03-18] MEDS: DABIGATRAN ETEXILATE MESYLATE 150 MG CAPSULE PO SCH ×2 (10:06→22:15)
[2019-03-18] MEDS: amLODIPine BESYLATE 5 MG TABLET (FP) PO SCH (10:06)
[2019-03-18] MEDS: BISACODYL 5 MG TABLET.DR (FP) PO SCH ×2 (10:06→21:24)
[2019-03-18] MEDS: ENALAPRIL MALEATE 10 MG TABLET (FP) PO SCH ×2 (10:06→21:25)
[2019-03-18] MEDS: FOLIC ACID 1 MG TABLET (FP) PO SCH (10:06)
[2019-03-18] MEDS: DORZOLAMIDE 2% HCL OPHTHALMIC SOLUTION 10 ML BOTTLE OU SCH ×2 (10:07→21:25)
[2019-03-18] MEDS: SILVER SULFADIAZINE 1% TOP CREAM 400 GM JAR TP SCH (10:07)
--- NOTE | 2019-03-18 10:29 | PN ---
Progress Note, Physician History of Present Illness: Slow afib, flex sig deferred. Abd distension improving post rectal tube. - Current Medication List Current Medications: Active Medications Albuterol Sulfate (Ventolin 0.083% Nebulizer Soln -) 1 amp NEB Q4H PRN PRN Reason: SHORT OF BREATH/WHEEZING Albuterol/Ipratropium (Duoneb -) 1 amp NEB RQID [facility] Last Admin: 03/18/19 07:39 Dose: 1 amp Amlodipine Besylate (Norvasc -) 5 mg PO DAILY [facility] Last Admin: 03/18/19 10:06 Dose: 5 mg Atorvastatin Calcium (Lipitor -) 40 mg PO HS [facility] Last Admin: 03/17/19 22:02 Dose: 40 mg Bisacodyl (Dulcolax -) 10 mg PO BID [facility] Last Admin: 03/18/19 10:06 Dose: 10 mg Budesonide (Pulmicort 0.5 Mg Nebulizer -) 1 amp NEB RBID [facility] Last Admin: 03/18/19 07:39 Dose: 1 amp Carvedilol (Coreg -) 3.125 mg PO BID [facility] Last Admin: 03/18/19 10:06 Dose: 3.125 mg Cholecalciferol (Vitamin D3 -) 1,000 unit PO DAILY [facility] Last Admin: 03/18/19 10:06 Dose: 1,000 unit Dabigatran (Pradaxa -) 150 mg PO BID [facility] Last Admin: 03/18/19 10:06 Dose: 150 mg Dorzolamide HCl (Trusopt 2%) 1 drop OU BID [facility] Last Admin: 03/18/19 10:07 Dose: 1 drop Enalapril Maleate (Vasotec -) 10 mg PO BID [facility] Last Admin: 03/18/19 10:06 Dose: 10 mg Folic Acid (Folic Acid -) 1 mg PO DAILY [facility] Last Admin: 03/18/19 10:06 Dose: 1 mg Furosemide (Lasix -) 40 mg PO DAILY [facility] Last Admin: 03/18/19 10:06 Dose: 40 mg Dextrose/Sodium Chloride (D5-1/2ns -) 1,000 mls @ 42 mls/hr IV ASDIR [facility] Last Admin: 03/17/19 22:02 Dose: Not Given Insulin Aspart (Novolog Vial Sliding Scale -) 1 vial SQ ACHS [facility]; Protocol Last Admin: 03/18/19 06:17 Dose: 2 units Latanoprost (Xalatan 0.005% Eye Drops -) 1 drop OU HS [facility] Last Admin: 03/17/19 22:03 Dose: 1 drop Levothyroxine Sodium (Synthroid -) 75 mcg PO DAILY@0700 [facility] Last Admin: 03/18/19 06:17 Dose: 75 mcg Montelukast Sodium (Singulair -) 10 mg PO HS [facility] Last Admin: 03/17/19 22:03 Dose: 10 mg Multivitamins/Minerals/Vitamin C (Tab-A-Vit -) 1 tab PO DAILY [facility] Last Admin: 03/18/19 10:06 Dose: 1 tab Potassium Chloride (K-Dur -) 20 meq PO DAILY [facility] Last Admin: 03/18/19 10:06 Dose: 20 meq Prednisone (Deltasone -) 60 mg PO DAILY [facility] Last Admin: 03/18/19 10:06 Dose: 60 mg Senna (Senna -) 2 tab PO HS [facility] Last Admin: 03/17/19 22:03 Dose: 2 tab Silver Sulfadiazine (Silvadene -) 1 applic TP DAILY [facility] Last Admin: 03/18/19 10:07 Dose: 1 applic - Objective Vital Signs: Vital Signs Temperature 98.4 F 03/18/19 05:55 Pulse Rate 52 L 03/18/19 05:55 Respiratory Rate 18 03/18/19 05:55 Blood Pressure 148/77 03/18/19 05:55 O2 Sat by Pulse Oximetry (%) 100 03/17/19 21:00 Constitutional: Yes: No Distress, Calm, Thin Neck: Yes: Supple Cardiovascular: Yes: Bradycardia, Pulse Irregular Respiratory: Yes: Regular, CTA Bilaterally Gastrointestinal: Yes: Soft, Distention, Hypoactive Bowel Sounds, Other (Rectal tube in place) Edema: No Labs: CBC, BMP 03/18/19 06:00 03/18/19 06:00 - ....Imaging X-ray: Image Reviewed (Abdominal X-ray shows persistent dialted rectosigmoid with a picture suggestive of ? acquired megacolon , rather than sigmoid volvulus.) Problem List - Problems (1) COPD (chronic obstructive pulmonary disease) Code(s): J44.9 - CHRONIC OBSTRUCTIVE PULMONARY DISEASE, UNSPECIFIED Qualifiers: COPD type: unspecified COPD Qualified Code(s): J44.9 - Chronic obstructive pulmonary disease, unspecified (2) Sigmoid volvulus Code(s): K56.2 - VOLVULUS (3) Chronic anticoagulation Code(s): Z79.01 - CARE HOME (CURRENT) USE OF ANTICOAGULANTS (4) H/O: stroke with residual effects Code(s): I69.30 - UNSPECIFIED SEQUELAE OF CEREBRAL INFARCTION (5) Hypertensive cardiomyopathy Code(s): I11.9 - HYPERTENSIVE HEART DISEASE WITHOUT HEART FAILURE; I43 - CARDIOMYOPATHY IN DISEASES CLASSIFIED ELSEWHERE Qualifiers: Heart failure presence: without heart failure Qualified Code(s): I11.9 - Hypertensive heart disease without heart failure; I43 - Cardiomyopathy in diseases classified elsewhere (6) Hypothyroidism Code(s): E03.9 - HYPOTHYROIDISM, UNSPECIFIED Qualifiers: Hypothyroidism type: unspecified Qualified Code(s): E03.9 - Hypothyroidism , unspecified (7) Persistent atrial fibrillation Code(s): I48.1 - PERSISTENT ATRIAL FIBRILLATION (8) Type 2 diabetes mellitus Code(s): E11.9 - TYPE 2 DIABETES MELLITUS WITHOUT COMPLICATIONS Qualifiers: Diabetes mellitus chcf insulin use: without chcf use (9) Acquired megacolon Code(s): K59.39 - OTHER MEGACOLON Assessment/Plan 03/16/2019 Echo: Normal LVEF 55%, mod LAE, mild MR, mild TR 1. Dyspnea with underlying COPD 2. HTN 3. Hypercholesterolemia 4. DM 5. History of CVA with residual deficit 6. Underlying organic brain/dementia 7. Permanent AF on DOAC 8. Abdominal distension, acquired megacolon vs recurrent volvulus improving 9. Hypothyroidism PLAN: 1. Continue Carvedilol 3.125 bid, Enalapril 10 bid and Amlodipine 5 qd as hemodynamics tolerate 2. Continue Pradaxa 150 bid, d/c ASA without active CAD 3. Continue Atorvastatin 40 qd 4. Lasix 40 qd with monitor diuretic response, renal function and electrolytes 5. GI and surgery input appreciated, rectal tube management 6. BD, O2, steroids, Singulair
[2019-03-18 11:55] LABS: ANISOCYTOSIS 1+; MACROCYTOSIS 0; OVALOCYTE 1+
--- NOTE | 2019-03-18 12:19 | PN ---
Progress Note (short form) - Note Progress Note: Events noted abd distended less has BM could not undergo flex sig due to bradycardia no distress eating without difficulty CXR - noted FUA noted Vital Signs - 24 hr 03/17/19 03/17/19 03/17/19 14:00 18:00 21:00 Temperature 98.2 F 98.8 F Pulse Rate 45 L 88 Respiratory 18 18 Rate Blood Pressure 143/60 104/73 O2 Sat by Pulse 100 Oximetry (%) 03/18/19 05:55 Temperature 98.4 F Pulse Rate 52 L Respiratory 18 Rate Blood Pressure 148/77 O2 Sat by Pulse Oximetry (%) Current Medications Generic Name Dose Route Start Last Admin Trade Name Freq PRN Reason Stop Dose Admin Albuterol Sulfate 1 amp 03/14/19 12:00 Ventolin 0.083% Nebulizer Soln - NEB Q4H PRN SHORT OF BREATH/WHEEZING Albuterol/Ipratropium 1 amp 03/13/19 12:00 03/18/19 11:09 Duoneb - NEB 1 amp RQID RAJESH Administration Amlodipine Besylate 5 mg 03/13/19 10:00 03/18/19 10:06 Norvasc - PO 5 mg DAILY RAJESH Administration Atorvastatin Calcium 40 mg 03/13/19 22:00 03/17/19 22:02 Lipitor - PO 40 mg HS RAJESH Administration Bisacodyl 10 mg 03/13/19 10:00 03/18/19 10:06 Dulcolax - PO 10 mg BID RAJESH Administration Budesonide 1 amp 03/13/19 16:30 03/18/19 07:39 Pulmicort 0.5 Mg Nebulizer - NEB 1 amp RBID RAJESH Administration Carvedilol 3.125 mg 03/13/19 10:00 03/18/19 10:06 Coreg - PO 3.125 mg BID RAJESH Administration Cholecalciferol 1,000 unit 03/13/19 10:00 03/18/19 10:06 Vitamin D3 - PO 1,000 unit DAILY RAJESH Administration Dabigatran 150 mg 03/13/19 10:00 03/18/19 10:06 Pradaxa - PO 150 mg BID RAJESH Administration Dorzolamide HCl 1 drop 03/13/19 10:00 03/18/19 10:07 Trusopt 2% OU 1 drop BID RAJESH Administration Enalapril Maleate 10 mg 03/13/19 10:00 03/18/19 10:06 Vasotec - PO 10 mg BID RAJESH Administration Folic Acid 1 mg 03/13/19 10:00 03/18/19 10:06 Folic Acid - PO 1 mg DAILY RAJESH Administration Furosemide 40 mg 03/13/19 10:00 03/18/19 10:06 Lasix - PO 40 mg DAILY RAJESH Administration Dextrose/Sodium Chloride 1,000 mls @ 42 mls/hr 03/16/19 17:00 03/17/19 22:02 D5-1/2ns - IV Not Given ASDIR RAJESH Insulin Aspart 1 vial 03/13/19 07:00 03/18/19 06:17 Novolog Vial Sliding Scale - SQ 2 units ACHS RAJESH Administration Protocol Latanoprost 1 drop 03/13/19 22:00 03/17/19 22:03 Xalatan 0.005% Eye Drops - OU 1 drop HS RAJESH Administration Levothyroxine Sodium 75 mcg 03/13/19 07:00 03/18/19 06:17 Synthroid - PO 75 mcg DAILY@0700 RAJESH Administration Montelukast Sodium 10 mg 03/13/19 22:00 03/17/19 22:03 Singulair - PO 10 mg HS RAJESH Administration Multivitamins/Minerals/Vitamin C 1 tab 03/13/19 10:00 03/18/19 10:06 Tab-A-Vit - PO 1 tab DAILY RAJESH Administration Potassium Chloride 20 meq 03/13/19 10:00 03/18/19 10:06 K-Dur - PO 20 meq DAILY RAJESH Administration Prednisone 60 mg 03/16/19 15:30 03/18/19 10:06 Deltasone - PO 60 mg DAILY RAJESH Administration Senna 2 tab 03/13/19 22:00 03/17/19 22:03 Senna - PO 2 tab HS RAJESH Administration Silver Sulfadiazine 1 applic 03/13/19 10:00 03/18/19 10:07 Silvadene - TP 1 applic DAILY RAJESH Administration Laboratory Results - last 24 hr 03/17/19 03/17/19 03/18/19 15:37 22:01 06:00 WBC 2.7 L RBC 4.35 Hgb 9.9 L Hct 31.3 L MCV 72.0 L MCH 22.7 L MCHC 31.5 L RDW 15.1 Plt Count 159 MPV 9.6 Absolute Neuts (auto) 1.3 L Neutrophils % 47.0 Lymphocytes % 28.3 Monocytes % 24.6 H Eosinophils % 0.0 Basophils % 0.1 D Nucleated RBC % 0 Sodium Potassium Chloride Carbon Dioxide Anion Gap BUN Creatinine Creat Clearance w eGFR POC Glucometer 184 214 Random Glucose Calcium Total Bilirubin AST ALT Alkaline Phosphatase Total Protein Albumin TSH 03/18/19 03/18/19 03/18/19 06:00 06:16 11:04 WBC RBC Hgb Hct MCV MCH MCHC RDW Plt Count MPV Absolute Neuts (auto) Neutrophils % Lymphocytes % Monocytes % Eosinophils % Basophils % Nucleated RBC % Sodium 135 L Potassium 3.8 Chloride 100 Carbon Dioxide 28 Anion Gap 7 L BUN 18 Creatinine 0.6 Creat Clearance w eGFR 128.67 POC Glucometer 173 157 Random Glucose 165 H Calcium 8.3 L Total Bilirubin 0.4 AST 15 ALT 22 Alkaline Phosphatase 63 Total Protein 6.3 L Albumin 2.7 L TSH 1.53 D S1 S2 Irregular Lungs decreased no rales or ronchi no JVD Abd-- soft, mild distension, NT Rt side weakness No edema PLAN acute COPD/CHF -- on nebs -- Lasix po --keep O2 -- sob due to distended abdomen Ileus/dilated bowel-- as per Dr Perea -- acquired megacolon -- has a rectal tube -- cancelled sigmoidoscopy due to bradycardia -- poor surgical candidate as he has a recent CVA, afib, CHF -- brother informed -- cardiology eval noted Pancytopenia --WBC improving -- he is afebrile. -- continue Pradaxa for Afib and recent CVA -- dc protonix -- no neutropenic precautions AFib -- rate is controlled -- continue with pradaxa i f no further work up and no interventions-- consider DC to [place] Problem List - Problems (1) Acute respiratory failure Code(s): J96.00 - ACUTE RESPIRATORY FAILURE, UNSP W HYPOXIA OR HYPERCAPNIA (2) COPD (chronic obstructive pulmonary disease) Code(s): J44.9 - CHRONIC OBSTRUCTIVE PULMONARY DISEASE, UNSPECIFIED Qualifiers: COPD type: unspecified COPD Qualified Code(s): J44.9 - Chronic obstructive pulmonary disease, unspecified (3) Pancytopenia Code(s): D61.818 - OTHER PANCYTOPENIA
[2019-03-18 12:29] LABS: PLATELET ESTIMATE ADEQUATE
--- NOTE | 2019-03-18 14:10 | PN ---
Progress Note, Physician History of Present Illness: pulmonary alert,comfortable,-resp distress. - Current Medication List Current Medications: Active Medications Albuterol Sulfate (Ventolin 0.083% Nebulizer Soln -) 1 amp NEB Q4H PRN PRN Reason: SHORT OF BREATH/WHEEZING Albuterol/Ipratropium (Duoneb -) 1 amp NEB RQID [facility] Last Admin: 03/18/19 11:09 Dose: 1 amp Amlodipine Besylate (Norvasc -) 5 mg PO DAILY [facility] Last Admin: 03/18/19 10:06 Dose: 5 mg Atorvastatin Calcium (Lipitor -) 40 mg PO HS [facility] Last Admin: 03/17/19 22:02 Dose: 40 mg Bisacodyl (Dulcolax -) 10 mg PO BID [facility] Last Admin: 03/18/19 10:06 Dose: 10 mg Budesonide (Pulmicort 0.5 Mg Nebulizer -) 1 amp NEB RBID [facility] Last Admin: 03/18/19 07:39 Dose: 1 amp Carvedilol (Coreg -) 3.125 mg PO BID [facility] Last Admin: 03/18/19 10:06 Dose: 3.125 mg Cholecalciferol (Vitamin D3 -) 1,000 unit PO DAILY [facility] Last Admin: 03/18/19 10:06 Dose: 1,000 unit Dabigatran (Pradaxa -) 150 mg PO BID [facility] Last Admin: 03/18/19 10:06 Dose: 150 mg Dorzolamide HCl (Trusopt 2%) 1 drop OU BID [facility] Last Admin: 03/18/19 10:07 Dose: 1 drop Enalapril Maleate (Vasotec -) 10 mg PO BID [facility] Last Admin: 03/18/19 10:06 Dose: 10 mg Folic Acid (Folic Acid -) 1 mg PO DAILY [facility] Last Admin: 03/18/19 10:06 Dose: 1 mg Furosemide (Lasix -) 40 mg PO DAILY [facility] Last Admin: 03/18/19 10:06 Dose: 40 mg Dextrose/Sodium Chloride (D5-1/2ns -) 1,000 mls @ 42 mls/hr IV ASDIR [facility] Last Admin: 03/17/19 22:02 Dose: Not Given Insulin Aspart (Novolog Vial Sliding Scale -) 1 vial SQ ACHS [facility]; Protocol Last Admin: 03/18/19 13:01 Dose: Not Given Latanoprost (Xalatan 0.005% Eye Drops -) 1 drop OU HS [facility] Last Admin: 03/17/19 22:03 Dose: 1 drop Levothyroxine Sodium (Synthroid -) 75 mcg PO DAILY@0700 [facility] Last Admin: 03/18/19 06:17 Dose: 75 mcg Montelukast Sodium (Singulair -) 10 mg PO HS [facility] Last Admin: 03/17/19 22:03 Dose: 10 mg Multivitamins/Minerals/Vitamin C (Tab-A-Vit -) 1 tab PO DAILY [facility] Last Admin: 03/18/19 10:06 Dose: 1 tab Potassium Chloride (K-Dur -) 20 meq PO DAILY [facility] Last Admin: 03/18/19 10:06 Dose: 20 meq Prednisone (Deltasone -) 60 mg PO DAILY [facility] Last Admin: 03/18/19 10:06 Dose: 60 mg Senna (Senna -) 2 tab PO HS [facility] Last Admin: 03/17/19 22:03 Dose: 2 tab Silver Sulfadiazine (Silvadene -) 1 applic TP DAILY [facility] Last Admin: 03/18/19 10:07 Dose: 1 applic - Objective Vital Signs: Vital Signs Temperature 98.4 F 03/18/19 05:55 Pulse Rate 67 03/18/19 09:00 Respiratory Rate 18 03/18/19 09:00 Blood Pressure 138/70 03/18/19 09:00 O2 Sat by Pulse Oximetry (%) 98 03/18/19 09:00 Constitutional: Yes: Well Nourished, Calm Eyes: Yes: WNL HENT: Yes: WNL Neck: Yes: WNL Cardiovascular: Yes: Regular Rate and Rhythm, S1, S2 Respiratory: Yes: Diminished Gastrointestinal: Yes: Normal Bowel Sounds (less distended), Soft Extremities: Yes: WNL Edema: No Labs: CBC, BMP 03/18/19 06:00 03/18/19 06:00 Assessment/Plan Problem List - Problems (1) COPD (chronic obstructive pulmonary disease) Code(s): J44.9 - CHRONIC OBSTRUCTIVE PULMONARY DISEASE, UNSPECIFIED Qualifiers: COPD type: unspecified COPD Qualified Code(s): J44.9 - Chronic obstructive pulmonary disease, unspecified (2) Shortness of breath Code(s): R06.02 - SHORTNESS OF BREATH (3) CHF (congestive heart failure) Code(s): I50.9 - HEART FAILURE, UNSPECIFIED (4) H/O: stroke with residual effects Code(s): I69.30 - UNSPECIFIED SEQUELAE OF CEREBRAL INFARCTION (5) Hypertensive cardiomyopathy Code(s): I11.9 - HYPERTENSIVE HEART DISEASE WITHOUT HEART FAILURE; I43 - CARDIOMYOPATHY IN DISEASES CLASSIFIED ELSEWHERE Qualifiers: Heart failure presence: without heart failure Qualified Code(s): I11.9 - Hypertensive heart disease without heart failure; I43 - Cardiomyopathy in diseases classified elsewhere (6) Hypothyroidism Code(s): E03.9 - HYPOTHYROIDISM, UNSPECIFIED Qualifiers: Hypothyroidism type: unspecified Qualified Code(s): E03.9 - Hypothyroidism , unspecified (7) Persistent atrial fibrillation Code(s): I48.1 - PERSISTENT ATRIAL FIBRILLATION (8) Type 2 diabetes mellitus Code(s): E11.9 - TYPE 2 DIABETES MELLITUS WITHOUT COMPLICATIONS Qualifiers: Diabetes mellitus chcf insulin use: without chcf use Assessment/Plan Supplemental O2 as needed Steroid taper BD TX standing and PRN Aspiration precautions Luann WOLFE Problem List - Problems (1) COPD (chronic obstructive pulmonary disease) Code(s): J44.9 - CHRONIC OBSTRUCTIVE PULMONARY DISEASE, UNSPECIFIED Qualifiers: COPD type: unspecified COPD Qualified Code(s): J44.9 - Chronic obstructive pulmonary disease, unspecified (2) Shortness of breath Code(s): R06.02 - SHORTNESS OF BREATH (3) CHF (congestive heart failure) Code(s): I50.9 - HEART FAILURE, UNSPECIFIED (4) H/O: stroke with residual effects Code(s): I69.30 - UNSPECIFIED SEQUELAE OF CEREBRAL INFARCTION (5) Hypertensive cardiomyopathy Code(s): I11.9 - HYPERTENSIVE HEART DISEASE WITHOUT HEART FAILURE; I43 - CARDIOMYOPATHY IN DISEASES CLASSIFIED ELSEWHERE Qualifiers: Heart failure presence: without heart failure Qualified Code(s): I11.9 - Hypertensive heart disease without heart failure; I43 - Cardiomyopathy in diseases classified elsewhere (6) Hypothyroidism Code(s): E03.9 - HYPOTHYROIDISM, UNSPECIFIED Qualifiers: Hypothyroidism type: unspecified Qualified Code(s): E03.9 - Hypothyroidism , unspecified (7) Persistent atrial fibrillation Code(s): I48.1 - PERSISTENT ATRIAL FIBRILLATION (8) Type 2 diabetes mellitus Code(s): E11.9 - TYPE 2 DIABETES MELLITUS WITHOUT COMPLICATIONS Qualifiers: Diabetes mellitus ferry terminal agent insulin use: without chcf use
[2019-03-18] MEDS ORDERED: predniSONE 20 MG TABLET (UD) PO SCH (14:11)
[2019-03-18] MEDS ORDERED: INSULIN (NOVOLOG) ASPART 100 UNITS/ML 10ML VIAL ONE ×2 (17:18→20:49)
[2019-03-18] MEDS: DEXTROSE 5%-0.45% SALINE 1,000 ML IV SCH (17:22)
[2019-03-18] MEDS ORDERED: PT OWN MED DRAWER 7, Y5N ONE (20:50)
[2019-03-18] MEDS: ATORVASTATIN CA 40 MG TABLET (FP) PO SCH (21:24)
[2019-03-18] MEDS: SENNOSIDES 8.6MG TABLET (FP) PO SCH (21:25)
[2019-03-18] MEDS: MONTELUKAST NA 10 MG TABLET PO SCH (21:25)
[2019-03-18] MEDS: LATANOPROST 0.005% OPHTH SOLN 2.5ML BOTTLE OU SCH (21:25)
[2019-03-19 05:31] VITALS: TEMP 98.2
[2019-03-19] MEDS: LEVOTHYROXINE NA 75 MCG TABLET (FP) PO SCH (06:13)
[2019-03-19] MEDS: INSULIN SLIDING SCALE (NOVOLOG) 1 VIAL SQ SCH (06:13)
[2019-03-19] MEDS: ALBUTEROL SO4 2.5/IPRATROPIUM 0.5 INH SOL 3 ML VIAL.NEB. NEB SCH ×2 (08:18→11:57)
[2019-03-19] MEDS: BUDESONIDE 0.5 MG/2 ML INH SUSP VIAL NEB SCH (08:18)
--- NOTE | 2019-03-19 09:55 | PN ---
Progress Note, Physician Chief Complaint: GI FOLLOW UP NOTE Patient examined and case discussed with Dr Bell Patient examined in bed. Patient denies nausea, vomiting, abdominal pain, melena, rectal bleeding. Repeat FUA shows no evidence of distended loop small bowel. Rectal tube removed. - Current Medication List Current Medications: Active Medications Albuterol Sulfate (Ventolin 0.083% Nebulizer Soln -) 1 amp NEB Q4H PRN PRN Reason: SHORT OF BREATH/WHEEZING Albuterol/Ipratropium (Duoneb -) 1 amp NEB RQID [facility] Last Admin: 03/19/19 08:18 Dose: 1 amp Amlodipine Besylate (Norvasc -) 5 mg PO DAILY [facility] Last Admin: 03/18/19 10:06 Dose: 5 mg Atorvastatin Calcium (Lipitor -) 40 mg PO HS [facility] Last Admin: 03/18/19 21:24 Dose: 40 mg Bisacodyl (Dulcolax -) 10 mg PO BID [facility] Last Admin: 03/18/19 21:24 Dose: 10 mg Budesonide (Pulmicort 0.5 Mg Nebulizer -) 1 amp NEB RBID [facility] Last Admin: 03/19/19 08:18 Dose: 1 amp Carvedilol (Coreg -) 3.125 mg PO BID [facility] Last Admin: 03/18/19 21:24 Dose: 3.125 mg Cholecalciferol (Vitamin D3 -) 1,000 unit PO DAILY [facility] Last Admin: 03/18/19 10:06 Dose: 1,000 unit Dabigatran (Pradaxa -) 150 mg PO BID [facility] Last Admin: 03/18/19 22:15 Dose: Not Given Dorzolamide HCl (Trusopt 2%) 1 drop OU BID [facility] Last Admin: 03/18/19 21:25 Dose: 1 drop Enalapril Maleate (Vasotec -) 10 mg PO BID [facility] Last Admin: 03/18/19 21:25 Dose: 10 mg Folic Acid (Folic Acid -) 1 mg PO DAILY [facility] Last Admin: 03/18/19 10:06 Dose: 1 mg Furosemide (Lasix -) 40 mg PO DAILY [facility] Last Admin: 03/18/19 10:06 Dose: 40 mg Dextrose/Sodium Chloride (D5-1/2ns -) 1,000 mls @ 42 mls/hr IV ASDIR [facility] Last Admin: 03/18/19 17:22 Dose: Not Given Insulin Aspart (Novolog Vial Sliding Scale -) 1 vial SQ ACHS [facility]; Protocol Last Admin: 03/19/19 06:13 Dose: 2 units Latanoprost (Xalatan 0.005% Eye Drops -) 1 drop OU HS [facility] Last Admin: 03/18/19 21:25 Dose: 1 drop Levothyroxine Sodium (Synthroid -) 75 mcg PO DAILY@0700 [facility] Last Admin: 03/19/19 06:13 Dose: 75 mcg Montelukast Sodium (Singulair -) 10 mg PO HS [facility] Last Admin: 03/18/19 21:25 Dose: 10 mg Multivitamins/Minerals/Vitamin C (Tab-A-Vit -) 1 tab PO DAILY [facility] Last Admin: 03/18/19 10:06 Dose: 1 tab Potassium Chloride (K-Dur -) 20 meq PO DAILY [facility] Last Admin: 03/18/19 10:06 Dose: 20 meq Prednisone (Deltasone -) 50 mg PO DAILY [facility] Senna (Senna -) 2 tab PO [facility] Last Admin: 03/18/19 21:25 Dose: 2 tab Silver Sulfadiazine (Silvadene -) 1 applic TP DAILY [facility] Last Admin: 03/18/19 10:07 Dose: 1 applic - Objective Vital Signs: Vital Signs Temperature 98.2 F 03/19/19 05:30 Pulse Rate 50 L 03/19/19 05:30 Respiratory Rate 18 03/19/19 05:30 Blood Pressure 150/73 03/19/19 05:30 O2 Sat by Pulse Oximetry (%) 98 03/18/19 09:00 Constitutional: Yes: No Distress, Calm Eyes: Yes: Conjunctiva Clear HENT: Yes: Atraumatic Cardiovascular: Yes: Regular Rate and Rhythm Respiratory: Yes: Regular, On Nasal O2, Wheezes Gastrointestinal: Yes: Normal Bowel Sounds, Soft Neurological: Yes: Alert, Pre-Existing Deficit Psychiatric: Yes: Alert Labs: CBC, BMP 03/18/19 06:00 03/18/19 06:00 Problem List - Problems (1) Dilated bowel Assessment/Plan: >Rectal tube removed >FUA shows no evidence of distended loop of small bowel >patient has underlying volvulus, patient will continue with recurrent episode of volvulus without surgical repair Code(s): [id number] -
[2019-03-19] MEDS: DABIGATRAN ETEXILATE MESYLATE 150 MG CAPSULE PO SCH (10:33)
[2019-03-19] MEDS: ENALAPRIL MALEATE 10 MG TABLET (FP) PO SCH (10:33)
[2019-03-19] MEDS: CHOLECALCIFEROL (VITAMIN D3) 1,000 UNIT TABLET (FP) PO SCH (10:33)
[2019-03-19] MEDS: amLODIPine BESYLATE 5 MG TABLET (FP) PO SCH (10:33)
[2019-03-19] MEDS: CARVEDILOL 3.125 MG TABLET (FP) PO SCH (10:33)
[2019-03-19] MEDS: FUROSEMIDE 40 MG TABLET (FP) PO SCH (10:34)
[2019-03-19] MEDS: POTASSIUM CHLORIDE TABS 20 MEQ TABLET.ER (FP) PO SCH (10:34)
[2019-03-19] MEDS: MULTIVITAMINS (DAILY MVI) TABLET (FP) PO SCH (10:34)
[2019-03-19] MEDS: FOLIC ACID 1 MG TABLET (FP) PO SCH (10:34)
[2019-03-19] MEDS: BISACODYL 5 MG TABLET.DR (FP) PO SCH (10:34)
[2019-03-19] MEDS: DORZOLAMIDE 2% HCL OPHTHALMIC SOLUTION 10 ML BOTTLE OU SCH (10:34)
[2019-03-19] MEDS: SILVER SULFADIAZINE 1% TOP CREAM 400 GM JAR TP SCH (10:34)
--- NOTE | 2019-03-19 10:45 | DS ---
Physical Examination Vital Signs: Vital Signs Temperature 98.2 F 03/19/19 05:30 Pulse Rate 50 L 03/19/19 05:30 Respiratory Rate 18 03/19/19 05:30 Blood Pressure 150/73 03/19/19 05:30 O2 Sat by Pulse Oximetry (%) 98 03/18/19 09:00 Findings/Remarks: pt seen/ examined chart reviewed awake/ comfortable. eating well having BM rectal tube out Constitutional: Yes: No Distress, Calm Eyes: Yes: Conjunctiva Clear Neck: Yes: Supple Cardiovascular: Yes: Regular Rate and Rhythm Respiratory: Yes: CTA Bilaterally Gastrointestinal: Yes: Soft Edema: No Neurological: Yes: Pre-Existing Deficit Labs: CBC, BMP 03/18/19 06:00 03/18/19 06:00 Discharge Summary Reason For Visit: SHORTNESS OF BREATH,PANCYTOPENIA,COPD Current Active Problems Acquired megacolon (Acute) Acute respiratory failure (Acute) COPD (chronic obstructive pulmonary disease) (Acute) COPD with acute exacerbation (Acute) Chronic constipation (Acute) Hypochromic microcytic anemia (Acute) Leukopenia (Acute) Microcytic anemia (Acute) Pancytopenia (Acute) Shortness of breath (Acute) Sigmoid volvulus (Acute) Thrombocytopenia (Acute) Hospital Course: Stable In summary acute COPD/CHF -- on nebs -- Lasix po --keep O2 -- sob due to distended abdomen much better Ileus/dilated bowel-- as per Dr Perea -- acquired megacolon -- has a rectal tube-- taken out now -- cancelled sigmoidoscopy due to bradycardia -- poor surgical candidate as he has a recent CVA, afib, CHF -- brother informed -- cardiology eval noted Pancytopenia --WBC improving -- he is afebrile. -- continue Pradaxa for Afib and recent CVA -- dc protonix -- no neutropenic precautions AFib -- rate is controlled -- continue with pradaxa Will d/c back to intermediate Meds reconcilled Discussed with nursing staff Condition: Stable - Instructions Disposition: [facility] - Home Medications Comprehensive Discharge Medication List: Ambulatory Orders Amlodipine Besylate [Norvasc -] 5 mg PO DAILY 06/10/17 Cholecalciferol (Vitamin D3) [Vitamin D3 -] 1,000 unit PO DAILY 06/10/17 Dabigatran Etexilate Mesylate [Pradaxa -] 150 mg PO BID 06/10/17 Dorzolamide HCl [Trusopt 2% -] 1 drop OU BID 06/10/17 Enalapril Maleate [Vasotec] 10 mg PO BID 06/10/17 Folic Acid 1 mg PO DAILY 06/10/17 Furosemide [Lasix -] 40 mg PO DAILY 06/10/17 Latanoprost 0.005% Eye Drops [Xalatan 0.005% Eye Drops -] 1 drop OU HS 06/10/17 Levothyroxine [Synthroid -] 75 mcg PO DAILY 06/10/17 Montelukast Na [Singulair -] 10 mg PO HS 06/10/17 Multivitamin [Poly-Vitamin] 1 each PO DAILY 06/10/17 Omeprazole 20 mg PO DAILY 06/10/17 Potassium Chloride 20 meq PO DAILY 06/10/17 metFORMIN HCL [Metformin HCl] 500 mg PO DAILY 06/10/17 Budesonide [Pulmicort 0.5 mg Nebulizer -] 1 neb NEB ONCE 03/07/19 Docusate Sodium [Colace] 100 mg PO DAILY 03/07/19 Ipratropium/Albuterol Sulfate [Iprat-Albut 0.5-3(2.5) mg/3 ml] 3 ml IH DAILY Sennosides [Senna] 17.2 mg PO HS 03/07/19 Silver Sulfadiazine 1% Top Cr [Silvadene -] 1 applic TP DAILY 03/07/19 Aspirin [ASA -] 81 mg PO DAILY tab.chew 03/12/19 Atorvastatin Ca [Lipitor] 40 mg PO HS tablet 03/12/19 Bisacodyl [Bisacodyl -] 10 mg PO BID tablet. 03/12/19 Carvedilol [Coreg -] 3.125 mg PO BID tablet 03/12/19 Insulin Sliding Scale [Novolog Vial Sliding Scale -] 1 vial SQ ACHS units 03/12 Albuterol 0.083% Nebulizer Santa [Ventolin 0.083% Nebulizer Soln -] 1 amp NEB Q4H PRN amp 03/19/19 predniSONE [Deltasone -] 40 mg PO DAILY tablet 03/19/19
[2019-03-19 11:52] VITALS: BP 136/83; PULSE 67
== END 2019-03-19 14:29 | DRG 393 ==
LOC: JER 19:27 → JERBED 21:54 → J6S 03-13 01:59 → OBSVTOIN 03-13 06:00
PROVIDERS: ADMIT Internal Medicine; ATTEND Internal Medicine
DX: K59.39 Other megacolon (principal); J96.00 Acute respiratory failure, unspecified whether with hypoxia or hypercapnia; K56.2 Volvulus; I69.351 Hemiplegia and hemiparesis following cerebral infarction affecting right dominant side; D61.818 Other pancytopenia; I48.1 Persistent atrial fibrillation; K56.7 Ileus, unspecified; J44.1 Chronic obstructive pulmonary disease with (acute) exacerbation; I43 Cardiomyopathy in diseases classified elsewhere; E78.5 Hyperlipidemia, unspecified; I69.320 Aphasia following cerebral infarction; E11.51 Type 2 diabetes mellitus with diabetic peripheral angiopathy without gangrene; E03.9 Hypothyroidism, unspecified; I44.7 Left bundle-branch block, unspecified; I25.10 Atherosclerotic heart disease of native coronary artery without angina pectoris; F03.90 Unspecified dementia, unspecified severity, without behavioral disturbance, psychotic disturbance, mood disturbance, and anxiety; D69.6 Thrombocytopenia, unspecified; D50.9 Iron deficiency anemia, unspecified; R00.1 Bradycardia, unspecified; I11.0 Hypertensive heart disease with heart failure; I50.9 Heart failure, unspecified; K59.09 Other constipation
CPT/HCPCS: 36415; 71045-TC-FY; 71046-TC-FY; 74018-TC-FY; 74019-TC-FY; 80048; 80053; 82550; 82553; 82962; 83735; 83880; 84443; 84484; 85025; 93005; 93010; 93306-TC; 94640; 99282-25; G0378

== ENCOUNTER 2019-12-24 22:40 | Inpatient (IN) | payer OTHER ==
--- NOTE | 2019-12-24 23:24 | PDOC ---
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 abdominal x- ray showed, "bowel pattern, suggestive of a high grade ileus to include an evolving bowel obstruction clinical correlation is advised with follow up for assessment for resolution". Pt aphasic at baseline can occasionally indicate understanding but further hx can't be obtained 12/25/19 00:12 Past History - Past Medical History Allergies/Adverse Reactions: Allergies Allergy/AdvReac Type Severity Reaction Status Date / Time No Known Allergies Allergy Verified 06/10/17 14:26 Home Medications: Ambulatory Orders Amlodipine Besylate [Norvasc -] 5 mg PO DAILY 06/10/17 Cholecalciferol (Vitamin D3) [Vitamin D3 -] 1,000 unit PO DAILY 06/10/17 Dabigatran Etexilate Mesylate [Pradaxa -] 150 mg PO BID 06/10/17 Dorzolamide HCl [Trusopt 2% -] 1 drop OU BID 06/10/17 Enalapril Maleate [Vasotec] 10 mg PO BID 06/10/17 Folic Acid 1 mg PO DAILY 06/10/17 Furosemide [Lasix -] 40 mg PO DAILY 06/10/17 Latanoprost 0.005% Eye Drops [Xalatan 0.005% Eye Drops -] 1 drop OU HS 06/10/17 Levothyroxine [Synthroid -] 75 mcg PO DAILY 06/10/17 Montelukast Na [Singulair -] 10 mg PO HS 06/10/17 Multivitamin [Poly-Vitamin] 1 each PO DAILY 06/10/17 Omeprazole 20 mg PO DAILY 06/10/17 Potassium Chloride 20 meq PO DAILY 06/10/17 metFORMIN HCL [Metformin HCl] 500 mg PO DAILY 06/10/17 Budesonide [Pulmicort 0.5 mg Nebulizer -] 1 neb NEB ONCE 03/07/19 Ipratropium/Albuterol Sulfate [Iprat-Albut 0.5-3(2.5) mg/3 ml] 3 ml IH DAILY Sennosides [Senna] 17.2 mg PO HS 03/07/19 Silver Sulfadiazine 1% Top Cr [Silvadene -] 1 applic TP DAILY 03/07/19 Aspirin [ASA -] 81 mg PO DAILY tab.chew 03/12/19 Atorvastatin Ca [Lipitor] 40 mg PO HS tablet 03/12/19 Carvedilol [Coreg -] 3.125 mg PO BID tablet 03/12/19 Insulin Sliding Scale [Novolog Vial Sliding Scale -] 1 vial SQ ACHS units 03/12 Albuterol 0.083% Nebulizer Santa [Ventolin 0.083% Nebulizer Soln -] 1 amp NEB Q4H PRN amp 03/19/19 Nitrofurantoin Monohyd/M-Cryst [Macrobid -] 100 mg PO BID #14 capsule 12/28/19 Polyethylene Glycol 3350 [Miralax (For Daily Use) -] 17 gm PO DAILY #1 bottle Sodium Phosphate,[place]-Dibasic [Fleet Enema] 133 ml RC Q2D #20 enema 12/28/19 Anemia: Yes Asthma: Yes Cardiac Disorders: Yes (PAD/CHF/A-FIB) CVA: Yes (DYSPHAGIC/APHASIC & RIGHT HEMIPARESIS/HEMIPLEGIC) COPD: Yes Diabetes: Yes HTN: Yes Hypercholesterolemia: Yes Thyroid Disease: Yes (HYPO) - Surgical History GI Surgery: Yes ("ENTANGLED INTESTINAL REPAIR") - Immunization History Immunization Up to Date: Yes - Psycho Social/Smoking Cessation Hx Smoking History: Unknown if ever smoked Have you smoked in the past 12 months: No Information on smoking cessation initiated: No Hx Alcohol Use: No Drug/Substance Use Hx: No Substance Use Type: None *Physical Exam - Vital Signs Last Vital Signs Temp Pulse Resp BP Pulse Ox 99.0 F 59 L 18 142/61 97 12/24/19 22:45 12/24/19 22:45 12/24/19 22:45 12/24/19 22:45 12/24/19 22:45 - Physical Exam 12/25/19 00:24 GENERAL:Well developed, well nourished. Awake and alert. No acute distress. HEENT:Normocephalic, atraumatic. PERRL. No conjunctival pallor. Sclera are non- icteric. Moist mucous membranes. Oropharynx is clear. NECK: Supple. Full ROM. No JVD. No thyromegaly. No lymphadenopathy. CARDIOVASCULAR: bradycardic, irregular rhythm.No murmurs, rubs, or gallops. Distal pulses are 2+ and symmetric. PULMONARY: No evidence of respiratory distress.y. expiratory wheezing at lung base., rales or rhonchi. ABDOMINAL:distended abdomen, with possible hernia, MUSCULOSKELETAL Normal range of motion at all joints. No bony deformities or tenderness. No CVA tenderness. EXTREMITIES: chronic stasis dermatitis changes in left lower extremity. right leg more swollen than right up to calf. right pedal edema 1+ SKIN: Warm and dry. Normal capillary refill. No rashes. No jaundice. NEUROLOGICAL: alert and awake. can follow commands. bedbound at [facility]. right arm contracted and across chest. PSYCHIATRIC: Cooperative. Good eye contact. Appropriate mood and affect. 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
--- NOTE | 2019-12-24 23:28 | PDOC ---
Attending Attestation - Resident Resident Name: Anni Rodriguez - ED Attending Attestation I have performed the following: I have examined & evaluated the patient, The case was reviewed & discussed with the resident, I agree w/resident's findings & plan - HPI HPI: 12/25/19 17:11 see resident hpi - Physicial Exam PE: 12/25/19 17:11 see resident exam - Medical Decision Making 12/25/19 17:11 84-year-old male sent for evaluation of possible bowel obstruction based on outpatient work-up Abdomen is distended, plan for CT scan abdomen and pelvis for further evaluation Case signed out to night attending/team pending results
[2019-12-25] MEDS: ALBUTEROL SO4 2.5/IPRATROPIUM 0.5 INH SOL 3 ML VIAL.NEB. NEB SCH (00:30)
[2019-12-25] MEDS ORDERED: ALBUTEROL SO4 2.5/IPRATROPIUM 0.5 INH SOL 3 ML VIAL.NEB. NEB ONE (00:32)
[2019-12-25 01:09] LABS: BASO % 0.6 % (0-2.0); EOS % 1.8 % (0-4.5); HEMATOCRIT 33.2 % (35.4-49); HEMOGLOBIN 10.5 GM/dL (11.7-16.9); LYMPH % 23.5 % (8-40); MCH 22.8 pg (25.7-33.7); MCHC 31.6 g/dl (32.0-35.9); MEAN PLT VOLUME 9.3 fl (7.5-11.1); MONO % 14.1 % (3.8-10.2); PLATELET COUNT 142 K/MM3 (134-434); RBC 4.61 M/mm3 (4.00-5.60); WHITE BLOOD COUNT 5.3 K/mm3 (4.0-10.0)
[2019-12-25 02:48] LABS: INR 1.65 (0.83-1.09); PROTHROMBIN TIME (PATIENT) 19.6 SEC (9.7-13.0)
[2019-12-25 02:50] LABS: ACTIVATED PTT 47.4 SECONDS (25.2-36.5)
[2019-12-25 02:51] LABS: ALBUMIN 3.1 g/dl (3.4-5.0); BILIRUBIN,TOTAL 0.7 mg/dL (0.2-1); BLOOD UREA NITROGEN 11.1 mg/dL (7-18); CALCIUM 8.6 mg/dL (8.5-10.1); CREATININE 0.7 mg/dL (0.55-1.3); N-TERMINAL BNP 2933.9 pg/ml (5-450); POTASSIUM 3.3 mmol/L (3.5-5.1); TOT PROT 7.5 g/dl (6.4-8.2)
[2019-12-25] MEDS ORDERED: POTASSIUM CHLORIDE TABS 20 MEQ TABLET.ER (FP) PO ONE ×2 (03:06→03:22)
[2019-12-25] MEDS ORDERED: MAGNESIUM SULF 50% (8.12 MEQ/2 ML-1 GM VIAL) IVPB ONE (03:06)
[2019-12-25] MEDS ORDERED: MAGNESIUM 1GM/D5W - 1 GM/100 ML IVPB IVPB ONE (03:22)
[2019-12-25] MEDS: KCL 10 MEQ IVPB 10 MEQ/100 ML INFUS.BAG IVPB SCH ×3 (03:48→06:37)
[2019-12-25 04:10] LABS: HYALINE CASTS 3 /lpf (0-8); PH,URINE 5.5 (5.0-8.0); URINE APPEARANCE TURBID; URINE BACTERIA 2353.4 /hpf (NEGATIVE); URINE BILIRUBIN NEGATIVE (NEGATIVE); URINE COLOR YELLOW; URINE GLUCOSE (UA) NEGATIVE (NEGATIVE); URINE KETONE NEGATIVE (NEGATIVE); URINE LEUK ESTERASE 3+ (NEGATIVE); URINE NITRITE NEGATIVE (NEGATIVE); URINE PROTEIN 1+ (NEGATIVE); URINE RBC 6 /hpf (0-4); URINE WBC 236 /hpf (0-5)
--- NOTE | 2019-12-25 05:38 | PDOC ---
*Physical Exam - Vital Signs Last Vital Signs Temp Pulse Resp BP Pulse Ox 99.0 F 59 L 18 142/61 97 12/24/19 22:45 12/24/19 22:45 12/24/19 22:45 12/24/19 22:45 12/24/19 22:45 ED Treatment Course - LABORATORY CBC & Chemistry Diagram: 12/25/19 00:30 12/25/19 02:00 - ADDITIONAL ORDERS Additional order review: Laboratory Results 12/25/19 12/25/19 12/25/19 03:45 02:00 02:00 PT with INR INR PTT (Actin FS) Sodium 135 L Potassium 3.3 L Chloride 102 Carbon Dioxide 25 Anion Gap 8 BUN 11.1 Creatinine 0.7 Est GFR (CKD-EPI)AfAm 100.44 Est GFR (CKD-EPI)NonAf 86.66 Random Glucose 127 H Lactic Acid 1.8 Calcium 8.6 Total Bilirubin 0.7 AST 19 ALT 14 Alkaline Phosphatase 98 Creatine Kinase 140 Troponin I 0.03 B-Natriuretic Peptide 2933.9 H Total Protein 7.5 Albumin 3.1 L Urine Color Yellow Urine Appearance Turbid Urine pH 5.5 Ur Specific [place] 1.017 Urine Protein 1+ H Urine Glucose (UA) Negative Urine Ketones Negative Urine Blood Trace Urine Nitrite Negative Urine Bilirubin Negative Urine Urobilinogen 1.0 Ur Leukocyte Esterase 3+ H Urine WBC (Auto) 236 Urine RBC (Auto) 6 Urine Casts (Auto) 3 U Epithel Cells (Auto) 1.0 Urine Bacteria (Auto) 2353.4 12/25/19 12/25/19 02:00 00:30 PT with INR 19.60 H INR 1.65 H PTT (Actin FS) 47.4 H Sodium Cancelled Potassium Cancelled Chloride Cancelled Carbon Dioxide Cancelled Anion Gap Cancelled BUN Cancelled Creatinine Cancelled Est GFR (CKD-EPI)AfAm Cancelled Est GFR (CKD-EPI)NonAf Cancelled Random Glucose Cancelled Lactic Acid Calcium Cancelled Total Bilirubin Cancelled AST Cancelled ALT Cancelled Alkaline Phosphatase Cancelled Creatine Kinase Cancelled Troponin I Cancelled B-Natriuretic Peptide Cancelled Total Protein Cancelled Albumin Cancelled Urine Color Urine Appearance Urine pH Ur Specific [place] Urine Protein Urine Glucose (UA) Urine Ketones Urine Blood Urine Nitrite Urine Bilirubin Urine Urobilinogen Ur Leukocyte Esterase Urine WBC (Auto) Urine RBC (Auto) Urine Casts (Auto) U Epithel Cells (Auto) Urine Bacteria (Auto) 12/25/19 00:30 RBC 4.61 MCV 72.0 L MCHC 31.6 L RDW 17.0 H MPV 9.3 Neutrophils % 60.0 D Lymphocytes % 23.5 Monocytes % 14.1 H Eosinophils % 1.8 D Basophils % 0.6 D - RADIOLOGY Radiology Studies Ordered: Category Date Time Status ABDOMEN & PELVIS CT WITH CONTR [CT] Stat CT Scan 12/25/19 02:21 Taken - Medications Given in the ED: ED Medications Discontinued Medications Generic Name Dose Route Start Last Admin Trade Name Freq PRN Reason Stop Dose Admin Albuterol/Ipratropium 1 amp 12/24/19 23:45 12/25/19 00:30 Duoneb - NEB 12/25/19 00:01 1 amp Q15M RAJESH Administration Magnesium Sulfate 1 gm 12/25/19 03:06 12/25/19 03:48 Magnesium Sulfate IVPB 12/25/19 03:07 1 gm ONCE ONE Administration Potassium Chloride 40 meq 12/25/19 03:06 12/25/19 03:47 K-Dur - PO 12/25/19 03:07 Not Given ONCE ONE Medical Decision Making - Medical Decision Making Patient signed out by Dr. 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 CBC WBC 5.3 K/mm3 (4.0-10.0) 12/25/19 00:30 RBC 4.61 M/mm3 (4.00-5.60) 12/25/19 00:30 Hgb 10.5 GM/dL (11.7-16.9) L 12/25/19 00:30 Hct 33.2 % (35.4-49) L 12/25/19 00:30 MCV 72.0 fl (80-96) L 12/25/19 00:30 MCH 22.8 pg (25.7-33.7) L 12/25/19 00:30 MCHC 31.6 g/dl (32.0-35.9) L 12/25/19 00:30 RDW 17.0 % (11.9-15.9) H 12/25/19 00:30 Plt Count 142 K/MM3 (134-434) 12/25/19 00:30 MPV 9.3 fl (7.5-11.1) 12/25/19 00:30 Absolute Neuts (auto) 3.2 K/mm3 (1.5-8.0) 12/25/19 00:30 Neutrophils % 60.0 % (42.8-82.8) D 12/25/19 00:30 Lymphocytes % 23.5 % (8-40) 12/25/19 00:30 Monocytes % 14.1 % (3.8-10.2) H 12/25/19 00:30 Eosinophils % 1.8 % (0-4.5) D 12/25/19 00:30 Basophils % 0.6 % (0-2.0) D 12/25/19 00:30 Nucleated RBC % 0 % (0-0) 12/25/19 00:30 No leukocytosis CMP Sodium 135 mmol/L (136-145) L 12/25/19 02:00 Potassium 3.3 mmol/L (3.5-5.1) L 12/25/19 02:00 Chloride 102 mmol/L (98-107) 12/25/19 02:00 Carbon Dioxide 25 mmol/L (21-32) 12/25/19 02:00 Anion Gap 8 MMOL/L (8-16) 12/25/19 02:00 BUN 11.1 mg/dL (7-18) 12/25/19 02:00 Creatinine 0.7 mg/dL (0.55-1.3) 12/25/19 02:00 Est GFR (CKD-EPI)AfAm 100.44 12/25/19 02:00 Est GFR (CKD-EPI)NonAf 86.66 12/25/19 02:00 Random Glucose 127 mg/dL (74-106) H 12/25/19 02:00 Lactic Acid 1.8 mmol/L (0.4-2.0) 12/25/19 02:00 Calcium 8.6 mg/dL (8.5-10.1) 12/25/19 02:00 Total Bilirubin 0.7 mg/dL (0.2-1) 12/25/19 02:00 AST 19 U/L (15-37) 12/25/19 02:00 ALT 14 U/L (13-61) 12/25/19 02:00 Alkaline Phosphatase 98 U/L (45-117) 12/25/19 02:00 Creatine Kinase 140 U/L (26-308) 12/25/19 02:00 Troponin I 0.03 ng/ml (0.00-0.05) 12/25/19 02:00 B-Natriuretic Peptide 2933.9 pg/ml (5-450) H 12/25/19 02:00 Total Protein 7.5 g/dl (6.4-8.2) 12/25/19 02:00 Albumin 3.1 g/dl (3.4-5.0) L 12/25/19 02:00 K low, repleted BNP elevated Lactate normal UA with infection; Rocephin ordered Pending CT report 12/25/19 05:39 CT: "FINDINGS: Lung bases are clear. The visualized cardiac chambers are normal size and configuration. Bilateral renal scarring is noted, worse on the left with a tiny left renal stone. No hydronephrosis. Normal liver, gallbladder, pancreas, spleen, adrenal glands . The stomach and small bowel are normal. There is significant distention of the rectosigmoid colon up to 12.8 cm which places the patient at risk for bowel perforation. There is no transition point and findings could represent a severe ileus or toxic megacolon. No bowel wall thickening. No proximal bowel distention to suggest obstruction. No evidence of volvulus. There is no aortic aneurysm. There is no significant retroperitoneal lymphadenopathy. Infrarenal IVC filter is noted There is no evidence of appendicitis and the appendix is normal gland are normal. No pelvic free fluid is identified. There is no significant pelvic lymphadenopathy. IMPRESSION: Bilateral renal scarring, worse than left with nonobstructing tiny left renal stone Severe distal bowel distention, placement the patient at risk for bowel perforation, which could indicate toxic megacolon or severe ileus." 12/25/19 06:[address] Jenkins, general surgeon We will admit patient 12/25/19 06:36 Discussed case with ANU Ferreira who accepted patient for admission under Dr. Gray Ramos 12/25/19 06:57 As distention is at the point of the rectosigmoid colon, decision made to defer NG tube. Patient manually disimpacted. No stool in the vault, but was able to expel significant flatulance and eventually liquid stool. With less distention on abdominal exam. Patient signed out to Dr. Zaman and day team 12/25/19 07:58 Discharge - Discharge Information Problems reviewed: Yes Clinical Impression/Diagnosis: Ileus Condition: Guarded - Admission Yes - Follow up/Referral - Patient Discharge Instructions - Post Discharge Activity
--- NOTE | 2019-12-25 06:01 | PDOC ---
*Physical Exam - Vital Signs Last Vital Signs Temp Pulse Resp BP Pulse Ox 99.0 F 59 L 18 142/61 97 12/24/19 22:45 12/24/19 22:45 12/24/19 22:45 12/24/19 22:45 12/24/19 22:45 ED Treatment Course - LABORATORY CBC & Chemistry Diagram: 12/26/19 07:10 12/26/19 07:10 - ADDITIONAL ORDERS Additional order review: Laboratory Results 12/25/19 12/25/19 12/25/19 03:45 02:00 02:00 PT with INR INR PTT (Actin FS) Sodium 135 L Potassium 3.3 L Chloride 102 Carbon Dioxide 25 Anion Gap 8 BUN 11.1 Creatinine 0.7 Est GFR (CKD-EPI)AfAm 100.44 Est GFR (CKD-EPI)NonAf 86.66 Random Glucose 127 H Lactic Acid 1.8 Calcium 8.6 Total Bilirubin 0.7 AST 19 ALT 14 Alkaline Phosphatase 98 Creatine Kinase 140 Troponin I 0.03 B-Natriuretic Peptide 2933.9 H Total Protein 7.5 Albumin 3.1 L Urine Color Yellow Urine Appearance Turbid Urine pH 5.5 Ur Specific [place] 1.017 Urine Protein 1+ H Urine Glucose (UA) Negative Urine Ketones Negative Urine Blood Trace Urine Nitrite Negative Urine Bilirubin Negative Urine Urobilinogen 1.0 Ur Leukocyte Esterase 3+ H Urine WBC (Auto) 236 Urine RBC (Auto) 6 Urine Casts (Auto) 3 U Epithel Cells (Auto) 1.0 Urine Bacteria (Auto) 2353.4 12/25/19 12/25/19 02:00 00:30 PT with INR 19.60 H INR 1.65 H PTT (Actin FS) 47.4 H Sodium Cancelled Potassium Cancelled Chloride Cancelled Carbon Dioxide Cancelled Anion Gap Cancelled BUN Cancelled Creatinine Cancelled Est GFR (CKD-EPI)AfAm Cancelled Est GFR (CKD-EPI)NonAf Cancelled Random Glucose Cancelled Lactic Acid Calcium Cancelled Total Bilirubin Cancelled AST Cancelled ALT Cancelled Alkaline Phosphatase Cancelled Creatine Kinase Cancelled Troponin I Cancelled B-Natriuretic Peptide Cancelled Total Protein Cancelled Albumin Cancelled Urine Color Urine Appearance Urine pH Ur Specific [place] Urine Protein Urine Glucose (UA) Urine Ketones Urine Blood Urine Nitrite Urine Bilirubin Urine Urobilinogen Ur Leukocyte Esterase Urine WBC (Auto) Urine RBC (Auto) Urine Casts (Auto) U Epithel Cells (Auto) Urine Bacteria (Auto) 12/25/19 00:30 RBC 4.61 MCV 72.0 L MCHC 31.6 L RDW 17.0 H MPV 9.3 Neutrophils % 60.0 D Lymphocytes % 23.5 Monocytes % 14.1 H Eosinophils % 1.8 D Basophils % 0.6 D - Medications Given in the ED: ED Medications Discontinued Medications Generic Name Dose Route Start Last Admin Trade Name Rasheed PRN Reason Stop Dose Admin Albuterol/Ipratropium 1 amp 12/24/19 23:45 12/25/19 00:30 Duoneb - NEB 12/25/19 00:01 1 amp Q15M RAJESH Administration Magnesium Sulfate 1 gm 12/25/19 03:06 12/25/19 03:48 Magnesium Sulfate IVPB 12/25/19 03:07 1 gm ONCE ONE Administration Potassium Chloride 40 meq 12/25/19 03:06 12/25/19 03:47 K-Dur - PO 12/25/19 03:07 Not Given ONCE ONE Medical Decision Making - Medical Decision Making 12/25/19 06:01 Patient Name: KENNA INTERIANO THIS IS A PRELIMINARY REPORT FROM [facility] DATE OF SERVICE: 2019-12-25 04:38:59 IMAGES: [id number] EXAM: ABDOMEN \T\ PELVIS CT WITH CONTR HISTORY: Abdominal distention COMPARISON: None. FINDINGS: Lung bases are clear. The visualized cardiac chambers are normal size and configuration. Bilateral renal scarring is noted, worse on the left with a tiny left renal stone. No hydronephrosis. Normal liver, gallbladder, pancreas, spleen, adrenal glands . The stomach and small bowel are normal. There is significant distention of the rectosigmoid colon up to 12.8 cm which places the patient at risk for bowel perforation. There is no transition point and findings could represent a severe ileus or toxic megacolon. No bowel wall thickening. No proximal bowel distention to suggest obstruction. No evidence of volvulus. There is no aortic aneurysm. There is no significant retroperitoneal lymphadenopathy. Infrarenal IVC filter is noted There is no evidence of appendicitis and the appendix is normal gland are normal. No pelvic free fluid is identified. There is no significant pelvic lymphadenopathy. IMPRESSION: Bilateral renal scarring, worse than left with nonobstructing tiny left renal stone Severe distal bowel distention, placement the patient at risk for bowel perforation, which could indicate toxic megacolon or severe ileus Discharge - Discharge Information Problems reviewed: Yes Clinical Impression/Diagnosis: Ileus, Dilated bowel Condition: Stable - Follow up/Referral - Patient Discharge Instructions - Post Discharge Activity
[2019-12-25] MEDS ORDERED: CEFTRIAXONE 1,000 MG in DEXTROSE 5%-WATER - 50 ML IVPB ONE (06:19)
[2019-12-25] MEDS ORDERED: CEFTRIAXONE 1 GM/50 ML BAG ONE (06:36)
[2019-12-25] MEDS: DEXTROSE 5%-0.45% SALINE 1,000 ML IV SCH (08:29)
--- NOTE | 2019-12-25 10:32 | PDOC ---
*Physical Exam - Vital Signs Last Vital Signs Temp Pulse Resp BP Pulse Ox 99.0 F 64 18 151/68 97 12/24/19 22:45 12/25/19 06:50 12/25/19 06:50 12/25/19 06:50 12/25/19 06:50 ED Treatment Course - LABORATORY CBC & Chemistry Diagram: 12/25/19 00:30 12/25/19 02:00 - ADDITIONAL ORDERS Additional order review: Laboratory Results 12/25/19 12/25/19 12/25/19 03:45 02:00 02:00 PT with INR INR PTT (Actin FS) Sodium 135 L Potassium 3.3 L Chloride 102 Carbon Dioxide 25 Anion Gap 8 BUN 11.1 Creatinine 0.7 Est GFR (CKD-EPI)AfAm 100.44 Est GFR (CKD-EPI)NonAf 86.66 Random Glucose 127 H Lactic Acid 1.8 Calcium 8.6 Total Bilirubin 0.7 AST 19 ALT 14 Alkaline Phosphatase 98 Creatine Kinase 140 Troponin I 0.03 B-Natriuretic Peptide 2933.9 H Total Protein 7.5 Albumin 3.1 L Urine Color Yellow Urine Appearance Turbid Urine pH 5.5 Ur Specific [place] 1.017 Urine Protein 1+ H Urine Glucose (UA) Negative Urine Ketones Negative Urine Blood Trace Urine Nitrite Negative Urine Bilirubin Negative Urine Urobilinogen 1.0 Ur Leukocyte Esterase 3+ H Urine WBC (Auto) 236 Urine RBC (Auto) 6 Urine Casts (Auto) 3 U Epithel Cells (Auto) 1.0 Urine Bacteria (Auto) 2353.4 12/25/19 12/25/19 02:00 00:30 PT with INR 19.60 H INR 1.65 H PTT (Actin FS) 47.4 H Sodium Cancelled Potassium Cancelled Chloride Cancelled Carbon Dioxide Cancelled Anion Gap Cancelled BUN Cancelled Creatinine Cancelled Est GFR (CKD-EPI)AfAm Cancelled Est GFR (CKD-EPI)NonAf Cancelled Random Glucose Cancelled Lactic Acid Calcium Cancelled Total Bilirubin Cancelled AST Cancelled ALT Cancelled Alkaline Phosphatase Cancelled Creatine Kinase Cancelled Troponin I Cancelled B-Natriuretic Peptide Cancelled Total Protein Cancelled Albumin Cancelled Urine Color Urine Appearance Urine pH Ur Specific [place] Urine Protein Urine Glucose (UA) Urine Ketones Urine Blood Urine Nitrite Urine Bilirubin Urine Urobilinogen Ur Leukocyte Esterase Urine WBC (Auto) Urine RBC (Auto) Urine Casts (Auto) U Epithel Cells (Auto) Urine Bacteria (Auto) 12/25/19 00:30 RBC 4.61 MCV 72.0 L MCHC 31.6 L RDW 17.0 H MPV 9.3 Neutrophils % 60.0 D Lymphocytes % 23.5 Monocytes % 14.1 H Eosinophils % 1.8 D Basophils % 0.6 D - Medications Given in the ED: ED Medications Discontinued Medications Generic Name Dose Route Start Last Admin Trade Name Rasheed PRN Reason Stop Dose Admin Albuterol/Ipratropium 1 amp 12/24/19 23:45 12/25/19 00:30 Duoneb - NEB 12/25/19 00:01 1 amp Q15M RAJESH Administration Potassium Chloride 10 meq in 100 mls @ 100 mls/hr 12/25/19 03:30 12/25/19 06: 37 Potassium Chloride 10 Meq Premix Ivpb - IVPB 12/25/19 06:29 100 mls/hr Q60M RAJESH Administration Ceftriaxone Sodium 1,000 mg/ 50 mls @ 100 mls/hr 12/25/19 06:19 12/25/19 06: 36 Dextrose IVPB 12/25/19 06:48 100 mls/hr ONCE ONE Administration Magnesium Sulfate 1 gm 12/25/19 03:06 12/25/19 03:48 Magnesium Sulfate IVPB 12/25/19 03:07 1 gm ONCE ONE Administration Potassium Chloride 40 meq 12/25/19 03:06 12/25/19 03:47 K-Dur - PO 12/25/19 03:07 Not Given ONCE ONE Medical Decision Making - Medical Decision Making 12/25/19 10:30 pt signed out from night team. CT showing distended distal bowel 12cm. distended abdomen. pending NGT, rectal tube, surgery consult. pt admitted to hospitalist. CHUN by Dr. Mckenzie revealed no hard stool. to prevent risk of perforation, fernández was placed with release of gas and non bloody liquid stool. abdomen softer and less distended. surgery consult: no surgery required at this time, recommended abdominal xr. pt will see gi inpatient. KUB: descending colon measured at 7.4 cm; less distended. will keep npo. Discharge - Discharge Information Problems reviewed: Yes Clinical Impression/Diagnosis: Ileus, Dilated bowel Condition: Stable - Follow up/Referral - Patient Discharge Instructions - Post Discharge Activity
--- NOTE | 2019-12-25 10:56 | PDOC ---
*Physical Exam - Vital Signs Last Vital Signs Temp Pulse Resp BP Pulse Ox 99.0 F 64 18 151/68 97 12/24/19 22:45 12/25/19 06:50 12/25/19 06:50 12/25/19 06:50 12/25/19 06:50 ED Treatment Course - LABORATORY CBC & Chemistry Diagram: 12/25/19 00:30 12/25/19 02:00 - ADDITIONAL ORDERS Additional order review: Laboratory Results 12/25/19 12/25/19 12/25/19 03:45 02:00 02:00 PT with INR INR PTT (Actin FS) Sodium 135 L Potassium 3.3 L Chloride 102 Carbon Dioxide 25 Anion Gap 8 BUN 11.1 Creatinine 0.7 Est GFR (CKD-EPI)AfAm 100.44 Est GFR (CKD-EPI)NonAf 86.66 Random Glucose 127 H Lactic Acid 1.8 Calcium 8.6 Total Bilirubin 0.7 AST 19 ALT 14 Alkaline Phosphatase 98 Creatine Kinase 140 Troponin I 0.03 B-Natriuretic Peptide 2933.9 H Total Protein 7.5 Albumin 3.1 L Urine Color Yellow Urine Appearance Turbid Urine pH 5.5 Ur Specific [place] 1.017 Urine Protein 1+ H Urine Glucose (UA) Negative Urine Ketones Negative Urine Blood Trace Urine Nitrite Negative Urine Bilirubin Negative Urine Urobilinogen 1.0 Ur Leukocyte Esterase 3+ H Urine WBC (Auto) 236 Urine RBC (Auto) 6 Urine Casts (Auto) 3 U Epithel Cells (Auto) 1.0 Urine Bacteria (Auto) 2353.4 12/25/19 12/25/19 02:00 00:30 PT with INR 19.60 H INR 1.65 H PTT (Actin FS) 47.4 H Sodium Cancelled Potassium Cancelled Chloride Cancelled Carbon Dioxide Cancelled Anion Gap Cancelled BUN Cancelled Creatinine Cancelled Est GFR (CKD-EPI)AfAm Cancelled Est GFR (CKD-EPI)NonAf Cancelled Random Glucose Cancelled Lactic Acid Calcium Cancelled Total Bilirubin Cancelled AST Cancelled ALT Cancelled Alkaline Phosphatase Cancelled Creatine Kinase Cancelled Troponin I Cancelled B-Natriuretic Peptide Cancelled Total Protein Cancelled Albumin Cancelled Urine Color Urine Appearance Urine pH Ur Specific [place] Urine Protein Urine Glucose (UA) Urine Ketones Urine Blood Urine Nitrite Urine Bilirubin Urine Urobilinogen Ur Leukocyte Esterase Urine WBC (Auto) Urine RBC (Auto) Urine Casts (Auto) U Epithel Cells (Auto) Urine Bacteria (Auto) 12/25/19 00:30 RBC 4.61 MCV 72.0 L MCHC 31.6 L RDW 17.0 H MPV 9.3 Neutrophils % 60.0 D Lymphocytes % 23.5 Monocytes % 14.1 H Eosinophils % 1.8 D Basophils % 0.6 D - Medications Given in the ED: ED Medications Discontinued Medications Generic Name Dose Route Start Last Admin Trade Name Freq PRN Reason Stop Dose Admin Albuterol/Ipratropium 1 amp 12/24/19 23:45 12/25/19 00:30 Duoneb - NEB 12/25/19 00:01 1 amp Q15M RAJESH Administration Potassium Chloride 10 meq in 100 mls @ 100 mls/hr 12/25/19 03:30 12/25/19 06: 37 Potassium Chloride 10 Meq Premix Ivpb - IVPB 12/25/19 06:29 100 mls/hr Q60M RAJESH Administration Ceftriaxone Sodium 1,000 mg/ 50 mls @ 100 mls/hr 12/25/19 06:19 12/25/19 06: 36 Dextrose IVPB 12/25/19 06:48 100 mls/hr ONCE ONE Administration Magnesium Sulfate 1 gm 12/25/19 03:06 12/25/19 03:48 Magnesium Sulfate IVPB 12/25/19 03:07 1 gm ONCE ONE Administration Potassium Chloride 40 meq 12/25/19 03:06 12/25/19 03:47 K-Dur - PO 12/25/19 03:07 Not Given ONCE ONE Medical Decision Making - Medical Decision Making 12/25/19 10:54 Manual rectal disimpaction by Dr. Mckenzie @ 0715 w/flatus; 24 Love inserted with liquid stool Patient tolerated procedure with significant relief post procedure Discharge - Discharge Information Problems reviewed: Yes Clinical Impression/Diagnosis: Ileus, Dilated bowel Condition: Stable - Follow up/Referral - Patient Discharge Instructions - Post Discharge Activity
--- NOTE | 2019-12-25 14:29 | EKG ---
Test Reason : Blood Pressure : / mmHG Vent. Rate : 055 BPM Atrial Rate : 080 BPM P-R Int : 000 ms QRS Dur : 168 ms QT Int : 466 ms P-R-T Axes : 000 -47 133 degrees QTc Int : 445 ms ATRIAL FIBRILLATION WITH SLOW VENTRICULAR RESPONSE LEFT AXIS DEVIATION LEFT BUNDLE BRANCH BLOCK ABNORMAL ECG Confirmed by MD PREM, JAMES ([id number]) on 12/25/2019 2:29:28 PM Referred By: Confirmed By:JAMES AMARO MD
--- NOTE | 2019-12-25 15:02 | CON.GI ---
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 Patient was noted to have sigmoid volvulus which was decompressed successfully with enemas andrectal tube. 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: CVA, Dementia Cardio/Vascular: Yes: AFIB, CAD, HTN, Hyperlipdemia Pulmonary: Yes: COPD Musculoskeletal: Yes: Hemiplegia Endocrine: Yes: Diabetes Mellitus, Hypothyroidism - Alcohol/Substance Use Hx Alcohol Use: No - Smoking History Smoking history: Unknown if ever smoked Have you smoked in the past 12 months: No - Social History ADL: Support Services History of Recent Travel: No Home Medications - Allergies Allergies/Adverse Reactions: Allergies Allergy/AdvReac Type Severity Reaction Status Date / Time No Known Allergies Allergy Verified 06/10/17 14:26 - Home Medications Home Medications: Ambulatory Orders Amlodipine Besylate [Norvasc -] 5 mg PO DAILY 06/10/17 Cholecalciferol (Vitamin D3) [Vitamin D3 -] 1,000 unit PO DAILY 06/10/17 Dabigatran Etexilate Mesylate [Pradaxa -] 150 mg PO BID 06/10/17 Dorzolamide HCl [Trusopt 2% -] 1 drop OU BID 06/10/17 Enalapril Maleate [Vasotec] 10 mg PO BID 06/10/17 Folic Acid 1 mg PO DAILY 06/10/17 Furosemide [Lasix -] 40 mg PO DAILY 06/10/17 Latanoprost 0.005% Eye Drops [Xalatan 0.005% Eye Drops -] 1 drop OU HS 06/10/17 Levothyroxine [Synthroid -] 75 mcg PO DAILY 06/10/17 Montelukast Na [Singulair -] 10 mg PO HS 06/10/17 Multivitamin [Poly-Vitamin] 1 each PO DAILY 06/10/17 Omeprazole 20 mg PO DAILY 06/10/17 Potassium Chloride 20 meq PO DAILY 06/10/17 metFORMIN HCL [Metformin HCl] 500 mg PO DAILY 06/10/17 Budesonide [Pulmicort 0.5 mg Nebulizer -] 1 neb NEB ONCE 03/07/19 Docusate Sodium [Colace] 100 mg PO DAILY 03/07/19 Ipratropium/Albuterol Sulfate [Iprat-Albut 0.5-3(2.5) mg/3 ml] 3 ml IH DAILY Sennosides [Senna] 17.2 mg PO HS 03/07/19 Silver Sulfadiazine 1% Top Cr [Silvadene -] 1 applic TP DAILY 03/07/19 Aspirin [ASA -] 81 mg PO DAILY tab.chew 03/12/19 Atorvastatin Ca [Lipitor] 40 mg PO HS tablet 03/12/19 Bisacodyl [Bisacodyl -] 10 mg PO BID tablet. 03/12/19 Carvedilol [Coreg -] 3.125 mg PO BID tablet 03/12/19 Insulin Sliding Scale [Novolog Vial Sliding Scale -] 1 vial SQ ACHS units 03/12 Albuterol 0.083% Nebulizer Santa [Ventolin 0.083% Nebulizer Soln -] 1 amp NEB Q4H PRN amp 03/19/19 predniSONE [Deltasone -] 40 mg PO DAILY tablet 03/19/19 Physical Exam-GI Vital Signs: Vital Signs Temperature 99.0 F 12/24/19 22:45 Pulse Rate 73 12/25/19 11:00 Respiratory Rate 17 12/25/19 11:00 Blood Pressure 157/87 12/25/19 11:00 O2 Sat by Pulse Oximetry (%) 98 12/25/19 11:00 Constitutional: Yes: Cachectic Eyes: Yes: Conjunctiva Clear HENT: Yes: Atraumatic Neck: Yes: Supple Gastrointestinal Inspection: Yes: Distention ...Palpate: Yes: Soft. No: Firm/Rigid, Guarding, Hepatomegaly, Mass, Pulsatile Mass, Splenomegaly, Tenderness ...Percussion: Yes: Tympanitic ...Rectal Exam: Yes: Other (inserted rectl tube good decomression) Labs: CBC, BMP 12/25/19 00:30 12/25/19 02:00 INR, PTT INR 1.65 (0.83-1.09) H 12/25/19 02:00 Ambulatory Orders Amlodipine Besylate [Norvasc -] 5 mg PO DAILY 06/10/17 Cholecalciferol (Vitamin D3) [Vitamin D3 -] 1,000 unit PO DAILY 06/10/17 Dabigatran Etexilate Mesylate [Pradaxa -] 150 mg PO BID 06/10/17 Dorzolamide HCl [Trusopt 2% -] 1 drop OU BID 06/10/17 Enalapril Maleate [Vasotec] 10 mg PO BID 06/10/17 Folic Acid 1 mg PO DAILY 06/10/17 Furosemide [Lasix -] 40 mg PO DAILY 06/10/17 Latanoprost 0.005% Eye Drops [Xalatan 0.005% Eye Drops -] 1 drop OU HS 06/10/17 Levothyroxine [Synthroid -] 75 mcg PO DAILY 06/10/17 Montelukast Na [Singulair -] 10 mg PO HS 06/10/17 Multivitamin [Poly-Vitamin] 1 each PO DAILY 06/10/17 Omeprazole 20 mg PO DAILY 06/10/17 Potassium Chloride 20 meq PO DAILY 06/10/17 metFORMIN HCL [Metformin HCl] 500 mg PO DAILY 06/10/17 Budesonide [Pulmicort 0.5 mg Nebulizer -] 1 neb NEB ONCE 03/07/19 Docusate Sodium [Colace] 100 mg PO DAILY 03/07/19 Ipratropium/Albuterol Sulfate [Iprat-Albut 0.5-3(2.5) mg/3 ml] 3 ml IH DAILY Sennosides [Senna] 17.2 mg PO HS 03/07/19 Silver Sulfadiazine 1% Top Cr [Silvadene -] 1 applic TP DAILY 03/07/19 Aspirin [ASA -] 81 mg PO DAILY tab.chew 03/12/19 Atorvastatin Ca [Lipitor] 40 mg PO HS tablet 03/12/19 Bisacodyl [Bisacodyl -] 10 mg PO BID tablet. 03/12/19 Carvedilol [Coreg -] 3.125 mg PO BID tablet 03/12/19 Insulin Sliding Scale [Novolog Vial Sliding Scale -] 1 vial SQ ACHS units 03/12 Albuterol 0.083% Nebulizer Santa [Ventolin 0.083% Nebulizer Soln -] 1 amp NEB Q4H PRN amp 03/19/19 predniSONE [Deltasone -] 40 mg PO DAILY tablet 03/19/19 Active Medications Generic Name Dose Route Start Last Admin Trade Name Freq PRN Reason Stop Dose Admin Dextrose/Sodium Chloride 1,000 mls @ 42 mls/hr 12/25/19 07:00 12/25/19 08:29 D5-1/2ns - IV 42 mls/hr ASDIR RAJESH Administration Imaging - Results Chest X-ray: Image Reviewed Cat Scan: Image Reviewed Problem List - Problems (1) Sigmoid volvulus Assessment/Plan: R> FUA in am remove rectal tube at 5 pm tomorrow fleet enema via rectal tube Code(s): K56.2 - VOLVULUS
--- NOTE | 2019-12-25 17:08 | HP ---
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 abdominal x- ray showed, "bowel pattern, suggestive of a high grade ileus to include an evolving bowel obstruction clinical correlation is advised with follow up for assessment for resolution". 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 Cardiovascular: Yes: AFIB, CAD, HTN, Hyperlipdemia Pulmonary: Yes: COPD Heme/Onc: Yes: Anemia Musculoskeletal: Yes: Hemiplegia Endocrine: Yes: Diabetes Mellitus, Hypothyroidism - Smoking History Smoking history: Unknown if ever smoked Have you smoked in the past 12 months: No - Alcohol/Substance Use Hx Alcohol Use: No - Social History ADL: Support Services History of Recent Travel: No Home Medications - Allergies Allergies/Adverse Reactions: Allergies Allergy/AdvReac Type Severity Reaction Status Date / Time No Known Allergies Allergy Verified 06/10/17 14:26 - Home Medications Home Medications: Ambulatory Orders Amlodipine Besylate [Norvasc -] 5 mg PO DAILY 06/10/17 Cholecalciferol (Vitamin D3) [Vitamin D3 -] 1,000 unit PO DAILY 06/10/17 Dabigatran Etexilate Mesylate [Pradaxa -] 150 mg PO BID 06/10/17 Dorzolamide HCl [Trusopt 2% -] 1 drop OU BID 06/10/17 Enalapril Maleate [Vasotec] 10 mg PO BID 06/10/17 Folic Acid 1 mg PO DAILY 06/10/17 Furosemide [Lasix -] 40 mg PO DAILY 06/10/17 Latanoprost 0.005% Eye Drops [Xalatan 0.005% Eye Drops -] 1 drop OU HS 06/10/17 Levothyroxine [Synthroid -] 75 mcg PO DAILY 06/10/17 Montelukast Na [Singulair -] 10 mg PO HS 06/10/17 Multivitamin [Poly-Vitamin] 1 each PO DAILY 06/10/17 Omeprazole 20 mg PO DAILY 06/10/17 Potassium Chloride 20 meq PO DAILY 06/10/17 metFORMIN HCL [Metformin HCl] 500 mg PO DAILY 06/10/17 Budesonide [Pulmicort 0.5 mg Nebulizer -] 1 neb NEB ONCE 03/07/19 Docusate Sodium [Colace] 100 mg PO DAILY 03/07/19 Ipratropium/Albuterol Sulfate [Iprat-Albut 0.5-3(2.5) mg/3 ml] 3 ml IH DAILY Sennosides [Senna] 17.2 mg PO HS 03/07/19 Silver Sulfadiazine 1% Top Cr [Silvadene -] 1 applic TP DAILY 03/07/19 Aspirin [ASA -] 81 mg PO DAILY tab.chew 03/12/19 Atorvastatin Ca [Lipitor] 40 mg PO HS tablet 03/12/19 Bisacodyl [Bisacodyl -] 10 mg PO BID tablet. 03/12/19 Carvedilol [Coreg -] 3.125 mg PO BID tablet 03/12/19 Insulin Sliding Scale [Novolog Vial Sliding Scale -] 1 vial SQ ACHS units 03/12 Albuterol 0.083% Nebulizer Santa [Ventolin 0.083% Nebulizer Soln -] 1 amp NEB Q4H PRN amp 03/19/19 predniSONE [Deltasone -] 40 mg PO DAILY tablet 03/19/19 Review of Systems - Review of Systems Constitutional: denies: Chills, Fever Gastrointestinal: denies: Abdominal Pain, Bloating, Vomiting Physical Examination Vital Signs: Vital Signs Temperature 99.0 F 12/24/19 22:45 Pulse Rate 73 12/25/19 11:00 Respiratory Rate 17 12/25/19 11:00 Blood Pressure 157/87 12/25/19 11:00 O2 Sat by Pulse Oximetry (%) 98 12/25/19 11:00 Constitutional: Yes: No Distress, Calm Cardiovascular: Yes: Pulse Irregular Respiratory: Yes: CTA Bilaterally Gastrointestinal: Yes: Normal Bowel Sounds, Soft, Distention. No: Tenderness Edema: No Labs: CBC, BMP 12/25/19 00:30 12/25/19 02:00 Imaging - Results Chest X-ray: Image Reviewed Cat Scan: Report Reviewed EKG: Image Reviewed (afib) Problem List - Problems (1) Dilated bowel Code(s): LHJ2091 - (2) Ileus Code(s): K56.7 - ILEUS, UNSPECIFIED (3) Acquired megacolon Code(s): K59.39 - OTHER MEGACOLON (4) CHF (congestive heart failure) Code(s): I50.9 - HEART FAILURE, UNSPECIFIED (5) COPD (chronic obstructive pulmonary disease) Code(s): J44.9 - CHRONIC OBSTRUCTIVE PULMONARY DISEASE, UNSPECIFIED Qualifiers: COPD type: unspecified COPD Qualified Code(s): J44.9 - Chronic obstructive pulmonary disease, unspecified Assessment/Plan PLAN Keep NPO Rectal tube GI and surgical eval iv fluids on Pradaxa
[2019-12-25] MEDS ORDERED: ALBUTEROL SO4 0.083% IH SOL 2.5 MG/3 ML VIAL.NEB. NEB PRN (17:11)
[2019-12-25] MEDS ORDERED: BUDESONIDE 0.5 MG/2 ML INH SUSP VIAL NEB ONE (17:15)
[2019-12-25] MEDS ORDERED: BUDESONIDE 0.5 MG/2 ML INH SUSP VIAL NEB SCH (17:15)
[2019-12-25] MEDS: SODIUM PHOSPHATE/NA BIPHOS 133 ML ENEMA PR SCH ×2 (17:31→20:55)
[2019-12-25] MEDS: LATANOPROST 0.005% OPHTH SOLN 2.5ML BOTTLE OU SCH (22:16)
[2019-12-25] MEDS: ATORVASTATIN CA 40 MG TABLET (FP) PO SCH (22:16)
[2019-12-25] MEDS: ENALAPRIL MALEATE 10 MG TABLET (FP) PO SCH (22:16)
[2019-12-25] MEDS: CARVEDILOL 3.125 MG TABLET (FP) PO SCH (22:16)
[2019-12-25] MEDS: DORZOLAMIDE 2% HCL OPHTHALMIC SOLUTION 10 ML BOTTLE OU SCH (22:17)
--- NOTE | 2019-12-25 22:44 | CONSULT ---
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 abdominal x- ray showed, "bowel pattern, suggestive of a high grade ileus to include an evolving bowel obstruction clinical correlation is advised with follow up for assessment for resolution. 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 Cardio/Vascular: Yes: AFIB, CAD, HTN, Hyperlipdemia Pulmonary: Yes: COPD Musculoskeletal: Yes: Hemiplegia Endocrine: Yes: Diabetes Mellitus, Hypothyroidism - Alcohol/Substance Use Hx Alcohol Use: No - Smoking History Smoking history: Unknown if ever smoked Have you smoked in the past 12 months: No - Social History ADL: Support Services History of Recent Travel: No Home Medications - Allergies Allergies/Adverse Reactions: Allergies Allergy/AdvReac Type Severity Reaction Status Date / Time No Known Allergies Allergy Verified 06/10/17 14:26 - Home Medications Home Medications: Ambulatory Orders Amlodipine Besylate [Norvasc -] 5 mg PO DAILY 06/10/17 Cholecalciferol (Vitamin D3) [Vitamin D3 -] 1,000 unit PO DAILY 06/10/17 Dabigatran Etexilate Mesylate [Pradaxa -] 150 mg PO BID 06/10/17 Dorzolamide HCl [Trusopt 2% -] 1 drop OU BID 06/10/17 Enalapril Maleate [Vasotec] 10 mg PO BID 06/10/17 Folic Acid 1 mg PO DAILY 06/10/17 Furosemide [Lasix -] 40 mg PO DAILY 06/10/17 Latanoprost 0.005% Eye Drops [Xalatan 0.005% Eye Drops -] 1 drop OU HS 06/10/17 Levothyroxine [Synthroid -] 75 mcg PO DAILY 06/10/17 Montelukast Na [Singulair -] 10 mg PO HS 06/10/17 Multivitamin [Poly-Vitamin] 1 each PO DAILY 06/10/17 Omeprazole 20 mg PO DAILY 06/10/17 Potassium Chloride 20 meq PO DAILY 06/10/17 metFORMIN HCL [Metformin HCl] 500 mg PO DAILY 06/10/17 Budesonide [Pulmicort 0.5 mg Nebulizer -] 1 neb NEB ONCE 03/07/19 Docusate Sodium [Colace] 100 mg PO DAILY 03/07/19 Ipratropium/Albuterol Sulfate [Iprat-Albut 0.5-3(2.5) mg/3 ml] 3 ml IH DAILY Sennosides [Senna] 17.2 mg PO HS 03/07/19 Silver Sulfadiazine 1% Top Cr [Silvadene -] 1 applic TP DAILY 03/07/19 Aspirin [ASA -] 81 mg PO DAILY tab.chew 03/12/19 Atorvastatin Ca [Lipitor] 40 mg PO HS tablet 03/12/19 Bisacodyl [Bisacodyl -] 10 mg PO BID tablet. 03/12/19 Carvedilol [Coreg -] 3.125 mg PO BID tablet 03/12/19 Insulin Sliding Scale [Novolog Vial Sliding Scale -] 1 vial SQ ACHS units 03/12 Albuterol 0.083% Nebulizer Santa [Ventolin 0.083% Nebulizer Soln -] 1 amp NEB Q4H PRN amp 03/19/19 predniSONE [Deltasone -] 40 mg PO DAILY tablet 03/19/19 Physical Exam Vital Signs: Vital Signs Temperature 98.1 F 12/25/19 17:25 Pulse Rate 86 12/25/19 20:48 Respiratory Rate 18 12/25/19 20:48 Blood Pressure 141/76 12/25/19 20:48 O2 Sat by Pulse Oximetry (%) 97 12/25/19 20:48 Labs: CBC, BMP 12/25/19 00:30 12/25/19 02:00 Imaging - Results Cat Scan: Report Reviewed, Image Reviewed Problem List - Problems (1) Sigmoid volvulus Code(s): K56.2 - VOLVULUS Assessment/Plan 80 yr old male with numerous medical problems 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 Recommended Hydration, observation and GI consult. Will follow.
[2019-12-25] MEDS: DABIGATRAN ETEXILATE MESYLATE 150 MG CAPSULE PO SCH (22:51)
[2019-12-26 00:04] VITALS: BMI 28.1
[2019-12-26 00:17] LABS: URINE APPEARANCE CLOUDY; URINE BILIRUBIN NEGATIVE (NEGATIVE); URINE COLOR DK YELLOW; URINE GLUCOSE (UA) NEGATIVE (NEGATIVE); URINE KETONE 15 mg/dl (NEGATIVE); URINE NITRITE NEGATIVE (NEGATIVE); URINE PROTEIN 100 (NEGATIVE)
[2019-12-26 00:18] LABS: URINE LEUK ESTERASE MODERATE (NEGATIVE); URINE RBC 45.3 /hpf (0-4)
[2019-12-26 00:19] LABS: EPI CELLS 0.9 /HPF (0-5/HPF); HYALINE CASTS 2.23 /lpf (0-8); URINE BACTERIA 94.6 /hpf (NEGATIVE); URINE WBC 187.2 /hpf (0-5)
[2019-12-26] MEDS: SODIUM PHOSPHATE/NA BIPHOS 133 ML ENEMA PR SCH (00:43)
[2019-12-26] MEDS ORDERED: INSULIN (NOVOLOG) ASPART 100 UNITS/ML 10ML VIAL ONE (06:07)
[2019-12-26] MEDS: INSULIN SLIDING SCALE (NOVOLOG) 1 VIAL SQ SCH ×3 (06:16→17:39)
[2019-12-26] MEDS: LEVOTHYROXINE NA 75 MCG TABLET (FP) PO SCH (06:16)
[2019-12-26] MEDS: metFORMIN HCL 500 MG TABLET (FP) PO SCH (06:16)
[2019-12-26] MEDS: DEXTROSE 5%-0.45% SALINE 1,000 ML IV SCH (06:17)
[2019-12-26 08:23] LABS: EOS % 1.5 % (0-4.5); HEMATOCRIT 28.7 % (35.4-49); HEMOGLOBIN 9.2 GM/dL (11.7-16.9); LYMPH % 14.3 % (8-40); MCH 22.8 pg (25.7-33.7); MCHC 32.2 g/dl (32.0-35.9); MEAN CELL VOLUME 70.7 fl (80-96); MEAN PLT VOLUME 9.6 fl (7.5-11.1); MONO % 14.1 % (3.8-10.2); NEUT % 69.1 % (42.8-82.8); PLATELET COUNT 130 K/MM3 (134-434); RBC 4.05 M/mm3 (4.00-5.60); RDW 17.2 % (11.9-15.9); WHITE BLOOD COUNT 5.4 K/mm3 (4.0-10.0)
[2019-12-26 08:45] LABS: ALBUMIN 2.4 g/dl (3.4-5.0); BILIRUBIN,TOTAL 0.3 mg/dL (0.2-1); BLOOD UREA NITROGEN 10.8 mg/dL (7-18); CREATININE 0.5 mg/dL (0.55-1.3); POTASSIUM 3.2 mmol/L (3.5-5.1); TOT PROT 6.2 g/dl (6.4-8.2)
[2019-12-26] MEDS ORDERED: PT OWN MED DRAWER 7, Y5N ONE (09:22)
[2019-12-26] MEDS ORDERED: DEXTROSE 5%-WATER - 50 ML IVPB ONE (09:30)
[2019-12-26] MEDS ORDERED: cefTRIAXone SODIUM 1 GM VIAL ONE (09:30)
[2019-12-26] MEDS: CEFTRIAXONE 1 GM in DEXTROSE 5%-WATER - 50 ML IVPB SCH (09:57)
[2019-12-26] MEDS: amLODIPine BESYLATE 5 MG TABLET (FP) PO SCH (10:24)
[2019-12-26] MEDS: DABIGATRAN ETEXILATE MESYLATE 150 MG CAPSULE PO SCH ×2 (10:24→21:38)
[2019-12-26] MEDS: ENALAPRIL MALEATE 10 MG TABLET (FP) PO SCH ×2 (10:24→21:39)
[2019-12-26] MEDS: CARVEDILOL 3.125 MG TABLET (FP) PO SCH ×2 (10:24→21:38)
[2019-12-26] MEDS: DORZOLAMIDE 2% HCL OPHTHALMIC SOLUTION 10 ML BOTTLE OU SCH ×2 (10:25→21:38)
--- NOTE | 2019-12-26 10:49 | PN ---
Progress Note (short form) - Note Progress Note: no distress Abd distension decreased passing flatus Vital Signs - 24 hr 12/25/19 12/25/19 12/25/19 20:48 23:00 23:42 Temperature 98.6 F Pulse Rate 73 Pulse Rate [ 86 Right] Respiratory 18 18 18 Rate Blood Pressure 144/74 Blood Pressure 141/76 [Right Arm] O2 Sat by Pulse 97 97 Oximetry (%) 12/26/19 12/26/19 12/26/19 00:00 04:00 05:55 Temperature 98.3 F Pulse Rate 76 Pulse Rate [ Right] Respiratory 18 18 18 Rate Blood Pressure 120/64 Blood Pressure [Right Arm] O2 Sat by Pulse 97 97 Oximetry (%) 12/26/19 12/26/19 12/26/19 09:00 10:34 14:56 Temperature 97.3 F L 98.6 F Pulse Rate 65 70 Pulse Rate [ Right] Respiratory 17 17 17 Rate Blood Pressure 139/69 122/64 Blood Pressure [Right Arm] O2 Sat by Pulse 99 Oximetry (%) Current Medications Generic Name Dose Route Start Last Admin Trade Name Freq PRN Reason Stop Dose Admin Albuterol Sulfate 1 amp 12/25/19 17:11 Ventolin 0.083% Nebulizer Soln - NEB Q4H PRN SHORT OF BREATH/WHEEZING Amlodipine Besylate 5 mg 12/26/19 10:00 12/26/19 10:24 Norvasc - PO 5 mg DAILY RAJESH Administration Atorvastatin Calcium 40 mg 12/25/19 22:00 12/25/19 22:16 Lipitor - PO 40 mg HS RAJESH Administration Carvedilol 3.125 mg 12/25/19 22:00 12/26/19 10:24 Coreg - PO 3.125 mg BID RAJESH Administration Dabigatran 150 mg 12/25/19 22:00 12/26/19 10:24 Pradaxa - PO 150 mg BID RAJESH Administration Dorzolamide HCl 1 drop 12/25/19 22:00 12/26/19 10:25 Trusopt 2% OU 1 units BID RAJESH Administration Enalapril Maleate 10 mg 12/25/19 22:00 12/26/19 10:24 Vasotec - PO 10 mg BID RAJESH Administration Dextrose/Sodium Chloride 1,000 mls @ 42 mls/hr 12/25/19 07:00 12/26/19 06:17 D5-1/2ns - IV 42 mls/hr ASDIR RAJESH Administration Ceftriaxone Sodium 1 gm/ 50 mls @ 100 mls/hr 12/26/19 10:00 12/26/19 09:57 Dextrose IVPB 100 mls/hr DAILY RAJESH Administration Insulin Aspart 0 vial 12/26/19 07:00 12/26/19 17:39 Novolog Vial Sliding Scale - SQ Not Given TIDAC [facility] Protocol Latanoprost 1 drop 12/25/19 22:00 12/25/19 22:16 Xalatan 0.005% Eye Drops - OU 1 units HS RAJESH Administration Levothyroxine Sodium 75 mcg 12/26/19 07:00 12/26/19 06:16 Synthroid - PO 75 mcg AM RAJESH Administration Metformin HCl 500 mg 12/26/19 07:00 12/26/19 06:16 Glucophage - PO 500 mg AM RAJESH Administration Laboratory Results - last 24 hr 12/25/19 12/26/19 12/26/19 20:00 06:04 07:10 WBC 5.4 RBC 4.05 Hgb 9.2 L Hct 28.7 L MCV 70.7 L MCH 22.8 L MCHC 32.2 RDW 17.2 H Plt Count 130 L MPV 9.6 Absolute Neuts (auto) 3.7 Neutrophils % 69.1 Lymphocytes % 14.3 D Monocytes % 14.1 H Eosinophils % 1.5 Basophils % 1.0 Nucleated RBC % 0 Sodium Potassium Chloride Carbon Dioxide Anion Gap BUN Creatinine Est GFR (CKD-EPI)AfAm Est GFR (CKD-EPI)NonAf POC Glucometer 194 Random Glucose Calcium Total Bilirubin AST ALT Alkaline Phosphatase Total Protein Albumin Urine Color Dk yellow Urine Appearance Cloudy Urine pH 6.0 Ur Specific [place] 1.048 H Urine Protein 100 Urine Glucose (UA) Negative Urine Ketones 15 mg/dl Urine Blood Large Urine Nitrite Negative Urine Bilirubin Negative Urine Urobilinogen 1.0 Ur Leukocyte Esterase Moderate Urine WBC (Auto) 187.2 Urine RBC (Auto) 45.3 Urine Casts (Auto) 2.23 U Epithel Cells (Auto) 0.9 Urine Bacteria (Auto) 94.6 12/26/19 12/26/19 12/26/19 07:10 11:47 17:20 WBC RBC Hgb Hct MCV MCH MCHC RDW Plt Count MPV Absolute Neuts (auto) Neutrophils % Lymphocytes % Monocytes % Eosinophils % Basophils % Nucleated RBC % Sodium 136 Potassium 3.2 L Chloride 105 Carbon Dioxide 25 Anion Gap 7 L BUN 10.8 Creatinine 0.5 L Est GFR (CKD-EPI)AfAm 115.33 Est GFR (CKD-EPI)NonAf 99.51 POC Glucometer 122 142 Random Glucose 162 H Calcium 8.0 L Total Bilirubin 0.3 AST 16 ALT 12 L Alkaline Phosphatase 77 Total Protein 6.2 L Albumin 2.4 L Urine Color Urine Appearance Urine pH Ur Specific [place] Urine Protein Urine Glucose (UA) Urine Ketones Urine Blood Urine Nitrite Urine Bilirubin Urine Urobilinogen Ur Leukocyte Esterase Urine WBC (Auto) Urine RBC (Auto) Urine Casts (Auto) U Epithel Cells (Auto) Urine Bacteria (Auto) S1 S2 RRR Lungs decreased Abd- soft, NT decreased distension No edema right arm contracted PLAN GI eval noted start diet Pt is DNR/DNI continue with meds Problem List - Problems (1) Dilated bowel Code(s): [id number] - (2) Ileus Code(s): K56.7 - ILEUS, UNSPECIFIED (3) Sigmoid volvulus Code(s): K56.2 - VOLVULUS (4) Acquired megacolon Code(s): K59.39 - OTHER MEGACOLON (5) Acute CVA (cerebrovascular accident) Code(s): I63.9 - CEREBRAL INFARCTION, UNSPECIFIED (6) CHF (congestive heart failure) Code(s): I50.9 - HEART FAILURE, UNSPECIFIED (7) COPD (chronic obstructive pulmonary disease) Code(s): J44.9 - CHRONIC OBSTRUCTIVE PULMONARY DISEASE, UNSPECIFIED Qualifiers: COPD type: unspecified COPD Qualified Code(s): J44.9 - Chronic obstructive pulmonary disease, unspecified
--- NOTE | 2019-12-26 14:15 | PN.GI ---
GI Progress Note Subjective: tolerated diet, reviewed FUA---sigmoid volvulus resolved - Objective Vital Signs: Vital Signs Temperature 97.3 F L 12/26/19 10:34 Pulse Rate 65 12/26/19 10:34 Respiratory Rate 17 12/26/19 10:34 Blood Pressure 139/69 12/26/19 10:34 O2 Sat by Pulse Oximetry (%) 97 12/26/19 04:00 Constitutional: Well Nourished Eyes: Yes: Conjunctiva Clear HENT: Yes: Atraumatic Neck: Yes: Supple Respiratory: Yes: CTA Bilaterally ...Palpate: Yes: Soft. No: Firm/Rigid, Guarding, Hepatomegaly, Mass, Pulsatile Mass, Splenomegaly Labs: CBC, BMP 12/26/19 07:10 12/26/19 07:10 INR, PTT INR 1.65 (0.83-1.09) H 12/25/19 02:00 - ....Imaging Chest X-ray: Report Reviewed, Image Reviewed Problem List - Problems (1) Sigmoid volvulus Assessment/Plan: resolved R> d/c tube in am Miralax 34 grams daily fleet enema Fri-Friday -Friday as an out patient Code(s): K56.2 - VOLVULUS
[2019-12-26] MEDS ORDERED: POTASSIUM CHLORIDE ORAL LIQUID 20 MEQ/15 ML PO ONE (20:57)
[2019-12-26] MEDS: ATORVASTATIN CA 40 MG TABLET (FP) PO SCH (21:38)
[2019-12-26] MEDS: LATANOPROST 0.005% OPHTH SOLN 2.5ML BOTTLE OU SCH (21:39)
[2019-12-27] MEDS ORDERED: INSULIN (NOVOLOG) ASPART 100 UNITS/ML 10ML VIAL ONE ×2 (06:19→11:44)
[2019-12-27] MEDS: LEVOTHYROXINE NA 75 MCG TABLET (FP) PO SCH (06:22)
[2019-12-27] MEDS: metFORMIN HCL 500 MG TABLET (FP) PO SCH (06:22)
[2019-12-27] MEDS: INSULIN SLIDING SCALE (NOVOLOG) 1 VIAL SQ SCH ×3 (06:31→17:47)
--- NOTE | 2019-12-27 08:16 | PN ---
Progress Note, Physician History of Present Illness: GI FOLLOW UP NOTE Patient examined and case discussed with Dr Bell Patient had one episode of watery stool last night. Abdominal Xray from yesterday showed decreasing sigmoid colonic air distention. No reports of nausea, vomiting, abdominal pain, melena. - Current Medication List Current Medications: Active Medications Albuterol Sulfate (Ventolin 0.083% Nebulizer Soln -) 1 amp NEB Q4H PRN PRN Reason: SHORT OF BREATH/WHEEZING Amlodipine Besylate (Norvasc -) 5 mg PO DAILY [facility] Last Admin: 12/26/19 10:24 Dose: 5 mg Atorvastatin Calcium (Lipitor -) 40 mg PO HS [facility] Last Admin: 12/26/19 21:38 Dose: 40 mg Carvedilol (Coreg -) 3.125 mg PO BID [facility] Last Admin: 12/26/19 21:38 Dose: 3.125 mg Dabigatran (Pradaxa -) 150 mg PO BID [facility] Last Admin: 12/26/19 21:38 Dose: 150 mg Dorzolamide HCl (Trusopt 2%) 1 drop OU BID [facility] Last Admin: 12/26/19 21:38 Dose: 1 units Enalapril Maleate (Vasotec -) 10 mg PO BID [facility] Last Admin: 12/26/19 21:39 Dose: 10 mg Ceftriaxone Sodium 1 gm/ (Dextrose) 50 mls @ 100 mls/hr IVPB DAILY [facility] Last Admin: 12/26/19 09:57 Dose: 100 mls/hr Insulin Aspart (Novolog Vial Sliding Scale -) 0 vial SQ TIDAC [facility]; Protocol Last Admin: 12/27/19 06:31 Dose: Not Given Latanoprost (Xalatan 0.005% Eye Drops -) 1 drop OU [facility] Last Admin: 12/26/19 21:39 Dose: 1 units Levothyroxine Sodium (Synthroid -) 75 mcg PO AM [facility] Last Admin: 12/27/19 06:22 Dose: 75 mcg Metformin HCl (Glucophage -) 500 mg PO AM [facility] Last Admin: 12/27/19 06:22 Dose: 500 mg - Objective Vital Signs: Vital Signs Temperature 99.5 F 12/27/19 06:49 Pulse Rate 61 12/27/19 06:49 Respiratory Rate 21 H 12/27/19 06:49 Blood Pressure 146/56 L 12/27/19 06:49 O2 Sat by Pulse Oximetry (%) 99 12/26/19 21:00 Constitutional: Yes: No Distress, Calm Eyes: Yes: Conjunctiva Clear HENT: Yes: Atraumatic Cardiovascular: Yes: Regular Rate and Rhythm Respiratory: Yes: Regular, Diminished Gastrointestinal: Yes: Normal Bowel Sounds, Soft Genitourinary: Yes: Love Present Neurological: Yes: Alert Psychiatric: Yes: Alert Labs: CBC, BMP 12/26/19 07:10 12/26/19 07:10 INR, PTT INR 1.65 (0.83-1.09) H 12/25/19 02:00 Problem List - Problems (1) Sigmoid volvulus Assessment/Plan: >resolving >remove rectal tube >Miralax daily >fleet enema Friday, Friday, Friday Code(s): K56.2 - VOLVULUS
[2019-12-27] MEDS ORDERED: cefTRIAXone SODIUM 1 GM VIAL ONE (09:33)
[2019-12-27] MEDS ORDERED: DEXTROSE 5%-WATER - 50 ML IVPB ONE (09:34)
[2019-12-27] MEDS: DORZOLAMIDE 2% HCL OPHTHALMIC SOLUTION 10 ML BOTTLE OU SCH ×2 (09:36→21:45)
[2019-12-27] MEDS: ENALAPRIL MALEATE 10 MG TABLET (FP) PO SCH ×2 (09:37→21:44)
[2019-12-27] MEDS: DABIGATRAN ETEXILATE MESYLATE 150 MG CAPSULE PO SCH ×2 (09:37→21:32)
[2019-12-27] MEDS: amLODIPine BESYLATE 5 MG TABLET (FP) PO SCH (09:37)
[2019-12-27] MEDS: CARVEDILOL 3.125 MG TABLET (FP) PO SCH ×2 (09:37→21:27)
[2019-12-27] MEDS: CEFTRIAXONE 1 GM in DEXTROSE 5%-WATER - 50 ML IVPB SCH (09:37)
[2019-12-27 09:55] LABS: BLOOD UREA NITROGEN 9.4 mg/dL (7-18); CALCIUM 8.2 mg/dL (8.5-10.1); CREATININE 0.5 mg/dL (0.55-1.3); POTASSIUM 3.8 mmol/L (3.5-5.1)
--- NOTE | 2019-12-27 10:52 | PN ---
Progress Note (short form) - Note Progress Note: Patient had one episode of watery stool last night. Abdominal Xray from 12/26 showed decreasing sigmoid colonic air distention. No reports of nausea, vomiting, abdominal pain, melena. Vital Signs Temperature 99.5 F 12/27/19 06:49 Pulse Rate 61 12/27/19 06:49 Respiratory Rate 21 H 12/27/19 06:49 Blood Pressure 146/56 L 12/27/19 06:49 O2 Sat by Pulse Oximetry (%) 99 12/26/19 21:00 Constitutional: resting comfrotable, NAD Respiratory: unlabored resp on RA Gastrointestinal: soft, mildly distended, Patient with no signs of pain upon palpation of all 4 quadrants. well healed midline incision with palpable hernia , evidence of masses, no rebound or guarding Labs: CBC, BMP 12/26/19 07:10 12/27/19 08:15 INR, PTT INR 1.65 (0.83-1.09) H 12/25/19 02:00 Problem List - Problems (1) Ileus Assessment/Plan: Patient continues to improve -resolving -remove rectal tube -good bowel regime with frequent enemas PRN -Reconsult surgery PRN Evaluation and plan discussed with Dr Huff Code(s): K56.7 - ILEUS, UNSPECIFIED
--- NOTE | 2019-12-27 12:12 | PN ---
Progress Note (short form) - Note Progress Note: pt seen/ examined chart is reviewed d/w Rn also. Rectal tube removed today Vital Signs Temp 99.5 F 12/27/19 06:49 Pulse 61 12/27/19 06:49 Resp 21 H 12/27/19 06:49 BP 146/56 L 12/27/19 06:49 Pulse Ox 99 12/26/19 21:00 Intake & Output 12/26/19 12/27/19 12/27/19 23:59 11:59 23:59 Intake Total 512 Output Total 600 Balance 512 -600 Intake: IV 462 D5-1/2Ns - 1,000 ml @ 42 462 mls/hr IV ASDIR RAJESH Rx#: [id number] IVPB 50 Output: Urine 600 Love 600 Other: Voiding Method Indwelling Catheter Active Medications Albuterol Sulfate (Ventolin 0.083% Nebulizer Soln -) 1 amp NEB Q4H PRN PRN Reason: SHORT OF BREATH/WHEEZING Amlodipine Besylate (Norvasc -) 5 mg PO DAILY [facility] Last Admin: 12/27/19 09:37 Dose: 5 mg Atorvastatin Calcium (Lipitor -) 40 mg PO [facility] Last Admin: 12/26/19 21:38 Dose: 40 mg Carvedilol (Coreg -) 3.125 mg PO BID [facility] Last Admin: 12/27/19 09:37 Dose: 3.125 mg Dabigatran (Pradaxa -) 150 mg PO BID [facility] Last Admin: 12/27/19 09:37 Dose: 150 mg Dorzolamide HCl (Trusopt 2%) 1 drop OU BID [facility] Last Admin: 12/27/19 09:36 Dose: 1 drop Enalapril Maleate (Vasotec -) 10 mg PO BID [facility] Last Admin: 12/27/19 09:37 Dose: 10 mg Ceftriaxone Sodium 1 gm/ (Dextrose) 50 mls @ 100 mls/hr IVPB DAILY [facility] Last Admin: 12/27/19 09:37 Dose: 100 mls/hr Insulin Aspart (Novolog Vial Sliding Scale -) 0 vial SQ TIDAC [facility]; Protocol Last Admin: 12/27/19 11:45 Dose: 2 units Latanoprost (Xalatan 0.005% Eye Drops -) 1 drop OU [facility] Last Admin: 12/26/19 21:39 Dose: 1 units Levothyroxine Sodium (Synthroid -) 75 mcg PO AM [facility] Last Admin: 12/27/19 06:22 Dose: 75 mcg Metformin HCl (Glucophage -) 500 mg PO AM [facility] Last Admin: 12/27/19 06:22 Dose: 500 mg CBC, BMP 12/26/19 07:10 12/27/19 08:15 Microbiology 12/25/19 03:45 Urine Culture - Final Urine - Urine Clean Catch Citrobacter Koseri 12/25/19 20:00 Urine Culture - Preliminary Urine - Urine Love Non Lactose Fermenting Gnb Non Lactose Fermenting Gnb#2 12/25/19 20:08 Blood Culture - Preliminary Blood - Peripheral Venous NO GROWTH OBTAINED AFTER 24 HOURS, INCUBATION TO CONTINUE FOR 4 DAYS. 12/25/19 20:08 Blood Culture - Preliminary Blood - Peripheral Venous NO GROWTH OBTAINED AFTER 24 HOURS, INCUBATION TO CONTINUE FOR 4 DAYS. Physical S1 S2 RRR Lungs decreased Abd- soft, NT No edema right arm contracted PLAN Better start diet have BM rectal tube removed monitor lytes Pt is DNR/DNI continue with meds if stable and better- anticipate d/c in am Hold Metformin for now. Problem List - Problems (1) Dilated bowel Code(s): QIJ1414 - (2) Ileus Code(s): K56.7 - ILEUS, UNSPECIFIED (3) Sigmoid volvulus Code(s): K56.2 - VOLVULUS (4) Acquired megacolon Code(s): K59.39 - OTHER MEGACOLON (5) Acute CVA (cerebrovascular accident) Code(s): I63.9 - CEREBRAL INFARCTION, UNSPECIFIED (6) CHF (congestive heart failure) Code(s): I50.9 - HEART FAILURE, UNSPECIFIED (7) COPD (chronic obstructive pulmonary disease) Code(s): J44.9 - CHRONIC OBSTRUCTIVE PULMONARY DISEASE, UNSPECIFIED Qualifiers: COPD type: unspecified COPD Qualified Code(s): J44.9 - Chronic obstructive pulmonary disease, unspecified
[2019-12-27] MEDS: ATORVASTATIN CA 40 MG TABLET (FP) PO SCH (21:25)
[2019-12-27] MEDS ORDERED: PT OWN MED DRAWER 7, Y5N ONE (21:28)
[2019-12-27] MEDS: LATANOPROST 0.005% OPHTH SOLN 2.5ML BOTTLE OU SCH (21:44)
[2019-12-28] MEDS: INSULIN SLIDING SCALE (NOVOLOG) 1 VIAL SQ SCH ×2 (06:00→12:22)
[2019-12-28] MEDS: LEVOTHYROXINE NA 75 MCG TABLET (FP) PO SCH (06:00)
[2019-12-28 07:44] LABS: BASO % 0.9 % (0-2.0); EOS % 3.9 % (0-4.5); HEMATOCRIT 29.1 % (35.4-49); HEMOGLOBIN 9.2 GM/dL (11.7-16.9); LYMPH % 19.8 % (8-40); MCH 22.9 pg (25.7-33.7); MCHC 31.7 g/dl (32.0-35.9); MEAN CELL VOLUME 72.5 fl (80-96); MEAN PLT VOLUME 9.5 fl (7.5-11.1); MONO % 14.1 % (3.8-10.2); NEUT % 61.3 % (42.8-82.8); PLATELET COUNT 137 K/MM3 (134-434); RBC 4.02 M/mm3 (4.00-5.60); RDW 17.5 % (11.9-15.9); WHITE BLOOD COUNT 4.8 K/mm3 (4.0-10.0)
[2019-12-28 08:15] LABS: ALBUMIN 2.5 g/dl (3.4-5.0); BILIRUBIN,TOTAL 0.4 mg/dL (0.2-1); BLOOD UREA NITROGEN 9.3 mg/dL (7-18); CALCIUM 8.1 mg/dL (8.5-10.1); CREATININE 0.6 mg/dL (0.55-1.3); POTASSIUM 3.5 mmol/L (3.5-5.1); TOT PROT 6.3 g/dl (6.4-8.2)
--- NOTE | 2019-12-28 08:40 | PN ---
Progress Note, Physician History of Present Illness: GI FOLLOW UP NOTE Patient examined and case discussed with Dr Bell Patient had multiple episodes of watery stool yesterday. Rectal tube removed. No reports of nausea, vomiting, abdominal pain, melena. - Current Medication List Current Medications: Active Medications Albuterol Sulfate (Ventolin 0.083% Nebulizer Soln -) 1 amp NEB Q4H PRN PRN Reason: SHORT OF BREATH/WHEEZING Amlodipine Besylate (Norvasc -) 5 mg PO DAILY [facility] Last Admin: 12/27/19 09:37 Dose: 5 mg Atorvastatin Calcium (Lipitor -) 40 mg PO HS [facility] Last Admin: 12/27/19 21:25 Dose: 40 mg Carvedilol (Coreg -) 3.125 mg PO BID [facility] Last Admin: 12/27/19 21:27 Dose: 3.125 mg Dabigatran (Pradaxa -) 150 mg PO BID [facility] Last Admin: 12/27/19 21:32 Dose: 150 mg Dorzolamide HCl (Trusopt 2%) 1 drop OU BID [facility] Last Admin: 12/27/19 21:45 Dose: 1 drop Enalapril Maleate (Vasotec -) 10 mg PO BID [facility] Last Admin: 12/27/19 21:44 Dose: 10 mg Ceftriaxone Sodium 1 gm/ (Dextrose) 50 mls @ 100 mls/hr IVPB DAILY [facility] Last Admin: 12/27/19 09:37 Dose: 100 mls/hr Insulin Aspart (Novolog Vial Sliding Scale -) 0 vial SQ TIDAC [facility]; Protocol Last Admin: 12/28/19 06:00 Dose: Not Given Latanoprost (Xalatan 0.005% Eye Drops -) 1 drop OU [facility] Last Admin: 12/27/19 21:44 Dose: 1 units Levothyroxine Sodium (Synthroid -) 75 mcg PO AM [facility] Last Admin: 12/28/19 06:00 Dose: 75 mcg - Objective Vital Signs: Vital Signs Temperature 98.3 F 12/28/19 06:00 Pulse Rate 85 12/28/19 06:00 Respiratory Rate 20 12/28/19 06:00 Blood Pressure 141/84 12/28/19 06:00 O2 Sat by Pulse Oximetry (%) 98 12/27/19 21:00 Constitutional: Yes: No Distress, Calm Eyes: Yes: Conjunctiva Clear HENT: Yes: Atraumatic Cardiovascular: Yes: Bradycardia Respiratory: Yes: Regular, Diminished Gastrointestinal: Yes: Normal Bowel Sounds, Soft Genitourinary: Yes: Incontinence Neurological: Yes: Alert, Pre-Existing Deficit Psychiatric: Yes: Alert Labs: CBC, BMP 12/28/19 07:00 12/28/19 07:00 INR, PTT INR 1.65 (0.83-1.09) H 12/25/19 02:00 Problem List - Problems (1) Sigmoid volvulus Assessment/Plan: >resolving >Miralax daily >fleet enema Friday, Friday, Friday when discharged Code(s): K56.2 - VOLVULUS
[2019-12-28] MEDS ORDERED: PT OWN MED DRAWER 7, Y5N ONE (10:14)
[2019-12-28] MEDS ORDERED: cefTRIAXone SODIUM 1 GM VIAL ONE (10:14)
[2019-12-28] MEDS ORDERED: DEXTROSE 5%-WATER - 50 ML IVPB ONE (10:14)
[2019-12-28] MEDS: CEFTRIAXONE 1 GM in DEXTROSE 5%-WATER - 50 ML IVPB SCH (10:18)
[2019-12-28] MEDS: amLODIPine BESYLATE 5 MG TABLET (FP) PO SCH (10:19)
[2019-12-28] MEDS: DABIGATRAN ETEXILATE MESYLATE 150 MG CAPSULE PO SCH (10:19)
[2019-12-28] MEDS: ENALAPRIL MALEATE 10 MG TABLET (FP) PO SCH (10:19)
[2019-12-28] MEDS: CARVEDILOL 3.125 MG TABLET (FP) PO SCH (10:19)
[2019-12-28] MEDS: DORZOLAMIDE 2% HCL OPHTHALMIC SOLUTION 10 ML BOTTLE OU SCH (10:20)
--- NOTE | 2019-12-28 12:00 | DS ---
Physical Examination Vital Signs: Vital Signs Temperature 98.3 F 12/28/19 06:00 Pulse Rate 85 12/28/19 06:00 Respiratory Rate 20 12/28/19 06:00 Blood Pressure 141/84 12/28/19 06:00 O2 Sat by Pulse Oximetry (%) 98 12/27/19 21:00 Constitutional: Yes: No Distress, Calm Cardiovascular: Yes: Regular Rate and Rhythm Respiratory: Yes: CTA Bilaterally Gastrointestinal: Yes: Normal Bowel Sounds, Soft. 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 abdominal x- ray showed, "bowel pattern, suggestive of a high grade ileus to include an evolving bowel obstruction clinical correlation is advised with follow up for assessment for resolution". Pt aphasic at baseline can occasionally indicate understanding but further hx can't be obtained Pt examined by me in the ER He was sent from [facility] for possible SBO on abd xray done in [place] -- he denies any complaints Seen by GI and Surgery Has chronic sigmoid volvulus-- rectal tube placed and removed on 12/27- Pt clinically better PLAN-- (1) Sigmoid volvulus Assessment/Plan: >resolving >Miralax 34 gm daily >fleet enema Friday, Friday, Friday stable for dc to [place] Condition: Stable - Instructions Diet, Activity, Other Instructions: - Problems (1) Sigmoid volvulus Assessment/Plan: >resolving >Miralax daily >fleet enema Friday, Friday, Friday when discharged [facility] - Home Medications Comprehensive Discharge Medication List: Ambulatory Orders Amlodipine Besylate [Norvasc -] 5 mg PO DAILY 06/10/17 Cholecalciferol (Vitamin D3) [Vitamin D3 -] 1,000 unit PO DAILY 06/10/17 Dabigatran Etexilate Mesylate [Pradaxa -] 150 mg PO BID 06/10/17 Dorzolamide HCl [Trusopt 2% -] 1 drop OU BID 06/10/17 Enalapril Maleate [Vasotec] 10 mg PO BID 06/10/17 Folic Acid 1 mg PO DAILY 06/10/17 Furosemide [Lasix -] 40 mg PO DAILY 06/10/17 Latanoprost 0.005% Eye Drops [Xalatan 0.005% Eye Drops -] 1 drop OU HS 06/10/17 Levothyroxine [Synthroid -] 75 mcg PO DAILY 06/10/17 Montelukast Na [Singulair -] 10 mg PO HS 06/10/17 Multivitamin [Poly-Vitamin] 1 each PO DAILY 06/10/17 Omeprazole 20 mg PO DAILY 06/10/17 Potassium Chloride 20 meq PO DAILY 06/10/17 metFORMIN HCL [Metformin HCl] 500 mg PO DAILY 06/10/17 Budesonide [Pulmicort 0.5 mg Nebulizer -] 1 neb NEB ONCE 03/07/19 Docusate Sodium [Colace] 100 mg PO DAILY 03/07/19 Ipratropium/Albuterol Sulfate [Iprat-Albut 0.5-3(2.5) mg/3 ml] 3 ml IH DAILY Sennosides [Senna] 17.2 mg PO HS 03/07/19 Silver Sulfadiazine 1% Top Cr [Silvadene -] 1 applic TP DAILY 03/07/19 Aspirin [ASA -] 81 mg PO DAILY tab.chew 03/12/19 Atorvastatin Ca [Lipitor] 40 mg PO HS tablet 03/12/19 Bisacodyl [Bisacodyl -] 10 mg PO BID tablet. 03/12/19 Carvedilol [Coreg -] 3.125 mg PO BID tablet 03/12/19 Insulin Sliding Scale [Novolog Vial Sliding Scale -] 1 vial SQ ACHS units 03/12 Albuterol 0.083% Nebulizer [place] [Ventolin 0.083% Nebulizer Soln -] 1 amp NEB Q4H PRN amp 03/19/19 predniSONE [Deltasone -] 40 mg PO DAILY tablet 03/19/19
[2019-12-28] MEDS ORDERED: INSULIN (NOVOLOG) ASPART 100 UNITS/ML 10ML VIAL ONE (12:22)
[2019-12-28 15:12] VITALS: BP 125/52; PULSE 74; TEMP 98
== END 2019-12-28 18:20 | DRG 389 ==
LOC: JER 22:40 → JERBED 12-25 06:57 → J6S 12-25 21:52
PROVIDERS: ADMIT Internal Medicine; ATTEND Internal Medicine
DX: K56.2 Volvulus (principal); K59.39 Other megacolon; N39.0 Urinary tract infection, site not specified; I69.351 Hemiplegia and hemiparesis following cerebral infarction affecting right dominant side; R64 Cachexia; K56.7 Ileus, unspecified; J44.9 Chronic obstructive pulmonary disease, unspecified; I25.10 Atherosclerotic heart disease of native coronary artery without angina pectoris; I48.91 Unspecified atrial fibrillation; I10 Essential (primary) hypertension; E11.9 Type 2 diabetes mellitus without complications; I50.9 Heart failure, unspecified; E78.5 Hyperlipidemia, unspecified; E03.9 Hypothyroidism, unspecified; I69.320 Aphasia following cerebral infarction; Z68.28 Body mass index [BMI] 28.0-28.9, adult
CPT/HCPCS: 36415; 71045-TC-FY; 74018-TC-FY; 74019-TC-FY; 74177-TC; 80048; 80053; 81003; 82550; 82962; 83605; 83880; 84484; 85025; 85610; 85730; 87040; 87077; 87086; 87186; 93005; 93010; 99285-25; Q9967